=== PATIENT | male | born 1990 | race Caucasian/White ===

== ENCOUNTER 2025-06-07 12:59 | Emergency (ER) | payer OTHER, SELFPAY ==
[2025-06-07 13:01] VITALS: BP 131/90; PULSE 85; RESP 16; TEMP 37.1; O2SAT 100; BMI 29.8
--- NOTE | 2025-06-07 13:45 | EKG12_ITS ---
Test Reason : CP Blood Pressure : */* mmHG Vent. Rate : 82 BPM Atrial Rate : 82 BPM P-R Int : 126 ms QRS Dur : 92 ms QT Int : 374 ms P-R-T Axes : 24 3 26 degrees QTcB Int : 436 ms Normal sinus rhythm Normal ECG Confirmed by BERTO AUGUSTIN, WENDY ([id number]), visual effects editor LARRY ROTH ([id number]) on 06/11/2025 9:02:03 AM Referred By: JENN/SERGEY Confirmed By: WENDY THOMSON MD
--- NOTE | 2025-06-07 13:45 | CT_ITS ---
PROCEDURE: CTA HEAD AND NECK W/ CONTRAST 06/07/2025 REASON FOR EXAM: HEADACHE, LEFT ARM PARAESTHESIAS Chest pain. TECHNIQUE: Procedure Code: CTCTA.HDNCK Modality: CT Procedure: CTA HEAD AND NECK W/ CONTRAST Multiplanar Sagittal and Coronal images were obtained. 3D post processing was performed CONTRAST: Isovue 370 VOLUME: 100 mL One or more dose reduction techniques were used (e.g., Automated exposure control, adjustment of the mA and/or kV according to patient size, use of iterative reconstruction technique). RADIATION DOSE SUMMARY: CTDlvol: 28.6 mGy DLP: 1600.71 mGycm COMPARISON: None FINDINGS: Aortic Arch: Minimal atherosclerotic plaque formation of the aortic arch. Brachiocephalic and Subclavians: Unremarkable RIGHT Carotid: Right CCA: Unremarkable. Right ICA: Minimal calcific plaque Right ECA: Unremarkable. LEFT Carotid: Left CCA: Unremarkable. Left ICA: Unremarkable. Left ECA: Unremarkable. Vertebrals: Codominant. Arise from the subclavians. Both vertebrals form the basilar. RIGHT Vertebral: Unremarkable. LEFT Vertebral: Unremarkable. Anatomy: [place] anatomy is normal. Aneurysm or avm: No intracranial aneurysms or large vascular malformations are identified. Anterior cerebral arteries: Unremarkable: Middle cerebral arteries: Unremarkable. Basilar artery: Unremarkable. Posterior cerebral arteries: Unremarkable. Other major branches of the posterior circulation: Unremarkable. Major venous structures: Unremarkable. Other findings: Neck: Lungs: Bones: CT/CTA Head AND Neck W/ Contrast IMPRESSION: Minimal calcific plaque at the origin of the right internal carotid artery. Reading Location: [id number]
--- NOTE | 2025-06-07 13:47 | EX.ED.DYSGE1 ---
HPI History of Present Illness Chief Complaint: Chest Pain Detail of Chief Complaint: Chest pain and left arm paresthesias Informant: patient Narrative Narrative: Patient presents with multiple vague complaints progressively worse over the last 2 to 3 weeks. Patient states that he has had symptoms like this throughout the years but have never lasted this long. He describes a burning discomfort in his left shoulder that at times radiates down to his left hand and at times into his jaw. He describes headache by the end of the day and lightheadedness and feels off balance. Describes diffuse fatigue. He states that he feels shaky on the inside at times. At times he said difficulty swallowing. Gives history of diverticulitis and history of GERD and had recent upper and lower scopes that were unremarkable otherwise. Patient states he has had headaches his whole life. He feels like he has history of anxiety but currently not being treated. He does have history of hypertension and high cholesterol. No cardiac history and he does not know his father's history. Denies recent travel or surgery. [facility] Medical History (Updated 06/07/25 @ 14:[address] Leah Partida, DO) Chest pain Home Medications ?Medication ?Instructions ?Recorded ?Last Taken ?Type lorazepam 1 mg tablet (Ativan) 1 mg PO TID PRN anxiety #10 tabs 06/07/25 Unknown Rx Allergy/AdvReac Type Severity Reaction Status Date / Time No Known Allergies Allergy Verified 06/07/25 13:02 Social History (Updated 06/07/25 @ 13:15 by Nancy Cornelius) household members: spouse housing: house Smoking Status: Never smoker ROS ROS ED ROS Narrative Feeling shaky Review of Systems ROS Unobtainable: other Constitutional Constitutional ED: Reports lethargy; Denies chills, fever(s), sweats or weight loss Eyes Eyes: Denies blurry vision, change in vision or diplopia ENT ENT ED: Denies rhinorrhea or sore throat Cardiovascular Cardiovascular: Reports chest pain; Denies orthopnea or racing heartbeat Respiratory/Chest Respiratory/Chest: Denies cough, dyspnea, dyspnea on exertion, orthopnea or sputum Gastrointestinal Gastrointestinal: Reports other Details: Trouble swallowing ; Denies abdominal pain, diarrhea, nausea or vomiting Genitourinary Genitourinary ED: Denies dysuria, hematuria or urinary frequency Musculoskeletal Musculoskeletal: Denies arthralgias, back pain, myalgias or neck pain Integumentary Denies abscess, Abrasions or rash Neurologic Neurologic: Reports headache(s), paresthesias and other Details: Feeling off balance ; Denies weakness Psychiatric Psychiatric: Denies anxiety, depression or suicidal thoughts Endocrine Endocrinology: Denies polydipsia, polyphagia or polyuria Hematologic/Lymphatic Hematologic/Lymphatic: Denies easy bleeding, easy bruising or lymphadenopathy Allergic/Immunologic Allergic/Immunologic ED: Denies mouth swelling, tongue swelling or urticaria EXAM Physical Exam Const Vital Signs: 06/07/25 13:01 06/07/25 13:51 06/07/25 14:01 Temperature 98.7 F Temperature Source Oral Pulse Rate 85 86 Respiratory Rate 16 Blood Pressure 131/90 H 153/97 H Blood Pressure Mean 103 115 Pulse Ox 100 100 100 Oxygen Delivery Method Room Air Room Air Positive well nourished and well developed General Appearance ED: well developed and NAD HEENT Reports TM's clear and moist mucous membranes normocephalic and atraumatic; Negative for trauma or tenderness Tympanic Membrane ED: Yes TM's clear Eyes PERRL and EOMs intact bilaterally General Eye ED: Negative for pale conjunctiva or scleral icterus Neck no lymphadenopathy, supple and no JVD General: Negative for tenderness Chest Wall inspection of chest normal and palpation of chest normal Chest: Negative for tenderness Resp normal respiratory effort and clear to auscultation bilaterally Effort and Inspection: Negative for respiratory distress or pain with movement Auscultation: Negative for rhonchi, wheezes or diminished lung sounds Cardio regular rate, regular rhythm, S1 normal heart sound, S2 normal heart sound and no murmurs Peripheral Pulses: pulses 2+ throughout GI normal to inspection, nondistended, normoactive bowel sounds, soft to palpation, non-tender, non-distended and no masses Back/Spine no CVA tenderness and no thoracic nor lumbar tenderness Extremity normal to inspection General Extremety ED: Negative for edema General Extremity: Negative for edema Neuro oriented x3, CN's II-XII intact bilaterally, no sensory deficits noted and gait normal Sensorium / Orientation: awake, alert, oriented to person, oriented to place and oriented to time Motor Exam: strength 5/5 throughout and strength abnormal Psych mental status grossly normal Skin no rashes or lesions noted and no wounds MDM MDM MDM Narrative Medical decision making narrative: Patient presents to the ER with multiple complaints. Symptoms have been ongoing for years but worse over the last 2 to 3 weeks for another consistent. Clinically he looks well but does have history of hypertension and high cholesterol. He has history of frequent headaches. Low suspicion for cardiac etiology. EKG obtained on arrival showed a sinus rhythm with rate of 82 bpm with no acute ST segment changes. CBC with differential shows a white count of 16.1 with hemoglobin 16 and platelet count of 350. Chemistry is unremarkable. Troponin normal at 7. I did obtain a CT scan of the brain without contrast as well as CTA of head and neck to rule out intracranial process such as brain tumor or aneurysm and these tests were unremarkable. This point discussed results with patient. Etiology of his elevated WBC count unclear. He has not had any significant infectious signs or symptoms. Suspect possibility of anxiety as etiology of his symptomatology. He is willing to try some as needed Ativan and then follow-up with his primary care physician. Lab Data Attestation: I reviewed the patient's lab results. Labs: Laboratory Results - last 24 hr 06/07/25 13:12 WBC 16.1 H RBC 5.12 Hgb 16.0 Hct 45.9 MCV 89.6 MCH 31.3 MCHC 34.9 RDW Std Deviation 43.0 RDW Coeff of Ciro 13.1 Plt Count 350 MPV 9.9 Immature Gran % (Auto) 0.300 Neut % (Auto) 78.1 H Lymph % (Auto) 16.0 L Bartholomew % (Auto) 5.0 Eos % (Auto) 0.2 Baso % (Auto) 0.4 Absolute Neuts (auto) 12.5 H Absolute Lymphs (auto) 2.56 Nucleated RBC % 0 Sodium 139 Potassium 4.2 Chloride 102 Carbon Dioxide 22.5 Anion Gap 14 BUN 14 Creatinine 0.79 Estim Creat Clear Calc 144.61 Est GFR (MDRD) Non-Af 118 BUN/Creatinine Ratio 17.8 Glucose 89 Calcium 10.0 Troponin T High Sens 7 Radiography Diagnostic Testing: Clinical Impression(s) from Imaging Studies Head/Neck CTA 06/07/25 13:45 IMPRESSION: Minimal calcific plaque at the origin of the right internal carotid artery. [id number] 06/07/25 13:50 IMPRESSION: No acute intracranial abnormality. Reading Location: [facility] Chest X-Ray 06/07/25 14:00 IMPRESSION: No Acute Findings. Reading [id number] chest x-ray obtained interpreted by myself as no evidence of infiltrate or pneumothorax or acute disease process. Radiology in agreement. EKG Initial EKG: Attestation: I personally reviewed and interpreted this EKG as follows: Comments: Sinus rhythm with rate of 82 bpm with no acute ST segment changes Discharge Plan Triage Chief Complaint: Chest Pain ED Provider: Leah Partida Dx/Rx/DC Orders Clinical Impression: Chest pain, Anxiety, Headache Instructions: ED Anxiety Reaction, ED Chest Pain, Uncertain Cause, ED Headache, Tension Prescriptions: New lorazepam [Ativan] 1 mg tablet 1 mg PO TID PRN (Reason: anxiety) Qty: 10 0RF Primary Care Provider: Rosario Roberts Referrals: Rosario Roberts MD [Primary Care Provider] - 3-5 Days Print Language: Greek Disposition Disposition: Home, Self Care
--- NOTE | 2025-06-07 13:50 | CT_ITS ---
PROCEDURE: BRAIN/HEAD WITHOUT CONTRAST 06/07/2025 REASON FOR EXAM: HEADACHE TECHNIQUE: Procedure Code: CTBR Modality: CT Procedure: BRAIN/HEAD WITHOUT CONTRAST Coronal and Sagittal reconstruction series were provided. One or more dose reduction techniques were used (e.g., Automated exposure control, adjustment of the mA and/or kV according to patient size, use of iterative reconstruction technique. RADIATION DOSE SUMMARY: CTDlvol: 88 mGy DLP: 1600 mGycm COMPARISON: None FINDINGS: Brain: There is no evidence of hemorrhage, acute ischemia or mass. No extra- axial fluid collection, midline shift or mass effect. CSF Spaces: Normal Sinuses/Mastoids: Clear. Bones: No fracture Small benign calcifications are shown in the scalp posteriorly. CT/Brain/Head without Contrast IMPRESSION: No acute intracranial abnormality. Reading Location: [id number]
[2025-06-07 13:51] VITALS: O2SAT 100
[2025-06-07 13:57] LABS: Hematocrit 45.9 % (40-54); Hemoglobin 16.0 g/dL (13.0-16.5); Immature Granulocytes Count 0.050 X10^3/uL (0.0-0.0); Mean Corp Hgb Conc 34.9 g/dL (32-36); Mean Corpuscular Volume 89.6 fL (80-94); Mean Platelet Vol. 9.9 fl (6.2-12.0); NRBC Flagged by Analyzer 0 % (0-5); Platelet Count 350 K/mm3 (150-450); RBC Distribution Width CV 13.1 % (11.6-14.6); RBC Distribution Width SD 43.0 fl (35.1-43.9); Red Blood Count 5.12 M/mm3 (4.6-6.2); White Blood Count 16.1 K/mm3 (4.4-11.0)
--- NOTE | 2025-06-07 14:00 | RAD_ITS ---
PROCEDURE: CHEST 1 VIEW (PORTABLE) 06/07/2025 REASON FOR EXAM: CHEST PAIN TECHNIQUE: Frontal view of the chest. COMPARISON: None FINDINGS: Hardware: EKG electrodes are seen. Heart: Cardiac and mediastinal contours are stable. Lungs: The lungs are clear. Bones: The bones are unremarkable. Other: RAD/Chest 1 View (Portable) IMPRESSION: No Acute Findings. Reading Location: [id number]
[2025-06-07 14:01] VITALS: BP 153/97; PULSE 86; O2SAT 100
[2025-06-07] MEDS: 0.9% Normal Saline (1000mL) 1,000 ML 150 ML IV (14:11)
[2025-06-07 14:29] LABS: Anion Gap 14 (5-15); BUN 14 mg/dL (4-19); BUN/Creat Ratio 17.8 RATIO (10-20); Calcium,Total 10.0 mg/dL (7.6-11.0); Carbon Dioxide 22.5 mmol/L (21.0-32.0); Chloride 102 mmol/L (98-108); Estimated Creatinine Clearance 144.61 ml/min (50-250); Glucose 89 mg/dL (70-99); Potassium 4.2 mmol/L (3.3-5.1); Troponin T High Sensitivity 7 ng/L (<=22)
[2025-06-07 15:03] VITALS: BP 150/75; PULSE 86; RESP 16; TEMP 36.7; O2SAT 100
== END 2025-06-07 15:04 | disposition home or self-care (01) ==
PROVIDERS: Emergency Provider Emergency Medicine; PCP General Practice; Visit Provider Emergency Medicine
DX: R07.9 Chest pain, unspecified (principal); E78.00 Pure hypercholesterolemia, unspecified; I10 Essential (primary) hypertension; F41.9 Anxiety disorder, unspecified; R51.9 Headache, unspecified
CPT/HCPCS: 70450; 70496; 70498; 71045; 80048; 84484; 85025; 93005; 96360; 99283; Q9967; A4216

== ENCOUNTER 2025-08-12 13:41 | Emergency (ER) | payer OTHER, SELFPAY ==
[2025-08-12] VITALS (8 sets, daily range): BP systolic 114–152; BP diastolic 63–75; PULSE 67–105; RESP 14–24; TEMP 36.8–37.3; O2SAT 97–100; BMI 29.0
--- NOTE | 2025-08-12 14:37 | ED.RN ---
pt has multiple complaints.
--- OUTSIDE RECORDS SUMMARY | 2025-08-12 15:10 | XMS RPT_ITS | CCD ---
Author Organization [facility] Care Team Providers Care Ortho Assistant Name Role Phone NALLAPANENI, NELIDA K Unavailable Unavailabl e GREGORY QUINONES Unavailable Unavailab le GEETHA, NELIDA K Unavailable Unavailabl e Armando, Rebeca Unavailable Unavailable Wil, Fernando Unavailable Unavailable Leandra Moyeraled Unavailable Unavailable Armando, Rebeca Unavailable Unavailable Armando, Rebeca Unavailable Unavailable Wil, Fernando Unavailable Unavailable Dilma Galaviz Unavailable Unavailable Ray, Mat Unavailable Unavailable Armando, Rebeca Unavailable Unavailable Unavailable Albina Roberts Primary Care Provider Albina Roberts Primary Care Provider Albina Roberts MD Primary Care Provider [phone] Albina Roberts MD Primary Care Provider [phone] Albina Roberts MD Primary Care Provider Albina Roberts MD Unavailable Indira Valles Referring Unavailable ARMANDO, REBECA Primary Care Unavailable Indira Valles Referring Unavailable ARMANDO, REBECA Primary Care Unavailable PROVIDER, UNKNOWN Referring Unavailable ARMANDO, ALBINA ACKERMAN Primary Care Unavailable PROVIDER, UNKNOWN Referring Unavailable ARMANDO, ALBINA ACKERMAN Primary Care Unavailable PROVIDER, UNKNOWN Referring Unavailable ARMANDO, REBECA Primary Care Unavailable ARMANDO, REBECA Primary Care Unavailable INDIRA VALLES Referring Unavailable ARMANDO, REBECA Primary Care Unavailable TAYLOR PIERSON Attending Unavailable ARMANDO, REBECA Primary Care Unavailable INDIRA VALLES Referring Unavailable INDIRA VALLES Referring Unavailable ARMANDO, ALBINA ACKERMAN Primary Care Unavailable JULESNUNUMEKA WALLER Attending Unavailable INDIRA VALLES Attending Unavailable ARMANDO, ALBINA ACKERMAN Primary Care Unavailable ARMANDO, ALBINA ACKERMAN Primary Care Unavailable INDIRA VALLES Referring Unavailable Dr. Leah Partida DO Emergency Provider Dr. Albina Roberts MD Primary Care Provider Leah Partida Attending Unavailable Armando, Albina Ackerman Primary Care Unavailable Albina Roberts MD Primary Care Provider ALBINA ROBERTS Attending Unavailable ARMANDO, ALBINA ACKERMAN Primary Care Unavailable DILMA GALAVIZ Referring Unavailable ARMANDO, ALBINA ACKERMAN Primary Care Unavailable DILMA GALAVIZ Attending Unavailable ARMANDO, ALBINA ACKERMAN Primary Care Unavailable DILMA GALAVIZ Referring Unavailable ARMANDO, ALBINA ACKERMAN Primary Care Unavailable Allergies Allergy Classification Reported Allergen(s) Allergy Type Date of Onset Reaction(s) Facility (15 sources) Iodine; Translations: [IODINE] Drug Allergy 11-02-2024 Other: See Comments [facility] Medications Current Medications Medication Drug Class(es) Dates Sig (Normalized) Sig (Original) ciprofloxacin 500 mg oral tablet (6 sources) Quinolone Antimicrobial Start: 11-04-2024 End: 11-14-2024 take 1 tablet by mouth twice daily ciprofloxacin HCl (CIPRO) 500 mg tablet Take 1 tablet by mouth two times a day for 10 days. Finish entire course. 20 tablet 11/04/2024 11/14/2024 Active Start: 06-22-2024 End: 06-27-2025 take 1 tablet by mouth twice daily ciprofloxacin HCl (CIPRO) 500 mg tablet Take 1 tablet by mouth two times a day for 10 days. Finish entire course. 20 tablet 06/22/2024 07/02/2024 Active dicyclomine hydrochloride 20 mg oral tablet (1 source) Anticholinergic Start: 11-01-2023 End: 12-01-2023 take 1 tablet by mouth every six hours as needed dicyclomine (BENTYL) 20 mg tablet Take 1 tablet by mouth every 6 hours as needed (for constipation / urgency). 90 tablet 0 11/01/2023 12/01/2023 Active Comment on above: Take 1 tablet by enedina th every 6 hours as needed (for constipation / urgency). enteric contrast (will be provided with radiology test) (17 sources) Start: 11-02-2024 enteric contrast (will be provided with radiology test) For CT ABD/PEL W IVCON Routine order Administer, As Directed One Time Only, via Oral, Rectal, both Oral and Rectal, Enteric Tube, Stoma or Indwelling Catheter, Enteric Contrast as designated per enteric contrast guidelines 1 Each 11/02/2024 Active Start: 06-20-[address] (will be provided with radiology test) For CT ABD/PEL W IVCON Routine order Administer, As Directed One Time Only, via Oral, Rectal, both Oral and Rectal, Enteric Tube, Stoma or Indwelling Catheter, Enteric Contrast as designated per enteric contrast guidelines 1 Each 06/20/2024 Active Start: 02-02-2022 End: 02-03-2022 enteric contrast (will be pr ovided with radiology test) For CT ABD/PEL W IVCON Routine order Administer, As Directed One Time Only, via Oral, Rectal, both Oral and Rectal, Enteric Tube, Stoma or Indwelling Catheter, Enteric Contrast as designated per enteric contrast guidelines 1 Each 0 02/02/2022 02/03/2022 Active Comment on above: For CT ABD/PEL W IVC ON Routine order Administer, As Directed One Time Only, via Oral, Rectal, both Oral and Rectal, Enteric Tube, Stoma or Indwelling Catheter, Enteric Contrast as designated per enteric contrast guidelines ezetimibe 10 mg oral tablet (5 sources) Dietary Cholesterol Absorption Inhibitor Start: 5 End: 6 take 1 tablet by mouth once daily ezetimibe (Zetia) 10 mg tablet Indications: Mixed hyperlipidemia Take 1 tablet (10 mg) by mouth once daily. 30 tablet 11 08/01/2025 08/01/2026 Active famotidine 40 mg oral tablet (8 sources) Histamine-2 Receptor Antagonist Start: 4 End: 5 take 1 tablet by mouth once daily as needed famotidine (PEPCID) 40 mg tablet Take 1 tablet by mouth once daily as needed (for breakthrough acid reflux). 30 tablet 2 08/21/2024 11/19/2024 Active Start: 12-13-2023 End: 12-20-2023 take 1 tablet by mouth twice daily famotidine (PEPCID) 40 mg tablet Take 1 tablet by mouth two times a day for 7 days. 14 tablet 0 12/13/2023 12/20/2023 Active Comment on above: Take 1 tablet by enedina th two times a day for 7 days. iv contrast (will be provided with radiology test) (17 sources) Start: 11-02-2024 iv contrast (will be provided with radiology test) CT ABD/PEL -Inject, intravenously, once for 1 dose.No IV access, insert saline lock prior to the beginning of sedation, infusion, injection of imaging exam. Discontinue saline lock post exam. If Pt. has a central line or IVAD, may access for administration according to line specific nursing protocol. Once exam is complete flush line and de-access according to line specific nursing protocol in the CT contrast administration guidelines link. 1 Each 11/02/2024 Active Start: 06-20-2024 iv contrast (w ill be provided with radiology test) CT ABD/PEL -Inject, intravenously, once for 1 dose.No IV access, insert saline lock prior to the beginning of sedation, infusion, injection of imaging exam. Discontinue saline lock post exam. If Pt. has a central line or IVAD, may access for administration according to line specific nursing protocol. Once exam is complete flush line and de-access according to line specific nursing protocol in the CT contrast administration guidelines link. 1 Each 06/20/2024 Active Start: 02-02-2022 End: 02-03-2022 iv contrast (will be provide d with radiology test) CT ABD/PEL -Inject, intravenously, once for 1 dose.No IV access, insert saline lock prior to the beginning of sedation, infusion, injection of imaging exam. Discontinue saline lock post exam. If Pt. has a central line or IVAD, may access for administration according to line specific nursing protocol. Once exam is complete flush line and de-access according to line specific nursing protocol in the CT contrast administration guidelines link. 1 Each 0 02/02/2022 02/03/2022 Active Comment on above: CT ABD/PEL -Inject, intravenously, once for 1 dose.No IV access, insert saline lock prior to the beginning of sedation, infusion, injection of imaging exam. Discontinue saline lock post exam. If Pt. has a central line or IVAD, may access for administration according to line specific nursing protocol. Once exam is complete flush line and de-access according to line specific nursing protocol in the CT contrast administration guidelines link. lisinopril 30 mg oral tablet (20 sources) Angiotensin Converting Enzyme Inhibitor Start: 5 End: 6 take 1 tablet by mouth once daily lisinopril 30 mg tablet Indications: Chest discomfort Take 1 tablet (30 mg) by mouth once daily. 90 tablet 3 06/27/2025 06/27/2026 Active Start: 04-15-2024 End: 06-27-2025 take 1 tablet by mouth once daily lisinopril 20 mg tablet Indications: Chest discomfort Take 1 tablet (20 mg) by mouth once daily. 90 tablet 3 06/26/2024 06/27/2025 Discontinued (Reorder) Start: 03-07-2019 take 1 tablet by enedina th once daily Lisinopril 20 MG Oral Tablet Take 1 tablet daily Quantity: 90 Refills: 3 Ordered: 23-Apr-2023 Dilma Galaviz DO Start : 07-Mar-2019 Active Start: 04-01-2018 lisinopril (ZE STRIL, PRINIVIL) 10 mg tablet Take by mouth. 04/01/2018 Active Comment on above: Take by mouth. LORazepam 1 mg oral tablet (1 source) Benzodiazepine Start: 06-07-20 take 1 tablet by mouth three times daily as needed for anxiety Lorazepam (Ativan) 1 mg tablet Active 1 mg PO THREE TIMES A DAY as needed for anxiety June 07, 2025 12:00am 24 hr metoprolol succinate 25 mg extended release oral tablet (20 sources) beta-Adrenergic Edmar Start: 04-15-20 24 End: 06-26-20 25 take 1 tablet by mouth once daily metoprolol succinate XL (Toprol-XL) 25 mg 24 hr tablet Indications: Heart palpitations Take 1 tablet (25 mg) by mouth once daily. 90 tablet 3 06/26/2024 Active Start: 09-02-2018 take 1 tablet by enedina th once daily Metoprolol Succinate ER 25 MG Oral Tablet Extended Release 24 Hour Take 1 tablet daily Quantity: 90 Refills: 3 Ordered: 23-Apr-2023 Dilma Galaviz DO Start : 02-Sep-2018 Active Start: 09-02-2018 take 1 tablet by enedina th once daily Metoprolol Succinate ER 100 MG Oral Tablet Extended Release 24 Hour TAKE 1 TABLET DAILY. Quantity: 90 Refills: 0 Albina Roberts MD Start : 02-Sep-2018 Active metoprolol tartr ate, short acting, (LOPRESSOR) 100 mg tablet Take 50 mg by mouth once daily. Active take 1 tablet by enedina th once daily metoprolol tartrate, short acting, (LOPRESSOR) 100 mg tablet Take 100 mg by mouth once daily. 0 Active Comment on above: Take 100 mg by mouth once daily. Take 50 mg by mouth once daily. metroNIDAZOLE 500 mg oral tablet (6 sources) Nitroimidazole Antimicrobial Start: 11-04-19 End: 11-14-19 take 1 tablet by mouth three times daily metroNIDAZOLE (FLAGYL) 500 mg tablet Take 1 tablet by mouth three times a day for 10 days. Finish entire course. 30 tablet 11/04/2024 11/14/2024 Active Start: 06-22-2024 End: 06-27-2025 take 1 tablet by mouth three times daily metroNIDAZOLE (FLAGYL) 500 mg tablet Take 1 tablet by mouth three times a day for 10 days. Finish entire course. 30 tablet 06/22/2024 07/02/2024 Active nortriptyline 10 mg oral capsule (20 sources) Tricyclic Antidepressant Start: 08-21-2024 End: 11-19-2024 take 1 capsule by mouth once daily at bedtime nortriptyline (PAMELOR) 10 mg capsule Take 1 capsule by mouth daily at bedtime. 30 capsule 2 08/21/2024 Active Start: 06-14-2024 End: 06-14-2025 nortriptyline (Pamelor) 25 m g capsule Take 1 capsule (25 mg) by mouth. 06/14/2024 Active Start: 01-27-2024 End: 06-14-2024 take 1 capsule by mouth once daily at bedtime nortriptyline (PAMELOR) 50 mg capsule Indications: Irritable bowel syndrome with diarrhea Take 1 capsule by mouth daily at bedtime. 90 capsule 3 01/27/2024 06/14/2024 Discontinued Start: 11-18-2023 End: 01-17-2024 take 1 capsule by mouth once daily at bedtime nortriptyline (PAMELOR) 50 mg capsule Indications: Irritable bowel syndrome with diarrhea Take 1 capsule by mouth daily at bedtime. 60 capsule 0 11/18/2023 01/17/2024 Active Start: 10-07-2023 End: 11-02-2023 take 1 capsule by mouth once daily at bedtime nortriptyline (PAMELOR) 75 mg capsule Indications: Irritable bowel syndrome with diarrhea Take 1 capsule by mouth daily at bedtime. 30 capsule 0 10/07/2023 11/02/2023 Discontinued Start: 04-08-2022 Nortriptyline HCl - 75 MG Oral Capsule 1 at bedtime Quantity: 0 Refills: 0 Ordered: 15-Apr-2022 DO Start : 08-Apr-2022 Active Start: 10-30-2021 End: 07-09-2023 take 1 capsule by mouth once daily at bedtime nortriptyline (PAMELOR) 75 mg capsule Indications: Irritable bowel syndrome with diarrhea Take 1 capsule by mouth daily at bedtime. 90 capsule 1 03/09/2023 07/09/2023 Discontinued Comment on above: Take 1 capsule by mo [facility] daily at bedtime. pantoprazole 40 mg delayed release oral tablet (20 sources) Proton Pump Inhibitor Start: 12-11-19 End: 10-19-19 take 1 tablet by mouth once daily before breakfast pantoprazole DR (PROTONIX) 40 mg tablet Indications: Gastroesophageal reflux disease without esophagitis Take 1 tablet by mouth once daily. Take 30-60 minutes before breakfast on an empty stomach. 90 tablet 3 10/19/2024 10/19/2025 Active Comment on above: TAKE 1 TABLET BY ENEDINA EVERY DAY 30 TO 60 MINUTES BEFORE BREAKFAST ON AN EMPTY STOMACH Take 1 tablet by enedina once daily. Take 30-60 minutes before breakfast on an empty stomach. predniSONE 50 mg oral tablet (12 sources) Start: 11-28-19 predniSONE (DELTASONE) 50 mg Take 1 tablet 13 hours prior, 1 tablet 7 hours prior, and 1 tablet 1 hour prior to test. Take 50 mg Benadryl (OTC) 30 min prior to test. 3 tablet 11/28/2024 Active Start: 11-02-2024 predniSONE (DE LTASONE) 50 mg Take 1 tablet 13 hours prior, 1 tablet 7 hours prior, and 1 tablet 1 hour prior to test. Take 50 mg Benadryl (OTC) 30 min prior to test. 3 tablet 11/02/2024 Active rosuvastatin calcium 40 mg oral tablet (5 sources) HMG-CoA Reductase Inhibitor Start: 07-30-2025 End: 07-30-2026 take 1 tablet by mouth once daily rosuvastatin (Crestor) 40 mg tablet Indications: Mixed hyperlipidemia Take 1 tablet (40 mg) by mouth once daily. 30 tablet 11 07/30/2025 07/30/2026 Active Completed/Discontinued Medications Medication Drug Class(es) Dates Sig (Normalized) Sig (Original) lidocaine 0.05 mg/mg medicated patch (5 sources) Antiarrhythmic, Amide Local Anesthetic Start: 11-12-2022 Lidocaine 5 % External Patch APPLY 1 PATCH TO THE AFFECTED AREA AND LEAVE IN PLACE FOR 12 HOURS, THEN REMOVE AND LEAVE OFF FOR 12 HOURS. Quantity: 1 Refills: 0 Ordered: 12-Nov-2022 Albina Roberts MD Start : 12-Nov-2022 Active magnesium citrate 58.2 mg/ml oral solution (2 sources) Start: 11-30-2024 End: 11-30-2024 take 296 mL by mouth once magnesium citrate solution Indications: bowel evacuation Take 296 mL by mouth one time only for 1 dose. 296 mL 11/30/2024 11/30/2024 Start: 06-14-2024 End: 06-14-2024 take 296 mL by mouth once magnesium citrate solution Indications: bowel evacuation Take 296 mL by mouth one time only for 1 dose. 296 mL 06/14/2024 06/14/2024 Active psyllium 3400 mg powder for oral suspension (5 sources) Start: 02-09-2022 End: 11-01-2023 Psyllium powd Take 6 teaspoonsful by mouth once daily. 0 02/09/2022 11/01/2023 Discontinued (Other) Start: 12-02-2020 psyllium (META MUCIL) 3.4 gram packet Indications: constipation Take 3 Packets by mouth once daily. 0 12/02/2020 Active Comment on above: Take 3 Packets by mo uth once daily. Take 6 teaspoonsful by mouth once daily. Tc-99m tetrofosmin (Myoview) injection 23.9 millicurie (1 source) Start: End: 5 23.9 millicurie, intravenous, Once in imaging, Starting on Wed08/10/25 at 1307, For 1 dose, Administer 45 to 90 minutes prior to imaging unless otherwise indicated. Tc-99m tetrofosmin (Myoview) injection 8.1 millicurie (1 source) Start: 5 End: 5 8.1 millicurie, intravenous, Once in imaging, Starting on Wed08/10/25 at 1305, For 1 dose, Administer 45 to 90 minutes prior to imaging unless otherwise indicated. topiramate 50 mg oral tablet (5 sources) Start: 9 take 1 tablet by mouth at bedtime Topiramate 50 MG Oral Tablet take 1 tablet by mouth at bedtime Quantity: 30 Refills: 0 Fernando De La Torre MD Start : 02-Feb-2019 Active Start: 02-02-2019 take 0.5 tablet by m outh at bedtime, then take 1 tablet by mouth at bedtime Topiramate 25 MG Oral Tablet TAKE 1/2 TABLET BY MOUTH AT BEDTIME FOR 7 DAYS THEN TAKE 1 TABLET BY MOUTH AT BEDTIME THERAFTER Quantity: 30 Refills: 0 Fernando De La Torre MD Start : 02-Feb-2019 Active valACYclovir 1000 mg oral tablet (4 sources) Herpesvirus Nucleoside Analog DNA Polymerase Inhibitor, Herpes Simplex Virus Nucleoside Analog DNA Polymerase Inhibitor, Herpes Zoster Virus Nucleoside Analog DNA Polymerase Inhibitor Start: 11-12-2022 take 1 tablet by mouth three times daily valACYclovir HCl - 1 GM Oral Tablet TAKE 1 TABLET 3 TIMES DAILY. Quantity: 21 Refills: 0 Ordered: 12-Nov-2022 Albina Roberts MD Start : 12-Nov-2022 Active Problems Active Problems Problem Classification Problem Date Documented Da te Episodic/Chronic Abdominal pain (15 sources) Left lower quadrant pain; Translations: [Left lower quadrant pain] Onset: 4 Episodic Anxiety disorders (20 sources) Anxiety; Translations: [Anxiety state, unspecified] Onset: 6 04-03-2024 Chronic Disorders of lipid metabolism (11 sources) Hyperlipidemia; Translations: [Other and unspecified hyperlipidemia] Onset: 4 06-06-2024 Chronic Disorders usually diagnosed in infancy, childhood, or adolescence (9 sources) Attention deficit hyperactivity disorder, predominantly inattentive type; Translations: [Other specified behavioral and emotional disorders with onset usually occurring in childhood and adolescence] Onset: 6 04-03-2024 Chronic Diverticulosis and diverticulitis (4 sources) Diverticulitis; Translations: [Diverticulitis of intestine, part unspecified, without perforation or abscess without bleeding] Onset: 5 06-22-2024 Chronic Esophageal disorders (20 sources) Gastroesophageal reflux disease; Translations: [Esophageal reflux] Onset: 6 10-21-2020 Chronic Essential hypertension (20 sources) Hypertensive disorder; Translations: [Unspecified essential hypertension] Onset: 6 06-26-2024 Chronic Mood disorders (9 sources) Moderate major depression, single episode; Translations: [Major depressive disorder, single episode, moderate] Onset: 7 04-03-2024 Chronic Nausea and vomiting (5 sources) Nausea; Translations: [Nausea] Onset: 5 11-03-2024 Episodic Nonspecific chest pain (20 sources) Chest discomfort; Translations: [Other chest pain] Onset: 4 06-26-2024 Episodic Other circulatory disease (20 sources) H/O: hypertension; Translations: [Personal history of other diseases of circulatory system] Episodic Other gastrointestinal disorders (20 sources) Irritable bowel syndrome with diarrhea; Translations: [Irritable bowel syndrome with diarrhea] Onset: 1 10-21-2020 Chronic Other gastrointestinal disorders (2 sources) Abdominal bloating; Translations: [Abdominal distension (gaseous)] 11-01-2023 Episodic Other nutritional; endocrine; and metabolic disorders (5 sources) Overweight; Translations: [Over weight] Chronic Other nutritional; endocrine; and metabolic disorders (19 sources) Overweight; Translations: [Overweight] Episodic Other screening for suspected conditions (not mental disorders or infectious disease) (19 sources) Patient encounter status; Translations: [Screening for lipoid disorders] Episodic Other upper respiratory infections (20 sources) Acute upper respiratory infection; Translations: [Acute upper respiratory infections of unspecified site] Episodic Residual codes; unclassified (20 sources) Obstructive sleep apnea syndrome; Translations: [Obstructive sleep apnea (adult)(pediatric)] Onset: 4 04-03-2024 Chronic Spondylosis; intervertebral disc disorders; other back problems (20 sources) Prolapsed cervical intervertebral disc; Translations: [Cervical radiculopathy] Onset: 4 04-03-2024 Chronic Substance-related disorders (9 sources) Tobacco dependence syndrome; Translations: [Nicotine dependence, unspecified, uncomplicated] Onset: 6 04-03-2024 Chronic Unclassified (2 sources) Unknown / UNK(Unknown) Onset: 7 Unclassified (2 sources) Sick Visit; Translations: [Sick Visit] Onset: 5 Past or Other Problems Problem Classification Problem Date Documented Da te Episodic/Chronic Cardiac dysrhythmias (20 sources) Palpitations; Translations: [Palpitations] Onset: 04-03-2024 06-26-2024 Episodic Headache; including migraine (20 sources) Daily headache; Translations: [Headache] Onset: 04-03-2024 04-03-2024 Episodic Nutritional deficiencies (9 sources) Cobalamin deficiency; Translations: [Deficiency of other specified B group vitamins] Onset: 03-03-2016 04-03-2024 Episodic Other connective tissue disease (20 sources) Other symptoms and signs involving the nervous system; Translations: [Disease suspected] Onset: 04-03-2024 04-03-2024 Episodic Other connective tissue disease (8 sources) Suspected respiratory disease; Translations: [Other symptoms and signs involving the nervous system] Onset: 04-03-2024 04-03-2024 Episodic Other disorders of stomach and duodenum (20 sources) Nonulcer dyspepsia; Translations: [Functional dyspepsia] Onset: 12-02-2020 12-02-2020 Episodic Other lower respiratory disease (20 sources) Nodule of lung; Translations: [Solitary pulmonary nodule] Onset: 04-03-2024 04-03-2024 Episodic Other nervous system disorders (20 sources) Finding of meninges; Translations: [Disorders of meninges, not elsewhere classified] Onset: 04-03-2024 04-03-2024 Episodic Other non-traumatic joint disorders (20 sources) Shoulder pain; Translations: [Pain in joint, shoulder region] Onset: 04-03-2024 04-03-2024 Episodic Other nutritional; endocrine; and metabolic disorders (20 sources) Obesity; Translations: [Obesity, unspecified] Onset: 04-03-2024 Resolved: 06-12-2025 04-03-2024 Chronic Other upper respiratory disease (20 sources) Nasal congestion; Translations: [Other disease of nasal cavity and sinuses] Onset: 04-03-2024 04-03-2024 Episodic Spondylosis; intervertebral disc disorders; other back problems (20 sources) Neck pain; Translations: [Cervicalgia] Onset: 04-03-2024 04-03-2024 Episodic Unclassified (1 source) EYE PROBLEMS Onset: 07-29-2017 Unclassified (5 sources) Finding of meninges; Translations: [Epidural mass] Unclassified (5 sources) Patient encounter status; Translations: [Screening cholesterol level] Unclassified (9 sources) Onset: 06-26-2024 Resolved: 07-24-2025 06-26-2024 Viral infection (14 sources) Herpes zoster; Translations: [Herpes zoster without mention of complication] Onset: 04-03-2024 04-03-2024 Episodic NEGATED: Highlighted row has not occurred!Residual codes; unclassified (20 sources) Disease Episodic Results Test Name Value Interpretation Reference Range Facility CARDIOLOGY INTERPRETATION OF NUCLEAR STRESSon 08-10-2025 CARDIOLOGY INTERPRETATION OF NUCLEAR STRESS [facility], [address] [place] [address] and Nuclear Treadmill Stress Test Patient Name: ALEKSANDRA MIRANDA Ordering Provider: [id number] DILMA GALAVIZ Study Date: 08/10/2025 Reading Physician: [id number] Roger Hill DO MRN/PID: [id number] Supervising Physician: [id number] Leach Fellow: Date of /Age: 12 1990 Fellow: years Gender: M Nurse: Socorro Naranjo RN PRN Admit Date: 08/10/2025 Bogger Operator: Admission Status: Outpatient Trimmer Buffing Wheel: ZOHRA Height: 177.80 cm Technologist: ALIN WORLEY Weight: 92.99 kg Additional Staff: Porsche Torre RN BSA: 2.11 m2 BMI: 29.41 kg/m2 [place] [facility] [place] Type: CARDIOLOGY INTERPRETATION OF NUCLEAR STRESS Diagnosis/ICD: Other chest pain-R07.89 Indication: CHEST PAIN, INCREASED CALCIUM SCORE CPT Code: Stress Test Interpretation-[id number]; Stress Test Supervision-[id number] Falls Risk: Low: Patient has a low risk for sustaining a fall; enviromental safety interventions in place. Study Details: Correct procedure and correct patient verified verbally. Patient History: Chest pain, coronary artery disease, hypertension and dyslipidemia. 34 y/o male presents to be evaluated for increased chest pain w previous history of elevated calcium score, hypertension and hyperlipidememia. Allergies: None. Smoker: Former. Medications: The patient's prescribed medication is zetia, lisinopril, toprol, pamelor, protonix, crestor. The patient did not take medications as prescribed. Patient Performance: The patient exercised to stage V on a Giuseppe protocol for 13 minutes and 31 seconds, achieving 16.20 METS. Patient received a total of 8.1/23.9 mCi of Myoview at 9:31:04 AM. The peak heart rate achieved was 193 bpm, which was 105 % of the age predicted target heart rate of 183 bpm. The resting blood pressure was 122/78 mmHg with a heart rate of 74 bpm. The standing blood pressure was 118/80 mmHg with a heart rate of 83 bpm. The patient's functional capacity was above average. The patient developed shortness of breath, fatigue and leg fatigue during the stress exam. The symptoms resolved with rest. The blood pressure response was hypertensive. The test was terminated due to: fatigue and dyspnea. Patient has met the discharge criteria and is discharged to home. Baseline ECG: Resting ECG showed normal sinus rhythm with rv conduction delay. Stress ECG: Stress ECG showed sinus tachycardia, with pvc's. No ST changes. Stress Stage Data: +---+------+-------+----- -----+ HR Sys BP Garcia BP Comments +---+------+-------+----- -----+ 74 122 78 +---+------+-------+----- -----+ 83 118 80 +---+------+-------+----- -----+ NO BASELINE SYMPTOMS +---+------+-------+----- -----+ 105 148 82 [place] cor[place]ank +---+------+-------+----- -----+ 129 168 84 left calf tightness +---+------+-------+----- -----+ 157 196 88 slight sob, calf tightness resolved +---+------+-------+----- -----+ 169 sob, fatigue, leg fatigue +---+------+-------+----- -----+ Recovery ECG: Recovery ECG showed normal sinus rhythm, with no abnormal findings. The heart rate recovery was normal. + +---+------+ -------+ + HR Sys BP Garcia BP Comments + +---+------+ -------+ + Recovery I 181 214 88 sob, tingling in gini feet + +---+------+ -------+ + Recovery II 146 146 80 slight sob, denies tingling in feet + +---+------+ -------+ + Recovery III 125 142 80 denies sx + +---+------+ -------+ + Recovery IV 123 142 78 denies sx + +---+------+ -------+ + Recovery V 116 132 78 denies sx + +---+------+ -------+ + Recovery 103 denies sx + +---+------+ -------+ + Recovery VII 78 post nuclear camera images final HR + +---+------+ -------+ + Summary: 1. Good exercise tolerance. 2. Adequate level of stress achieved. 3. No clinical or electrocardiographic evidence for ischemia at a maximal workload. 4. Nuclear image results are reported separately. [id number] Roger Hill DO Electronically signed on 08/11/2025 at 2:26:07 PM Final Summary: 1. Good exercise tolerance. 2. Adequate level of stress achieved. 3. No clinical or electrocardiographic evidence for ischemia at a maximal w (more content not included)... [facility] NM Heart Perfusion W stress and W radionuclide Diallo 08-10-2025 1. Negative for stress-induced ischemia or prior infarction. 2. The left ventricle is normal in size. 3. Normal LV wall motion with an LV EF estimated at greater than 65%. MACRO: None Signed by: Roger Hill 08/10/2025 3:47 PM Dictation workstation: [id number] [facility] Interpreted By: Roger Hill, STUDY: NUCLEAR STRESS TEST; 08/10/2025 1:07 pm INDICATION: Signs/Symptoms:chest pain, elevated ct ca score. ,R07.89 Other chest pain COMPARISON: None. ACCESSION NUMBER(S): [id number] ORDERING CLINICIAN: DILMA GALAVIZ TECHNIQUE: DIVISION OF NUCLEAR MEDICINE STRESS MYOCARDIAL PERFUSION SCAN, ONE DAY PROTOCOL The patient received an intravenous dose of 8.1 MILLICURIE of Tc-99m (Myoview) and resting emission tomographic (SPECT) images of the myocardium were acquired. The patient then exercised via treadmill stress to 104 % of MPHR and achieved 16 METS. At peak stress 23.9 MILLICURIE of Tc-99m (Myoview) were administered and stress phase SPECT images of the myocardium were then acquired. These included ECG-gated images to assess and quantify ventricular function. FINDINGS: Quality of the Study: Good Techincal Limitations/Significant Artifacts: No diaphragmatic attenuation, Breast Attenuation, Bowel/scatter artifact, Motion artifact, Technical issues, Apical thinning Cardiac Imaging: Images show no definite fixed or reversible perfusion defects throughout the visualized cardiac jean baptiste. Left ventricular size (EDV): Normal (normal less than 120 mL) Gated images: Normal wall motion and thickening. Left ventricular ejection fraction estimated at 66% (Normal 45% or greater) [facility] Roger Hill, DO - 08/10/2025 Interpreted By: Roger Hill, STUDY: NUCLEAR STRESS TEST; 08/10/2025 1:07 pm INDICATION: Signs/Symptoms:chest pain, elevated ct ca score. ,R07.89 Other chest pain COMPARISON: None. ACCESSION NUMBER(S): [id number] ORDERING CLINICIAN: DILMA GALAVIZ TECHNIQUE: DIVISION OF NUCLEAR MEDICINE STRESS MYOCARDIAL PERFUSION SCAN, ONE DAY PROTOCOL The patient received an intravenous dose of 8.1 MILLICURIE of Tc-99m (Myoview) and resting emission tomographic (SPECT) images of the myocardium were acquired. The patient then exercised via treadmill stress to 104 % of MPHR and achieved 16 METS. At peak stress 23.9 MILLICURIE of Tc-99m (Myoview) were administered and stress phase SPECT images of the myocardium were then acquired. These included ECG-gated images to assess and quantify ventricular function. FINDINGS: Quality of the Study: Good Techincal Limitations/Significant Artifacts: No diaphragmatic attenuation, Breast Attenuation, Bowel/scatter artifact, Motion artifact, Technical issues, Apical thinning Cardiac Imaging: Images show no definite fixed or reversible perfusion defects throughout the visualized cardiac jean baptiste. Left ventricular size (EDV): Normal (normal less than 120 mL) Gated images: Normal wall motion and thickening. Left ventricular ejection fraction estimated at 66% (Normal 45% or greater) IMPRESSION: 1. Negative for stress-induced ischemia or prior infarction. 2. The left ventricle is normal in size. 3. Normal LV wall motion with an LV EF estimated at greater than 65%. MACRO: None Signed by: Roger Hill 08/10/2025 3:47 PM Dictation workstation: [id number] [facility] Work Phone: Radiology Study observation (narrative) [facility] Work Phone: NM Heart Perfusion W stress and W radionuclide IVOrdered By: Roger Hill on 08-10-2025 [facility] Work Phone: NUCLEAR STRESS TESTon 2024 NUCLEAR STRESS TEST Interpreted By: Roger Hill, STUDY: NUCLEAR STRESS TEST; 08/10/2025 1:07 pm INDICATION: Signs/Symptoms:chest pain, elevated ct ca score. ,R07.89 Other chest pain COMPARISON: None. ACCESSION NUMBER(S): [id number] ORDERING CLINICIAN: DILMA GALAVIZ TECHNIQUE: DIVISION OF NUCLEAR MEDICINE STRESS MYOCARDIAL PERFUSION SCAN, ONE DAY PROTOCOL The patient received an intravenous dose of 8.1 MILLICURIE of Tc-99m (Myoview) and resting emission tomographic (SPECT) images of the myocardium were acquired. The patient then exercised via treadmill stress to 104 % of MPHR and achieved 16 METS. At peak stress 23.9 MILLICURIE of Tc-99m (Myoview) were administered and stress phase SPECT images of the myocardium were then acquired. These included ECG-gated images to assess and quantify ventricular function. FINDINGS: Quality of the Study: Good Techincal Limitations/Significant Artifacts: No diaphragmatic attenuation, Breast Attenuation, Bowel/scatter artifact, Motion artifact, Technical issues, Apical thinning Cardiac Imaging: Images show no definite fixed or reversible perfusion defects throughout the visualized cardiac jean baptiste. Left ventricular size (EDV): Normal (normal less than 120 mL) Gated images: Normal wall motion and thickening. Left ventricular ejection fraction estimated at 66% (Normal 45% or greater) IMPRESSION: 1. Negative for stress-induced ischemia or prior infarction. 2. The left ventricle is normal in size. 3. Normal LV wall motion with an LV EF estimated at greater than 65%. MACRO: None Signed by: Roger Hill 08/10/2025 3:47 PM Dictation workstation: [id number] [facility] APOLIPOPROTEIN Bon Apolipoprotein B [Mass/Vol] 127 mg/dL High <90 [facility] Comment on above: Result Comment: Reference Range: <90 Risk Category: Optimal <90 Moderate 90-129 High > or = 130 A desirable treatment target may be <80 mg/dL or lower depending on the risk category of the patient including patients on lipid lowering therapies, patients with ASCVD, diabetes with >1 risk factors, Stage 3 or greater CKD with albuminuria, or heterozygous familial hypercholesterolemia. ApoB relative risk category cut points are based AACE/OLIVER and ACC/AHA recommendations. (Maura SM, et al. 2019.doi:10.1016/j.jacc.2018.11.002; Isabel Y, et al. 2020. doi:10.8615/RL-0986-2323). Performed By: #### 3 4604, 5224 #### [facility]/[address] [employer] [place] Java Software: Errol Cuevas M.D.,PhD #### 7600, 36858 #### [facility] [place] [address] Java Software: Lion Brar MD COMPREHENSIVE METABOLIC PANE L W/ANION GAPon 07-29-2025 Albumin [Mass/Vol] 4.6 g/dL Normal 3.6-5.1 [facility] Comment on above: Performed By: #### 3 4874, 5224 #### [facility]/[address] [employer] [place] [employer] Software: Errol Cuevas M.D.,PhD #### 7600, 45670 #### [facility] [address] Java Software: Lion Brar MD ALP [Catalytic activity/Vol] 50 U/L Normal 36-130 [facility] Comment on above: Performed By: #### 3 4604, 5224 #### [facility]/[address] [place] Java Software: Errol Cuevas M.D.,PhD #### 7600, 34973 #### [facility] [address] [place] [address] Java Software: Lion Brar MD ALT [Catalytic activity/Vol] 26 U/L Normal 9-46 [facility] Comment on above: Performed By: #### 3 4604, 5224 #### [facility]/[place] [id number] [facility] [employer] [place] Java Software: Errol Cuevas M.D.,PhD #### 7600, 30242 #### [facility] of [address], [address] [place] [address] Java Software: Lion Brar MD AST [Catalytic activity/Vol] 18 U/L Normal 10-40 [facility] Comment on above: Performed By: #### 3 4604, 5224 #### [facility]/[address] [employer] [place] [employer] Software: Errol Cuevas M.D.,PhD #### 7600, 86373 #### [facility] of [address], [address] [place], [place] [id number] Java Software: Lion Brar MD Bilirubin [Mass/Vol] 0.5 mg/dL Normal 0.2-1.2 [facility] Comment on above: Performed By: #### 3 4604, 5224 #### [facility]/[address] [employer] [place] Java Software: Errol Cuevas M.D.,PhD #### 7600, 29110 #### [facility] of [address], [address] [place], [place] [address] Java Software: Lion Brar MD Calcium [Mass/Vol] 10.0 mg/dL Normal 8.6-10.3 [facility] Comment on above: Performed By: #### 3 4604, 5224 #### [facility]/[place] [address] [facility] [address] [place] Java Software: Errol Cuevas M.D.,PhD #### 7600, 15949 #### [facility] of [place] [address] [place] , [address] [place], [place] [id number] Java Software: Lion Brar MD Chloride [Moles/Vol] 103 mmol/L Normal 98-110 [facility] Comment on above: Performed By: #### 3 4604, 5224 #### [facility]/[place] [address] [facility] [employer] [place] Java Software: Errol Cuevas M.D.,PhD #### 7600, 81071 #### [facility] of [address], [address] [place] [address] Java Software: Lion Brar MD CO2 [Moles/Vol] 28 mmol/L Normal 20-32 [facility] Comment on above: Performed By: #### 3 4604, 5224 #### [facility]/[address] [employer] [place] Java Software: Errol Cuevas M.D.,PhD #### 7600, 94178 #### [facility] of [address], [address] [place] [address] Java Software: Lion Brar MD Creatinine [Mass/Vol] 0.74 mg/dL Normal 0.60-1.[address] [facility] [address] [facility] Comment on above: Performed By: #### 3 4604, 5224 #### [facility]/[place] [address] [facility] [address] [place] Java Software: Errol Cuevas M.D.,PhD #### 7600, 14665 #### [facility] of [address], [address] [place], [place] [id number] Java Software: Lion Brar MD ELECTROLYTE BALANCE 8 mmol/L (calc) Normal 7-17 [facility] Comment on above: Performed By: #### 3 4604, 5224 #### [facility]/[place] [address] [facility] [address] [employer] [place] Java Software: Errol Cuevas M.D.,PhD #### 7600, 37575 #### [facility] [place] [id number] Java Software: Lion Brar MD GFR/1.73 sq M.predicted among non-blacks MDRD (S/P/Bld) [Vol rate/Area] 120 mL/min/{1.73_m2} Normal > OR = 60 [facility] Comment on above: Performed By: #### 3 4604, 5224 #### [facility]/[place] [address] [facility] [address] [place] Java Software: Errol Cuevas M.D.,PhD #### 7600, 90757 #### [facility] [place] [id number] Java Software: Lion Brar MD Glucose [Mass/Vol] 100 mg/dL High 65-99 [facility] Comment on above: Result Comment: Fasting reference interval For someone without known diabetes, a glucose value between 100 and 125 mg/dL is consistent with prediabetes and should be confirmed with a follow-up test. Performed By: #### 3 4604, 5224 #### [facility]/[address] [employer] [place] Java Software: Errol Cuevas M.D.,PhD #### 7600, 07769 #### [facility] [place] [id number] Java Software: Lion Brar MD Potassium [Moles/Vol] 4.7 mmol/L Normal 3.5-5.[address] [facility] [address] [facility] Comment on above: Performed By: #### 3 4604, 5224 #### [facility]/[place] [id number] [facility] [address] [place] Java Software: Errol Cuevas M.D.,PhD #### 7600, 93866 #### [facility] [place] [address] [place] , [address] [place] [address] Java Software: Lion Brar MD Protein [Mass/Vol] 6.9 g/dL Normal 6.1-8.1 [facility] Comment on above: Performed By: #### 3 4604, 5224 #### [facility]/[place] [address] [facility] [address] [place] Java Software: Errol Cuevas M.D.,PhD #### 7600, 76926 #### [facility] of [place] [address], [address] [place], [place] [phone] Java Software: Lion Brar MD Sodium [Moles/Vol] 139 mmol/L Normal 135-146 [facility] Comment on above: Performed By: #### 3 4604, 5224 #### [facility]/[place] [address] [facility] [address] [place] Java Software: Errol Cuevas M.D.,PhD #### 7600, 76431 #### [facility] of [address], [address] [place], [place] [id number] Java Software: Lion Brar MD Urea nitrogen [Mass/Vol] 18 mg/dL Normal 7-25 [facility] Comment on above: Performed By: #### 3 4604, 5224 #### [facility]/[place] [address] [facility] [address] [place] Java Software: Errol Cuevas M.D.,PhD #### 7600, 13468 #### [facility] of [address], [address] [place], [place] [phone] Java Software: Lion Brar MD LIPID PANEL, [facility] 07-05 Cholesterol [Mass/Vol] 253 mg/dL High <200 [facility] Comment on above: Order Comment: FASTI NG:YES FASTING: YES Performed By: #### 3 4604, 5224 #### [facility]/[place] [id number] [facility] [address] [place] Java Software: Errol Cuevas M.D.,PhD #### 7600, 78190 #### [facility] [address], [address] [place], [place] [phone] Java Software: Lion Brar MD Cholesterol in HDL [Mass/Vol] 58 mg/dL Normal > OR = 40 [facility] Comment on above: Order Comment: FASTI NG:YES FASTING: YES Performed By: #### 3 4604, 5224 #### [facility]/[address] [employer] [place] Java Software: Errol Cuevas M.D.,PhD #### 7600, 09511 #### [facility] [address], [address] [place] [address] Java Software: Lion Brar MD Cholesterol in LDL [Mass/Vol] 178 mg/dL High [facility] Comment on above: Order Comment: FASTI NG:YES FASTING: YES Result Comment: Refe rence range: <100 Desirable range <100 mg/dL for primary prevention; <70 mg/dL for patients with CHD or diabetic patients with > or = 2 CHD risk factors. LDL-C is now calculated using the Kofi-Abigail calculation, which is a validated novel method providing better accuracy than the Friedewald equation in the estimation of LDL-C. Kofi KRUEGER et al. NICHELLE. 2013;310(19): 3266-7563 (http://education.IOCOM.Car Advisory Network/faq/MKM100) Performed By: #### 3 4604, 5224 #### [facility]/[place] [id number] [facility] [address] [place] Java Software: Errol Cuevas M.D.,PhD #### 7600, 60316 #### [facility] [place] [id number] Java Software: Lion Brar MD Cholesterol.total/Chol esterol in HDL [Mass ratio] 4.4 {ratio} Normal <5.0 [facility] Comment on above: Order Comment: FASTI NG:YES FASTING: YES Performed By: #### 3 4604, 5224 #### [facility]/[place] [address] [facility] [employer] [place] Java Software: Errol Cuevas M.D.,PhD #### 7600, 78590 #### [facility] [address], [address] [place] [address] Java Software: Lion Brar MD NON HDL CHOLESTEROL 195 mg/dL (calc) High <130 [facility] Comment on above: Order Comment: FASTI NG:YES FASTING: YES Result Comment: For patients with diabetes plus 1 major ASCVD risk factor, treating to a non-HDL-C goal of <100 mg/dL (LDL-C of <70 mg/dL) is considered a therapeutic option. Performed By: #### 3 4604, 5224 #### [facility]/[address] [employer] [place] Java Software: Errol Cuevas M.D.,PhD #### 7600, 27151 #### [facility] [address], [address] [place] [address] Java Software: Lion Brar MD Triglyceride [Mass/Vol] 72 mg/dL Normal <150 [facility] Comment on above: Order Comment: FASTI NG:YES FASTING: YES Performed By: #### 3 4604, 5224 #### [facility]/[place] [address] [facility] [employer] [place] Java Software: Errol Cuevas M.D.,PhD #### 7600, 34119 #### [facility] [place] [address] Java Software: Lion Brar MD LIPOPROTEIN (a)on 07-29-2025 Lipoprotein a [Mass/Vol] mg/dL Normal <75 [facility] Comment on above: Result Comment: Risk Category Optimal < 75 nmol/L Moderate 75 - 125 nmol/L High > 125 nmol/L Cardiovascular event risk category cut points (optimal, moderate, high) are based on [employer] 2017;69:692-711. Performed By: #### 3 8724, 5224 #### [facility] [address] [facility] [address] [place], [place] Java Software: Errol Cuevas M.D.,PhD #### 7600, 89357 #### [facility] [address] [place] [address], [address] [place] [address] Java Software: Lion Brar MD CT CARDIAC SCORING WO IV CON TRASTon 07-25-2025 CT CARDIAC SCORING WO IV CONTRAST Interpreted By: Jonny Marquez, STUDY: CT CARDIAC SCORING WO IV CONTRAST; 07/25/2025 3:59 pm INDICATION: Signs/Symptoms:hyperlipid emia. COMPARISON: None. ACCESSION NUMBER(S): [id number] ORDERING CLINICIAN: DILMA GALAVIZ TECHNIQUE: Using prospective ECG gating, CT scan of the coronary arteries was performed without intravenous contrast. Coronary calcium scoring was performed according to the method of Agatston. FINDINGS: The score and distribution of calcium in the coronary arteries is as follows: LM 0, LAD 75.8, LCx 9.82, RCA 82.24, Total 187.86 The visualized ascending thoracic aorta measures 3.9 cm in diameter. The heart is normal in size. No pericardial effusion is present. No gross evidence of mediastinal or hilar lymphadenopathy or masses is identified. The visualized segments of the lungs are normally expanded. The main pulmonary artery, right and left pulmonary artery are normal in size. The visualized subdiaphragmatic structures appear intact. IMPRESSION: 1. Coronary artery calcium score of 187.86*. *Coronary Artery Agatston score Score risk Very low 1-99 Mildly increased 100-299 Moderately increased >300 Moderate to severely increased >800 Chinmay et al. JCCT 2016 (http://dx.doi.org/10.101 6/j.jcct.2016.11.003) ROBLES 10-Year CHD Risk with Coronary Artery Calcification can be calcuate using link below https://www.robles-nhlbi.or g/MESACHDRisk/MesaRiskSco re/RiskScore.aspx Lewis JACC 2014 (http://dx.doi.org/10.101 6/j.j acc.2014.08.035) Signed by: Jonny Marquez 07/29/2025 11:03 AM Dictation workstation: [id number] [facility] 12 Lead EKGon 06-07-2025 12 Lead EKG [facility] Cardiovascular Services [address] [place] [address] 12 Lead EKG 06/07/25 1315 MR#: [id number] Acct: [id number] Name: ALEKSANDRA MIRANDA Rep #: [id number] : 1990 34 From: Chidi Araujo MD Attending Dr: Status: DEP ER Ordering Dr: Leah Partida DO Date: 06/07/25 Location: ED Sex: M C Admitted: Test Reason : CP Blood Pressure : */* mmHG Vent. Rate : 82 BPM Atrial Rate : 82 BPM P-R Int : 126 ms QRS Dur : 92 ms QT Int : 374 ms P-R-T Axes : 24 3 26 degrees QTcB Int : 436 ms Normal sinus rhythm Normal ECG Confirmed by BERTO AUGUSTIN, WENDY ([id number]), editorial clerk LARRY ROTH ([id number]) on 06/11/2025 9:02:03 AM Referred By: RONAL Confirmed By: WENDY ARAUJO MD 06/11/25 0902 Date Chidi Araujo MD CC: Dr. Albina Roberts MD; Dr. Leah Partida DO Signed Normal [facility] Absolute lymphocyte countOrd ered By: Leah Partida on 06-07-2025 Lymphocytes Auto (Unsp spec) [#/Vol] 2.56 10*3/uL 0.83-4.51 [facility] Absolute neutrophil countOrd ered By: Leah Partida on 06-07-2025 Neutrophils (Bld) [#/Vol] 12.5 10*3/uL High 2.0-7.7 [facility] Anion gap in Serum or Plasma Ordered By: Remus Helga on 06-07-2025 Anion gap [Moles/Vol] 14 mmol/L 5- [facility] Automated lymphocyte count a s percentage of total leukocytesOrdered By: Remus Helga on 06-07-2025 Lymphocytes/100 WBC Auto (Unsp spec) 16.0 % Low - [facility] BUN/creatinine ratioOrdered By: Remus Ungjody on 06-07-2025 Urea nitrogen/Creatinine [Mass ratio] 17.8 mg/mg - [facility] Basic Metabolic Profile (BMP )on 06-07-2025 BUN/CRE 17.8 RATIO Normal - [facility] Comment on above: Performed By: #### L 500.2500, L501.4021, L100.0100 #### [facility] [address] [place], [address] Calcium [Mass/Vol] 10.0 mg/dL Normal 7.6-11.0 [facility] Comment on above: Performed By: #### L 500.2500, L501.4021, L100.0100 #### [facility] [address] [place], [address] Chloride [Moles/Vol] 102 mmol/L Normal 98-108 [facility] Comment on above: Performed By: #### L 500.2500, L501.4021, L100.0100 #### [facility] [address] [place], [address] CO2 [Moles/Vol] 22.5 mmol/L Normal 21.0-32.0 [facility] Comment on above: Performed By: #### L 500.2500, L501.4021, L100.0100 #### [facility] [address] [place], [address] Creatinine [Mass/Vol] 0.79 mg/dL Normal 0.70-1.20 [facility] Comment on above: Performed By: #### L 500.2500, L501.4021, L100.0100 #### [facility] [address] [place], [address] ECRCL 144.61 ml/min Normal 50-250 [facility] Comment on above: Performed By: #### L 500.2500, L501.4021, L100.0100 #### [facility] [address] [place], [address] GAP 14 Normal 5-15 [facility] Comment on above: Performed By: #### L 500.2500, L501.4021, L100.0100 #### [facility] [address] [place], [address] GFR/1.73 sq M.predicted among non-blacks MDRD (S/P/Bld) [Vol rate/Area] 118 mL/min/{1.73_m2} Normal >60 [facility] Comment on above: Result Comment: mL/m in/1.73m2 CKD-EPI Creatinine Equation (2020) Performed By: #### L 500.2500, L501.4021, L100.0100 #### [facility] [address] [place], [address] Glucose [Mass/Vol] 89 mg/dL Normal 70-99 [facility] Comment on above: Performed By: #### L 500.2500, L501.4021, L100.0100 #### [facility] [address] [place], [address] Potassium [Moles/Vol] 4.2 mmol/L Normal 3.3-5.1 [facility] Comment on above: Performed By: #### L 500.2500, L501.4021, L100.0100 #### [facility] [address] [place], [address] Sodium [Moles/Vol] 139 mmol/L Normal 133-145 [facility] Comment on above: Performed By: #### L 500.2500, L501.4021, L100.0100 #### [facility] [address] [place], [address] Urea nitrogen [Mass/Vol] 14 mg/dL Normal 4-19 [facility] Comment on above: Performed By: #### L 500.2500, L501.4021, L100.0100 #### [facility] [address] [place], [address] Basophil percentageOrdered B y: Leah Partida on 06-07-2025 Basophils/100 WBC (Bld) 0.4 % 0-1 [facility] Brain/Head without Contrasto n 06-07-2025 Brain/Head without Contrast [facility] Imaging Services [address] [place] [address] Brain/Head without Contrast MR#: [id number] Acct: [id number] Name: ALEKSANDRA MIRANDA Rep #: [id number] : 1990 M 34 From: Dylan Watts MD PCP: Status: PRE ER Study: Brain/Head without Contrast Date of Exam: 01/26 Exam# [id number] Ordering Dr: Leah Partida DO PROCEDURE: BRAIN/HEAD WITHOUT CONTRAST 06/07/2025 REASON FOR EXAM: HEADACHE TECHNIQUE: Procedure Code: CTBR Modality: CT Procedure: BRAIN/HEAD WITHOUT CONTRAST Coronal and Sagittal reconstruction series were provided. One or more dose reduction techniques were used (e.g., Automated exposure control, adjustment of the mA and/or kV according to patient size, use of iterative reconstruction technique. RADIATION DOSE SUMMARY: CTDlvol: 88 mGy DLP: 1600 mGycm COMPARISON: None FINDINGS: Brain: There is no evidence of hemorrhage, acute ischemia or mass. No extra-axial fluid collection, midline shift or mass effect. CSF Spaces: Normal Sinuses/Mastoids: Clear. Bones: No fracture Small benign calcifications are shown in the scalp posteriorly. CT/Brain/Head without Contrast IMPRESSION: No acute intracranial abnormality. Reading Location: [facility] CC: Dr. Leah Partida, Distribution Lineman: Signed Normal [facility] CBC W/Diff, Automatedon 09-0 -2024 Absolute Lymph 2.56 X10 3/uL Normal 0.83-4.51 [facility] Comment on above: Performed By: #### L 500.2500, L501.4021, L100.0100 #### [facility] [address] [place], [address] Absolute Neut 12.5 X10 3/uL High 2.0-7.7 [facility] Comment on above: Performed By: #### L 500.2500, L501.4021, L100.0100 #### [facility] [address] [place], [address] Basophils/100 WBC (Bld) 0.4 % Normal 0-1 [facility] Comment on above: Performed By: #### L 500.2500, L501.4021, L100.0100 #### [facility] [address] [place], [address] Eosinophils/100 WBC (Bld) 0.2 % Normal 0-5 [facility] Comment on above: Performed By: #### L 500.2500, L501.4021, L100.0100 #### [facility] [address] [place], [address] Erythrocyte distribution width (RBC) [Ratio] 13.1 % Normal 11.6-14.6 [facility] Comment on above: Performed By: #### L 500.2500, L501.4021, L100.0100 #### [facility] [address] [place], [address] Hematocrit (Bld) [Volume fraction] 45.9 % Normal 40-54 [facility] Comment on above: Performed By: #### L 500.2500, L501.4021, L100.0100 #### [facility] [address] [place], [address] Hemoglobin (Bld) [Mass/Vol] 16.0 g/dL Normal 13.0-16.5 [facility] Comment on above: Performed By: #### L 500.2500, L501.4021, L100.0100 #### [facility] [address] [place], [address] IG% 0.300 Normal 0.0-0.9 [facility] Comment on above: Result Comment: IG% - Immature Granulocytes (promyelocytes, myelocytes and metamyelocytes) > 1% indicates that a LEFT SHIFT is Present. Performed By: #### L 500.2500, L501.4021, L100.0100 #### [facility] [address] [place], [address] Lymphocytes/100 WBC (Bld) 16.0 % Low 19-41 [facility] Comment on above: Performed By: #### L 500.2500, L501.4021, L100.0100 #### [facility] [address] [place], [address] MCH (RBC) [Entitic mass] 31.3 pg Normal 27.0-32.0 [facility] Comment on above: Performed By: #### L 500.2500, L501.4021, L100.0100 #### [facility] [address] [place], [address] MCHC (RBC) [Mass/Vol] 34.9 g/dL Normal 32-36 [facility] Comment on above: Performed By: #### L 500.2500, L501.4021, L100.0100 #### [facility] [address] [place], [address] MCV (RBC) [Entitic vol] 89.6 fL Normal 80-94 [facility] Comment on above: Performed By: #### L 500.2500, L501.4021, L100.0100 #### [facility] [address] [place], [address] Monocytes/100 WBC (Bld) 5.0 % Normal 0-10 [facility] Comment on above: Performed By: #### L 500.2500, L501.4021, L100.0100 #### [facility] [address] [place], [address] Neutrophils/100 WBC (Bld) 78.1 % High 47-70 [facility] Comment on above: Performed By: #### L 500.2500, L501.4021, L100.0100 #### [facility] [address] [place], [address] Nucleated RBC (Bld) [#/Vol] 0 10*3/uL Normal 0-5 [facility] Comment on above: Performed By: #### L 500.2500, L501.4021, L100.0100 #### [facility] [address] [place], [address] Platelet mean volume (Bld) [Entitic vol] 9.9 fL Normal 6.2-12.0 [facility] Comment on above: Performed By: #### L 500.2500, L501.4021, L100.0100 #### [facility] [address] [place], [address] Platelets (Bld) [#/Vol] 350 10*3/uL Normal 150-450 [facility] Comment on above: Performed By: #### L 500.2500, L501.4021, L100.0100 #### [facility] [address] [place], [address] RBC (Bld) [#/Vol] 5.12 10*6/uL Normal 4.6-6.2 [facility] Comment on above: Performed By: #### L 500.2500, L501.4021, L100.0100 #### [facility] [address] [place], [address] RDW SD 43.0 fl Normal 35.1-43.9 [facility] Comment on above: Performed By: #### L 500.2500, L501.4021, L100.0100 #### [facility] [address] [place], [address] WBC (Bld) [#/Vol] 16.1 10*3/uL High 4.4-11.0 [facility] Comment on above: Performed By: #### L 500.2500, L501.4021, L100.0100 #### [facility] [address] [place], [address] CTA Head AND Neck W/ Contras ton 06-07-2025 CTA Head AND Neck W/ Contrast [facility] Imaging Services [address] [place] [address] CTA Head AND Neck W/ Contrast MR#: [id number] Acct: [id number] Name: ALEKSANDRA MIRANDA Rep #: [id number] : 1990 M 34 From: Pro torres MD PCP: Dr. Albina Roberts MD Status: [facility] ER Study: CTA Head AND Neck W/ Contrast Date of Exam: Exam# [id number] Ordering Dr: Leah Partida DO PROCEDURE: CTA HEAD AND NECK W/ CONTRAST 06/07/2025 REASON FOR EXAM: HEADACHE, LEFT ARM PARAESTHESIAS Chest pain. TECHNIQUE: Procedure Code: CTCTA.HDNCK Modality: CT Procedure: CTA HEAD AND NECK W/ CONTRAST Multiplanar Sagittal and Coronal images were obtained. 3D post processing was performed CONTRAST: Isovue 370 VOLUME: 100 mL One or more dose reduction techniques were used (e.g., Automated exposure control, adjustment of the mA and/or kV according to patient size, use of iterative reconstruction technique). RADIATION DOSE SUMMARY: CTDlvol: 28.6 mGy DLP: 1600.71 mGycm COMPARISON: None FINDINGS: Aortic Arch: Minimal atherosclerotic plaque formation of the aortic arch. Brachiocephalic and Subclavians: Unremarkable RIGHT Carotid: Right CCA: Unremarkable. Right ICA: Minimal calcific plaque Right ECA: Unremarkable. LEFT Carotid: Left CCA: Unremarkable. Left ICA: Unremarkable. Left ECA: Unremarkable. Vertebrals: Codominant. Arise from the subclavians. Both vertebrals form the basilar. RIGHT Vertebral: Unremarkable. LEFT Vertebral: Unremarkable. Anatomy: [place] anatomy is normal. Aneurysm or avm: No intracranial aneurysms or large vascular malformations are identified. Anterior cerebral arteries: Unremarkable: Middle cerebral arteries: Unremarkable. Basilar artery: Unremarkable. Posterior cerebral arteries: Unremarkable. Other major branches of the posterior circulation: Unremarkable. Major venous structures: Unremarkable. Other findings: Neck: Lungs: Bones: CT/CTA Head AND Neck W/ Contrast IMPRESSION: Minimal calcific plaque at the origin of the right internal carotid artery. Reading [id number] CC: Dr. Albina Roberts MD; Dr. Leah Partida DO Distribution Lineman: Signed Normal [facility] Carbon dioxide, total [Moles /volume] in Central venous bloodOrdered By: Leah Partida on 06-07-2025 CO2 [Moles/Vol] 22.5 mmol/L 21.0-32.0 [facility] Chest 1 View (Portable)on Chest 1 View (Portable) [facility] Imaging Services [address] [place] [address] Chest 1 View (Portable) MR#: [id number] Acct: [id number] Name: ALEKSANDRA MIRANDA Rep #: [id number] : 1990 M 34 From: Pro torres MD PCP: Status: PRE ER Study: Chest 1 View (Portable) Date of Exam: 06/07/25 Exam# [id number] Ordering Dr: Leah Partida DO PROCEDURE: CHEST 1 VIEW (PORTABLE) 06/07/2025 REASON FOR EXAM: CHEST PAIN TECHNIQUE: Frontal view of the chest. COMPARISON: None FINDINGS: Hardware: EKG electrodes are seen. Heart: Cardiac and mediastinal contours are stable. Lungs: The lungs are clear. Bones: The bones are unremarkable. Other: RAD/Chest 1 View (Portable) IMPRESSION: No Acute Findings. Reading [id number] CC: Dr. Leah Partida DO Distribution Lineman: Signed Normal [facility] Chloride assayOrdered By: Cordelia Partida on 06-07-2025 Chloride [Moles/Vol] 102 mmol/L 98-108 [facility] Emergency Department Summary on 06-07-2025 Emergency Department Summary [facility] Medical Records Department [address] [place] [address] Emergency Department Summary 06/07/25 MR#: [id number] Acct: [id number] Name: ALEKSANDRA MIRANDA Rep #: [id number] : 1990 34 From: Leah Partida DO PCP: Dr. Albina Roberts MD Status:DEP ER Location: ED HPI History of Present Illness Chief Complaint: Chest Pain Detail of Chief Complaint: Chest pain and left arm paresthesias Informant: patient Narrative Narrative: Patient presents with multiple vague complaints progressively worse over the last 2 to 3 weeks. Patient states that he has had symptoms like this throughout the years but have never lasted this long. He describes a burning discomfort in his left shoulder that at times radiates down to his left hand and at times into his jaw. He describes headache by the end of the day and lightheadedness and feels off balance. Describes diffuse fatigue. He states that he feels shaky on the inside at times. At times he said difficulty swallowing. Gives history of diverticulitis and history of GERD and had recent upper and lower scopes that were unremarkable otherwise. Patient states he has had headaches his whole life. He feels like he has history of anxiety but currently not being treated. He does have history of hypertension and high cholesterol. No cardiac history and he does not know his father's history. Denies recent travel or surgery. [facility] Medical History (Updated 06/07/25 @ 14:[address] Leah Partida DO) Chest pain Home Medications ???Medication ???Instructions ???Recorded ???Last Taken ???Type lorazepam 1 mg tablet (Ativan) 1 mg PO TID PRN anxiety #10 tabs 0 06/07/25 Unknown Rx Allergy/AdvReac Type Severity Reaction Status Date / Time No Known Allergies Allergy Verified 06/07/25 13:02 Social History (Updated 06/07/25 @ 13:15 by Nancy Cornelius) household members: spouse housing: house Smoking Status: Never smoker ROS ROS ED ROS Narrative Feeling shaky Review of Systems ROS Unobtainable: other Constitutional Constitutional ED: Reports lethargy; Denies chills, fever(s), sweats or weight loss Eyes Eyes: Denies blurry vision, change in vision or diplopia ENT ENT ED: Denies rhinorrhea or sore throat Cardiovascular Cardiovascular: Reports chest pain; Denies orthopnea or racing heartbeat Respiratory/Chest Respiratory/Chest: Denies cough, dyspnea, dyspnea on exertion, orthopnea or sputum Gastrointestinal Gastrointestinal: Reports other Details: Trouble swallowing ; Denies abdominal pain, diarrhea, nausea or vomiting Genitourinary Genitourinary ED: Denies dysuria, hematuria or urinary frequency Musculoskeletal Musculoskeletal: Denies arthralgias, back pain, myalgias or neck pain Integumentary Denies abscess, Abrasions or rash Neurologic Neurologic: Reports headache(s), paresthesias and other Details: Feeling off balance ; Denies weakness Psychiatric Psychiatric: Denies anxiety, depression or suicidal thoughts Endocrine Endocrinology: Denies polydipsia, polyphagia or polyuria Hematologic/Lymphatic Hematologic/Lymphatic: Denies easy bleeding, easy bruising or lymphadenopathy Allergic/Immunologic Allergic/Immunologic ED: Denies mouth swelling, tongue swelling or urticaria EXAM Physical Exam Const Vital Signs: 06/07/25 13:01 06/07/25 13:51 06/07/25 14:01 Temperature 98.7 F Temperature Source Oral Pulse Rate 85 86 Respiratory Rate 16 Blood Pressure 131/90 H 153/97 H Blood Pressure Mean 103 115 Pulse Ox 100 100 100 Oxygen Delivery Method Room Air Room Air Positive well nourished and well developed General Appearance ED: well developed and NAD HEENT Reports TM's clear and moist mucous membranes normocephalic and atraumatic; Negative for trauma or tenderness Tympanic Membrane ED: Yes TM's clear Eyes PERRL and EOMs intact bilaterally General Eye ED: Negative for pale conjunctiva or scleral icterus Neck no lymphadenopathy, supple and no JVD General: Negative for tenderness Chest Wall inspection of chest normal and palpation of chest normal Chest: Negative for tenderness Resp normal respiratory effort and clear to auscultation bilaterally Effort and Inspection: Negative for respiratory distress or pain with movement Auscultation: Negative for rhonchi, wheezes or diminished lung sounds Cardio regular rate, regular rhythm, S1 normal heart sound, S2 normal heart sound and no murmurs Peripheral Pulses: pulses 2+ throughout GI normal to inspection, nondistended, normoactive bowel sounds, soft to palpation, non-tender, non- distended and no masses Back/Spine no CVA tenderness and no thoracic nor lumbar tenderness Extremity normal to inspection General Extremety ED: Negative for edema General Extremity: Negative for edema Neuro ivana (more content not included)... Normal [facility] Eosinophil percentageOrdered By: Leah Partida on 06-07-2025 Eosinophils/100 WBC (Bld) 0.2 % 0-5 [facility] Erythrocyte distribution wid th ratioOrdered By: Leah Partida on 06-07-2025 Erythrocyte distribution width (RBC) [Ratio] 13.1 % 11.6-14.6 [facility] Erythrocyte distribution wid th standard deviationOrdered By: Leah Partida on 06-07-2025 Erythrocyte distribution width (RBC) [Ratio] 43.0 fl 35.1-43.9 [facility] Glomerular filtration rate ( GFR) estimation/1.73 sq m using serum, plasma, or whole bOrdered By: Leah Partida on 06-07-2025 GFR/1.73 sq M.predicted among non-blacks MDRD (S/P/Bld) [Vol rate/Area] 118 mL/min/{1.73_m2} >60 [facility] Comment on above: mL/min/1.73m2 CKD-EP I Creatinine Equation (2020) Hematocrit Auto (Bld) [Volum e fraction]Ordered By: Leah Partida on 06-07-2025 Hematocrit (Bld) [Volume fraction] 45.9 % 40-54 [facility] Hemoglobin measurementOrdere d By: Leah Partida on 06-07-2025 Hemoglobin (Bld) [Mass/Vol] 16.0 g/dL 13.0-16.5 [facility] Immature granulocytes/100 WB C Auto (Bld)Ordered By: Leah Partida on 06-07-2025 Immature granulocytes/100 WBC (Bld) 0.300 % 0.0-0.9 [facility] Comment on above: IG% - Immature Granu locytes (promyelocytes, myelocytes and metamyelocytes) > 1% indicates that a LEFT SHIFT is Present. L501.4021on 06-07-2025 Trop T High Sen 7 ng/L Normal <=22 [facility] Comment on above: Performed By: #### L 500.2500, L501.4021, L100.0100 #### [facility] [address] [place], [address] MCV (mean corpuscular volume ) determinationOrdered By: Leah Partida on 06-07-2025 MCV (RBC) [Entitic vol] 89.6 fL 80-94 [facility] Mean corpuscular hemoglobin (MCH) determinationOrdered By: Leah Partida on 06-07-2025 MCH (RBC) [Entitic mass] 31.3 pg 27.0-32.0 [facility] Mean corpuscular hemoglobin concentration (MCHC) determinationOrdered By: Leah Partida on 06-07-2025 MCHC (RBC) [Mass/Vol] 34.9 g/dL 32-36 [facility] Mean platelet volume determi nationOrdered By: Leah Partida on 06-07-2025 Platelet mean volume (Bld) [Entitic vol] 9.9 fL 6.2-12.0 [facility] Monocyte percentageOrdered B y: Leah Partida on 06-07-2025 Monocytes/100 WBC (Bld) 5.0 % 0-10 [facility] Neutrophil percentageOrdered By: Leah Partida on 06-07-2025 Neutrophils/100 WBC (Bld) 78.1 % High 47-70 [facility] Nucleated red blood cell per centageOrdered By: Leah Partida on 06-07-2025 Nucleated RBC/100 WBC (Bld) [Ratio] 0 % 0-5 [facility] Platelet countOrdered By: Cordelia Partida on 06-07-2025 Platelets (Bld) [#/Vol] 350 10*3/uL 150-450 [facility] Potassium measurement (mass/ volume)Ordered By: Leah Partida on 06-07-2025 Potassium (Unsp spec) [Mass/Vol] 4.2 mmol/L 3.3-5.1 [facility] RBC Auto (Bld) [#/Vol]Ordere d By: Leah Partida on 06-07-2025 RBC (Bld) [#/Vol] 5.12 10*6/uL 4.6-6.2 [facility] Serum creatinine measurement (mass/volume)Ordered By: Leah Partida on 06-07-2025 Creatinine [Mass/Vol] 0.79 mg/dL 0.70-1.20 [facility] Serum glucose measurement (m ass/volume)Ordered By: Leah Partida on 06-07-2025 Glucose [Mass/Vol] 89 mg/dL 70-99 [facility] Serum or plasma calcium rebecca urement (mass/volume)Ordered By: Leah Partida on 06-07-2025 Calcium [Mass/Vol] 10.0 mg/dL 7.6-11.0 [facility] Serum or plasma urea nitroge n measurement (mass/volume)Ordered By: Leah Partida on 06-07-2025 Urea nitrogen [Mass/Vol] 14 mg/dL 4-19 [facility] Sodium levelOrdered By: Kathi Partida on 06-07-2025 Sodium [Moles/Vol] 139 mmol/L 133-145 [facility] Troponin T HS 2 HRon 025 Trop T High Sen Normal <=22 [facility] Comment on above: Result Comment: Canc elled via OM: Order cancelled - Patient discharged Performed By: #### L 499.0042 #### [facility] [address] [place], [address] Troponin T HS 4 HRon 025 Trop T High Sen Normal <=22 [facility] Comment on above: Result Comment: Canc elled via OM: Order cancelled - Patient discharged Performed By: #### L 499.0043 #### [facility] [address] [place], [address] Troponin T.cardiac [Mass/vol ume] in Serum or Plasma by High sensitivity methodOrdered By: Remus Helga on 06-07-2025 Troponin T.cardiac High sensitivity method [Mass/Vol] 7 ng/L <22 [facility] White blood cell (WBC) count Ordered By: Remus Ungur on 06-07-2025 WBC (Bld) [#/Vol] 16.1 10*3/uL High 4.4-11.0 [facility] ANES POSTPROC EVALon 025 ANES POSTPROC EVAL HNO ID: [id number] Author: MEKA OROSCO APRN.CRNA Service: Anesthesiology Author Type: Nurse Doctor Of Podiatry Type: Anesthesia Postprocedure Evaluation Filed: 12/08/2024 09:47 Note Text: POST ANESTHESIA EVALUATION NOTE : 1990 Procedure Summary Date: 12/08/24 Room / Location: Ambulatory Surgery Anesthesia Start: 858 Anesthesia Stop: 933 Procedures: COLONOSCOPY DIAGNOSTIC EGD DIAGNOSTIC Diagnosis: Diverticulitis Nausea Left upper quadrant pain (Abdominal pain) (Abdominal pain) Scheduled Providers: Indira aVlles MD; Hannah Barahona RN; Meka Orosco APRN.APPLICATIONS ENGINEER; Dayana De La Cruz Tech Responsible Provider: Meka Orosco APRN.CRNA Anesthesia Type: MAC ASA Status: 2 Anesthesia Type: MAC Last Vitals Vitals Value Taken Time BP 104/71 12/08/24 0945 Temp 12/08/24 0947 Pulse 78 12/08/24 0946 Resp 21 12/08/24 0946 SpO2 99 % 12/08/24 0946 Vitals shown include unfiled device data. Post Anesthesia Patient Status Patient Evaluation: bedside. Anticipated Disposition: phase 2 then home. Neurological Status: aware and responsive. Pulmonary Status: breathing comfortably on room air Airway Control: returned to baseline unsupported. Cardiovascular Status: stable. Pain Management: clinically adequate Postoperative Hydration: acceptable. Intraoperative Events: no significant anesthesia events Post Operative Nausea/Vomiting Status: no significant post operative nausea or vomiting Recommendation: continue current plan of care. Anesthesia Observations No Documentation SIGNATURE: Meka Orosco APRN.CRNA PATIENT NAME: Aleksandra Miranda DATE: December 08, 2024 TIME: 9:47 AM CSN: [id number] Normal [facility] ANES PRE-OPon 12-08-2024 ANES PRE-OP HNO ID: [id number] Author: MEKA OROSCO APRN.CRNA Service: Anesthesiology Author Type: Nurse Doctor Of Podiatry Type: Anesthesia Preprocedure Evaluation Filed: 12/08/2024 08:59 Note Text: ANESTHESIOLOGY DAY OF SURGERY NOTE : 1990 Procedure Information Date/Time: 12/08/24 0845 Scheduled providers: Indira Valles MD; Hannah Barahona RN; Meka Orosco APRN.CRNA; Dayana De La Cruz Tech Procedures: COLONOSCOPY DIAGNOSTIC EGD DIAGNOSTIC Location: Ambulatory Surgery Estimated body mass index is 30.45 kg/m? as calculated from the following: Height as of 08/21/24: 175 cm (5' 8.9"). Weight as of 08/21/24: 93.2 kg (205 lb 9.3 oz). Most recent hematocrit and potassium results: Hematocrit 45.5 06/16/2024 Potassium 4.5 06/16/2024 Relevant Problems GI (+) Gastroesophageal reflux disease without esophagitis Gastrointestinal (+) Irritable bowel syndrome with diarrhea HTN Smoker +Marijuana I - PHYSICAL EVALUATION AIRWAY Patient intubated: No. Tracheostomy tube not present Mallampati: II. TM distance: >3 FB. Neck ROM: full ROM without neurological symptoms. Mouth opening: adequate. DENTAL Dental findings: teeth intact. Additional exam findings: no II - ANESTHESIA PLAN ASA Score: 2 Anesthetic Plan: MAC The patient is not a current smoker. NPO Status: adequate Beta Edmar Monitoring Plan Monitoring plan: standard ASA. Post Procedure Analgesic Plan Postoperative analgesic plan: per surgical service. Informed Consent Anesthetic risks, benefits, alternatives, personnel and consent discussed: yes. Patient / Responsible Democrat agrees to proceed: yes Patient / Surrogate agrees to blood products: blood products not planned DNR status not reviewed with patient and/or family prior to surgery. Significant changes in the patient condition since the History and Physical, not otherwise documented in primary service progress note: no. Potential Anesthesia issues that may suggest increased risk of complications or contraindication to planned procedure: none. No vitals data found for the desired time range. Outpatient Medications as of 12/08/2024 Medication Sig predniSONE (DELTASONE) 50 mg Take 1 tablet 13 hours prior, 1 tablet 7 hours prior, and 1 tablet 1 hour prior to test. Take 50 mg Benadryl (OTC) 30 min prior to test. iv contrast (will be provided with radiology test) CT ABD/PEL -Inject, intravenously, once for 1 dose.No IV access, insert saline lock prior to the beginning of sedation, infusion, injection of imaging exam. Discontinue saline lock post exam. If Pt. has a central line or IVAD, may access for administration according to line specific nursing protocol. Once exam is complete flush line and de-access according to line specific nursing protocol in the CT contrast administration guidelines link. enteric contrast (will be provided with radiology test) For CT ABD/PEL W IVCON Routine order Administer, As Directed One Time Only, via Oral, Rectal, both Oral and Rectal, Enteric Tube, Stoma or Indwelling Catheter, Enteric Contrast as designated per enteric contrast guidelines pantoprazole DR (PROTONIX) 40 mg tablet Take 1 tablet by mouth once daily. Take 30-60 minutes before breakfast on an empty stomach. nortriptyline (PAMELOR) 10 mg capsule Take 1 capsule by mouth daily at bedtime. lisinopril (ZESTRIL, PRINIVIL) 10 mg tablet Take by mouth. metoprolol tartrate, short acting, (LOPRESSOR) 100 mg tablet Take 50 mg by mouth once daily. No current facility-administered medications on file as of 12/08/2024. I have interviewed and examined the patient. I have reviewed the medical record and/or the pre-anesthesia evaluation, pertinent labs, and test results. This contains updated information obtained within 48 hours of Surgery/Procedure. SIGNATURE: Meka Orosco APRN.APPLICATIONS ENGINEER PATIENT NAME: Aleksandra Miranda DATE: December 08, 2024 TIME: 7:33 AM CSN: [id number] Normal [facility] Colonoscopyon 12-08-[address] [facility] Gastroenterology Gastrointestinal Endoscopy Patient Name: Aleksandra Miranda Procedure Date: 12/08/2024 9:14 AM Date of : 1990 Admit Type: Outpatient Age: 34 Room: [facility] Gender: Male Note Status: Buttonholer Override Attending MD: Indira Valles MD, [id number] Procedure: Colonoscopy Indications: Abdominal pain, Follow-up of diverticulitis Providers: Indira Valles MD Patient Profile: This is a 34 year old male. Refer to note in patient chart for documentation of history and physical. Last Colonoscopy: none. The patient's first colonoscopy is today. Referring Physician: Indira Valles MD (Referring MD), Albina Roberts MD (Referring MD) Medicines: Monitored Anesthesia Care Complications: No immediate complications. Requesting Provider: Procedure: Pre-Anesthesia Assessment: - Prior to the procedure, a History and Physical was performed, and patient medications and allergies were reviewed. The patient's tolerance of previous anesthesia was also reviewed. The risks and benefits of the procedure and the sedation options and risks were discussed with the patient. All questions were answered, and informed consent was obtained. Prior Anticoagulants: The patient has taken no anticoagulant or antiplatelet agents. ASA Grade Assessment: II - A patient with mild systemic disease. After reviewing the risks and benefits, the patient was deemed in satisfactory condition to undergo the procedure. After I obtained informed consent, the scope was passed under direct vision. Throughout the procedure, the patient's blood pressure, pulse, and oxygen saturations were monitored continuously. The Colonoscope was introduced through the anus and advanced to the terminal ileum. I was present and participated during the entire procedure, including non-harper portions, and during the administration and monitoring of Moderate Sedation. The colonoscopy was performed without difficulty. The patient tolerated the procedure well. The quality of the bowel preparation was evaluated using the BBPS ([place] Bowel Preparation Scale) with scores of: Right Colon = 3 (entire mucosa seen well with no residual staining, small fragments of stool or opaque liquid), Transverse Colon = 2 (minor amount of residual staining, small fragments of stool and/or opaque liquid, but mucosa seen well) and Left Colon = 2 (minor amount of residual staining, small fragments of stool and/or opaque liquid, but mucosa seen well). The total BBPS score equals 7. The quality of the bowel preparation was good. The terminal ileum, ileocecal valve, appendiceal orifice, and rectum were photographed. Scope Withdrawal Time: 0 hours 13 minutes 10 seconds Moderate Sedation: MAC anesthesia was administered by the anesthesia team. Findings: A skin tag was found on perianal exam. The digital rectal exam was normal. The terminal ileum appeared normal. An 8 mm polyp was found in the transverse colon. The polyp was sessile. The polyp was removed with a cold snare. Resection and retrieval were complete. Verification of patient identification for the specimen was done by the physician and nurse. The pathology specimen was placed into Bottle C. A few small-mouthed diverticula were found in the sigmoid colon. Leonila-diverticular erythema was seen. The exam was otherwise without abnormality on direct and retroflexion views. Impression: - Perianal skin tags found on perianal exam. - The examined portion of the ileum was normal. - One 8 mm polyp in the transverse colon, removed with a cold snare. Appearance is consistent with a sessile serrated polyp. Resected and retrieved. - Mild diverticulosis in the sigmoid colon. Leonila-diverticular erythema was seen. - The examination was otherwise normal on direct and retroflexion views. Recommendation: - Patient has a contact number available for emergencies. The signs and symptoms of potential delayed complications were discussed with the patient. Return to normal activities tomorrow. Written discharge instructions were provided to the patient. - High fiber diet. - Continue present medications. - Await pathology results. - Repeat colonoscopy in 5 years for surveillance based on pathology results. - The findings and recommendations were discussed with the patient. Scope In: 9:15:58 AM Scope Out: 9:30:57 AM MD Indira Hernandez MD 12/08/2024 9:36:29 AM This report has been signed electronically by Indira Valles MD Number of Addenda: 0 Note Initiated On: 12/08/2024 9:14 AM Estimated Blood Loss: Estimated blood loss was minimal. Normal [facility] EGD Study observation Narrat sallie 12-08-2024 [facility] Gastroenterology Gastrointestinal Endoscopy Patient Name: Aleksandra Miranda Procedure Date: 12/08/2024 8:49 AM Date of : 1990 Admit Type: Outpatient Age: 34 Room: [place] [address] Gender: Male Note Status: Finalized Attending MD: Indira Valles MD, [id number] Procedure: Upper GI endoscopy Indications: Abdominal pain, Follow-up of gastro-esophageal reflux disease Providers: Indira Valles MD Patient Profile: This is a 34 year old male. Refer to note in patient chart for documentation of history and physical. Referring Physician: Indira Valles MD (Referring MD) Medicines: Monitored Anesthesia Care Complications: No immediate complications. Requesting Provider: Procedure: Pre-Anesthesia Assessment: - Prior to the procedure, a History and Physical was performed, and patient medications and allergies were reviewed. The patient's tolerance of previous anesthesia was also reviewed. The risks and benefits of the procedure and the sedation options and risks were discussed with the patient. All questions were answered, and informed consent was obtained. Prior Anticoagulants: The patient has taken no anticoagulant or antiplatelet agents. ASA Grade Assessment: II - A patient with mild systemic disease. After reviewing the risks and benefits, the patient was deemed in satisfactory condition to undergo the procedure. After obtaining informed consent, the endoscope was passed under direct vision. Throughout the procedure, the patient's blood pressure, pulse, and oxygen saturations were monitored continuously. The Endoscope was introduced through the mouth, and advanced to the second part of duodenum. I was present and participated during the entire procedure, including non-harper portions, and during the administration and monitoring of Moderate Sedation. The upper GI endoscopy was accomplished without difficulty. The patient tolerated the procedure well. Moderate Sedation: MAC anesthesia was administered by the anesthesia team. Findings: The Z-line was regular and was found 38 cm from the incisors. The examined esophagus was normal. The entire examined stomach was normal. Biopsies were taken with a cold forceps in the gastric body, at the incisura and in the gastric antrum for histology. Verification of patient identification for the specimen was done by the physician and nurse. The pathology specimen was placed into Bottle B. The examined duodenum was normal. Biopsies for histology were taken with a cold forceps for evaluation of celiac disease. Verification of patient identification for the specimen was done by the physician and nurse. The pathology specimen was placed into Bottle A. Impression: - Z-line regular, 38 cm from the incisors. - Normal esophagus. - Normal stomach. Biopsied. - Normal examined duodenum. Biopsied. Recommendation: - Follow an antireflux regimen. - Await pathology results. - Proceed with colonoscopy. See full list of post-procedure recommendations in the colonoscopy report. Scope In: 9:03:01 AM Scope Out: 9:09:45 AM MD Indira Hernandez MD 12/08/2024 9:14:27 AM This report has been signed electronically by Indira Valles MD Number of Addenda: 0 Note Initiated On: 12/08/2024 8:49 AM Estimated Blood Loss: Estimated blood loss was minimal. PROVATION [facility] Radiology Study observation (narrative) [facility] Flexible sigmoidoscopy study on 12-08-2024 [facility] Gastroenterology Gastrointestinal Endoscopy Patient Name: Aleksandra Miranda Procedure Date: 12/08/2024 9:14 AM Date of : 1990 Admit Type: Outpatient Age: 34 Room: [place] [address] Gender: Male Note Status: Finalized Attending MD: Indira Valles MD, [id number] Procedure: Colonoscopy Indications: Abdominal pain, Follow-up of diverticulitis Providers: Indira Valles MD Patient Profile: This is a 34 year old male. Refer to note in patient chart for documentation of history and physical. Last Colonoscopy: none. The patient's first colonoscopy is today. Referring Physician: Indira Valles MD (Referring MD) Medicines: Monitored Anesthesia Care Complications: No immediate complications. Requesting Provider: Procedure: Pre-Anesthesia Assessment: - Prior to the procedure, a History and Physical was performed, and patient medications and allergies were reviewed. The patient's tolerance of previous anesthesia was also reviewed. The risks and benefits of the procedure and the sedation options and risks were discussed with the patient. All questions were answered, and informed consent was obtained. Prior Anticoagulants: The patient has taken no anticoagulant or antiplatelet agents. ASA Grade Assessment: II - A patient with mild systemic disease. After reviewing the risks and benefits, the patient was deemed in satisfactory condition to undergo the procedure. After I obtained informed consent, the scope was passed under direct vision. Throughout the procedure, the patient's blood pressure, pulse, and oxygen saturations were monitored continuously. The Colonoscope was introduced through the anus and advanced to the terminal ileum. I was present and participated during the entire procedure, including non-harper portions, and during the administration and monitoring of Moderate Sedation. The colonoscopy was performed without difficulty. The patient tolerated the procedure well. The quality of the bowel preparation was evaluated using the BBPS ([place] Bowel Preparation Scale) with scores of: Right Colon = 3 (entire mucosa seen well with no residual staining, small fragments of stool or opaque liquid), Transverse Colon = 2 (minor amount of residual staining, small fragments of stool and/or opaque liquid, but mucosa seen well) and Left Colon = 2 (minor amount of residual staining, small fragments of stool and/or opaque liquid, but mucosa seen well). The total BBPS score equals 7. The quality of the bowel preparation was good. The terminal ileum, ileocecal valve, appendiceal orifice, and rectum were photographed. Scope Withdrawal Time: 0 hours 13 minutes 10 seconds Moderate Sedation: MAC anesthesia was administered by the anesthesia team. Findings: A skin tag was found on perianal exam. The digital rectal exam was normal. The terminal ileum appeared normal. An 8 mm polyp was found in the transverse colon. The polyp was sessile. The polyp was removed with a cold snare. Resection and retrieval were complete. Verification of patient identification for the specimen was done by the physician and nurse. The pathology specimen was placed into Bottle C. A few small-mouthed diverticula were found in the sigmoid colon. Leonila-diverticular erythema was seen. The exam was otherwise without abnormality on direct and retroflexion views. Impression: - Perianal skin tags found on perianal exam. - The examined portion of the ileum was normal. - One 8 mm polyp in the transverse colon, removed with a cold snare. Appearance is consistent with a sessile serrated polyp. Resected and retrieved. - Mild diverticulosis in the sigmoid colon. Leonila-diverticular erythema was seen. (more content not included)... PROVATION [facility] Radiology Study observation (narrative) [facility] HISTORY PHYSICALon HISTORY PHYSICAL HNO ID: [id number] Author: INDIRA VALLES MD Service: Gastroenterology Author Type: Physician Type: H&P Filed: 12/08/2024 08:16 Note Text: HISTORY AND PHYSICAL Aleksandra Miranda, 34 year old male who presents for EGD + Colonoscopy to evaluate abdominal pain. Of note, he was recently diagnosed with acute uncomplicated sigmoid diverticulitis. No history of colonoscopy. Last EGD in 2019 was unremarkable. Gastric biopsies showed minimal gastritis (HP negative) and duodenal biopsies were normal. No known FHx of GI tract malignancy Indication for procedure: Abdominal pain History of diverticulitis PROCEDURE(S) SCHEDULED FOR: Colonoscopy with or without biopsies and with or without removal of polyps or lesions, dilation (any means), treatment of bleeding (any means), based on clinical findings. and EGD (Esophagogastroduodenosco py) with or without biopsies, removal of polyps or lesions, dilation ( any means), treatment of bleeding ( any means), Barrx treatment of Tristen's Esophagus, image tube placement or cryo therapy treatment based on clinical findings. BASELINE BEHAVIOR: Calm BASELINE ORIENTATION: A AND O x3 All medications and allergies reviewed: Yes Skin Assessment: Warm, dry, mucus membranes pink Airway/Respiratory Assessment: Airway: visualization of the uvula - Yes Mouth: opening greater than 2 fingerbreadths - Yes Neck: full range of motion - Yes Breath sounds clear/equal - Yes Cardiac Assessment: RRR Abdominal Assessment: Abdomen soft, non-tender, non-distended, no organomegaly or palpable masses Sedation Plan: NELL Valles MD Staff, Department of Gastroenterology and Hepatology Digestive Disease and Surgery [place] [facility] NURSING PROGon 12-08-2024 NURSING PROG HNO ID: [id number] Author: ADORE FLOREZ RN Service: Nursing Author Type: Registered Nurse Type: Nursing Progress Note Filed: 12/08/2024 09:34 Note Text: POST OP LEARNING RESPONSE INSTRUCTION PROVIDED TO: Patient and family member METHOD OF INSTRUCTION: Individual instruction Written instruction/Handouts Verbal instruction PATIENT / FAMILY RESPONSE: Verbalizes understanding of: POST-PROCEDURE INSTRUCTIONS-Correct actions to take to reduce post procedure complications FOLLOW-UP PLAN: Patient instructed to call with any further issues SUPPLEMENTAL MATERIAL: Post sedation instructions given Procedure discharge instructions REFERRAL (RECOMMENDATION): None Electronically Signed By: Adore Florez RN In Department: AMBULATORY SURGERY [facility] NURSING PROG HNO ID: [id number] Author: SOCORRO ORDOÑEZ RN Service: Nursing Author Type: Registered Nurse Type: Nursing Progress Note Filed: 12/08/2024 08:45 Note Text: PRE OP LEARNING ASSESSMENT PROCEDURE/SURGERY: GI PROCEDURES: Colonoscopy and EGD READINESS TO LEARN COGNITIVE ABILITY: Alert and oriented MOTIVATION TO LEARN: Eager Interested FAMILY SUPPORT: Unable to assess - Family not present PATIENT LEARNS BEST BY: Individual Instruction Written Instruction - Hand-outs Verbal Instruction FACTORS AFFECTING LEARNING: None PHYSICAL LIMITATIONS AFFECTING LEARNING: None Electronically Signed By: Socorro Ordoñez RN In Department: AMBULATORY SURGERY [facility] Pathology biopsy report Charan (Tiss)on 12-08-2024 AP DISCLAIMER Normal [facility] Comment on above: Order Comment: Speci men Type: TISSUE SPECIMENOrdering Facility: [facility] Address: [address] [place] [address] Result Comment: Deena berger Developed Test (LDT) Disclaimer: Performance characteristics of immunohistochemical, immunofluorescent, and chromogenic in-situ hybridization tests have been determined by the performing laboratory within [facility]'s [facility] Pathology and Laboratory Medicine Department ([facility], [facility], [facility], [facility], [facility], [facility], or [facility]) in a manner consistent with CLIA requirements. One or more of these tests may not have been cleared or approved by the FDA. [facility] is regulated under CLIA as qualified to perform high-complexity testing. These tests are used for clinical purposes. These should not be regarded as investigational or for research. Positive and negative controls stain appropriately. Performed By: #### 6 6121-5 ####[facility] LABIA [id number] [place] [address] [place] CASE REPORT Normal [facility] Comment on above: Order Comment: Speci men Type: TISSUE SPECIMENOrdering Facility: [facility] Address: [address] [place] [address] Result Comment: Surg [facility] Pathology Report Case: [id number] Authorizing Provider: Indira Valles MD Collected: 12/08/2024 09:04 AM Ordering Location: Ambulatory Surgery Received: 12/08/2024 10:44 PM Pathologist: Jade Elaine MD, PhD Specimens: A) - Small Bowel, Duodenum, Biopsy, r/o celiac B) - Stomach, Biopsy, r/o h pylori C) - Colon, Transverse, Polyp, x1 Performed By: #### 6 6121-5 ####[facility]IA [id number] [place] [address] [place] FINAL DIAGNOSIS Normal [facility] Comment on above: Order Comment: Speci men Type: TISSUE SPECIMENOrdering Facility: [facility] Address: [address] [place] [address] Result Comment: A. D uodenum, biopsy: - Duodenal mucosa with no diagnostic abnormality. B. Stomach, biopsy: - Gastric antral and oxyntic mucosa with no diagnostic abnormality. C. Colon, transverse, polyp, biopsy: - Sessile serrated polyp. at 1242 EDT Performed By: #### 6 6121-5 ####[facility] LABCLIA [id number] [address] [place] FINAL PERFORMING LAB Normal [facility] Comment on above: Order Comment: Speci men Type: TISSUE SPECIMENOrdering Facility: [facility] Address: [address] [place] [address] Result Comment: Diag nostic interpretation performed at: [facility], [address] [place] [address] CLIA# [id number] Photographic Process Screen Maker: Chester Suarez MD Performed By: #### 6 6121-5 ####[facility] LABCLIA [id number] [address] OF [facility] GROSS DESCRIPTION Normal [facility] Comment on above: Order Comment: Speci men Type: TISSUE SPECIMENOrdering Facility: [facility] Address: [address] [place] [address] Result Comment: A. S mall Bowel, Duodenum, Biopsy Received in formalin are multiple pieces of campo, soft tissue aggregating to 2.0 x 0.2 x 0.1 cm. Totally submitted in one cassette. B. Stomach, Biopsy Received in formalin are multiple pieces of campo, soft tissue aggregating to 1.8 x 0.3 x 0.1 cm. Totally submitted in one cassette. C. Colon, Transverse, Polyp Received in formalin are multiple pieces of campo, soft tissue aggregating to 2.0 x 0.2 x 0.1 cm. Totally submitted in one cassette. Gross examination performed at [facility], [address] [place] [address] FFS 12/09/2024 1:09 AM Performed By: #### 6 6121-5 ####[facility] LABGLENDY [id number] [place] [address] [place] Upper GI endoscopyon 12-08-[address] [facility] Gastroenterology Gastrointestinal Endoscopy Patient Name: Aleksandra Miranda Procedure Date: 12/08/2024 8:49 AM Date of : 1990 Admit Type: Outpatient Age: 34 Room: [facility] Gender: Male Note Status: Buttonholer Override Attending MD: Indira Valles MD, [id number] Procedure: Upper GI endoscopy Indications: Abdominal pain, Follow-up of gastro-esophageal reflux disease Providers: Indira Valles MD Patient Profile: This is a 34 year old male. Refer to note in patient chart for documentation of history and physical. Referring Physician: Indira Valles MD (Referring MD), Albina Roberts MD (Referring MD) Medicines: Monitored Anesthesia Care Complications: No immediate complications. Requesting Provider: Procedure: Pre-Anesthesia Assessment: - Prior to the procedure, a History and Physical was performed, and patient medications and allergies were reviewed. The patient's tolerance of previous anesthesia was also reviewed. The risks and benefits of the procedure and the sedation options and risks were discussed with the patient. All questions were answered, and informed consent was obtained. Prior Anticoagulants: The patient has taken no anticoagulant or antiplatelet agents. ASA Grade Assessment: II - A patient with mild systemic disease. After reviewing the risks and benefits, the patient was deemed in satisfactory condition to undergo the procedure. After obtaining informed consent, the endoscope was passed under direct vision. Throughout the procedure, the patient's blood pressure, pulse, and oxygen saturations were monitored continuously. The Endoscope was introduced through the mouth, and advanced to the second part of duodenum. I was present and participated during the entire procedure, including non-harper portions, and during the administration and monitoring of Moderate Sedation. The upper GI endoscopy was accomplished without difficulty. The patient tolerated the procedure well. Moderate Sedation: MAC anesthesia was administered by the anesthesia team. Findings: The Z-line was regular and was found 38 cm from the incisors. The examined esophagus was normal. The entire examined stomach was normal. Biopsies were taken with a cold forceps in the gastric body, at the incisura and in the gastric antrum for histology. Verification of patient identification for the specimen was done by the physician and nurse. The pathology specimen was placed into Bottle B. The examined duodenum was normal. Biopsies for histology were taken with a cold forceps for evaluation of celiac disease. Verification of patient identification for the specimen was done by the physician and nurse. The pathology specimen was placed into Bottle A. Impression: - Z-line regular, 38 cm from the incisors. - Normal esophagus. - Normal stomach. Biopsied. - Normal examined duodenum. Biopsied. Recommendation: - Follow an antireflux regimen. - Await pathology results. - Proceed with colonoscopy. See full list of post-procedure recommendations in the colonoscopy report. Scope In: 9:03:01 AM Scope Out: 9:09:45 AM MD Indira Hernandez MD 12/08/2024 9:14:27 AM This report has been signed electronically by Indira Valles MD Number of Addenda: 0 Note Initiated On: 12/08/2024 8:49 AM Estimated Blood Loss: Estimated blood loss was minimal. [facility] ----- ALEKSANDRA MIRANDA ([id number]) 1990 M Date Time Provider Department 12/07/24 INDIRA VALLES [facility] During your visit today, we recorded the following information about you: [place] Cheryl 12/07/2024 8:40 AM Signed Name of Caller: Hannah Miranda Relationship to patient: patient's spouse Last visit in this department: 08/21/2024 Reason for Call: Other : Patients called regarding the CT scan done last week. They got a letter from their insurance saying it was not approved saying it was not medically necessary. Patients said it was scheduled when it was due to patients medical issues. They sent form to Dr. Sadik to fill out. Can this be done ISI Patient sent to Dr. Valles in My Chart. Needs to say it was medically necessary. Please call Hannah (). They are very nervous. Cannot afford to pay this. Patient is having EGD and Colonoscopy on Wednesday. 12/08/24 She wants to make sure doctor can talk to her after procedure or will patient need living will for her to get information afterwards. She is asking for a call. Thanks. Callback number: [phone] Cheryl Teodoro Mackey, OLAF 12/07/2024 8:49 AM Signed MC message sent to patient Teodoro Machado RN 12/07/2024 9:38 AM Signed S/W patients spouse provided number to billing department to discuss in depth the approval for the CT scan from the . Allergies As of Date: 12/07/2024 Noted Allergy Reaction CONTRAST DYE (IODINE) 11/02/2024 14 - Other: See Comments Comments: Nausea and sneezing. Only happened once. Most recent test did not have reaction. Date Reviewed: 11/03/2024 Reviewed by: Aleksandra Olivarez, RT(R) - Fully Assessed Prescriptions as of 12/07/2024 - predniSONE (DELTASONE) 50 mg Take 1 tablet 13 hours prior, 1 tablet 7 hours prior, and 1 tablet 1 hour prior to test. Take 50 mg Benadryl (OTC) 30 min prior to test. - iv contrast (will be provided with radiology test) CT ABD/PEL -Inject, intravenously, once for 1 dose.No IV access, insert saline lock prior to the beginning of sedation, infusion, injection of imaging exam. Discontinue saline lock post exam. If Pt. has a central line or IVAD, may access for administration according to line specific nursing protocol. Once exam is complete flush line and de-access according to line specific nursing protocol in the CT contrast administration guidelines link. - enteric contrast (will be provided with radiology test) For CT ABD/PEL W IVCON Routine order Administer, As Directed One Time Only, via Oral, Rectal, both Oral and Rectal, Enteric Tube, Stoma or Indwelling Catheter, Enteric Contrast as designated per enteric contrast guidelines - pantoprazole DR (PROTONIX) 40 mg tablet Take 1 tablet by mouth once daily. Take 30-60 minutes before breakfast on an empty stomach. - nortriptyline (PAMELOR) 10 mg capsule Take 1 capsule by mouth daily at bedtime. - lisinopril (ZESTRIL, PRINIVIL) 10 mg tablet Take by mouth. - metoprolol tartrate, short acting, (LOPRESSOR) 100 mg tablet Take 50 mg by mouth once daily. Problem List As Of Date 12/07/2024 Noted Resolved Gastroesophageal reflux disease without esophag*10/21/2020 Irritable bowel syndrome with diarrhea [K58.0] 10/21/2020 Functional dyspepsia [K30] 12/02/2020 Encounter Status:Closed by TEODORO MACHADO on 12/07/24 Normal [facility] CT ABD/PEL W IVCONon 025 CT ABD/PEL W IVCON * * *Final Report* * * DATE OF EXAM: Nov 30 2024 9:09AM [place] 0530 - CT ABD/PEL W IVCON / PROCEDURE REASON: R10.32-Left lower quadrant abdominal pain * * * * Physician Interpretation * * * * EXAMINATION: CT ABDOMEN AND PELVIS WITH IV CONTRAST CLINICAL HISTORY: Left lower quadrant abdominal pain TECHNIQUE: CT of the abdomen and pelvis was performed using standard technique, scanning from just above the dome of the diaphragm to the symphysis pubis. MQ: CTAP_3 Contrast: IV: 100 ml of Omnipaque 350 : ml of CT Radiation dose: Integrated Dose-length product (DLP) for this visit = 265 mGy*cm. CT Dose Reduction Employed: Automated exposure control(AEC) and iterative recon COMPARISON: 11/03/2024 RESULT: Liver: No mass. Biliary: No bile duct dilation. Gallbladder is absent. Spleen: No mass. No splenomegaly. Pancreas: No mass or duct dilation. Adrenals: No mass. Kidneys: No mass, calculus or hydronephrosis. GI tract: No dilation or wall thickening. Normal appendix. Mild sigmoid diverticulosis with mild wall thickening, similar to the previous study and perhaps due to muscular hypertrophy. No findings to suggest diverticulitis. Lymph nodes: No abdominal or pelvic lymphadenopathy. Mesentery/Peritoneum: No ascites or mass. Retroperitoneum: No mass. Vasculature: - Abdominal aorta and iliac arteries: No aneurysm. - Celiac and SMA: Patent without stenosis. - Portal venous system (SMV, splenic vein, portal vein and branches): Patent. - Hepatic veins: Patent. Pelvis: No mass, ascites or fluid collection. Bones/Soft Tissues: No significant finding. Lower thorax: Unremarkable. Localizer images: No additional findings. IMPRESSION: No acute abnormality Distribution Lineman: ELIANE Transcribe Date/Time: Nov 30 2024 9:36A Dictated by : DILMA DEL RIO MD This examination was interpreted and the report reviewed and electronically signed by: DILMA DEL RIO MD on Nov 30 2024 9:42AM EST [id number] [facility] CT Abdomen and Pelvis W cont rast [place] 11-30-2024 IMPRESSION: No acute abnormality Distribution Lineman: [facility] Transcribe Date/Time: Nov 30 2024 9:36A Dictated by : DILMA DEL RIO MD This examination was interpreted and the report reviewed and electronically signed by: DILMA DEL RIO MD on Nov 30 2024 9:42AM EST [facility] * * *Final Report* * * DATE OF EXAM: Nov 30 2024 9:09AM [place] 0530 - CT ABD/PEL W IVCON / PROCEDURE REASON: R10.32-Left lower quadrant abdominal pain * * * * Physician Interpretation * * * * EXAMINATION: CT ABDOMEN AND PELVIS WITH IV CONTRAST CLINICAL HISTORY: Left lower quadrant abdominal pain TECHNIQUE: CT of the abdomen and pelvis was performed using standard technique, scanning from just above the dome of the diaphragm to the symphysis pubis. MQ: CTAP_3 Contrast: IV: 100 ml of Omnipaque 350 : ml of CT Radiation dose: Integrated Dose-length product (DLP) for this visit = 265 mGy*cm. CT Dose Reduction Employed: Automated exposure control(AEC) and iterative recon COMPARISON: 11/03/2024 RESULT: Liver: No mass. Biliary: No bile duct dilation. Gallbladder is absent. Spleen: No mass. No splenomegaly. Pancreas: No mass or duct dilation. Adrenals: No mass. Kidneys: No mass, calculus or hydronephrosis. GI tract: No dilation or wall thickening. Normal appendix. Mild sigmoid diverticulosis with mild wall thickening, similar to the previous study and perhaps due to muscular hypertrophy. No findings to suggest diverticulitis. Lymph nodes: No abdominal or pelvic lymphadenopathy. Mesentery/Peritoneum: No ascites or mass. Retroperitoneum: No mass. Vasculature: - Abdominal aorta and iliac arteries: No aneurysm. - Celiac and SMA: Patent without stenosis. - Portal venous system (SMV, splenic vein, portal vein and branches): Patent. - Hepatic veins: Patent. Pelvis: No mass, ascites or fluid collection. Bones/Soft Tissues: No significant finding. Lower thorax: Unremarkable. Localizer images: No additional findings. [facility] * * *Final Report* * * DATE OF EXAM: Nov 30 2024 9:09AM [place] 0530 - CT ABD/PEL W IVCON / PROCEDURE REASON: R10.32-Left lower quadrant abdominal pain * * * * Physician Interpretation * * * * EXAMINATION: CT ABDOMEN AND PELVIS WITH IV CONTRAST CLINICAL HISTORY: Left lower quadrant abdominal pain TECHNIQUE: CT of the abdomen and pelvis was performed using standard technique, scanning from just above the dome of the diaphragm to the symphysis pubis. MQ: CTAP_3 Contrast: IV: 100 ml of Omnipaque 350 : ml of CT Radiation dose: Integrated Dose-length product (DLP) for this visit = 265 mGy*cm. CT Dose Reduction Employed: Automated exposure control(AEC) and iterative recon COMPARISON: 11/03/2024 RESULT: Liver: No mass. Biliary: No bile duct dilation. Gallbladder is absent. Spleen: No mass. No splenomegaly. Pancreas: No mass or duct dilation. Adrenals: No mass. Kidneys: No mass, calculus or hydronephrosis. GI tract: No dilation or wall thickening. Normal appendix. Mild sigmoid diverticulosis with mild wall thickening, similar to the previous study and perhaps due to muscular hypertrophy. No findings to suggest diverticulitis. Lymph nodes: No abdominal or pelvic lymphadenopathy. Mesentery/Peritoneum: No ascites or mass. Retroperitoneum: No mass. Vasculature: - Abdominal aorta and iliac arteries: No aneurysm. - Celiac and SMA: Patent without stenosis. - Portal venous system (SMV, splenic vein, portal vein and branches): Patent. - Hepatic veins: Patent. Pelvis: No mass, ascites or fluid collection. Bones/Soft Tissues: No significant finding. Lower thorax: Unremarkable. Localizer images: No additional findings. IMPRESSION IMPRESSION: No acute abnormality Distribution Lineman: ELIANE Transcribe Date/Time: Nov 30 2024 9:36A Dictated by : DILMA DEL RIO MD This examination was interpreted and the report reviewed and electronically signed by: DILMA DEL RIO MD on Nov 30 2024 9:42AM EST [facility] Radiology Study observation (narrative) [facility] CT Abdomen and Pelvis W cont rast IVOrdered By: Ccf Provider on 11-30-2024 [facility] NURSING PROGon 11-30-2024 NURSING PROG HNO ID: [id number] Author: SHALINI QUIJANO, RN Service: PICC Team Author Type: Registered Nurse Type: Nursing Progress Note Filed: 11/30/2024 08:56 Note Text: Radiology Service Progress Note DATE OF SERVICE: November 30, 2024 TIME: 8:54 AM PATIENT WEIGHT: 205LBS PATIENT IDENTITY VERIFICATION COMPLETED USING TWO (2) STANDARD IDENTIFIERS: Name and Date of confirmed by patient verbally and Name and Date of confirmed by identification band. FALL SCREENING: Has the patient had 2 falls in the last year or 1 fall with injury or currently using an Ambulatory Assistive Device (Walker, Cane, Wheelchair, Crutches, etc.)? No PATIENT GENDER DATA: Assigned male at ALLERGIES: Reviewed and unchanged CONTRAST ALLERGY: Yes STANDARD PREMEDICATION: Prednisone 50mg Dose 1 taken at 1930 11/29, Dose 2 [place] [address]1311/30, and Dose 3 at 0711/30 Benadryl 50mg 11/30 EXAM: CT -CONTRAST INDUCED NEPHROPATHY RISK FACTORS: Not applicable CREATININE: Creatinine Date Value Ref Range Status 06/16/2024 0.84 0.73 - 1.22 mg/dL Final 10/11/2020 0.80 0.73 - 1.22 mg/dL Final 09/20/2020 0.78 0.73 - 1.22 mg/dL Final Estimated Glomerular Filtration Rate Date Value Ref Range Status 06/16/2024 117 >=60 mL/min/1.73m? Final Comment: Estimated Glomerular Filtration Rate (eGFR) is calculated using the 2020 CKD-EPI creatinine equation. This equation utilizes serum creatinine, sex, and age as parameters. The creatinine assay has traceable calibration to isotope dilution-mass spectrometry. Refer to KDIGO guidelines for clinical interpretation. In patients with unstable renal function, e.g. those with acute kidney injury, the eGFR may not accurately reflect actual GFR. eGFR- Date Value Ref Range Status 10/11/2020 >60 Final P.O.C.T. RESULTS: N/A November 30, 2024 TREATMENT: N/A IV SITE: Ambulatory: A peripheral IV was started in the Right antecubital site with a Angio cath: 22 gauge. IV SITE APPEARANCE: Clean,Dry and Intact SIGNATURE: Shalini Quijano RN PATIENT NAME: Aleksandra Miranda DATE: November 30, 2024 TIME: 8:54 AM [facility] CT ABD/PEL W IVCONon 025 CT ABD/PEL W IVCON * * *Final Report* * * DATE OF EXAM: Nov 03 2024 12:58PM [facility] 0530 - CT ABD/PEL W IVCON / PROCEDURE REASON: multiple diagnoses * * * * Physician Interpretation * * * * EXAMINATION: CT ABDOMEN AND PELVIS WITH IV CONTRAST CLINICAL HISTORY: Left lower quadrant pain TECHNIQUE: CT of the abdomen and pelvis was performed using standard technique, scanning from just above the dome of the diaphragm to the symphysis pubis. MQ: CTAP_3 Contrast: IV: 100 ml of Omnipaque 350 Oral: 450 ml of Omni 240 10-25ml diluted with water CT Radiation dose: Integrated Dose-length product (DLP) for this visit = 410 mGy*cm. CT Dose Reduction Employed: Automated exposure control(AEC) and iterative recon COMPARISON: 06/22/2024 RESULT: Liver: No mass. Biliary: No bile duct dilation. Gallbladder is absent. Spleen: No mass. No splenomegaly. Pancreas: No mass or duct dilation. Adrenals: No mass. Kidneys: No mass, calculus or hydronephrosis. GI tract: No bowel obstruction. There is wall thickening of the sigmoid colon. No significant adjacent inflammatory stranding. Normal appendix. Diverticulosis. Lymph nodes: No abdominal or pelvic lymphadenopathy. Mesentery/Peritoneum: No ascites or mass. Retroperitoneum: No mass. Vasculature: - Abdominal aorta and iliac arteries: Atherosclerotic calcifications without aneurysm. - Celiac and SMA: Patent without stenosis. - Portal venous system (SMV, splenic vein, portal vein and branches): Patent. - Hepatic veins: Patent. Pelvis: No mass, ascites or fluid collection. Bones/Soft Tissues: No significant finding. Lower thorax: Unremarkable. Localizer images: No additional findings. IMPRESSION: There is wall thickening of the sigmoid colon without adjacent inflammatory stranding. This is a nonspecific finding given lack of inflammatory stranding. While findings may represent mild or developing colitis or diverticulitis, a follow-up colonoscopy is recommended to further evaluate this area. Distribution Lineman: ELIANE Transcribe Date/Time: Nov 03 2024 2:35P Dictated by : MUSA ACEVEDO MD This examination was interpreted and the report reviewed and electronically signed by: MUSA ACEVEDO MD on Nov 03 2024 2:51PM EST [id number] Normal [facility] CT Abdomen and Pelvis W cont rast [place] 11-03-2024 IMPRESSION: There is wall thickening of the sigmoid colon without adjacent inflammatory stranding. This is a nonspecific finding given lack of inflammatory stranding. While findings may represent mild or developing colitis or diverticulitis, a follow-up colonoscopy is recommended to further evaluate this area. Distribution Lineman: [facility] Transcribe Date/Time: Nov 03 2024 2:35P Dictated by : MUSA ACEVEDO MD This examination was interpreted and the report reviewed and electronically signed by: MUSA ACEVEDO MD on Nov 03 2024 2:51PM EST [facility] * * *Final Report* * * DATE OF EXAM: Nov 03 2024 12:58PM [facility] 0530 - CT ABD/PEL W IVCON / PROCEDURE REASON: multiple diagnoses * * * * Physician Interpretation * * * * EXAMINATION: CT ABDOMEN AND PELVIS WITH IV CONTRAST CLINICAL HISTORY: Left lower quadrant pain TECHNIQUE: CT of the abdomen and pelvis was performed using standard technique, scanning from just above the dome of the diaphragm to the symphysis pubis. MQ: CTAP_3 Contrast: IV: 100 ml of Omnipaque 350 Oral: 450 ml of Omni 240 10-25ml diluted with water CT Radiation dose: Integrated Dose-length product (DLP) for this visit = 410 mGy*cm. CT Dose Reduction Employed: Automated exposure control(AEC) and iterative recon COMPARISON: 06/22/2024 RESULT: Liver: No mass. Biliary: No bile duct dilation. Gallbladder is absent. Spleen: No mass. No splenomegaly. Pancreas: No mass or duct dilation. Adrenals: No mass. Kidneys: No mass, calculus or hydronephrosis. GI tract: No bowel obstruction. There is wall thickening of the sigmoid colon. No significant adjacent inflammatory stranding. Normal appendix. Diverticulosis. Lymph nodes: No abdominal or pelvic lymphadenopathy. Mesentery/Peritoneum: No ascites or mass. Retroperitoneum: No mass. Vasculature: - Abdominal aorta and iliac arteries: Atherosclerotic calcifications without aneurysm. - Celiac and SMA: Patent without stenosis. - Portal venous system (SMV, splenic vein, portal vein and branches): Patent. - Hepatic veins: Patent. Pelvis: No mass, ascites or fluid collection. Bones/Soft Tissues: No significant finding. Lower thorax: Unremarkable. Localizer images: No additional findings. [facility] Provider, [facility] - 11/03/2024 * * *Final Report* * * DATE OF EXAM: Nov 03 2024 12:58PM [facility] 0530 - CT ABD/PEL W IVCON / PROCEDURE REASON: multiple diagnoses * * * * Physician Interpretation * * * * EXAMINATION: CT ABDOMEN AND PELVIS WITH IV CONTRAST CLINICAL HISTORY: Left lower quadrant pain TECHNIQUE: CT of the abdomen and pelvis was performed using standard technique, scanning from just above the dome of the diaphragm to the symphysis pubis. MQ: CTAP_3 Contrast: IV: 100 ml of Omnipaque 350 Oral: 450 ml of Omni 240 10-25ml diluted with water CT Radiation dose: Integrated Dose-length product (DLP) for this visit = 410 mGy*cm. CT Dose Reduction Employed: Automated exposure control(AEC) and iterative recon COMPARISON: 06/22/2024 RESULT: Liver: No mass. Biliary: No bile duct dilation. Gallbladder is absent. Spleen: No mass. No splenomegaly. Pancreas: No mass or duct dilation. Adrenals: No mass. Kidneys: No mass, calculus or hydronephrosis. GI tract: No bowel obstruction. There is wall thickening of the sigmoid colon. No significant adjacent inflammatory stranding. Normal appendix. Diverticulosis. Lymph nodes: No abdominal or pelvic lymphadenopathy. Mesentery/Peritoneum: No ascites or mass. Retroperitoneum: No mass. Vasculature: - Abdominal aorta and iliac arteries: Atherosclerotic calcifications without aneurysm. - Celiac and SMA: Patent without stenosis. - Portal venous system (SMV, splenic vein, portal vein and branches): Patent. - Hepatic veins: Patent. Pelvis: No mass, ascites or fluid collection. Bones/Soft Tissues: No significant finding. Lower thorax: Unremarkable. Localizer images: No additional findings. IMPRESSION IMPRESSION: There is wall thickening of the sigmoid colon without adjacent inflammatory stranding. This is a nonspecific finding given lack of inflammatory stranding. While findings may represent mild or developing colitis or diverticulitis, a follow-up colonoscopy is recommended to further evaluate this area. Distribution Lineman: ELIANE Transcribe Date/Time: Nov 03 2024 2:35P Dictated by : MUSA ACEVEDO MD This examination was interpreted and the report reviewed and electronically signed by: MUSA ACEVEDO MD on Nov 03 2024 2:51PM EST [facility] Radiology Study observation (narrative) [facility] CT Abdomen and Pelvis W cont rast IVOrdered By: Ccf Provider on 11-03-2024 [facility] NURSING PROGon 11-03-2024 NURSING PROG HNO ID: [id number] Author: HANK HICKS RN Service: Radiology Author Type: Registered Nurse Type: Nursing Progress Note Filed: 11/03/2024 12:09 Note Text: Radiology Service Progress Note DATE OF SERVICE: November 03, 2024 TIME: 12:02 PM PATIENT WEIGHT: 200 LBS PATIENT IDENTITY VERIFICATION COMPLETED USING TWO (2) STANDARD IDENTIFIERS: Name and Date of confirmed by patient verbally and Name and Date of confirmed by identification band. FALL SCREENING: Has the patient had 2 falls in the last year or 1 fall with injury or currently using an Ambulatory Assistive Device (Walker, Cane, Wheelchair, Crutches, etc.)? No PATIENT GENDER DATA: Assigned male at ALLERGIES: Reviewed and unchanged CONTRAST ALLERGY: Yes STANDARD PREMEDICATION: Prednisone 50mg Dose 1 given at 2300 10/23/2024, Dose 2 at 0500 today, and Dose 3 at 1100 today Benadryl 50mg 1130 ALTERNATIVE PREMEDICATION: N/A EXAM: CT -CONTRAST INDUCED NEPHROPATHY RISK FACTORS: Not applicable CREATININE: Creatinine Date Value Ref Range Status 06/16/2024 0.84 0.73 - 1.22 mg/dL Final 10/11/2020 0.80 0.73 - 1.22 mg/dL Final 09/20/2020 0.78 0.73 - 1.22 mg/dL Final Estimated Glomerular Filtration Rate Date Value Ref Range Status 06/16/2024 117 >=60 mL/min/1.73m? Final Comment: Estimated Glomerular Filtration Rate (eGFR) is calculated using the 2020 CKD-EPI creatinine equation. This equation utilizes serum creatinine, sex, and age as parameters. The creatinine assay has traceable calibration to isotope dilution-mass spectrometry. Refer to KDIGO guidelines for clinical interpretation. In patients with unstable renal function, e.g. those with acute kidney injury, the eGFR may not accurately reflect actual GFR. eGFR- Date Value Ref Range Status 10/11/2020 >60 Final P.O.C.T. RESULTS: N/A November 03, 2024 TREATMENT: N/A IV SITE: Ambulatory: A peripheral IV was started in the Right antecubital site with a Angio cath: 20 gauge. IV SITE APPEARANCE: Clean,Dry and Intact SIGNATURE: Hank Hicks RN PATIENT NAME: Aleksandra Miranda DATE: November 03, 2024 TIME: 12:02 PM [facility] 08-21-2024 [facility] Office Visit (GSMBHT ) ----- ALEKSANDRA MIRANDA ([id number]) 1990 M Date Time Provider Department 08/21/24 3:00 PM INDIRA VALLES [facility] During your visit today, we recorded the following information about you: Temperature Pulse Blood pressure Weight 98.6 degrees 89/minute 148/94 93.2 kg Height 1.75 m Indira Valles MD 09/17/2024 1:58 PM Signed GI FOLLOW UP OFFICE VISIT REASONS FOR VISIT: Acute diverticulitis PATIENT SUMMARY: Aleksandra Miranda is a 33 year old male with a history of HTN, ADD, OCD, gallbladder dyskinesia (s/p cholecystectomy), IBS-D and functional dyspepsia who presents to the GI clinic for follow up after a recent episode of acute diverticulitis. Functional dyspepsia and IBS-D are characterized by chronic epigastric pain/fullness, belching, nausea and loose stools associated with abdominal cramping. These are chronic symptoms that wax and wane in severity. Last GI VV was in 10/2023. At this time, he had made some healthy lifestyle changes and lost 40 lbs. He was averaging 1-2 stools/day with rare episodes of constipation and diarrhea. Taking Pamelor 75 mg/day and a daily probiotic to manage IBS and functional dyspepsia. Low-FODMAP diet was recommended to reduce residual symptoms. H+ breath test in 12/2023 was negative.He expressed interest in weaning Pamelor, so this dose was reduced to 50 mg qhs. In 06/2024, he messaged the office with concerns about constipation, bloating and LLQ pain. Pamelor was reduced furhter to 25 mg qhs. When his pain persisted, a CT scan revealed uncomplicated acute sigmoid diverticulitis vs epiploic appendigitis. He adhered to a clear liquid diet and completed a 10-day course of cipro / flagyl with subsequent improvement. Colonoscopy was ordered for scheduling 6-8 weeks after his antibiotics. INTERVAL HISTORY: He has fully recovered from diverticulitis. He is averaging 2 formed stools/day (Braxton 3-4) with Metamucil 1 tbsp/day. Evacuations feel complete. He denies LLQ pain, fevers, GI bleeding or severe abdominal cramping. He is drinking plenty of water but cannot give up coffee. Drinking two to three 12-16 oz cups per day. He is avoiding soda and other sources of caffeine. Still taking Pamelor 25 mg qhs. Acid reflux is largely controlled on Protonix 40 mg/day. He reports occasional breakthrough reflux. Wondering what he can take if this happens. He denies dysphagia, nausea or vomiting. Past Clinical Work-up: CTAP w/ IVC: 06/22/24: Findings are suggestive of acute sigmoid diverticulitis. Epiploic appendagitis is also among the differential consideration. No drainable abscess formation or perforation. Latest Ref Rng 10/11/2020 06/16/2024 Lipase 16 - 61 U/L 22 32 Latest Ref Rng 09/20/2020 10/11/2020 06/16/2024 Protein, Total 6.3 - 8.0 g/dL 7.5 7.9 7.7 Albumin 3.9 - 4.9 g/dL 4.8 4.9 4.7 Calcium 8.5 - 10.2 mg/dL 10.0 10.3 (H) 9.8 Bilirubin, Total 0.2 - 1.3 mg/dL 0.5 0.7 0.2 Bilirubin, Total 0.5 Alkaline Phosphatase 38 - 113 U/L 56 64 85 AST 14 - 40 U/L 27 19 Glucose 74 - 99 mg/dL 87 81 95 BUN 9 - 24 mg/dL 16 19 17 Creatinine 0.73 - 1.22 mg/dL 0.78 0.80 0.84 Sodium 136 - 144 mmol/L 138 138 137 Potassium 3.7 - 5.1 mmol/L 4.5 4.5 Chloride 98 - 107 mmol/L 100 101 101 CO2 22 - 30 mmol/L 27 25 27 Anion Gap 8 - 15 mmol/L 11 12 9 ALT 10 - 54 U/L 34 29 eGFR >=60 mL/min/1.73m? 117 Latest Ref Rn 09/20/2020 10/11/2020 06/16/2024 WBC 3.70 - 11.00 k/uL 12.28 (H) 11.49 (H) 11.58 (H) RBC 4.20 - 6.00 m/uL 5.14 5.24 5.04 Hemoglobin 13.0 - 17.0 g/dL 15.9 16.2 15.2 Hematocrit 39.0 - 51.0 % 46.8 47.9 45.5 MCV 80.0 - 100.0 fL 91.1 91.4 90.3 MCH 26.0 - 34.0 pg 30.9 30.9 30.2 MCHC 30.5 - 36.0 g/dL 34.0 33.8 33.4 RDW-CV 11.5 - 15.0 % 12.3 12.8 12.6 Platelet Count 150 - 400 k/uL 339 349 423 (H) MPV 9.0 - 12.7 fL 10.5 10.5 9.3 Absolute nRBC <0.01 k/uL <0.01 <0.01 <0.01 CTAP w/IV cont: 01/08/21: . No acute pathology is identified Latest Ref Rng 09/20/2020 IgA 70 - 400 mg/dL 112 Transglutaminase Ab, IgA <20 Units 2 Transglutaminase Ab, IgG <20 Units Test Not Indicated Gliadin Deamidated IgA Ab <20 Units Test Not Indicated Gliadin Deamidated IgG Ab <20 Units Test Not Indicated Endomysial Ab, IgA <1:10 Test Not Indicated ! Interpretation (Celiac Screen) No serologic evidence of celiac disease. No serologic evidence of celiac disease. Latest Ref Rng 11/04/2019 09/20/2020 WSR 0 - 15 mm/hr 2 5 EGD: 11/17/19: Dr. Alea Platt: - Esophagus: Normal mucosa with a relatively straight Z-line at 40 cm and no evidence of a hiatal hernia. Cold biopsies taken. - Stomach: Normal mucosa with no retained food or bile and a normal contractility pattern. Biopsies to rule out H. Pylori. - Duodenum: Normal first and second portions with biopsies to rule out Giardia and celiac sprue. Pathology: Random duodenal biopsies: - Histologically unremarkable duodenal muc (more content not included)... Normal [facility] CNCOon 06-26-2024 CNCO Letter Text Normal [facility] ECG 12-LEADon 06-26-2024 ECG 12-LEAD Ventricular Rate 85 Atrial Rate 85 P-R Interval 120 QRS Duration 94 Q-T Interval 366 QTC Calculation(Bazett) 435 P Worcester 23 R [place] 11 T [place] 23 QRS Count 14 Q Onset 215 P Onset 155 P Offset 203 T Offset 398 QTC Fredericia 411 Diagnosis Normal sinus rhythm Normal ECG When compared with ECG of 16-NOV-2022 15:20, No significant change was found Confirmed by Dilma Galaviz ([id number]) on 06/28/2024 5:22:38 PM Normal [facility] CT ABD/PEL W IVCONon 024 CT ABD/PEL W IVCON * * *Final Report* * * DATE OF EXAM: Jun 22 2024 2:54PM [facility] 0530 - CT ABD/PEL W IVCON / PROCEDURE REASON: Left lower quadrant abdominal pain * * * * Physician Interpretation * * * * EXAMINATION: CT ABDOMEN AND PELVIS WITH IV CONTRAST CLINICAL HISTORY: Left lower quadrant abdominal pain. TECHNIQUE: CT of the abdomen and pelvis was performed using standard technique, scanning from just above the dome of the diaphragm to the symphysis pubis. MQ: CTAP_3 Contrast: IV: 100 ml of Omnipaque 350 Oral: 450 ml of Omni 240 10-25ml diluted with water CT Radiation dose: Integrated Dose-length product (DLP) for this visit = 727 mGy*cm. CT Dose Reduction Employed: Automated exposure control (AEC) COMPARISON: None. RESULT: Liver: No mass. Biliary: No bile duct dilation. The gallbladder is surgically absent. Spleen: No mass. No splenomegaly. Pancreas: No mass or duct dilation. Adrenals: No mass. Kidneys: No kidney mass or hydroureteronephrosis. GI tract: Segmental bowel wall thickening seen in the sigmoid colon, with soft tissue stranding/edema along the proximal sigmoid colon. There are multiple colonic diverticula along the sigmoid colon and descending colon. No abscess formation. The appendix is identified and normal in appearance. Lymph nodes: A few borderline enlarged lymph nodes seen in the ascending mesocolon. Mesentery/Peritoneum: No ascites or mass or free abdominal air. Retroperitoneum: No mass. Vasculature: The celiac artery, SMA, WILLIAM, portal veins and hepatic veins are patent. Pelvis: No mass, ascites or fluid collection. Bones/Soft Tissues: Stable abdominal soft tissue. The visualized bones are intact. Lower thorax: No pleural effusions. Dependent atelectasis seen in the bilateral lower lobes. Localizer images: No additional findings. IMPRESSION: Findings are suggestive of acute sigmoid diverticulitis. Epiploic appendagitis is also among the differential consideration. No drainable abscess formation or perforation. URGENT RESULTS Acuity: Urgent Communication: Communicated with Dr. Indira Valles on 06/22/2024 at 3:10 PM PM via verbal communication. --END OF FINDING-- Distribution Lineman: ELIANE Transcribe Date/Time: Jun 22 2024 3:05P Dictated by : ANIBAL OROSCO MD This examination was interpreted and the report reviewed and electronically signed by: ANIBAL OROSCO MD on Jun 22 2024 3:16PM EST [id number] Normal [facility] CT Abdomen and Pelvis W cont rast Diallo 06-22-2024 IMPRESSION: Findings are suggestive of acute sigmoid diverticulitis. Epiploic appendagitis is also among the differential consideration. No drainable abscess formation or perforation. URGENT RESULTS Acuity: Urgent Communication: Communicated with Dr. Indira Valles on 06/22/2024 at 3:10 PM PM via verbal communication. --END OF FINDING-- Distribution Lineman: ELIANE Transcribe Date/Time: Jun 22 2024 3:05P Dictated by : ANIBAL OROSCO MD This examination was interpreted and the report reviewed and electronically signed by: ANIBAL OROSCO MD on Jun 22 2024 3:16PM [facility] DIVISION OF RADIOLOGY * * *Final Report* * * DATE OF EXAM: Jun 22 2024 2:54PM [facility] 0530 - CT ABD/PEL W IVCON / PROCEDURE REASON: Left lower quadrant abdominal pain * * * * Physician Interpretation * * * * EXAMINATION: CT ABDOMEN AND PELVIS WITH IV CONTRAST CLINICAL HISTORY: Left lower quadrant abdominal pain. TECHNIQUE: CT of the abdomen and pelvis was performed using standard technique, scanning from just above the dome of the diaphragm to the symphysis pubis. MQ: CTAP_3 Contrast: IV: 100 ml of Omnipaque 350 Oral: 450 ml of Omni 240 10-25ml diluted with water CT Radiation dose: Integrated Dose-length product (DLP) for this visit = 727 mGy*cm. CT Dose Reduction Employed: Automated exposure control (AEC) COMPARISON: None. RESULT: Liver: No mass. Biliary: No bile duct dilation. The gallbladder is surgically absent. Spleen: No mass. No splenomegaly. Pancreas: No mass or duct dilation. Adrenals: No mass. Kidneys: No kidney mass or hydroureteronephrosis. GI tract: Segmental bowel wall thickening seen in the sigmoid colon, with soft tissue stranding/edema along the proximal sigmoid colon. There are multiple colonic diverticula along the sigmoid colon and descending colon. No abscess formation. The appendix is identified and normal in appearance. Lymph nodes: A few borderline enlarged lymph nodes seen in the ascending mesocolon. Mesentery/Peritoneum: No ascites or mass or free abdominal air. Retroperitoneum: No mass. Vasculature: The celiac artery, SMA, WILLIAM, portal veins and hepatic veins are patent. Pelvis: No mass, ascites or fluid collection. Bones/Soft Tissues: Stable abdominal soft tissue. The visualized bones are intact. Lower thorax: No pleural effusions. Dependent atelectasis seen in the bilateral lower lobes. Localizer images: No additional findings. DIVISION OF RADIOLOGY Provider, [facility] - 06/22/2024 * * *Final Report* * * DATE OF EXAM: Jun 22 2024 2:54PM [facility] 0530 - CT ABD/PEL W IVCON / PROCEDURE REASON: Left lower quadrant abdominal pain * * * * Physician Interpretation * * * * EXAMINATION: CT ABDOMEN AND PELVIS WITH IV CONTRAST CLINICAL HISTORY: Left lower quadrant abdominal pain. TECHNIQUE: CT of the abdomen and pelvis was performed using standard technique, scanning from just above the dome of the diaphragm to the symphysis pubis. MQ: CTAP_3 Contrast: IV: 100 ml of Omnipaque 350 Oral: 450 ml of Omni 240 10-25ml diluted with water CT Radiation dose: Integrated Dose-length product (DLP) for this visit = 727 mGy*cm. CT Dose Reduction Employed: Automated exposure control (AEC) COMPARISON: None. RESULT: Liver: No mass. Biliary: No bile duct dilation. The gallbladder is surgically absent. Spleen: No mass. No splenomegaly. Pancreas: No mass or duct dilation. Adrenals: No mass. Kidneys: No kidney mass or hydroureteronephrosis. GI tract: Segmental bowel wall thickening seen in the sigmoid colon, with soft tissue stranding/edema along the proximal sigmoid colon. There are multiple colonic diverticula along the sigmoid colon and descending colon. No abscess formation. The appendix is identified and normal in appearance. Lymph nodes: A few borderline enlarged lymph nodes seen in the ascending mesocolon. Mesentery/Peritoneum: No ascites or mass or free abdominal air. Retroperitoneum: No mass. Vasculature: The celiac artery, SMA, WILLIAM, portal veins and hepatic veins are patent. Pelvis: No mass, ascites or fluid collection. Bones/Soft Tissues: Stable abdominal soft tissue. The visualized bones are intact. Lower thorax: No pleural effusions. Dependent atelectasis seen in the bilateral lower lobes. Localizer images: No additional findings. IMPRESSION IMPRESSION: Findings are suggestive of acute sigmoid diverticulitis. Epiploic appendagitis is also among the differential consideration. No drainable abscess formation or perforation. URGENT RESULTS Acuity: Urgent Communication: Communicated with Dr. Indira Valles on 06/22/2024 at 3:10 PM PM via verbal communication. --END OF FINDING-- Distribution Lineman: ELIANE Transcribe Date/Time: Jun 22 2024 3:05P Dictated by : ANIBAL OROSCO MD This examination was interpreted and the report reviewed and electronically signed by: ANIBAL OROSCO MD on Jun 22 2024 3:16PM EST [facility] Radiology Study observation (narrative) [facility] CT Abdomen and Pelvis W cont rast IVOrdered By: [facility]cf Provider on 06-22-2024 [facility] CNPNon 06-21-2024 CNPN Telephone ([facility]) ----- ALEKSANDRA MIRANDA ([id number]) 1990 M Date Time Provider Department 06/21/24 INDIRA VALLES [facility] During your visit today, we recorded the following information about you: Lianne Patient Schedule Maker Hank Boyd 06/21/2024 12:53 PM Signed Name of Caller: Aleksandra miranda Relationship to patient: patient Last visit in this department: Visit date not found Reason for Call: Other : Patients calling to have call her back ISI to discuss health questions. Callback number: [phone] Fax Number (if necessary): N/A Additional info if needed (Prior Auth #, Claim #, etc?): N/A Hank Abdalla Patient Schedule Maker Teodoro Pinto, OLAF 06/21/2024 2:07 PM Addendum See 06/16/2024 encounter for update Viridiana Gonzalez 06/23/2024 11:59 AM Signed Patients spouse came back and rescheduled to 09/19 and will wait to talk to dr valles as well as he is not sure he wants to proceed with procedure Allergies As of Date: 06/21/2024 (No Known Allergies) Date Reviewed: 06/21/2024 Reviewed by: Lynda Weaver, CT - Fully Assessed Prescriptions as of 06/23/2024 - ciprofloxacin HCl (CIPRO) 500 mg tablet Take 1 tablet by mouth two times a day for 10 days. Finish entire course. - metroNIDAZOLE (FLAGYL) 500 mg tablet Take 1 tablet by mouth three times a day for 10 days. Finish entire course. - iv contrast (will be provided with radiology test) CT ABD/PEL -Inject, intravenously, once for 1 dose.No IV access, insert saline lock prior to the beginning of sedation, infusion, injection of imaging exam. Discontinue saline lock post exam. If Pt. has a central line or IVAD, may access for administration according to line specific nursing protocol. Once exam is complete flush line and de-access according to line specific nursing protocol in the CT contrast administration guidelines link. - enteric contrast (will be provided with radiology test) For CT ABD/PEL W IVCON Routine order Administer, As Directed One Time Only, via Oral, Rectal, both Oral and Rectal, Enteric Tube, Stoma or Indwelling Catheter, Enteric Contrast as designated per enteric contrast guidelines - nortriptyline (PAMELOR) 25 mg capsule Take 1 capsule by mouth daily at bedtime. - pantoprazole DR (PROTONIX) 40 mg tablet Take 1 tablet by mouth once daily. Take 30-60 minutes before breakfast on an empty stomach. - lisinopril (ZESTRIL, PRINIVIL) 10 mg tablet Take by mouth. - metoprolol tartrate, short acting, (LOPRESSOR) 100 mg tablet Take 50 mg by mouth once daily. Problem List As Of Date 06/21/2024 Noted Resolved Gastroesophageal reflux disease without esophag*10/21/2020 Irritable bowel syndrome with diarrhea [K58.0] 10/21/2020 Functional dyspepsia [K30] 12/02/2020 Encounter Status:Closed by TEODORO MACHADO on 06/21/24 Normal [facility] CBC panel Auto (Bld)on 06-16 Erythrocyte distribution width (RBC) [Ratio] 12.6 % Normal 11.5-15.0 [facility] Comment on above: Order Comment: Speci men Type: BLOOD SPECIMEN Ordering Facility: [facility] Address: [address] [place] [address] Performed By: #### 5 8410-2 #### [facility] CLIA [id number] [address] Hematocrit (Bld) [Volume fraction] 45.5 % Normal 39.0-51.0 [facility] Comment on above: Order Comment: Speci men Type: BLOOD SPECIMEN Ordering Facility: [facility] Address: [address] [place] [address] Performed By: #### 5 8410-2 #### [facility] CLIA [id number] [address] [place] Hemoglobin (Bld) [Mass/Vol] 15.2 g/dL Normal 13.0-17.0 [facility] Comment on above: Order Comment: Speci men Type: BLOOD SPECIMEN Ordering Facility: [facility] Address: [address] [place] [address] Performed By: #### 5 8410-2 #### [facility] CLIA [id number] [address] MCH (RBC) [Entitic mass] 30.2 pg Normal 26.0-34.0 [facility] Comment on above: Order Comment: Speci men Type: BLOOD SPECIMEN Ordering Facility: [facility] Address: [address] [place] [address] Performed By: #### 5 8410-2 #### [facility] CLIA [id number] [address] [place] MCHC (RBC) [Mass/Vol] 33.4 g/dL Normal 30.5-36.0 [facility] Comment on above: Order Comment: Speci men Type: BLOOD SPECIMEN Ordering Facility: [facility] Address: [address] [place] [address] Performed By: #### 5 8410-2 #### [facility] CLIA [id number] [address] MCV (RBC) [Entitic vol] 90.3 fL Normal 80.0-100.0 [facility] Comment on above: Order Comment: Speci men Type: BLOOD SPECIMEN Ordering Facility: [facility] Address: [address] [place] [address] Performed By: #### 5 8410-2 #### [facility] CLIA [id number] [address] [place] Nucleated RBC (Bld) [#/Vol] 10*3/uL Normal <0.01 [facility] Comment on above: Order Comment: Speci men Type: BLOOD SPECIMEN Ordering Facility: [facility] Address: [address] [place] [address] Performed By: #### 5 8410-2 #### [facility] CLIA [id number] [address] [place] Platelet mean volume (Bld) [Entitic vol] 9.3 fL Normal 9.0-12.7 [facility] Comment on above: Order Comment: Speci men Type: BLOOD SPECIMEN Ordering Facility: [facility] Address: [address] [place] [address] Performed By: #### 5 8410-2 #### [facility] CLIA [id number] [address] [place] Platelets (Bld) [#/Vol] 423 10*3/uL High 150-400 [facility] Comment on above: Order Comment: Speci men Type: BLOOD SPECIMEN Ordering Facility: [facility] Address: [address] [place] [address] Performed By: #### 5 8410-2 #### [facility] CLIA [id number] [address] [place] RBC (Bld) [#/Vol] 5.04 10*6/uL Normal 4.20-6.00 [facility] Comment on above: Order Comment: Speci men Type: BLOOD SPECIMEN Ordering Facility: [facility] Address: [address] [place] [address] Performed By: #### 5 8410-2 #### [facility] CLIA [id number] [address] [place] WBC (Bld) [#/Vol] 11.58 10*3/uL High 3.70-11.00 [facility] Comment on above: Order Comment: Speci men Type: BLOOD SPECIMEN Ordering Facility: [facility] Address: [address] [place], [place] [id number] Performed By: #### 5 8410-2 #### [facility] CLIA [id number] [address] [place] [address] [facility] [place] Comprehensive metabolic 2000 panelon 06-16-2024 Albumin [Mass/Vol] 4.7 g/dL Normal 3.9-4.9 [facility] Comment on above: Order Comment: Speci men Type: BLOOD SPECIMEN Ordering Facility: [facility] Address: [address] [place] [address] Performed By: #### 2 4323-8, 3040-3 #### [facility] CLIA [id number] [address] [place] [address] [place] ALP [Catalytic activity/Vol] 85 U/L Normal 38-113 [facility] Comment on above: Order Comment: Speci men Type: BLOOD SPECIMEN Ordering Facility: [facility] Address: [address] [place] [address] Performed By: #### 2 4323-8, 3040-3 #### [facility] CLIA [id number] [address] [place] [address] [place] ALT [Catalytic activity/Vol] 29 U/L Normal 10-54 [facility] Comment on above: Order Comment: Speci men Type: BLOOD SPECIMEN Ordering Facility: [facility] Address: [address] [place] [address] Performed By: #### 2 4323-8, 3040-3 #### [facility] CLIA [id number] [address] [place] [address] [place] Anion gap [Moles/Vol] 9 mmol/L Normal 8-15 [facility] Comment on above: Order Comment: Speci men Type: BLOOD SPECIMEN Ordering Facility: [facility] Address: [address] [place] [address] Performed By: #### 2 4323-8, 3040-3 #### [facility] CLIA [id number] [address] [place] [address] [place] AST [Catalytic activity/Vol] 19 U/L Normal 14-40 [facility] Comment on above: Order Comment: Speci men Type: BLOOD SPECIMEN Ordering Facility: [facility] Address: [address] [place] [address] Performed By: #### 2 4323-8, 3040-3 #### [facility] CLIA [id number] [address] [place] [address] [place] Bilirubin [Mass/Vol] 0.2 mg/dL Normal 0.2-1.3 [facility] Comment on above: Order Comment: Speci men Type: BLOOD SPECIMEN Ordering Facility: [facility] Address: [address] [place] [address] Performed By: #### 2 4323-8, 0-3 #### [facility] CLIA [id number] [address] [place] [address] [place] Calcium [Mass/Vol] 9.8 mg/dL Normal 8.5-10.2 [facility] Comment on above: Order Comment: Speci men Type: BLOOD SPECIMEN Ordering Facility: [facility] Address: [address] [place] [address] Performed By: #### 2 4323-8, 0-3 #### [facility] CLIA [id number] [address] [place] [address] [place] Chloride [Moles/Vol] 101 mmol/L Normal 98-107 [facility] Comment on above: Order Comment: Speci men Type: BLOOD SPECIMEN Ordering Facility: [facility] Address: [address] [place] [address] Performed By: #### 2 4323-8, 0-3 #### [facility] CLIA [id number] [address] [place] [address] [place] CO2 [Moles/Vol] 27 mmol/L Normal 22-30 [facility] Comment on above: Order Comment: Speci men Type: BLOOD SPECIMEN Ordering Facility: [facility] Address: [facility] [place] [address] Performed By: #### 2 4323-8, 3040-3 #### [facility] CLIA [id number] [address] [place] [address] [place] Creatinine [Mass/Vol] 0.84 mg/dL Normal 0.73-1.22 [facility] Comment on above: Order Comment: Speci men Type: BLOOD SPECIMEN Ordering Facility: [facility] Address: [address] [place] [address] Performed By: #### 2 4323-8, 0-3 #### [facility] CLIA [id number] [address] [place] [address] [place] Creatinine and Glomerular filtration rate.predicted panel (S/P/Bld) 117 mL/min/1.73m??? Normal >=60 [facility] Comment on above: Order Comment: Shun murcia Type: BLOOD SPECIMEN Ordering Facility: [facility] Address: [address] [place] [address] Result Comment: Caleb mated Glomerular Filtration Rate (eGFR) is calculated using the 2020 CKD-EPI creatinine equation. This equation utilizes serum creatinine, sex, and age as parameters. The creatinine assay has traceable calibration to isotope dilution-mass spectrometry. Refer to KDIGO guidelines for clinical interpretation. In patients with unstable renal function, e.g. those with acute kidney injury, the eGFR may not accurately reflect actual GFR. Performed By: #### 2 4323-8, 3039-3 #### [facility] CLIA [id number] [address] [place] [address] [place] Glucose [Mass/Vol] 95 mg/dL Normal 74-99 [facility] Comment on above: Order Comment: Shun murcia Type: BLOOD SPECIMEN Ordering Facility: [facility] Address: [address] [place] [address] Result Comment: The [place] [employer] (ADA) provides guidance for cutoff values for fasting glucose and random glucose. The ADA defines fasting as no caloric intake for at least 8 hours. Fasting plasma glucose results between 100 to 125 mg/dL indicate increased risk for diabetes (prediabetes). Fasting plasma glucose results greater than or equal to 126 mg/dL meet the criteria for diagnosis of diabetes. In the absence of unequivocal hyperglycemia, results should be confirmed by repeat testing. In a patient with classic symptoms of hyperglycemia or hyperglycemic crisis, random plasma glucose results greater than or equal to 200 mg/dL meet the criteria for diagnosis of diabetes. Reference: Standards of Medical Care in Diabetes 2016, [place] [employer]. Diabetes Care. 2016.39(Suppl 1). Performed By: #### 2 4323-8, 3040-3 #### [facility] CLIA [id number] [address] [place] [address] [place] Potassium [Moles/Vol] 4.5 mmol/L Normal 3.7-5.1 [facility] Comment on above: Order Comment: Speci men Type: BLOOD SPECIMEN Ordering Facility: [facility] Address: [address] [place] [address] Performed By: #### 2 4323-8, 3040-3 #### [facility] CLIA [id number] [address] [place] [address] [place] Protein [Mass/Vol] 7.7 g/dL Normal 6.3-8.0 [facility] Comment on above: Order Comment: Speci men Type: BLOOD SPECIMEN Ordering Facility: [facility] Address: [address] [place] [address] Performed By: #### 2 4323-8, 3040-3 #### [facility] CLIA [id number] [address] [place] [address] [place] Sodium [Moles/Vol] 137 mmol/L Normal 136-144 [facility] Comment on above: Order Comment: Speci men Type: BLOOD SPECIMEN Ordering Facility: [facility] Address: [address] [place] [address] Performed By: #### 2 4323-8, 3040-3 #### [facility] CLIA [id number] [address] [place] [address] [place] Urea nitrogen [Mass/Vol] 17 mg/dL Normal 9-24 [facility] Comment on above: Order Comment: Speci men Type: BLOOD SPECIMEN Ordering Facility: [facility] Address: [address] [place] [address] Performed By: #### 2 4323-8, 3040-3 #### [facility] CLIA [id number] [address] [place] [address] [place] Lipase SerPl-cCncon 06-16-20 24 Lipase [Catalytic activity/Vol] 32 U/L Normal 16-61 [facility] Comment on above: Order Comment: Speci men Type: BLOOD SPECIMEN Ordering Facility: [facility] Address: [address] [place] [address] Performed By: #### 2 4323-8, 3040-3 #### [facility] [facility] [id number] [address] [place] [id number] [facility] Jamie 06-12-2024 [facility] ([facility]) ----- ALEKSANDRA MIRANDA ([id number]) 1990 M Date Time Provider Department 06/12/24 INDIRA VALLES [facility] During your visit today, we recorded the following information about you: Aditya Hayes 06/12/2024 9:50 AM Signed Name of Caller: Hannah Relationship to patient: patient's spouse Last visit in this department: Visit date not found Reason for Call: Other : Patient experiencing constipation (which he usually never has) also has stomach pains and stomach feels hard it's hard for him to eat makes him feel bloated then he gets extremely tired afterward. 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 Callback number: [phone] Fax Number (if necessary): N/A Additional info if needed (Prior Auth #, Claim #, etc?): N/A Lin Key RN 06/12/2024 11:09 AM Signed Last Visit: VV 11/01/2023 No f/u scheduled Per spouseHannah: Occurring Past 2-3wks. Abd hurts, uncomfortable. Before was IBS-D. Now "semi constipated", stomach hard. Eats and has immediate fatigue, can't stay awake. Nausea. Very bloated. Stool- ranges, some days soft, hard, diarrhea, the few days w/o a full bm (would have small bm or just gas inbetween). Extremely uncomfortable." Only change before this started per spouse: Had a couple beers (doesn't normally drink). Hasn't been taking the metamucil, stopped a few months ago? ( unsure when stopped, states 8 months ago but was supposed to start 8 months ago per last visit, admits to " brain"). Water intake good at least 64oz. Has not tried anything med calle. States he's tried things like miralax in the past but cause stomach pain and gas. Pt unavailable, at work. Spouse also advised it is his busy season at work. Advised with constipation, any laxative will cause pain/gas with movement of the stool. Advised that a physical appt may be required with the total change in sx even though it's busy season at work. Advised if things are ordered like imaging or stools, that he HAS to actually get them done for proper care. Verbalizes understanding. Please Advise. Thanks Indira Valles MD 06/14/2024 3:52 PM Signed Attempted to reach patient by phone, but call went to . Left message. Will try back. Indira Valles MD 06/14/2024 5:24 PM Signed I spoke with over the phone this afternoon. Constipation started 3-4 weeks ago. Averaging 1 BM (Braxton 1) stool per day. Intermittent normal stools. LLQ pain never resolves and worsens with Valsalva. No changes in medication or diet. Mag citrate cleanout prescribed. Pamelor dose was reduced from 50 to 25 mg at bedtime. Labs ordered. If labs are unremarkable and the above changes do not help with symptom relief, CT will be advised. Allergies As of Date: 06/12/2024 (No Known Allergies) Date Reviewed: 02/09/2022 Reviewed by: Karen Lora MA - Fully Assessed Reason for Visit: Patient Update [1234] Primary Visit Diagnosis:Abdominal pain, unspecified abdominal location [R10.9] Other Visit Diagnosis:Irritable bowel syndrome with diarrhea [K58.0] Order(s):nortriptyline (PAMELOR) 25 mg capsuleTake 1 capsule by mouth daily at bedtime.Disp: 90 capsuleRfl: 3 COMPLETE BLOOD COUNT [SQCBC] Order #: [id number] FUTURE COMPREHENSIVE METABOLIC PANEL [SQCMP] Order #: [id number] FUTURE LIPASE [SQLIPA] Order #: [id number] FUTURE magnesium citrate solutionTake 296 mL by mouth one time only for 1 dose.Disp: 296 mLRfl: 0 Prescriptions as of 06/14/2024 - nortriptyline (PAMELOR) 25 mg capsule Take 1 capsule by mouth daily at bedtime. - magnesium citrate solution Take 296 mL by mouth one time only for 1 dose. - pantoprazole DR (PROTONIX) 40 mg tablet Take 1 tablet by mouth once daily. Take 30-60 minutes before breakfast on an empty stomach. - lisinopril (ZESTRIL, PRINIVIL) 10 mg tablet Take by mouth. - metoprolol tartrate, short acting, (LOPRESSOR) 100 mg tablet Take 50 mg by mouth once daily. Problem List As Of Date 06/12/2024 Noted Resolved Gastroesophageal reflux disease without esophag*10/21/2020 Irritable bowel syndrome with diarrhea [K58.0] 10/21/2020 Functional dyspepsia [K30] 12/02/2020 Prescriptions ordered this encounter Disp Refills Start End NORTRIPTYLINE 25 MG CAPSULE 90 c* 3 06/14/2024 06/14/2025 Route: ORAL Sig: Take 1 capsule by mouth daily at bedtime. MAGNESIUM CITRATE ORAL SOLUTION 296 * 0 06/14/2024 06/14/2024 Route: ORAL Sig: Take 296 mL by mouth one time only for 1 dose. Medications Discontinued During This Encounter Prescriptions - nortriptyline (PAMELOR) 50 mg capsule (Discontinued) Take 1 capsule by mouth daily at bedtime. Encounter Status:Closed by INDIRA VALLES on 06/14/24 [facility] 12-27-2023 [facility] Nurse Visit ([facility]) ----- ALEKSANDRA MIRANDA ([id number]) 1990 M Date Time Provider Department 12/27/23 8:30 AM NURSE LILIANA CARTER During your visit today, we recorded the following information about you: Shree Marmolejo, MARI 12/28/2023 8:50 AM Signed LACTULOSE HYDROGEN BREATH TEST FOR SMALL BOWEL BACTERIAL OVERGROWTH Date: December 28, 2023 Referring Physician: Indira Valles MD Chief Complaint Abdominal Pain Bloating Acid Reflux/Heartburn Symptoms prior to start of study: None [] 4 week restrictions [] 72 hour restrictions [] 12 hour fasting [] Followed the special diet Baseline Hydrogen PPM: 8 Methane PPM: 2 MARI Pennington Lactulose 15mL given at: 840am Start Time:845am 20 minutes Hydrogen PPM: 9 Methane PPM: 3 Shree Marmolejo, CT 40 minutes Hydrogen PPM: 7 Methane PPM: 2 Shree Marmolejo, CT 1 hour Hydrogen PPM: 5 Methane PPM: 3 Shree Marmolejo, CT 1 hour 20 minutes Hydrogen PPM: 6 Methane PPM: 3 Shree Marmolejo, CT 1 hour, 40 minutes Hydrogen PPM: 6 Methane PPM: 2 Shree Marmolejo, CT 2 hours Hydrogen PPM: 5 Methane PPM: 2 Shree Marmolejo, CT 2 hours, 20 minutes Hydrogen PPM: 7 Methane PPM: 5 Shree Marmolejo, CT 2 hours, 40 minutes Hydrogen PPM: 7 Methane PPM: 2 Shree Marmolejo, CT 3 hours Hydrogen PPM: 5 Methane PPM: [address] Symptoms developed during the study period: None Patient Results Preliminary Test Results (not given to patient): pending MARI Pennington Referring Provider: INDIRA VALLES [[id number]] Allergies As of Date: 12/27/2023 (No Known Allergies) Date Reviewed: 02/09/2022 Reviewed by: Karen Lora MA - Fully Assessed Reason for Visit: Breath Hydrogen Test [473] Primary Visit Diagnosis:Abdominal bloating [R14.0] Prescriptions as of 12/28/2023 - nortriptyline (PAMELOR) 50 mg capsule Take 1 capsule by mouth daily at bedtime. - pantoprazole DR (PROTONIX) 40 mg tablet Take 1 tablet by mouth once daily. Take 30-60 minutes before breakfast on an empty stomach. - lisinopril (ZESTRIL, PRINIVIL) 10 mg tablet Take by mouth. - metoprolol tartrate, short acting, (LOPRESSOR) 100 mg tablet Take 50 mg by mouth once daily. Problem List As Of Date 12/27/2023 Noted Resolved Gastroesophageal reflux disease without esophag*10/21/2020 Irritable bowel syndrome with diarrhea [K58.0] 10/21/2020 Functional dyspepsia [K30] 12/02/2020 Encounter Status:Closed by SHREE MARMOLEJO on 12/28/23 Normal [facility] Office Visit (Cardiology)on 04-23-2023 Follow-up visit Diagnoses/Problems Assessed Hyperlipemia (272.4) (E78.5) Orders HTN (hypertension) Renew: Lisinopril 20 MG Oral Tablet; Take 1 tablet daily Renew: Metoprolol Succinate ER 25 MG Oral Tablet Extended Release 24 Hour; Take 1 tablet daily Patient Instructions Follow up with Dr Galaviz in 1 year. Chief Complaint Aleksandra is here for a yearly follow up History of Present IllnessThimadeline is a 32-year-old male with a history of hypertension. He presents for a follow-up evaluation. No complaints of chest pain or shortness of breath. Since his last office visit he has lost 15 pounds and is following a strict diet to lower his cholesterol. Active Problems Problems Acute URI (465.9) (J06.9) Anxiety (300.00) (F41.9) Cervical disc herniation (722.0) (M50.20) Cervical radiculopathy at C5 (723.4) (M54.12) Cervicalgia (723.1) (M54.2) Chest discomfort (786.59) (R07.89) Chronic daily headache (784.0) (R51.9) Chronic daily headache (784.0) (R51.9) 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) GERD (gastroesophageal reflux disease) (530.81) (K21.9) Headache (784.0) (R51.9) Heart palpitations (785.1) (R00.2) HTN (hypertension) (401.9) (I10) Nasal congestion (478.19) (R09.81) Obesity (278.00) (E66.9) NICHOL (obstructive sleep apnea) (327.23) (G47.33) Over weight (278.02) (E66.3) Pulmonary nodule (793.11) (R91.1) Screening cholesterol level (V77.91) (Z13.220) Shingles (053.9) (B02.9) Shoulder pain (719.41) (M25.519) Suspected sleep apnea (781.99) (R29.818) Uncontrolled hypertension (401.9) (I10) Surgical History Problems History of Cholecystectomy Past Medical History Problems History of hypertension (V12.59) (Z86.79) Current Meds Medication NameInstruction Lidocaine 5 % External PatchAPPLY 1 PATCH TO THE AFFECTED AREA AND LEAVE IN PLACE FOR 12 HOURS, THEN REMOVE AND LEAVE OFF FOR 12 HOURS. Lisinopril 20 MG Oral TabletTake 1 tablet daily Metoprolol Succinate ER 25 MG Oral Tablet Extended Release 24 HourTake 1 tablet daily Nortriptyline HCl - 75 MG Oral Capsule1 at bedtime Pantoprazole Sodium 40 MG Oral Tablet Delayed ReleaseTAKE 1 TABLET DAILY. Allergies NoKnown No Known Allergies Recorded By: Judy Harper; 05/02/2018 4:16:27 PM Family History Mother Family history of hypertension (V17.49) (Z82.49) Grandparent Family history of Alzheimer's disease (V17.2) (Z82.0) Social History Problems No alcohol use Tobacco use (305.1) (Z72.0) Review of Systems The review of systems is negative other than as described in the HPI. Vitals Vital Signs Recorded: [id number] 09:17AMRecorded: 37Fsc3853 09:01AM [id number], LUE, Sitting [id number], LUE, Sitting Heart Drqv495 Height5 ft 9 in Physical Exam Constitutional: alert/oriented/no distress. Eyes: normal appearing sclera. ENT: no thyromegaly, no elevation of the jugular venous pressure, no carotid bruits. Pulmonary: no increased work of breathing or signs of respiratory distress and lungs clear to auscultation. Cardiovascular: rhythm is regular, S1 and S2 are normal, no murmur S3 or S4 Extremities: no edema. Musculoskeletal: no joint swelling, normal gait Skin: no rashes Neurologic: non-focal neurologic examination. Psychiatric normal mood and affect . Procedure Echocardiogram March 2019: Ejection fraction 55-60%. EKG April 15, 2022: Sinus rhythm, no ischemic changes Impressions 1. Hypertension: Continue lisinopril and metoprolol at the same dosage for now. 2. Hyperlipidemia: The patient has lost 15 pounds in the LDL cholesterol decreased from 212 mg/dL to 149 mg/dL. He is going to begin exercising more and continue with his dietary adjustments. We will hold off on statin therapy at this time. Follow-up in 1 year. Signatures Electronically signed by : Dilma Galaviz DO; Apr 23 2023 9:22AM EST (Author) Normal [facility] Lipid Panelon 04-20-2023 Cholesterol [Mass/Vol] 217 mg/dL above hig h threshold 0 - 199 [facility] Work Phone: Comment on above: . AGE DESIRABLE BORD DARYL HIGH HIGH 0-19 Y 0 - 169 170 - 199 >/= 200 20-24 Y 0 - 189 190 - 224 >/= 225 >24 Y 0 - 199 200 - 239 >/= 240 All ranges are based on fasting samples. Specific therapeutic targets will vary based on patient-specific cardiac risk.. Pediatric guidelines reference:Pediatrics 2011, 128(S5). Adult guidelines reference: NCEP ATPIII Guidelines, NICHELLE 2001, 258:2486-97. Venipuncture immediately after or during the administration of Metamizole may lead to falsely low results. Testing should be performed immediately prior to Metamizole dosing. Cholesterol in HDL [Mass/Vol] 49.2 mg/dL [facility] Work Phone: Comment on above: . AGE VERY LOW LOW N ORMAL HIGH 0-19 Y < 35 < 40 40-45 ---- 20-24 Y ---- < 40 >45 ---- >24 Y ---- < 40 40-60 >60. Cholesterol in LDL [Mass/Vol] 149 mg/dL above high threshold 0 - 99 [facility] Work Phone: Comment on above: . NEAR BORD AGE TONY RABLE OPTIMAL HIGH HIGH VERY HIGH 0-19 Y 0 - 109 --- 110-129 >/= 130 ---- 20-24 Y 0 - 119 --- 120-159 >/= 160 ---- >24 Y 0 - 99 100-129 130-159 160-189 >/=190. Cholesterol.total/Chol esterol in HDL [Mass ratio] 4.4 {ratio} [facility] Work Phone: Comment on above: REF VALUESDESIRABLE < 3.4HIGH RISK > 5.0 Triglyceride [Mass/Vol] 92 mg/dL 0 - 149 [facility] Work Phone: Comment on above: . AGE DESIRABLE BORD DARYL HIGH HIGH VERY HIGH 0 D-90 D 19 - 174 ---- ---- ----91 D- 9 Y 0 - 74 75 - 99 >/= 100 ---- 10-19 Y 0 - 89 90 - 129 >/= 130 ---- 20-24 Y 0 - 114 115 - 149 >/= 150 ---- >24 Y 0 - 149 150 - 199 200- 499 >/= 500. Venipuncture immediately after or during the administration of Metamizole may lead to falsely low results. Testing should be performed immediately prior to Metamizole dosing. Lipid Panel 18 mg/dL 0 - 40 [facility] Work Phone: Office Visit ([facility])on 11-12-2022 Follow-up visit Diagnoses/Problems Shingles (053.9) (B02.9) Orders Shingles Start: Lidocaine 5 % External Patch; APPLY 1 PATCH TO THE AFFECTED AREA AND LEAVE IN PLACE FOR 12 HOURS, THEN REMOVE AND LEAVE OFF FOR 12 HOURS Start: valACYclovir HCl - 1 GM Oral Tablet; TAKE 1 TABLET 3 TIMES DAILY Patient Discussion/Summary By signing my name below, I, Trevor Garcia, attest that this documentation has been prepared under the direction and in the presence of Dr. Albina Roberts MD. All medical record entries made by the Trevor were at my direction and personally dictated by me. I have reviewed the chart and agree that the record accurately reflects my personal performance of the history, physical exam, discussion and plan. History of Present Illness EP. Here for painful rash around waist line and back. Aleksandra is a 32 year old male presenting today for a sick visit for a rash along his waist line and back. -Thinks he may have shingles- points to it along his waistline and on his back as well. -At first he treated it like a fungal rash with Tinactin- that burned -Only thing that soothes the rash is coconut oil. -Under a lot of stress lately. -Seen [employer] at Dr. Hernandez office recently, scheduled for a stress test and ECHO then follows up in April. 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) GERD (gastroesophageal reflux disease) (530.81) (K21.9) Headache (784.0) (R51.9) Heart palpitations (785.1) (R00.2) HTN (hypertension) (401.9) (I10) Nasal congestion (478.19) (R09.81) Obesity (278.00) (E66.9) NICHOL (obstructive sleep apnea) (327.23) (G47.33) Over weight (278.02) (E66.3) Pulmonary nodule (793.11) (R91.1) Screening cholesterol level (V77.91) (Z13.220) Shoulder pain (719.41) (M25.519) Suspected sleep apnea (781.99) (R29.818) Uncontrolled hypertension (401.9) (I10) Chest discomfort (786.59) (R07.89) Past Medical History History of hypertension (V12.59) (Z86.79) Surgical History History of Cholecystectomy Family History Family history of hypertension (V17.49) (Z82.49) Family history of Alzheimer's disease (V17.2) (Z82.0) Social History No alcohol use Tobacco use (305.1) (Z72.0) Allergies No Known Allergies Recorded By: Judy Harper; 05/02/2018 4:16:27 PM Current Meds Medication NameInstructionReason Pantoprazole Sodium 40 MG Oral Tablet Delayed ReleaseTAKE 1 TABLET DAILY.GERD (gastroesophageal reflux disease) Lisinopril 20 MG Oral TabletTake 1 tablet dailyHTN (hypertension) Metoprolol Succinate ER 25 MG Oral Tablet Extended Release 24 HourTake 1 tablet dailyHTN (hypertension) Nortriptyline HCl - 75 MG Oral Capsule1 at bedtime Vitals Vital Signs Recorded: 12Nov2022 09:15AM Vvtaxojferw45.2 F Heart Wrib802 Wsvaclwi807 Yjqidhwvj92 Lsmrjw440 lb BMI Zvuwlbxldl37.98 kg/m2 BSA Calculated2.08 Tobacco Useb) No PHQ-2 #1. Over the last 2 weeks have you felt down, depressed or hopeless? (If yes, answer PHQ-9 below)No PHQ-2 #2. Over the last 2 weeks have you felt little interest or pleasure in doing things? (If yes, answer PHQ-9 below)No Falls Screening (Age 18+)a) No falls within the last year Physical Exam Alert, well-appearing CVS RRR, no murmurs Resp clear Abd soft, NT Skin dermatomal, grouped, and confluent vesicles lower right back and around flank to lower abdomen 1 1 Amended By: Albina Roberts; Nov 17 2022 5:45 PM EST'Scores and Scales' Signatures Electronically signed by : Albina Roberts MD; Nov 17 2022 5:46PM EST (Author) Normal [facility] Tobacco Screening.on 023 Adult depression screening assessment No [facility] Work Phone: Fall risk assessment a) No falls within the last year [facility] Work Phone: Tobacco use status [facility] b) No [facility] Work Phone: Office Visit (Cardiology)on 10-21-2022 Follow-up visit Diagnoses/Problems Assessed Chest discomfort (786.59) (R07.89) Shoulder pain (719.41) (M25.519) Uncontrolled hypertension (401.9) (I10) Pulmonary nodule (793.11) (R91.1) Orders Chest discomfort Cardiac Stress Test; Status:Hold For - Scheduling; Requested for:21Oct2022; Chest discomfort, Shoulder pain Lipid Panel; Status:Active; Requested for:[id number]; Chief Complaint Patient is here today for a follow up on labs History of Present Illness Patient reports discomfort in his left shoulder which seems to radiate down his left arm to his finger tips. Symptoms are not associated with physical exertion. No associated diaphoresis, N/V, lightheadedness, dizziness, syncope. SBP has been elevated recently despite medical therapy via lisinopril and metoprolol. Patient is tachycardic on exam today as displayed on EKG, however he does admit to situational anxiety. Fasting lipids recently repeat again displaying marked LDL-C elevation at 229 mg/dL - patient admits to serious aversion to statins and alternative lipid reduction therapies. He states he will continue to increase his aerobic activity and make strict dietary modifications in an attempt to lower LDL-C. Active Problems Problems Acute URI (465.9) (J06.9) Anxiety (300.00) (F41.9) Cervical disc herniation (722.0) (M50.20) Cervical radiculopathy at C5 (723.4) (M54.12) Cervicalgia (723.1) (M54.2) Chronic daily headache (784.0) (R51.9) Chronic daily headache (784.0) (R51.9) 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) GERD (gastroesophageal reflux disease) (530.81) (K21.9) Headache (784.0) (R51.9) Heart palpitations (785.1) (R00.2) HTN (hypertension) (401.9) (I10) Nasal congestion (478.19) (R09.81) Obesity (278.00) (E66.9) NICHOL (obstructive sleep apnea) (327.23) (G47.33) Over weight (278.02) (E66.3) Pulmonary nodule (793.11) (R91.1) Screening cholesterol level (V77.91) (Z13.220) Shoulder pain (719.41) (M25.519) Suspected sleep apnea (781.99) (R29.818) Uncontrolled hypertension (401.9) (I10) Surgical History Problems History of Cholecystectomy Past Medical History Problems History of hypertension (V12.59) (Z86.79) Current Meds Medication NameInstruction Lisinopril 20 MG Oral TabletTake 1 tablet daily Metoprolol Succinate ER 25 MG Oral Tablet Extended Release 24 HourTake 1 tablet daily Nortriptyline HCl - 75 MG Oral Capsule1 at bedtime Pantoprazole Sodium 40 MG Oral Tablet Delayed ReleaseTAKE 1 TABLET DAILY. Allergies NoKnown No Known Allergies Recorded By: Judy Harper; 05/02/2018 4:16:27 PM Family History Mother Family history of hypertension (V17.49) (Z82.49) Grandparent Family history of Alzheimer's disease (V17.2) (Z82.0) Social History Problems No alcohol use Tobacco use (305.1) (Z72.0) Review of Systems 12 point review of systems performed and essentially negative except for what is mentioned in history of present illness Vitals Vital Signs Recorded: 79Fso4649 02:36PM Heart Rxng782 Httmvugj288, LUE, Sitting Ifsytinvj30, LUE, Sitting Mhrtmv220 lb 6 oz BMI Dgqimxacch17.36 kg/m2 BSA Calculated2.12 Physical Exam Constitutional: awake and alert, oriented 3, no apparent distress Skin: warm, dry, good turgor no obvious lesions Eyes: pupils equal, round, reactive to light, conjunctiva pink and noninjected, no discharge HENT: normocephalic and atraumatic, mucous membranes moist, trachea midline with no masses/goiter Cardiovascular: S1/S2 regular and tachycardic, no murmur no rubs/gallops, no carotid bruits, no JVD Pulmonary: symmetrical chest expansion, lungs are clear to auscultation bilaterally, no wheezes/rales/rhonchi, normal effort Abdomen: nontender, nondistended, active bowel sounds, no ascites Extremities: no cyanosis, clubbing, no LE edema no lesions; palpable pedal pulses Neurologic: cranial nerves II - XII grossly intact, stable gait, no tremor Impressions Atypical chest pain -As discussed in HPI -We will arrange for a regular exercise stress test to assess for underlying reversible ischemia HLD -Patient plans to increase aerobic activity and make dietary modifications in an attempt to improve numbers -Repeat fasting lipids in 6 months -We did discuss the likelihood of initiating lipid reduction therapy in the future F/U in 3 months Time Prep time on date of the patient encounter: 10 minutes. Time spent directly with patient/family/caregiver: 30 minutes. Documentation time: 10 minutes. Signatures Electronically signed by : Glen Ho PA-C; Oct 26 2022 11:09AM EST (Author) [facility] - Chemistry and C hemistry - challengeon 10-10-2022 Albumin BCP dye [Mass/Vol] 4.8 g/dL 3.4 - 5.0 [facility] Work Phone: ALP [Catalytic activity/Vol] 73 U/L 33 - 120 [facility] Work Phone: ALT With P-5'-P [Catalytic activity/Vol] 43 U/L 10 - 52 [facility] Work Phone: Comment on above: Patients treated wit h Sulfasalazine may generate falsely decreased results for ALT. Anion gap [Moles/Vol] 10 mmol/L 10 - 20 [facility] Work Phone: AST With P-5'-P [Catalytic activity/Vol] 18 U/L 9 - 39 [facility] Work Phone: Bilirubin [Mass/Vol] 0.8 mg/dL 0.0 - 1.2 [facility] Work Phone: Calcium [Mass/Vol] 10.3 mg/dL 8.6 - 10.6 [facility] Work Phone: Chloride [Moles/Vol] 101 mmol/L 98 - 107 [facility] Work Phone: CO2 [Moles/Vol] 31 mmol/L 21 - 32 [facility] Work Phone: Creatinine [Mass/Vol] 0.86 mg/dL See Below [facility] Work Phone: Comment on above: Reference Range: 0.5 0 - 1.30 Glucose [Mass/Vol] 90 mg/dL 74 - 99 [facility] Work Phone: Potassium [Moles/Vol] 4.4 mmol/L 3.5 - 5.3 [facility] Work Phone: Protein [Mass/Vol] 7.4 g/dL 6.4 - 8.2 [facility] Work Phone: Sodium [Moles/Vol] 138 mmol/L 136 - 145 [facility] Work Phone: Urea nitrogen [Mass/Vol] 21 mg/dL 6 - 23 [facility] Work Phone: Lipid Panelon 10-10-2022 Cholesterol [Mass/Vol] 294 mg/dL above hig h threshold 0 - 199 [facility] Work Phone: Comment on above: . AGE DESIRABLE BORD DARYL HIGH HIGH 0-19 Y 0 - 169 170 - 199 >/= 200 20-24 Y 0 - 189 190 - 224 >/= 225 >24 Y 0 - 199 200 - 239 >/= 240 All ranges are based on fasting samples. Specific therapeutic targets will vary based on patient-specific cardiac risk.. Pediatric guidelines reference:Pediatrics 2011, 128(S5). Adult guidelines reference: NCEP ATPIII Guidelines, NICHELLE 2001, 258:2486-97. Venipuncture immediately after or during the administration of Metamizole may lead to falsely low results. Testing should be performed immediately prior to Metamizole dosing. Cholesterol in HDL [Mass/Vol] 50.4 mg/dL [facility] Work Phone: Comment on above: . AGE VERY LOW LOW N ORMAL HIGH 0-19 Y < 35 < 40 40-45 ---- 20-24 Y ---- < 40 >45 ---- >24 Y ---- < 40 40-60 >60. Cholesterol in LDL [Mass/Vol] 229 mg/dL above high threshold 0 - 99 [facility] Work Phone: Comment on above: . NEAR BORD AGE TONY RABLE OPTIMAL HIGH HIGH VERY HIGH 0-19 Y 0 - 109 --- 110-129 >/= 130 ---- 20-24 Y 0 - 119 --- 120-159 >/= 160 ---- >24 Y 0 - 99 100-129 130-159 160-189 >/=190. Cholesterol.total/Chol esterol in HDL [Mass ratio] 5.8 {ratio} Abnormal [facility] Work Phone: Comment on above: REF VALUESDESIRABLE < 3.4HIGH RISK > 5.0 Triglyceride [Mass/Vol] 73 mg/dL 0 - 149 [facility] Work Phone: Comment on above: . AGE DESIRABLE BORD DARYL HIGH HIGH VERY HIGH 0 D-90 D 19 - 174 ---- ---- ----91 D- 9 Y 0 - 74 75 - 99 >/= 100 ---- 10-19 Y 0 - 89 90 - 129 >/= 130 ---- 20-24 Y 0 - 114 115 - 149 >/= 150 ---- >24 Y 0 - 149 150 - 199 200- 499 >/= 500. Venipuncture immediately after or during the administration of Metamizole may lead to falsely low results. Testing should be performed immediately prior to Metamizole dosing. Lipid Panel 15 mg/dL 0 - 40 [facility] Work Phone: No Panel Informationon 10-10 >90 >90 [facility] Work Phone: Comment on above: CALCULATIONS OF CALEB MATED GFR ARE PERFORMED USING THE 2020 CKD-EPI STUDY REFIT EQUATION WITHOUT THE RACE VARIABLE FOR THE IDMS-TRACEABLE CREATININE METHODS.https://jasn.asnjournals.org/content/early//A SN.3695586249 Complete Blood Count + Diffe rentialon 10-01-2022 Basophils/100 WBC (Bld) 0.5 % 0.0 - 2.0 [facility] Work Phone: Erythrocyte distribution width (RBC) [Ratio] 12.8 % See Below [facility] Work Phone: Comment on above: Reference Range: 11. 5 - 14.5 Hematocrit (Bld) [Volume fraction] 45.3 % See Below [facility] Work Phone: Comment on above: Reference Range: 41. 0 - 52.0 Hemoglobin (Bld) [Mass/Vol] 14.8 g/dL See Below [facility] Work Phone: Comment on above: Reference Range: 13. 5 - 17.5 Lymphocytes/100 WBC (Bld) 32.3 % See Below [facility] Work Phone: Comment on above: Reference Range: 13. 0 - 44.0 MCHC (RBC) [Mass/Vol] 32.7 g/dL See Below [facility] Work Phone: Comment on above: Reference Range: 32. 0 - 36.0 MCV (RBC) [Entitic vol] 91 fL 80 - 100 [facility] Work Phone: Monocytes/100 WBC (Bld) 6.7 % 2.0 - 10.0 [facility] Work Phone: Neutrophils/100 WBC (Bld) 57.5 % See Below [facility] Work Phone: Comment on above: Reference Range: 40. 0 - 80.0 Platelets (Bld) [#/Vol] 358 10*3/uL 150 - 450 [facility] Work Phone: RBC (Bld) [#/Vol] 5.00 {x10E12/L} See Below [facility] Work Phone: Comment on above: Reference Range: 4.5 0 - 5.90 WBC (Bld) [#/Vol] 11.1 10*3/uL 4.4 - 11.3 [facility] Work Phone: Complete Blood Count + Differential 0.06 {x10E9/L} See Below [facility] Work Phone: Comment on above: Reference Range: 0.0 0 - 0.10 Complete Blood Count + Differential 0.28 {x10E9/L} See Below [facility] Work Phone: Comment on above: Reference Range: 0.0 0 - 0.70 Complete Blood Count + Differential 0.74 {x10E9/L} See Below [facility] Work Phone: Comment on above: Reference Range: 0.1 0 - 1.00 Complete Blood Count + Differential 3.59 {x10E9/L} See Below [facility] Work Phone: Comment on above: Reference Range: 1.2 0 - 4.80 Complete Blood Count + Differential 6.37 {x10E9/L} See Below [facility] Work Phone: Comment on above: Reference Range: 1.2 0 - 7.70 Complete Blood Count + Differential 2.5 % 0.0 - 6.0 [facility] Work Phone: Complete Blood Count + Differential 0.5 % 0.0 - 0.9 [facility] Work Phone: Comment on above: Immature Granulocyte Count (IG) includes promyelocytes, myelocytes and metamyelocytes but does not include bands. Percent differential counts (%) should be interpreted in the context of the absolute cell counts (cells/L). Complete Blood Count + Differential 0.0 {/100_WBC} 0.0-0.0 [facility] Work Phone: Laboratory - Chemistry and C hemistry - challengeon 10-01-2022 Albumin BCP dye [Mass/Vol] 4.5 g/dL 3.4 - 5.0 [facility] Work Phone: ALP [Catalytic activity/Vol] 56 U/L 33 - 120 [facility] Work Phone: ALT With P-5'-P [Catalytic activity/Vol] 104 U/L above high threshold 10 - 52 [facility] Work Phone: Comment on above: Patients treated wit h Sulfasalazine may generate falsely decreased results for ALT. Anion gap [Moles/Vol] 12 mmol/L 10 - 20 [facility] Work Phone: AST With P-5'-P [Catalytic activity/Vol] 44 U/L above high threshold 9 - 39 [facility] Work Phone: [phone] Bilirubin [Mass/Vol] 0.3 mg/dL 0.0 - 1.2 [facility] Work Phone: [phone] Calcium [Mass/Vol] 9.7 mg/dL 8.6 - 10.6 [facility] Work Phone: [phone] Chloride [Moles/Vol] 103 mmol/L 98 - 107 [facility] Work Phone: [phone] CO2 [Moles/Vol] 28 mmol/L 21 - 32 [facility] Work Phone: [phone] Creatinine [Mass/Vol] 0.83 mg/dL See Below [facility] Work Phone: Comment on above: Reference Range: 0.5 0 - 1.30 Glucose [Mass/Vol] 94 mg/dL 74 - 99 [facility] Work Phone: [phone] Potassium [Moles/Vol] 4.5 mmol/L 3.5 - 5.3 [facility] Work Phone: [phone] Protein [Mass/Vol] 6.7 g/dL 6.4 - 8.2 [facility] Work Phone: [phone] Sodium [Moles/Vol] 138 mmol/L 136 - 145 [facility] Work Phone: [phone] TSH Qn 1.75 m[IU]/L See Below [facility] Work Phone: [phone] Comment on above: Reference Range: 0.4 4 - 3.98 TSH testing is performed using different testing methodology at [facility] than [facility]. Direct result comparisons should only be made within the same method. Urea nitrogen [Mass/Vol] 15 mg/dL 6 - 23 [facility] Work Phone: Lipid Panelon 10-01-2022 Cholesterol [Mass/Vol] 294 mg/dL above hig h threshold 0 - 199 [facility] Work Phone: Comment on above: . AGE DESIRABLE BORD DARYL HIGH HIGH 0-19 Y 0 - 169 170 - 199 >/= 200 20-24 Y 0 - 189 190 - 224 >/= 225 >24 Y 0 - 199 200 - 239 >/= 240 All ranges are based on fasting samples. Specific therapeutic targets will vary based on patient-specific cardiac risk.. Pediatric guidelines reference:Pediatrics 2011, 128(S5). Adult guidelines reference: NCEP ATPIII Guidelines, NICHELLE 2001, 258:2486-97. Venipuncture immediately after or during the administration of Metamizole may lead to falsely low results. Testing should be performed immediately prior to Metamizole dosing. Cholesterol in HDL [Mass/Vol] 58.2 mg/dL [facility] Work Phone: Comment on above: . AGE VERY LOW LOW N ORMAL HIGH 0-19 Y < 35 < 40 40-45 ---- 20-24 Y ---- < 40 >45 ---- >24 Y ---- < 40 40-60 >60. Cholesterol in LDL [Mass/Vol] 212 mg/dL above high threshold 0 - 99 [facility] Work Phone: Comment on above: . NEAR BORD AGE TONY RABLE OPTIMAL HIGH HIGH VERY HIGH 0-19 Y 0 - 109 --- 110-129 >/= 130 ---- 20-24 Y 0 - 119 --- 120-159 >/= 160 ---- >24 Y 0 - 99 100-129 130-159 160-189 >/=190. Cholesterol.total/Chol esterol in HDL [Mass ratio] 5.1 {ratio} Abnormal [facility] Work Phone: Comment on above: REF VALUESDESIRABLE < 3.4HIGH RISK > 5.0 Triglyceride [Mass/Vol] 119 mg/dL 0 - 149 [facility] Work Phone: Comment on above: . AGE DESIRABLE BORD DARYL HIGH HIGH VERY HIGH 0 D-90 D 19 - 174 ---- ---- ----91 D- 9 Y 0 - 74 75 - 99 >/= 100 ---- 10-19 Y 0 - 89 90 - 129 >/= 130 ---- 20-24 Y 0 - 114 115 - 149 >/= 150 ---- >24 Y 0 - 149 150 - 199 200- 499 >/= 500. Venipuncture immediately after or during the administration of Metamizole may lead to falsely low results. Testing should be performed immediately prior to Metamizole dosing. Lipid Panel 24 mg/dL 0 - 40 [facility] Work Phone: No Panel Informationon 10-01 >90 >90 [facility] Work Phone: Comment on above: CALCULATIONS OF CALEB MATED GFR ARE PERFORMED USING THE 2020 CKD-EPI STUDY REFIT EQUATION WITHOUT THE RACE VARIABLE FOR THE IDMS-TRACEABLE CREATININE METHODS.https://jasn.asnjournals.org/content/early//A SN.8687104115 [facility] Follow-up visit Diagnoses/Problems Shoulder pain (719.41) (M25.519) Orders Health Maintenance Complete Blood Count + Differential; Status:Resulted - Requires Verification; Done: [id number] 11:38AM Comprehensive Metabolic Panel; Status:Resulted - Requires Verification; Done: [id number] 11:38AM Lipid Panel; Status:Resulted - Requires Verification; Done: [id number] 11:38AM TSH WITH REFLEX TO FREE T4 IF ABNORMAL; Status:Resulted - Requires Verification; Done: [id number] 11:38AM Patient Discussion/Summary Rec trial of NSAID like Aleve- if persistent shoulder pain then f/u with orthopedic doctor By signing my name below, I, Trevor Garcia, attest that this documentation has been prepared under the direction and in the presence of Dr. Albina Roberts MD. All medical record entries made by the Trevor were at my direction and personally dictated by me. I have reviewed the chart and agree that the record accurately reflects my personal performance of the history, physical exam, discussion and plan. History of Present Illness EP. Here for MRI/Blood work orders. States nodule in upper back may have grown and is having pain in his lymph nodes under arm pit. Aleksandra is 32 year old male presenting today to request lab and radiology orders. -he is concerned about some left upper back pain/shoulder pain he is having and wonders about possible swollen lymph nodes in armpits, did a Google search and concerned -States 2 years ago nodules were found on an MRI.- he is a bit confuses as I review past medical records and find that in 04/2019 he had MRI cervical spine and was found to have a disc protrusion C5-6 and mild degenerative changes of cervical spine, had repeat MRI cervical spine which showed similar but improvement; also had CT abd/pwlvis 09/2020 due to chest and abdominal pain and incidental finding of 2 mm lingular pulmonary nodule seen but o/w normal -Saw civil engineering draftsperson who was not concerned with the findings -Occasionally he has pain in his leg and arms too. -Not exercising lately. -Denies any serious injuries in the past just mild sprains as a child. Review of Systems General: no fever or night sweats, no change in weight Eyes: no vision disturbance ENT: no mouth lesions, no sore throat, and no dysphagia CV: no chest pain, no palpitations Resp: no shortness of breath, no cough GI: no abdominal pain, no change in bowel habits : no urinary problems Skin; no rashes or new/changed skin lesions Neuro: no headache, no difficulty walking Active Problems Acute URI (465.9) (J06.9) Anxiety (300.00) (F41.9) Cervical disc herniation (722.0) (M50.20) Cervical radiculopathy at C5 (723.4) (M54.12) Cervicalgia (723.1) (M54.2) Chronic daily headache (784.0) (R51.9) Chronic daily headache (784.0) (R51.9) 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) GERD (gastroesophageal reflux disease) (530.81) (K21.9) Headache (784.0) (R51.9) Heart palpitations (785.1) (R00.2) HTN (hypertension) (401.9) (I10) Nasal congestion (478.19) (R09.81) Obesity (278.00) (E66.9) NICHOL (obstructive sleep apnea) (327.23) (G47.33) Over weight (278.02) (E66.3) Pulmonary nodule (793.11) (R91.1) Screening cholesterol level (V77.91) (Z13.220) Suspected sleep apnea (781.99) (R29.818) Uncontrolled hypertension (401.9) (I10) Past Medical History History of hypertension (V12.59) (Z86.79) Surgical History History of Cholecystectomy Family History Family history of hypertension (V17.49) (Z82.49) Family history of Alzheimer's disease (V17.2) (Z82.0) Social History No alcohol use Tobacco use (305.1) (Z72.0) Allergies No Known Allergies Recorded By: Judy Harper; 05/02/2018 4:16:27 PM Current Meds Medication NameInstructionReason Pantoprazole Sodium 40 MG Oral Tablet Delayed ReleaseTAKE 1 TABLET DAILY.GERD (gastroesophageal reflux disease) Lisinopril 20 MG Oral TabletTake 1 tablet dailyHTN (hypertension) Metoprolol Succinate ER 25 MG Oral Tablet Extended Release 24 HourTake 1 tablet dailyHTN (hypertension) Nortriptyline HCl - 75 MG Oral Capsule1 at bedtime Vitals Vital Signs Recorded: [id number] 11:20AM Bxtsxxrluda66.3 F Heart Pqpz195 Ooffadco640 Dzvtmnzqr31 Lfttsk378 lb BMI Pofrlapjij61.49 kg/m2 BSA Calculated2.15 Tobacco Useb) No Falls Screening (Age 18+)a) No falls within the last year Physical Exam Alert, well-appearing. HEENT: OP clear. Sclera white. Pupils equal and round. Neck: Supple. No palpable masses. Thyroid was not enlarged. Lymph: no cervical or axillary lymphadenopathy CVS: RRR, no murmurs. Respiratory: Normal inspirations and expirations. Clear and equal breath sounds. GI: Soft, nontender MSK: Normal ROM shoulder. Normal ROM back, non-tender. Results/Data Complete Blood Count + [id number] 11:38AMStuaAlbina jacobo Test NameResultFlagReference White Blood Cell Count11.1 x10E9/L4.4 - 11.3 Red Blood Cell Count5.00 x10E12/LSee Below Reference Range: 4.50 - 5.90 Nucleate (more content not included)... Normal [employer] Tobacco Screening.on 022 Fall risk assessment a) No falls within the last year [facility] Work Phone: Tobacco use status CPHS b) No [facility] Work Phone: Blood Pressure Cuff Sizeon 0 04-15-2022 Blood Pressure Cuff Size Adult [facility] [place] Work Phone: C difficile PCRon 11-14-2019 C difficile PCR NCDT Normal [facility] Comment on above: Performed By: #### C DPCR #### [facility] [address] [place] [address] Enteric Bact Pnl PCRon 11-14 Campy jejun/coli DNA NDET Normal [facility] Comment on above: Performed By: #### C DPCR #### [facility] [address] [place] [address] Salmonella spp. DNA NDET Normal [facility] Comment on above: Performed By: #### C DPCR #### [facility] [address] [place] [address] Shiga toxin gene(s) NDET Normal [facility] Comment on above: Performed By: #### C DPCR #### [facility] [address] [place] [address] Shigella/EIEC DNA NDET Normal [facility] Comment on above: Performed By: #### C DPCR #### [facility] [address] [place] [address] Fecal Lactoferrinon 11-14-19 20 Fecal Lactoferrin Specimen Desc: STOOL Sp. Request/Comment: SPSTER Test Result [facility] Report Status [id number] FINAL Normal [facility] Ova and Parasite Scron 11-14 Ova and Parasite Scr Specimen Desc: STOOL Sp. Request/Comment: OPKIT Culture Result [facility] Report Status [id number] FINAL Normal [facility] Celiac Comp Panelon 11-06-19 20 Gliad Deamidated IgA NOTI Normal <20 [facility] Comment on above: Performed By: #### C BCDIF, AMYL, CMP, TSH, WSR #### [facility]ine [facility] [address] [address] #### CELCMP #### See report for performing lab information. Gliad Deamidated IgG NOTI Normal <20 [facility] Comment on above: Performed By: #### C BCDIF, AMYL, CMP, TSH, WSR #### [facility] [address] [place] [address] #### CELCMP #### See report for performing lab information. Endomysial IgA Abs NOTI Abnormal <1:10 [facility] Comment on above: Performed By: #### C BCDIF, AMYL, CMP, TSH, WSR #### [facility] [address] [place] [address] #### CELCMP #### See report for performing lab information. Transglutaminase IgA 2 Units Normal <20 [facility] Comment on above: Performed By: #### C BCDIF, AMYL, CMP, TSH, WSR #### [facility] [address] [place] [address] #### CELCMP #### See report for performing lab information. Transglutaminase IgG NOTI Normal <20 [facility] Comment on above: Performed By: #### C BCDIF, AMYL, CMP, TSH, WSR #### [facility] [address] [address] #### CELCMP #### See report for performing lab information. IgA [Mass/Vol] 118 mg/dL Normal 78-391 [facility] Comment on above: Performed By: #### C BCDIF, AMYL, CMP, TSH, WSR #### [facility] [address] [address] #### CELCMP #### See report for performing lab information. Amylaseon 11-04-2019 Amylase [Catalytic activity/Vol] 68 U/L Normal 30-104 [facility] Comment on above: Performed By: #### C BCDIF, AMYL, CMP, TSH, WSR #### [facility] [address] [place] [address] #### CELCMP #### See report for performing lab information. CBC and Differentialon 11-04 Abs Baso 0.05 k/uL Normal <0.11 [facility] Comment on above: Performed By: #### C BCDIF, AMYL, CMP, TSH, WSR #### [facility] [address] [place] [address] #### CELCMP #### See report for performing lab information. Abs [place] 0.53 k/uL Normal <0.87 [facility] Comment on above: Performed By: #### C BCDIF, AMYL, CMP, TSH, WSR #### [facility] [address] [place] [address] #### CELCMP #### See report for performing lab information. Abs Neut 5.57 k/uL Normal 1.45-7.50 [facility] Comment on above: Performed By: #### C BCDIF, AMYL, CMP, TSH, WSR #### [facility] [address] [place] [address] #### CELCMP #### See report for performing lab information. Absolute nRBC <0.01 Normal <0.01 [facility] Comment on above: Performed By: #### C BCDIF, AMYL, CMP, TSH, WSR #### [facility] [address] [address] #### CELCMP #### See report for performing lab information. Basophils/100 WBC (Bld) 0.5 % Normal [facility] Comment on above: Performed By: #### C BCDIF, AMYL, CMP, TSH, WSR #### [facility] [address] [place] [address] #### CELCMP #### See report for performing lab information. DTYPE ADIFF Normal [facility] Comment on above: Performed By: #### C BCDIF, AMYL, CMP, TSH, WSR #### [facility] [address] [place] [address] #### CELCMP #### See report for performing lab information. Eosinophils (Bld) [#/Vol] 0.19 10*3/uL Normal <0.46 [facility] Comment on above: Performed By: #### C BCDIF, AMYL, CMP, TSH, WSR #### [facility] [address] [place] [address] #### CELCMP #### See report for performing lab information. Eosinophils/100 WBC (Bld) 1.9 % Normal [facility] Comment on above: Performed By: #### C BCDIF, AMYL, CMP, TSH, WSR #### [facility] [address] [place] [address] #### CELCMP #### See report for performing lab information. Erythrocyte distribution width (RBC) [Ratio] 12.8 % Normal 11.5-15.0 [facility] Comment on above: Performed By: #### C BCDIF, AMYL, CMP, TSH, WSR #### [facility] [address] [place] [address] #### CELCMP #### See report for performing lab information. Hematocrit (Bld) [Volume fraction] 45.6 % Normal 39.0-51.0 [facility] Comment on above: Performed By: #### C BCDIF, AMYL, CMP, TSH, WSR #### [facility] [address] [place] [address] #### CELCMP #### See report for performing lab information. Hemoglobin (Bld) [Mass/Vol] 15.1 g/dL Normal 13.0-17.0 [facility] Comment on above: Performed By: #### C BCDIF, AMYL, CMP, TSH, WSR #### [facility] [address] [place] [address] #### CELCMP #### See report for performing lab information. Lymphocytes (Bld) [#/Vol] 3.46 10*3/uL Normal 1.00-4.00 [facility] Comment on above: Performed By: #### C BCDIF, AMYL, CMP, TSH, WSR #### [facility] [address] [place] [address] #### CELCMP #### See report for performing lab information. Lymphocytes/100 WBC (Bld) 35.3 % Normal [facility] Comment on above: Performed By: #### C BCDIF, AMYL, CMP, TSH, WSR #### [facility] [address] [place] [address] #### CELCMP #### See report for performing lab information. MCH (RBC) [Entitic mass] 29.7 pG Normal 26.0-34.0 [facility] Comment on above: Performed By: #### C BCDIF, AMYL, CMP, TSH, WSR #### [facility] [address] [place] [address] #### CELCMP #### See report for performing lab information. MCHC (RBC) [Mass/Vol] 33.1 g/dL Normal 30.5-36.0 [facility] Comment on above: Performed By: #### C BCDIF, AMYL, CMP, TSH, WSR #### [facility] [address] [address] #### CELCMP #### See report for performing lab information. MCV (RBC) [Entitic vol] 89.8 fL Normal 80.0-100.0 [facility] Comment on above: Performed By: #### C BCDIF, AMYL, CMP, TSH, WSR #### [facility] [address] [place] [address] #### CELCMP #### See report for performing lab information. Monocytes/100 WBC (Bld) 5.4 % Normal [facility] Comment on above: Performed By: #### C BCDIF, AMYL, CMP, TSH, WSR #### [facility] [address] [place] [address] #### CELCMP #### See report for performing lab information. Neutrophils/100 WBC (Bld) 56.9 % Normal [facility] Comment on above: Performed By: #### C BCDIF, AMYL, CMP, TSH, WSR #### [facility] [address] [place] [address] #### CELCMP #### See report for performing lab information. NRBCs 0.0 /100 WBC Normal 0 [facility] Comment on above: Performed By: #### C BCDIF, AMYL, CMP, TSH, WSR #### [facility] [address] [place] [address] #### CELCMP #### See report for performing lab information. Platelet mean volume (Bld) [Entitic vol] 10.4 fL Normal 9.0-12.7 [facility] Comment on above: Performed By: #### C BCDIF, AMYL, CMP, TSH, WSR #### [facility] [address] [phone] #### CELCMP #### See report for performing lab information. Platelets (Bld) [#/Vol] 364 10*3/uL Normal 150-400 [facility] Comment on above: Performed By: #### C BCDIF, AMYL, CMP, TSH, WSR #### [facility] [address] #### CELCMP #### See report for performing lab information. RBC (Bld) [#/Vol] 5.08 10*6/uL Normal 4.20-6.[address] [facility] Reference Lab Comment on above: Performed By: #### C BCDIF, AMYL, CMP, TSH, WSR #### [facility] Routine Lab [phone] #### CELCMP #### See report for performing lab information. WBC (Bld) [#/Vol] 9.80 10*3/uL Normal 3.70-11.[address] [facility] Comment on above: Performed By: #### C BCDIF, AMYL, CMP, TSH, WSR #### [facility]ine [facility] [phone] #### CELCMP #### See report for performing lab information. Celiac Comp Panelon 11-04-19 Celiac Category PENDING Normal [facility] Reference Lab Comment on above: Performed By: #### C BCDIF, AMYL, CMP, TSH, WSR #### [facility]ine [facility] [address] [place] [phone] #### CELCMP #### See report for performing lab information. CELIAC PANEL COMMENT PENDING Normal [facility] Reference Lab Comment on above: Performed By: #### C BCDIF, AMYL, CMP, TSH, WSR #### [facility]ine [facility] [address] [place] [address] #### CELCMP #### See report for performing lab information. CELIAC PANEL INTRP PENDING Normal [facility] Reference Lab Comment on above: Performed By: #### C BCDIF, AMYL, CMP, TSH, WSR #### [facility] [address] [place] [address] #### CELCMP #### See report for performing lab information. Celiac RiskHaplotype PENDING Normal Negative [facility] Reference Lab Comment on above: Performed By: #### C BCDIF, AMYL, CMP, TSH, WSR #### [facility] [address] [place] [address] #### CELCMP #### See report for performing lab information. HLA-DQA1 Genotype PENDING Normal [facility] Reference Lab Comment on above: Performed By: #### C BCDIF, AMYL, CMP, TSH, WSR #### [facility] [address] [place] [address] #### CELCMP #### See report for performing lab information. HLA-DQB1 Genotype PENDING Normal [facility] Reference Lab Comment on above: Performed By: #### C BCDIF, AMYL, CMP, TSH, WSR #### [facility] [address] [place] [address] #### CELCMP #### See report for performing lab information. Comp Metabolic Panelon 11-04 Albumin [Mass/Vol] 4.6 g/dL Normal 3.9-4.9 [facility] Reference Lab Comment on above: Performed By: #### C BCDIF, AMYL, CMP, TSH, WSR #### [facility] [address] [place] [phone] #### CELCMP #### See report for performing lab information. ALP [Catalytic activity/Vol] 58 U/L Normal 38-113 [facility] Reference Lab Comment on above: Performed By: #### C BCDIF, AMYL, CMP, TSH, WSR #### [facility] [phone] #### CELCMP #### See report for performing lab information. ALT [Catalytic activity/Vol] 25 U/L Normal 10-54 [facility] Reference Lab Comment on above: Performed By: #### C BCDIF, AMYL, CMP, TSH, WSR #### [facility] [address] [place], [place] [address] #### CELCMP #### See report for performing lab information. Anion gap [Moles/Vol] 12 mmol/L Normal 9-18 [facility] Reference Lab Comment on above: Performed By: #### C BCDIF, AMYL, CMP, TSH, WSR #### [facility] [address] [place], [place] [address] #### CELCMP #### See report for performing lab information. AST [Catalytic activity/Vol] 24 U/L Normal 14-40 [facility] Reference Lab Comment on above: Performed By: #### C BCDIF, AMYL, CMP, TSH, WSR #### [facility]ine [facility] [address] [place], [place] [address] #### CELCMP #### See report for performing lab information. Bilirubin Ql (U) 0.4 mg/dL Normal 0.2-1.3 [facility] Reference Lab Comment on above: Performed By: #### C BCDIF, AMYL, CMP, TSH, WSR #### [facility] [address] [place], [place] [address] #### CELCMP #### See report for performing lab information. Calcium [Mass/Vol] 10.2 mg/dL Normal 8.5-10.2 [facility] Reference Lab Comment on above: Performed By: #### C BCDIF, AMYL, CMP, TSH, WSR #### [facility] [address] [place] [phone] #### CELCMP #### See report for performing lab information. Chloride [Moles/Vol] 104 mmol/L Normal 97-105 [facility] Reference Lab Comment on above: Performed By: #### C BCDIF, AMYL, CMP, TSH, WSR #### [facility] [address] [place], [place] [address] #### CELCMP #### See report for performing lab information. CO2 [Moles/Vol] 24 mmol/L Normal 22-30 [facility] Lab Comment on above: Performed By: #### C BCDIF, AMYL, CMP, TSH, WSR #### [facility] [address] [place] [address] #### CELCMP #### See report for performing lab information. Creatinine [Mass/Vol] 0.91 mg/dL Normal 0.73-1.22 [facility] Lab Comment on above: Performed By: #### C BCDIF, AMYL, CMP, TSH, WSR #### [facility] [address] [place] [address] #### CELCMP #### See report for performing lab information. eGFR- Amer. >60 Normal [facility] Lab Comment on above: Performed By: #### C BCDIF, AMYL, CMP, TSH, WSR #### [facility] [address] [place] [address] #### CELCMP #### See report for performing lab information. GFR/1.73 sq M predicted among non-blacks MDRD (S/P/Bld) [Vol rate/Area] mL/min/{1.73_m2} Normal [facility] Comment on above: Performed By: #### C BCDIF, AMYL, CMP, TSH, WSR #### [facility] [address] [place] [address] #### CELCMP #### See report for performing lab information. Glucose [Mass/Vol] 89 mg/dL Normal 74-99 [facility] Comment on above: Performed By: #### C BCDIF, AMYL, CMP, TSH, WSR #### [facility] [address] [place] [address] #### CELCMP #### See report for performing lab information. Potassium [Moles/Vol] 4.5 mmol/L Normal 3.7-5.1 [facility] Lab Comment on above: Performed By: #### C BCDIF, AMYL, CMP, TSH, WSR #### [facility] [address] [place] [address] #### CELCMP #### See report for performing lab information. Protein [Mass/Vol] 7.1 g/dL Normal 6.3-8.0 [facility] Comment on above: Performed By: #### C BCDIF, AMYL, CMP, TSH, WSR #### [facility] [address] [place] [address] #### CELCMP #### See report for performing lab information. Sodium [Moles/Vol] 140 mmol/L Normal 136-144 [facility] Comment on above: Performed By: #### C BCDIF, AMYL, CMP, TSH, WSR #### [facility] Routine [facility] [place] [address] #### CELCMP #### See report for performing lab information. Urea nitrogen [Mass/Vol] 18 mg/dL Normal 9-24 [facility] Lab Comment on above: Performed By: #### C BCDIF, AMYL, CMP, TSH, WSR #### [facility] Routine Lab [address] [place] [phone] #### CELCMP #### See report for performing lab information. Sed Rate Westergrenon 2019 Sed Rate Westergren 2 mm/hr Normal 0-[address] [facility] Reference Lab Comment on above: Performed By: #### C BCDIF, AMYL, CMP, TSH, WSR #### [facility] [address] [place] [phone] #### CELCMP #### See report for performing lab information. TSHon 11-04-2019 TSH Qn 1.150 uU/mL Normal 0.270-4.20 0 [facility] Lab Comment on above: Performed By: #### C BCDIF, AMYL, CMP, TSH, WSR #### [facility] [address] [place] [phone] #### CELCMP #### See report for performing lab information. Otheron 10-25-2019 Interpreted by: JACKELYN KELLY AEKNNK70/23/20 08:44MRN: [id number] Name: ALEKSANDRA MIRANDA STUDY:MR CERVICAL WO/W CONTRAST; 10/25/2019 5:28 pm INDICATION:follow up for cervical epidural mass 10/23/2019(1430): Per HR(neuro),CERVICAL WO/W CONTRAST per recomm on prior report dated 04/2019.. COMPARISON:April 19, 2019 ORDERING CLINICIAN:MAT RAMIREZ TECHNIQUE:Sagittal T1, T2, STIR, axial T1 and axial T2 weighted images wereacquired through the cervical spine. Axial and sagittal post-contrastT1 weighted images were also obtained following administration of 20mL of MultiHance. FINDINGS:Alignment: The vertebral alignment is within normal limits. Vertebrae/Intervertebral Discs: The vertebral bodies demonstrateexpected height. The marrow signal is within normal limits. Theintervertebral discs demonstrate expected signal and morphology. Cord: There is no intrinsic signal abnormality or abnormalenhancement of the cervical cord. C1-C2: The cervicomedullary junction appears unremarkable. There isno central canal stenosis. C2-C3: There is no posterior disc contour abnormality. There is nosignificant central canal or neural foraminal stenosis. C3-C4: There is no posterior disc contour abnormality. There is mildneural foraminal narrowing secondary to uncovertebral joint and facethypertrophy on the right, similar from the previous exam. C4-C5: There is no posterior disc contour abnormality. There is mildleft-sided neural foraminal narrowing due to uncovertebral joint andfacet hypertrophy. There is no central canal stenosis. C5-C6: There is no posterior disc contour abnormality. The potentialabnormality demonstrated previously in the left neural foramen isless conspicuous on the current examination. There is at most mildleft-sided neural foraminal narrowing due to subtle uncovertebraljoint and facet hypertrophy. There is no central canal or right-sidedneural foraminal narrowing. C6-C7: There is no posterior disc contour abnormality. There is nosignificant central canal or neural foraminal stenosis. C7-T1: There is no posterior disc contour abnormality. There is nosignificant central canal or neural foraminal stenosis. The sagittal images suggest a tiny disc protrusion at T4-5. The prevertebral and posterior paraspinous soft tissues are withinnormal limits. IMPRESSION:Minimal degenerative changes of the cervical spine. Theabnormality/potential disc herniation seen previously in the leftC5-6 neural foramen is not identified with certainty on the currentexamination. There is very mild left-sided neural foraminal narrowingdue to uncovertebral joint and facet hypertrophy, less pronouncedthan seen previously.Electronically signed by: BERNA LOPEZ 10/26/19 08:44 Normal [facility] Work Phone: Comment on above: ORDER REVISED TO A N R MR CERVICAL WO/W CONTRAST BY RADIOLOGIST ED Noteon 07-29-2017 HIM IP Note OR Sisal Operator Normal [facility] ED Provider Noteon 7 HIM IP Note OR Sisal Operator Normal [facility] Vital Signs Date Time Vital Sign Value Performing Clinician Facility 07-24-2025 11:47-0400 Body height 177.8 cm Albina Roberts MD Work Phone: [facility] 07-24-2025 11:47-0400 Body mass index (BMI) [Ratio] 29.53 kg/m2 Albina Roberts MD Work Phone: [facility] 07-24-2025 11:47-0400 Body temperature 98.4 [degF] Albina Roberts MD Work Phone: [facility] 07-24-2025 11:47-0400 Body weight 93.35 kg Albina Roberts MD Work Phone: [facility] 07-24-2025 11:47-0400 Diastolic blood pressure 82 mm[Hg] Albina Roberts MD Work Phone: [facility] 07-24-2025 11:47-0400 Heart rate 85 /min Albina Roberts MD Work Phone: [facility] 07-24-2025 11:47-0400 Respiratory rate 18 /min Albina Roberts MD Work Phone: [facility] 07-24-2025 11:47-0400 SaO2% (BldA) [Mass fraction] 98 % Albina Roberts MD Work Phone: [facility] 07-24-2025 11:47-0400 Systolic blood pressure 144 mm[Hg] Albina Roberts MD Work Phone: [facility] 06-27-2025 15:21-0400 Body height 177.8 cm Dilma Galaviz DO Work Phone: [facility] 06-27-2025 15:21-0400 Body mass index (BMI) [Ratio] 28.7 kg/m2 Dilma Galaviz DO Work Phone: [facility] 06-27-2025 15:21-0400 Body weight 90.72 kg Dilma Galaviz DO Work Phone: [facility] 06-27-2025 15:21-0400 Diastolic blood pressure 88 mm[Hg] Dilma Galaviz DO Work Phone: [facility] 06-27-2025 15:21-0400 Heart rate 82 /min Dilma Galaviz DO Work Phone: [facility] 06-27-2025 15:21-0400 SaO2% (BldA) [Mass fraction] 98 % Dilma Galaviz DO Work Phone: [facility] 06-27-2025 15:21-0400 Systolic blood pressure 142 mm[Hg] Dilma Galaviz DO Work Phone: [facility] 06-07-2025 15:03-0400 Body temperature 98.1 [degF] Dr. Leah Partida DO Work Phone: [facility] 06-07-2025 15:03-0400 Diastolic blood pressure 75 mm[Hg] Dr. Leah Partida DO Work Phone: [facility] 06-07-2025 15:03-0400 Heart rate 86 /min Dr. Leah Partida DO Work Phone: [facility] 06-07-2025 15:03-0400 Respiratory rate 16 /min Dr. Leah Partida DO Work Phone: [facility] 06-07-2025 15:03-0400 SaO2% (BldA) [Mass fraction] 100 % Dr. Leah Partida DO Work Phone: [facility] 06-07-2025 15:03-0400 Systolic blood pressure 150 mm[Hg] Dr. Leah Partida DO Work Phone: [facility] 06-07-2025 13:01-0400 Body height 175.[address] Leah Partida DO Work Phone: [facility] 06-07-2025 13:01-0400 Body mass index (BMI) [Ratio] 29.8 kg/m2 Dr. Leah Partida DO Work Phone: [facility] 06-07-2025 13:01-0400 Body weight 91.[address] Leah Partida DO Work Phone: [facility] 12-08-2024 09:55-0500 Diastolic blood pressure 66 mm[Hg] Indira Valles MD Work Phone: [facility] 12-08-2024 09:55-0500 Heart rate 72 /min Indira Valles MD Work Phone: [facility] 12-08-2024 09:55-0500 Respiratory rate 30 /min Indira Valles MD Work Phone: [facility] 12-08-2024 09:55-0500 SaO2% (BldA) [Mass fraction] 99 % Indira Valles MD Work Phone: [facility] 12-08-2024 09:55-0500 Systolic blood pressure 104 mm[Hg] Indira Valles MD Work Phone: [facility] 12-08-2024 08:34-0500 Body height 172.7 cm Indira Valles MD Work Phone: [facility] 12-08-2024 08:34-0500 Body mass index (BMI) [Ratio] 28.89 kg/m2 Indira Valles MD Work Phone: [facility] 12-08-2024 08:34-0500 Body weight 86.18 kg Indira Valles MD Work Phone: [facility] 06-26-2024 15:03-0400 Body height 177.8 cm Dilma Galaviz DO Work Phone: [facility] 06-26-2024 15:03-0400 Body mass index (BMI) [Ratio] 28.9 kg/m2 Dilma Galaviz DO Work Phone: [facility] 06-26-2024 15:03-0400 Body weight 91.35 kg Dilma Galaviz DO Work Phone: [facility] 06-26-2024 15:03-0400 Diastolic blood pressure 87 mm[Hg] Dilma Galaviz DO Work Phone: [facility] 06-26-2024 15:03-0400 Heart rate 103 /min Dilma Galaviz DO Work Phone: [facility] 06-26-2024 15:03-0400 SaO2% (BldA) [Mass fraction] 97 % Dilma Galaviz DO Work Phone: [facility] 06-26-2024 15:03-0400 Systolic blood pressure 137 mm[Hg] Dilma Galaviz DO Work Phone: [facility] 04-23-2023 09:17-0400 Diastolic blood pressure 80 mm[Hg] Albina Hernandezrt Work Phone: VD-Rfnncayjqk-Oura a Work Phone: 04-23-2023 09:17-0400 Systolic blood pressure 132 mm[Hg] Albina Hernandezrt Work Phone: OD-Pzkgwpkeps-Yllf a Work Phone: 04-23-2023 09:01-0400 Body height 175.26 cm Albina Hernandezrt Work Phone: BN-Vupjyliymu-Vgpu a Work Phone: 04-23-2023 09:01-0400 Diastolic blood pressure 90 mm[Hg] Albina Hernandezrt Work Phone: BZ-Yjqavrtmwl-Odei a Work Phone: 04-23-2023 09:01-0400 Heart rate 112 /min Albina Fontaineuart Work Phone: ZF-Ypyquucawv-Hoqu a Work Phone: 04-23-2023 09:01-0400 Systolic blood pressure 144 mm[Hg] Albina Hernandezrt Work Phone: IU-Jnehcbzaha-Pctu a Work Phone: 11-12-2022 09:15-0500 Body mass index (BMI) [Ratio] 29.98 kg/m2 Albina Hernandezrt Work Phone: [facility] Work Phone: 11-12-2022 09:15-0500 Body surface area Derived from formula 2.08 m2 Albina Roberts Work Phone: [facility] Work Phone: 11-12-2022 09:15-0500 Body temperature 98.2 [degF] Albina Roberts Work Phone: [facility] Work Phone: 11-12-2022 09:15-0500 Body weight 92.08 kg Albina Roberts Work Phone: [facility] Work Phone: 11-12-2022 09:15-0500 Diastolic blood pressure 88 mm[Hg] Albina Roberts Work Phone: [facility] Work Phone: 11-12-2022 09:15-0500 Heart rate 126 /min Albina Roberts Work Phone: [facility] Work Phone: 11-12-2022 09:15-0500 Systolic blood pressure 140 mm[Hg] Albina Roberts Work Phone: [facility] Work Phone: 10-21-2022 14:36-0500 Body mass index (BMI) [Ratio] 31.36 kg/m2 Albina Roberts Work Phone: QF-Jowinntprt-Vsog [employer] [facility] Work Phone: 10-21-2022 14:36-0500 Body surface area Derived from formula 2.12 m2 Albina Roberts Work Phone: BD-Uwbkgvzkru-Mvfj [employer] [facility] Work Phone: 10-21-2022 14:36-0500 Body weight 96.34 kg Albina Roberts Work Phone: LB-Ogsouaxlcx-Oumo [employer] [facility] Work Phone: 10-21-2022 14:36-0500 Diastolic blood pressure 90 mm[Hg] Albina Roberts Work Phone: PB-Rmvjdgpvvv-Xvzr [employer] [facility] Work Phone: 10-21-2022 14:36-0500 Heart rate 107 /min Albina Roberts Work Phone: GA-Cvusyvjoeq-Rpwq [employer] [facility] Work Phone: 10-21-2022 14:36-0500 Systolic blood pressure 164 mm[Hg] Albina Roberts Work Phone: UE-Wtqcqxhgpl-Lqth [employer] [facility] Work Phone: 10-01-2022 11:20-0500 Body mass index (BMI) [Ratio] 32.49 kg/m2 Albina oRberts Work Phone: [facility] Work Phone: 10-01-2022 11:20-0500 Body surface area Derived from formula 2.15 m2 Albina Roberts Work Phone: [facility] Work Phone: 10-01-2022 11:20-0500 Body temperature 98.3 [degF] Albina Roberts Work Phone: [facility] Work Phone: 10-01-2022 11:20-0500 Body weight 99.79 kg Albina Roberts Work Phone: [facility] Work Phone: 10-01-2022 11:20-0500 Diastolic blood pressure 92 mm[Hg] Albina Roberts [facility] Work Phone: 10-01-2022 11:20-0500 Heart rate 101 /min Albina Roberts Work Phone: [facility] Work Phone: 10-01-2022 11:20-0500 Systolic blood pressure 144 mm[Hg] Albina Roberts Work Phone: [facility] Work Phone: 04-15-2022 14:04-0400 Body height 175.26 cm Albina Roberts Work Phone: JU-Djzlkqvrtz-Jzjq na [address] [place] Work Phone: 04-15-2022 14:04-0400 Body mass index (BMI) [Ratio] 29.39 kg/m2 Albina Roberts Work Phone: DU-Nijrhktdlh-Tqpm na [address] [place] Work Phone: 04-15-2022 14:04-0400 Body surface area Derived from formula 2.06 m2 Albina Roberts Work Phone: SB-Ilkmqoipck-Mnhv na [address] [place] Work Phone: 04-15-2022 14:04-0400 Body weight 90.27 kg Albina Roberts Work Phone: CT-Zdudonlxql-Meer na [address] [place] Work Phone: 04-15-2022 14:04-0400 Diastolic blood pressure 95 mm[Hg] Albina Roberts Work Phone: LC-Qmlirpkdol-Sstk na [address] [place] Work Phone: 04-15-2022 14:04-0400 Heart rate 97 /min Albina Roberts Work Phone: UE-Llxxhctomj-Sxza na [address] [place] Work Phone: 04-15-2022 14:04-0400 SaO2% (BldA) [Mass fraction] 99 % Albina Roberts Work Phone: KB-Ymdozurhpf-Qsyp na [address] [place] Work Phone: 04-15-2022 14:04-0400 Systolic blood pressure 148 mm[Hg] Rebeca Armando Work Phone: CZ-Hpgvjwnmrb-Nmfn na [address] [place] Work Phone: 09-23-2020 14:16-0500 BMI (Body Mass Index) 29.46 kg/m2 Albina Hernandezrt [facility] Work Phone: 09-23-2020 14:16-0500 Body Temperature 98.5 [degF] Albina Hernandezrt [facility] Work Phone: 09-23-2020 14:16-0500 Body weight 90.49 kg Albina Hernandezrt [facility] Work Phone: 09-23-2020 14:16-0500 BP Diastolic 82 mm[Hg] Albina Hernandezrt [facility] Work Phone: 09-23-2020 14:16-0500 BP Systolic 130 mm[Hg] Albina Hernandezrt [facility] Work Phone: 09-23-2020 14:16-0500 BSA (Body Surface Area) 2.06 m2 Rebeca Armando [facility] Work Phone: 12-22-2019 17:00-0400 BMI (Body Mass Index) 30.48 kg/m2 Rebeca Armando [facility] Work Phone: 12-22-2019 17:00-0400 Body Temperature 98.2 [degF] Rebeca Armando [facility] Work Phone: 12-22-2019 17:00-0400 Body weight 93.62 kg Albina Ackerman Armando [facility] Work Phone: 12-22-2019 17:00-0400 BP Diastolic 82 mm[Hg] Albina Ackerman Armando [facility] Work Phone: 12-22-2019 17:00-0400 BP Systolic 142 mm[Hg] Rebeca Armando [facility] Work Phone: 12-22-2019 17:00-0400 BSA (Body Surface Area) 2.09 m2 Rebeca Armando [facility] Work Phone: 12-01-2019 10:56-0500 BMI (Body Mass Index) 31.16 kg/m2 Rebeca Ramando [facility] Work Phone: 12-01-2019 10:56-0500 Body weight 95.71 kg Rebeca Armando [facility] Work Phone: 12-01-2019 10:56-0500 BP Diastolic 76 mm[Hg] Rebeca Armando [facility] Work Phone: Comment on above: Location: RUE; Position: Sitting 12-01-2019 10:56-0500 BP Systolic 123 mm[Hg] Rebeca Armando [facility] Work Phone: Comment on above: Location: [facility]UE; Position: Sitting 12-01-2019 10:56-0500 BSA (Body Surface Area) 2.11 m2 Rebeca Armando [facility] Work Phone: 12-01-2019 10:56-0500 Height 175.26 cm Rebeca Armando [facility] Work Phone: 12-01-2019 10:56-0500 Pulse (Heart Rate) 85 /min Rebeca Armando [facility] Work Phone: 12-01-2019 10:56-0500 Pulse Oximetry 99 % Rebeca Armando [facility] Work Phone: Comment on above: Source: 12-01-2019 10:56-0500 0 1 Albina Roberts [facility] Work Phone: Comment on above: Pain Scale 10-19-2019 18:57-0500 BMI (Body Mass Index) 31.75 kg/m2 Albina Roberts MJ-Pqcrdgarqmnq-Pn uja Work Phone: 10-19-2019 18:57-0500 Body Temperature 98.6 [degF] Albina CHAVES-Neurosurger y-Ah uja Work Phone: 10-19-2019 18:57-0500 Body weight 97.52 kg Albina Roberts [facility] Work Phone: 10-19-2019 18:57-0500 BP Diastolic 80 mm[Hg] Albina Roberts [facility] -Ah [facility]ja Work Phone: 10-19-2019 18:57-0500 BP Systolic 100 mm[Hg] Albina Roberts [facility] -Ah uja Work Phone: 10-19-2019 18:57-0500 BSA (Body Surface Area) 2.13 m2 Albina Roberts MZ-Rdozifgsfngv-Az uja Work Phone: Encounters Encounter Date Encounter Type Care Provider Facility Start: 08-10-2025 End: 08-10-2025 Subsequent hospital visit by physician Tomi Greenwood Admin Room [facility] 3 Comment on above: Arrived Chest discomfort Start: 08-10-2025 End: 08-10-2025 ambulatory [facility] Start: 07-25-2025 End: 07-25-2025 Subsequent hospital visit by physician Abril [address] [facility] Comment on above: Essential hypertensi on Start: 07-25-2025 End: 07-25-2025 ambulatory [facility] [place] Start: 07-24-2025 End: 07-24-2025 Office outpatient visit 15 minutes Albina Roberts MD Work Phone: [facility] Internal Medicine/Peds Comment on above: Anxiety (Primary Dx) ; Chest discomfort Start: 07-24-2025 End: 07-24-2025 ambulatory [facility] Ambulatory Start: 06-27-2025 End: 06-27-2025 Office outpatient visit 40 minutes Dilma Galaviz DO Work Phone: [facility] Comment on above: Essential hypertensi on (Primary Dx); Chest discomfort; Mixed hyperlipidemia Start: 06-27-2025 End: 06-27-[address] [facility] Start: 06-07-2025 End: 06-07-2025 Emergency department patient visit Dr. Leah Partida DO Work Phone: -Emergency Department Work Phone: Start: 03-13-2025 End: 03-14-2025 ambulatory Ind[facility] Valles MD [facility] Start: 03-13-2025 End: 03-14-2025 Follow-up encounter Indira Valles MD Work Phone: [facility] Comment on above: Follow up question Start: 12-11-2024 End: 02-10-2025 Follow-up encounter Indira Valles MD Work Phone: [facility] Start: 12-08-2024 End: 12-08-2024 ambulatory INDIRA VALLES Facility:[facility] Start: 12-08-2024 End: 12-08-2024 Subsequent hospital visit by physician Indira Valles MD Work Phone: Ambulatory Surgery Comment on above: Diverticulitis [K57. 92] Start: 12-07-2024 End: 12-07-2024 Admission to same day surgery center Indira Valles MD Work Phone: Ambulatory Surgery Start: 12-07-2024 End: 12-07-2024 ambulatory Indira Valles MD Work Phone: Ambulatory Surgery Start: 12-07-2024 End: 12-07-2024 Telephone encounter Indira Valles MD Work Phone: [facility] Start: 11-30-2024 End: 01-30-2025 Follow-up encounter Indira Valles MD Work Phone: [facility] Provider Adult Start: 11-30-2024 ambulatory UNKNOWN PROVIDER Facili ty:[facility] Start: 11-30-2024 End: 11-30-2024 Subsequent hospital visit by physician [facility] Comment on above: Left lower quadrant abdominal pain [R10.32] Start: 11-06-2024 End: 11-06-2024 Admission to same day surgery center Indira Valles MD Work Phone: Ambulatory Surgery Comment on above: MUST READ, BOWEL PRE P INSTRUCTIONS Start: 11-06-2024 End: 11-06-2024 E-mail encounter from caregiver Indira Valles MD Work Phone: Ambulatory Surgery Start: 11-04-2024 End: 11-04-2024 Orders Only Indira Valles MD Work Phone: [facility] Start: 11-03-2024 ambulatory Indira Valles Facility:[facility] Start: 11-03-2024 End: 11-03-2024 Subsequent hospital visit by physician [facility] ([facility]) Work Phone: [facility] Radiology CT Scan Comment on above: Left lower quadrant abdominal pain [R10.32] Start: 10-26-2024 End: 10-30-2024 ambulatory Indira Valles MD Work Phone: [facility] Comment on above: Stomach pain. Start: 10-19-2024 End: 10-19-2024 Refill Indira Valles MD Work Phone: [facility] Comment on above: Refill Request Start: 09-20-2024 End: 09-20-2024 ambulatory Indira Valles MD Work Phone: [facility] Comment on above: Bowel Prep Start: 09-20-2024 End: 09-20-2024 E-mail encounter from caregiver Indira Valles MD [facility] Start: 08-21-2024 End: 08-21-2024 ambulatory INDIRA VALLES Facility:[facility] Start: 06-26-2024 End: 06-26-2024 Office outpatient visit 15 minutes Dilma Kellydelilah Work Phone: [facility] Comment on above: Heart palpitations ( Primary Dx); Chest discomfort; Essential hypertension Start: 06-22-2024 End: 06-22-2024 ambulatory [facility] Facility:[facility] Start: 06-22-2024 End: 06-22-2024 Subsequent hospital visit by physician [facility] F[facility] ([facility]) Work Phone: CT Scan Comment on above: Left lower quadrant abdominal pain [R10.32] Left lower quadrant pain [R10.32] Start: 06-21-2024 End: 06-21-2024 Telephone encounter Indira Valles MD Work Phone: [facility] Start: 06-16-2024 End: 06-26-2024 ambulatory Indira Valles MD Work Phone: [facility] Comment on above: Stomach Problems Start: 06-12-2024 End: 06-14-2024 Telephone encounter Indira Valles MD Work Phone: [facility] Comment on above: Patient Update Start: 12-28-2023 End: 12-28-2023 ambulatory [facility] Facility:[facility] Start: 12-27-2023 End: 12-27-2023 ambulatory [facility] Facility:[facility] Start: 12-27-2023 End: 12-27-2023 Nursing evaluation of patient and report Nurse Liliana Her Work Phone: [facility] Pedro Luis Her Comment on above: Abdominal bloating ( Primary Dx) Start: 12-10-2023 ambulatory Indira Valles MD Work Phone: [facility] Comment on above: Breath test on December 26 Start: 11-01-2023 End: 11-01-2023 ambulatory Indira Valles MD Work Phone: Gastroenterology [facility] Comment on above: Abdominal bloating ( Primary Dx); Functional dyspepsia; Irritable bowel syndrome with diarrhea; Gastroesophageal reflux disease without esophagitis Start: 11-01-2023 End: 11-01-2023 Telemedicine consultation with patient Indira Valles MD Work Phone: [facility] Start: 07-08-2023 Telephone encounter Indira jack MD Work Phone: [facility] Comment on above: Refill Request Start: 04-30-2023 Chart Update Albina Hernandez rt Work Phone: QP-Oslcqdpabc-Trdbw Work Phone: Start: 04-13-2023 AUDIT Albina Hernandez rt Work Phone: [facility] [address] Work Phone: Start: 01-04-2023 Refill Indira Valles MD Work Phone: Gastroenterology Comment on above: Refill Request Start: 11-16-2022 STRESS JOSE, Provider : MG HARMAN CARD, Status: Pen, Time: 3:00 PM Albina Roberts [facility] Work Phone: Start: 11-12-2022 Office outpatient vi sit 15 minutes Albina Roberts Work [facility] Work Phone: Start: 11-12-2022 Patient encounter procedure Albina Roberts Work Phone[facility] Work [facility]: Start: 10-21-2022 Office outpatient vi sit 25 minutes Albina Roberts Work Phone: BZ-Qmrbmtjznz-Mprnt Work Phone: Start: 10-21-2022 Patient encounter procedure Albina Roberts Work Phone: [facility] [address] Work Phone: Start: 10-11-2022 Chart Update Albina Hernandez rt Work Phone: -[facility] Work Phone: Start: 10-07-2022 AUDIT RebecaMeka Hernandez rt Work Phone: [facility] Work Phone: Start: 10-05-2022 Chart Update Albina Hernandez rt Work Phone: [facility] Work Phone: Start: 10-01-2022 Office outpatient vi sit 15 minutes Albina Roberts Work Phone: [facility] Work Phone: Start: 10-01-2022 Patient encounter procedure Rebeca Stuart Work Phone: [facility] Work Phone: Start: 04-15-2022 Office outpatient vi sit 15 minutes Albina Roberts Work Phone: KT-Moczadvzug-Ossq[address] [place] Work Phone: Start: 01-29-2022 Telephone encounter Indira jack MD Work Phone: [facility] Comment on above: Appointment Start: 01-12-2022 Refill Indira Valles MD Work Phone: Gastroenterology Comment on above: Refill Request (nort riptyline) Start: 03-05-2021 AUDIT Albina Hernandez rt Work Phone: [facility] Work Phone: Start: 01-29-2021 Office outpatient vi sit 25 minutes Albina Roberts Work Phone: AB-Xuwhcajvbb-Reuec Work Phone: Start: 09-23-2020 Patient encounter procedure Albina Roberts [facility] Work Phone: Start: 09-04-2020 Patient encounter procedure Albina Roberts [facility] Work Phone: Start: 06-05-2020 Patient encounter procedure Albina Roberts MPYP-Qmmusglhj-Xckeqff 102 Work Phone: Start: 01-16-2020 Patient encounter procedure Albina Roberts XC-Lhwsfjwlo-Vzgkjlj [address] Work Phone: Start: 12-22-2019 Patient encounter procedure Albina Roberts [facility] Work Phone: Start: 12-01-2019 Patient encounter procedure Albina Roberts [facility] Work Phone: Start: 10-19-2019 Patient encounter procedure Albina Hernandezrt NH-Fbdcmwbqcpjt-Nllgr Work Phone: Start: 08-29-2019 Patient encounter procedure Albina Hernandezrt QR-Hzycjujxdvzy-Udznx Work Phone: Start: 08-21-2019 Patient encounter procedure Albina Hernandezrt SR-Ravtrtdfevhl-Khovg Work Phone: Start: 06-26-2019 Patient encounter procedure Albina Hernandezrt HM-Qnyugrkwreii-Bzwqa Work Phone: Start: 05-23-2019 Patient encounter procedure Albina Hernandezrt KN-Nagpmjgmgxge-Doyto Work Phone: Start: 05-18-2019 Patient encounter procedure Albina Hernandezrt EA-Bzmwgqxdvvyq-Dthxf Work Phone: Start: 05-02-2019 Patient encounter procedure RebecaMeka Hernandezrt UK-Ugxekuzyxkpn-Cyrxd Work Phone: Start: 04-24-2019 Patient encounter procedure Albina Hernandezrt RT-Ogbclxvortpr-Ziabi Work Phone: Start: 04-18-2019 Patient encounter procedure RebecaMeka Hernandezrt ZU-Nvcdzukzfqcg-Dbyqt Work Phone: Start: 03-07-2019 Patient encounter procedure Albina Roberts GF-Cdiaouqmyjhv-Alcgy Work Phone: Start: 03-06-2019 Patient encounter procedure Albina Roberts GZ-Yylvhagmvqzx-Lvkzm Work Phone: Start: 02-02-2019 Patient encounter procedure Albina Roberts WN-Lemvmwwsmmah-Axgyn Work Phone: Start: 12-02-2018 Patient encounter procedure Albina Roberts IU-Kdsibnhawlhb-Gwoie Work Phone: Start: 11-16-2018 Patient encounter procedure Albina Roberts VY-Cdxvpliqhuuj-Raupy Work Phone: Start: 09-20-2018 Patient encounter procedure Albina Roberts KH-Usazhdfbvpmq-Pauaw Work Phone: Start: 09-01-2018 Patient encounter procedure Albina Roberts UY-Cbqmbqqeijip-Udgsl Work Phone: Start: 08-01-2018 Patient encounter procedure Albina CHAVESDX-Ahjmnqhxcsef-Nvhnn Work Phone: Start: 05-02-2018 Patient encounter procedure Albina CHAVESZZ-Baqxsxhahupg-Mznrt Work Phone: Start: 07-29-2017 End: 07-29-2017 Emergency department patient visit NELIDA INIGUEZ Facility:[facility] Procedures Date Procedure Procedure Detail Performing Clinician Start: 08-10-2025 Myocardial spect multiple studies Dilma Galaviz DO Work Phone: Start: 07-25-2025 Lipid 1996 panel - Serum or Plasma Ahu 1 Start: 06-07-2025 Plain chest X-ray Dr. Leah Partida DO Work Phone: Start: 06-07-2025 CT of head without contrast Dr. Leah omalley DO Work Phone: Start: 06-07-2025 CT angiography of head and neck Dr. Kathi Partida DO Work Phone: Start: 06-07-[address] Leah Partida DO Work Phone: Start: 12-08-2024 Colonoscopy flx dx w/collj spec when pfrmd Indira Valles MD Work Phone: Start: 12-08-2024 Esophagogastroduodenoscopy transoral diagnostic Indira Valles MD Work Phone: Start: 11-30-2024 Ct abdomen & pelvis w/contrast material Indira Valles MD Work Phone: Start: 11-03-2024 Ct abdomen & pelvis w/contrast material Indira Valles MD Work Phone: Start: 06-22-2024 Ct abdomen & pelvis w/contrast material Indira Valles MD Work Phone: Start: 12-28-2023 Breath hydrogen/methane test Indira Valles MD Work Phone: Start: 04-20-2023 Lipid 1996 panel - Serum or Plasma Indira Valles MD Work Phone: Cholecystectomy Albina Ackerman [facility] Plan of Treatment Date Care Activity Detail Author Start: 2038 Zoster Vaccines (1 o f 2) Zoster Vaccines (1 of 2) [facility] Start: 07-25-2030 Lipid panel Lipid Panel [facility] Start: 04-20-2028 Lipid panel [facility] Start: 07-30-2027 DTaP/Tdap/Td Vaccine s (2 - Td or Tdap) DTaP/Tdap/Td Vaccines (2 - Td or Tdap) [facility] Start: 07-30-2027 Urine microalbumin profile DTaP,Tdap,Td Vaccine (2 - Td or Tdap) [facility] Start: 06-19-2026 End: 06-19-2026 Patient encounter procedure 06/19/2026 9:00 AM EDT Office Visit [facility] [address] [place] [address] Dilma Galaviz, [address] [place] [address] [facility] Start: 10-10-2025 Diabetes mellitus screening Diabetes Screening [facility] Start: 08-15-2025 End: 08-15-2025 Patient encounter procedure 08/15/2025 10:00 AM EST Office Visit [facility] [address] [place] [address] Juan Pat MD [address] [facility] [address] [place] [address] [facility] Start: 06-27-2025 End: 06-27-2025 Patient encounter procedure 06/27/2025 3:15 PM EDT Office Visit [facility] [address] [facility] [address] [place] [address] Dilma Galaviz, [address] [facility] [address] [place], [place] [id number] [facility] Start: 06-27-2025 End: 06-27-2026 Apolipoprotein B [Mass/volume] in Serum or Plasma Apolipoprotein B Lab Routine Essential hypertension Expected: 06/27/2025 (Approximate), Expires: 06/27/2026 [facility] Work Phone: Comment on above: Expected: 06/27/2025 (Approximate), Expires: 06/27/2026 Start: 06-27-2025 End: 06-27-2026 Comprehensive metabolic 2000 panel - Serum or Plasma Comprehensive metabolic panel Lab Routine Essential hypertension Expected: 06/27/2025 (Approximate), Expires: 06/27/2026 [facility] Service Area Work Phone: Comment on above: Expected: 06/27/2025 (Approximate), Expires: 06/27/2026 Start: 06-27-2025 End: 06-27-2026 CT for calcium scoring WO contrast and CTA W contrast IV Heart and coronary arteries CT cardiac scoring wo IV contrast Imaging Routine Essential hypertension Expected: 06/27/2025, Expires: 06/27/2026 [facility] Work Phone: Comment on above: Expected: 06/27/2025 , Expires: 06/27/2026 Start: 06-27-2025 End: 06-27-2026 Lipid 1996 panel - Serum or Plasma Lipid panel Lab Routine Essential hypertension Expected: 06/27/2025 (Approximate), Expires: 06/27/2026 [facility] Work Phone: Comment on above: Expected: 06/27/2025 (Approximate), Expires: 06/27/2026 Start: 06-27-2025 End: 06-27-2026 Lipoprotein a [Mass/volume] in Serum or Plasma Lipoprotein a Lab Routine Essential hypertension Expected: 06/27/2025 (Approximate), Expires: 06/27/2026 [facility] Work Phone: Comment on above: Expected: 06/27/2025 (Approximate), Expires: 06/27/2026 Start: 06-07-2025 End: 06-07-2025 [facility] Start: 06-07-2025 [facility] Start: 06-04-2025 COVID-19 Vaccine ( season) COVID-19 Vaccine ( season) [facility] Start: 06-04-2025 COVID-19 Vaccine ( season) COVID-19 Vaccine ( season) [facility] Start: 06-04-2025 [facility] Start: 05-04-2025 Influenza vaccination Influenza Vacc ine (#1) [facility] Start: 02-19-2025 End: 02-19-2025 Patient encounter procedure 02/19/2025 8:30 AM EDT Office Visit Gastroenterology [facility] [address] [place] [address] [place] [address] [place] [address] Return in about 6 months (around 02/18/2025) Gastro[facility]ology [facility] Comment on above: Return in about 6 mo nt (around 02/18/2025) Start: 12-19-2024 End: 12-19-2024 Patient encounter procedure 12/19/2024 2:00 PM EDT Appointment Ambulatory Surgery [address] [place] [address] [place] [address] [place] [address] [facility] Amb[facility] Comment on above: COLON Start: 12-08-2024 End: 12-08-2024 Patient encounter procedure 12/08/2024 8:45 AM EST Appointment Ambulatory Surgery [address] [place] [address] [place]ira Valles [place] [id number] [place] [id number] colon/egd with Dr Valles Ambulatory Surgery Comment on above: colon/egd with Dr Sa salvador Start: 12-01-2024 End: 12-01-2024 Anesthesia consultation 12/01/2024 11:59 PM EST Anesthesia Event Ambulatory Surgery [address] [place] [address] Bertha Bullock APRN.APPLICATIONS ENGINEER [address] [place] [address] Ambulatory Surgery Start: 11-21-2024 End: 11-21-2024 Patient encounter procedure 11/21/2024 1:30 PM EST Appointment Ambulatory Surgery [address] [place] [address] [place] [address] [place] [address] [facility] Ambulatory Surgery Comment on above: COLON Start: 09-19-2024 End: 09-19-2024 Patient encounter procedure 09/19/2024 9:15 AM EST Appointment Ambulatory Surgery [address] [place] [address] [place] [address] [place] [address] [facility] Ambulatory Surgery Comment on above: COLON Start: 08-22-2024 End: 06-22-2025 Flexible sigmoidoscopy study COLONOSCOPY DIAGNOSTIC Endoscopy Routine Diverticulitis Expected: 08/22/2024, Expires: 06/22/2025 [facility] Work Phone: Comment on above: Expected: 08/22/2024 , Expires: 06/22/2025 Start: 06-22-2024 End: 06-22-[address] Scan Comment on above: Left lower quadrant abdominal pain [R10.32] Start: 06-14-2024 End: 09-13-2024 CBC panel - Blood by Automated count COMPLETE BLOOD COUNT Lab Routine Abdominal pain, unspecified abdominal location Expected: 06/14/2024, Expires: 09/13/2024 [facility] Work Phone: Comment on above: Expected: 06/14/2024 , Expires: 09/13/2024 Start: 06-14-2024 End: 09-13-2024 Comprehensive metabolic 2000 panel - Serum or Plasma COMPREHENSIVE METABOLIC PANEL Lab Routine Abdominal pain, unspecified abdominal location Expected: 06/14/2024, Expires: 09/13/2024 [facility] Comment on above: Expected: 06/14/2024 , Expires: 09/13/2024 Start: 06-14-2024 End: 09-13-2024 Lipase [Enzymatic activity/volume] in Serum or Plasma LIPASE Lab Routine Abdominal pain, unspecified abdominal location Expected: 06/14/2024, Expires: 09/13/2024 [facility] Comment on above: Expected: 06/14/2024 , Expires: 09/13/2024 Start: 06-04-2024 Covid-19 Vaccine ( season) Covid-19 Vaccine () [facility] Start: 06-04-2024 Covid-19 Vaccine () Covid-19 Vaccine () [facility] Start: 06-04-2024 Influenza vaccination Influenza Vacc ine (#1) [facility] Start: 04-21-2024 FUV, Provider: Dilma Galaviz, Status: Pen, Time: 9:00 AM FUV, Provider: Dilma Galaviz, Status: Pen, Time: 9:00 AM MX-Otedlmrjur-Xfjlm Work Phone: Start: 10-04-2023 Depression Assessment Depression Ass [facility] Start: 06-04-2023 Covid-19 Vaccine ( season) Covid-19 Vaccine ( season) [facility] Start: 06-04-2023 Influenza vaccination C [facility] Start: 04-23-2023 FUV, Provider: Dilma Galaviz, Status: Pen, Time: 9:00 AM FUV, Provider: Dilma Galaviz, Status: Pen, Time: 9:00 AM QN-Ghelbkdhto-I[address] [place] Work Phone: Start: 01-18-2023 EPV, Provider: Glen Ho, Status: Pen, Time: 9:00 AM EPV, Provider: Glen Ho, Status: Pen, Time: 9:00 AM KZ-Cjslfkpfzn-[place] [address] Work Phone: Start: 11-16-2022 STRESS ECH, Provider : [facility], Status: Pen, Time: 3:00 PM STRESS ECH, Provider: [facility], Status: Pen, Time: 3:00 PM XM-Ezgrftxdki-Tghilsiwd [place] [address] Work Phone: Start: 11-16-2022 STRESS JOSE, Provider : [facility] C[facility], Status: Pen, Time: 3:00 PM STRESS JOSE, Provider: [facility], Status: Pen, Time: 3:00 PM [facility] Work Phone: Start: 10-04-2022 DEPRESSION ASSESSMENT DEPRESSION ASS [facility] Start: 06-04-2022 Influenza vaccination INFLUENZ A (Season Ended) [facility] Start: 02-27-2022 FUV, Provider: Dilma Galaviz, Status: Pen, Time: 9:00 AM FUV, Provider: Dilma Galaviz, Status: Pen, Time: 9:00 AM DE-Gtgzosrmeh-Hjtps Work Phone: Start: 02-02-2022 End: 04-04-2022 CBC panel - Blood by Automated count CBC Lab Routine Left lower quadrant abdominal pain Expected: 02/02/2022, Expires: 04/04/2022 [facility] Work Phone: Comment on above: Expected: 02/02/2022 , Expires: 04/04/2022 Start: 02-02-2022 End: 04-04-2022 Comprehensive metabolic 2000 panel - Serum or Plasma COMP METABOLIC PANEL Lab Routine Left lower quadrant abdominal pain Expected: 02/02/2022, Expires: 04/04/2022 [facility] Work Phone: Comment on above: Expected: 02/02/2022 , Expires: 04/04/2022 Start: 05-09-2021 FUV, Provider: Albina Roberts, Status: Pen, Time: 4:30 PM FUV, Provider: Albina Roberts, Status: Pen, Time: 4:30 PM [facility] Work Phone: Start: 2015 HPV Vaccines (1 - 3-dose standard series) HPV Vaccines (1 - 3-dose standard series) [facility] Start: 2007 Hepatitis A Vaccines (1 of 2 - Risk 2-dose series) Hepatitis A Vaccines (1 of 2 - Risk 2-dose series) [facility] Start: 2007 Hepatitis B Vaccine (1 of 3 - 19+ 3-dose series) Hepatitis B Vaccine (1 of 3 - 19+ 3-dose series) [facility] Start: 2007 Hepatitis B Vaccines (1 of 3 - 19+ 3-dose series) Hepatitis B Vaccines (1 of 3 - 19+ 3-dose series) [facility] Start: 2007 Pneumococcal vaccination Pneumococcal Vaccine (1 of 2 - PCV) [facility] Start: 2007 Pneumococcal Vaccine : Pediatrics and At-Risk Adult Patients (1 of 2 - PCV) Pneumococcal Vaccine: Pediatrics and At-Risk Adult Patients (1 of 2 - PCV) [facility] Start: 2007 Urine microalbumin profile [facility] Start: 2006 Anxiety Screening Anxiety Screening [facility] Start: 2006 Depression Screening Depression Scre ening [facility] Start: 2006 Diabetes mellitus screening Diabetes Screening [facility] Start: 2006 HEPATITIS C SCREENING HEPATITIS C [facility] Start: 2006 Hepatitis C screening Hepatitis C [facility] Start: 2006 HIV SCREENING HIV SCREENING [facility] Start: 2006 HIV screening HIV Screening [facility] Start: 2001 Varicella vaccination Varicell a Vaccines (1 of 2 - 13+ 2-dose series) [facility] Start: 2000 Adult depression screening assessment DEPRESSION SCREENING [facility] Start: 1994 PNEUMOCOCCAL (1 - PCV) PNEUMOCOCCAL (1 - PCV) [facility] Start: 1994 Pneumococcal vaccination [facility] Start: 1994 Pneumococcal Vaccine : Pediatrics (0 to 5 Years) and At-Risk Patients (6 to 64 Years) (1 of 2 - PCV) Pneumococcal Vaccine: Pediatrics (0 to 5 Years) and At-Risk Patients (6 to 64 Years) (1 of 2 - PCV) [facility] Start: 1993 COVID-19 VACCINE (1) COVID-19 VACCIN E (1) [facility] Start: 1989 MMR Vaccines (1 of 1 - Standard series) MMR Vaccines (1 of 1 - Standard series) [facility] Start: 03-26-1989 COVID-19 VACCINE (#1) COVID-19 VACCI NE (#1) [facility] Start: 1988 HEPATITIS B (1 of 3 - 3-dose series) HEPATITIS B (1 of 3 - 3-dose series) [facility] Start: 1988 Hepatitis B Vaccine (1 of 3 - 3-dose series) Hepatitis B Vaccine (1 of 3 - 3-dose series) [facility] Start: 1988 HIV screening HIV Screening [facility] Start: 1988 Yearly Adult Physical Yearly Adult P hysical [facility] Breath hydrogen/methane test [facility] Work Phone: Comment on above: Ordered: 11/01/2023 End: 08-10-2025 Cardiology Interpretation Of Nuclear Stress - See Other Report For Nuclear Portion [facility] Service Area Work Phone: Comment on above: Once for 1 Occurrenc es starting 08/10/2025 until 08/10/2025 End: 03-04-2023 Ct abdomen & pelvis w/contrast material CT ABD/PEL W IVCON Radiology Routine Left lower quadrant abdominal pain 1 Occurrences starting 02/02/2022 until 03/04/2023 [facility] Work Phone: Comment on above: 1 Occurrences starti ng 02/02/2022 until 03/04/2023 End: 07-25-2025 CT for calcium scoring WO contrast and CTA W contrast IV Heart and coronary arteries [facility] Work Phone: Comment on above: Once for 1 Occurrenc es starting 07/25/2025 until 07/25/2025 ECG 12 lead (Clinic Performed) ECG 12 lead (Clinic Performed) ECG Routine Heart palpitations 06/26/2024 3:00 PM EDT [facility] Work Phone: Patient Education ED Anxiety [place] ction ED Chest Pain, Uncertain Cause ED Headache, Tension [facility] Work Phone: Tissue Pathology biopsy report [facility] Work Phone: Comment on above: Release Upon Orderin g for 1 Occurrences starting 12/08/2024, 1 completed [facility] Work Phone: [facility] NEGATED: Highlighted row has been ruled out! Planned Goals not documented [facility]Qjcuvjzakrbk-Fxpmj Work Phone: Immunizations Immunization Date Immunization Notes Care Provider Renee dang 08-01-2018 influenza, injectabl e, quadrivalent, preservative free; Translations: [Fluzone Quadrivalent 0.5 ML Intramuscular Suspension] Albina Roberts SH-Owakgtwbblwz-Kck ara Work Phone: Comment on above: Series: 08-01-2018 influenza virus vacc ine, unspecified formulation Indira Valles MD Work Phone: [facility] 07-30-2017 tetanus toxoid, redu colt diphtheria toxoid, and acellular pertussis vaccine, adsorbed Albina Roberts Work Phone: [facility]Vxbylmbhhq[facility]Kmjqa Work Phone: Payers Date Payer Category Payer Private Health Insurance [id number] 2025 Self-pay 2024 Managed Care (Private) [facility] PLAN CLIENT SPECIFIC [id number] 2024 Private Health Insurance [id number] 2024 Private Health Insurance [id number] 2019 Private Health Insurance [facility] CHOICE PLUS [id number] 2019-Present [phone] [address] [place] [address] O [id number] 2019 Private Health Insurance [id number] 2019 Unknown [id number] 2018 Government (not [facility] care or Medicaid) [facility] GENERIC [id number] 1988 Unknown [id number] [id number] 1988 Unknown [id number] [id number] 1988 Unknown [id number] 2.1245 1988 Unknown [id number] [id number] 2.1247 1988 Unknown [id number]. 2.1247 1988 Unknown [id number] 2.1247 1988 Unknown [id number] 2.7 1988 Unknown [id number] [id number] Private Health Insurance [id number] Unknown [facility] Unknown [id number] [id number] Social History Date Type Detail Facility Assertion Unknown if ever smoked [facility] Work Phone: Start: 12-25-2018 End: 07-24-2025 No alcohol use No alcohol use [facility] Start: 12-25-2018 End: 07-24-2025 Tobacco smoking status CTIS Smokes tobacco daily [facility] Start: 06-24-2025 History of tobacco use Cigarette Smoker [facility] Start: 12-25-2018 End: 07-24-2025 Tobacco use and exposure Smokeless tobacco non-user [facility] Start: 02-02-2021 End: 07-24-2025 Alcohol intake Lifetime non-drinker (finding) [facility] Start: 12-25-2018 History SDOH Alcohol Frequency 1 [facility] Start: 1990 Sex Assigned At Not on file [facility] Start: 01-19-2022 End: 06-26-2024 Exposure to SARS-CoV-2 (event) Not sure [facility] Start: 1990 Sex Assigned At Male [facility] Start: 12-25-2018 End: 07-24-2025 Alcohol Use Disorder Identification Test - Consumption [AUDIT-C] [facility] How often to you hav e a drink containing alcohol? Never [facility] Start: 08-28-2022 Average Number of Drinks Not on file [facility] Start: 02-08-2022 Gender identity Identifies as male gender (finding) [facility] Start: 06-07-2025 Tobacco smoking status NHIS Never smoked tobacco (finding) [facility] History of tobacco use Passive smoker [facility] Work Phone: Start: 08-28-2022 Sex Male (finding) [facility] Functional Status Date Assessment Result Facility 08-10-2025 Functional status [facility] 08-10-2025 [facility] Work Phone: 07-24-2025 Patient Health Questionnaire 2 item (PHQ-2) [Reported] [facility] Work Phone: 07-24-2025 Functional status 144/82 [facility] Work Phone: 07-24-2025 Vital signs 85 07/24/2025 11 :47 AM EDT Corey Lopez LPN [facility] Work Phone: 07-24-2025 [facility] Work Phone: 06-27-2025 Functional status 142/88 [facility] Work Phone: 06-27-2025 Vital signs 82 06/27/2025 3: 21 PM EDT Ursula Kapadia MA [facility] Work Phone: 06-27-2025 [facility] Work Phone: NEGATED: Highlighted row Functional performance Functional status health issues are not documented Disease ZA-Ihcxiiylsqrb-Qtjv a Work Phone: Mental Status Date Assessment Result Facility 06-07-2025 Cognitive function Awake;Alert;A ppropria te;Follows Commands [facility] Work Phone: NEGATED: Highlighted row Cognitive function [Interpretation] Cognitive status health issues are not documented Disease [facility]Qjdzqgovpbuv-Toft a Work Phone: Clinical Notes 10-01-2020 to 07-24-2025 Albina Roberts MD - 07/24/2025 11:45 AM EDTAssessment & Plan Note - Dilma Galaviz, DO - 06/27/2025 5:11 PM EDTAssessment & Plan Note - Dilma Galaviz, DO - 06/27/2025 5:11 PM EDT Note Date & Type Note Facility 07-24-2025 History of Presen t illness Narrative Subjective Patient ID: Aleksandra Miranda is a 34 y.o. male who presents for Sick Visit (EPV, C/O Swollen lymph node Left side x 2 weeks /Blood work scheduled for / CT cardiac scoring scan scheduled tomorrow). History of Present Illness Aleksandra Miranda is a 34 year old male who presents with concerns about chest pain and lymphadenopathy. He experienced severe chest pain about a month ago, prompting a visit to the ER. Since then, he has been anxious about his heart health, especially after a conversation with his halal butcher regarding significant atherosclerosis based on past cholesterol levels. He has a history of elevated LDL cholesterol, which was 229 mg/dL a couple of years ago, and has managed to reduce it to 149 mg/dL through lifestyle changes without statins. He is concerned about potential further issues with his cholesterol levels and is awaiting new test results. He has experienced diverticulitis twice, once in September of the previous year and again in November of this year, describing the episodes as very painful and treated with antibiotics. He noticed a swollen lymph node (neck) present for about two weeks, which he associates with recent periodontal surgery. He has a history of periodontal disease and recently underwent surgery for this condition. He has a history of shingles. He reports significant stress and anxiety, which he believes may be contributing to his physical symptoms. He recently quit smoking and has been tobacco-free for three weeks, attributing his previous smoking habit as a major factor in his health issues. He has started exercising over the last two weeks to help manage stress and improve sleep, which he reports as being poor. He describes his appetite as poor, stating 'I eat to live' and does not enjoy food due to his stomach issues. He mentions a family history of heart disease on his father's side, although he lacks detailed information due to his father's absence during his upbringing. Objective BP 144/82 (BP Location: Right arm, Patient Position: Sitting) Pulse 85 Temp 36.9 C (98.4 F) (Oral) Resp 18 Ht 1.778 m (5' 10") Wt 93.4 kg (205 lb 12.8 oz) SpO2 98% BMI 29.53 kg/m Physical Exam Alert, well-appearing. HEENT: OP clear. Sclera white. Pupils equal and round. EACs and TMs clear. Neck: Supple. No palpable masses or LAD. CVS: RRR, no murmurs. Respiratory: Clear and equal breath sounds. GI: Soft, nontender. Assessment/Plan Diagnoses and all orders for this visit: Anxiety Chest discomfort Assessment & Plan Atherosclerosis and hyperlipidemia Significant atherosclerosis with elevated LDL cholesterol reduced from 229 to 149 without statins. Has much anxiety about this. - Has scheduled CT cardiac score for plaque and calcium assessment. - Conduct blood work including lipid panel and complete blood cell count. Anxiety related to health concerns Significant anxiety related to heart health and atherosclerosis, potentially exacerbating physical symptoms. - Encouraged continued stress management techniques and lifestyle modifications. Nicotine dependence, in remission Encouraged continued cessation. Albina Roberts MD This medical note was created with the assistance of artificial intelligence (AI) for documentation purposes. The content has been reviewed and confirmed by the healthcare provider for accuracy and completeness. Patient consented to the use of audio recording and use of AI during their visit. documented in this encounter [facility] Work Phone: 06-27-2025 Evaluation + Plan note Associated Problem(s): Hyperlipidemia The patient has a history of hyperlipidemia and has had LDL readings as high as 229 mg/dL. When I saw him last year in the office, he had lowered his LDL down to 149 mg/dL with a diet and exercise regimen. However, the cholesterol has not been checked in over a year. I suspect that the patient has significant atherosclerosis and we discussed more aggressive lipid management. A coronary artery calcium score will be obtained. A fasting lipid panel along with LPA and ApoB levels. Smoking cessation was discussed. If the coronary artery calcium score is significantly elevated, we will plan for a myocardial perfusion stress test. The chest pain episodes were atypical but we will consider an ischemic evaluation if he has a high coronary artery calcium score. I also discussed the need for a statin which will be determined after review of the calcium score and lipid testing. Further follow-up will be arranged after completion of the planned testing. [facility] Work Phone: 06-27-2025 Miscellaneous Notes Associated Problem(s): Hyperlipidemia The patient has a history of hyperlipidemia and has had LDL readings as high as 229 mg/dL. When I saw him last year in the office, he had lowered his LDL down to 149 mg/dL with a diet and exercise regimen. However, the cholesterol has not been checked in over a year. I suspect that the patient has significant atherosclerosis and we discussed more aggressive lipid management. A coronary artery calcium score will be obtained. A fasting lipid panel along with LPA and ApoB levels. Smoking cessation was discussed. If the coronary artery calcium score is significantly elevated, we will plan for a myocardial perfusion stress test. The chest pain episodes were atypical but we will consider an ischemic evaluation if he has a high coronary artery calcium score. I also discussed the need for a statin which will be determined after review of the calcium score and lipid testing. Further follow-up will be arranged after completion of the planned testing. Associated Problem(s): Essential hypertension Blood pressure is suboptimally controlled at this time. He reports that his blood pressure readings have been consistently in the range of 140/90. Lisinopril will be increased to 30 mg daily. documented in this encounter [facility] Work Phone: 06-27-2025 Evaluation + Plan note Associated Problem(s): Essential hypertension Blood pressure is suboptimally controlled at this time. He reports that his blood pressure readings have been consistently in the range of 140/90. Lisinopril will be increased to 30 mg daily. [facility] Work Phone: 06-27-2025 History of Presen t illness Narrative Images from the original note were not included. History Of Present Illness: This is a 34-year-old male with a history of hypertension. He presents for a follow-up evaluation. The patient presents for a hospital follow-up evaluation after an emergency department visit. He went to the emergency department because of left-sided chest pain. The pain was near the left shoulder and was not associated with exertion. The ECG at that time showed no evidence of myocardial infarction and the he was ultimately discharged. He denies any exertional chest pain at this time. Emergency department records reviewed today. Review of Systems Other review of systems negative Last Recorded Vitals: 04/15/2022 2:04 PM 10/01/2022 11:20 AM 10/21/2022 2:36 PM 11/12/2022 9:15 AM 04/23/2023 9:01 AM 04/23/2023 9:17 AM 06/26/2024 3:03 PM Vitals Systolic 148 144 164 140 144 132 137 Diastolic 95 92 90 88 90 80 87 BP Location Left arm Heart Rate 97 101 107 126 112 103 Temp 36.8 C (98.3 F) 36.8 C (98.2 F) Height 1.753 m (5' 9") 1.753 m (5' 9") 1.778 m (5' 10") Weight (lb) 199 220 212.38 203 201.4 BMI 29.39 kg/m2 32.49 kg/m2 31.36 kg/m2 29.98 kg/m2 29.98 kg/m2 28.9 kg/m2 BSA (m2) 2.1 m2 2.2 m2 2.17 m2 2.12 m2 2.12 m2 2.12 m2 Visit Report Report Allergies: Patient has no known allergies. Outpatient Medications: Current Outpatient Medications Medication Instructions ciprofloxacin (CIPRO) 500 mg, oral, 1 tablet 2 times a day lisinopril 20 mg, oral, Daily metoprolol succinate XL (TOPROL-XL) 25 mg, oral, Daily metroNIDAZOLE (FLAGYL) 500 mg, oral, 3 times daily nortriptyline (PAMELOR) 25 mg, oral pantoprazole (PROTONIX) 40 mg, oral, Daily before breakfast, Do not crush, chew, or split. Physical Exam: General Appearance: Alert, oriented, no distress Skin: Warm and dry Head and Neck: No elevation of JVP, no carotid bruits Cardiac Exam: Rhythm is regular, S1 and S2 are normal, no murmur S3 or S4 Lungs: Clear to auscultation Extremities: no edema Neurologic: No focal deficits Psychiatric: Appropriate mood and behavior Lab Results: CMP: Recent Labs 10/10/22 0855 10/01/22 1138 NA 138 138 K 4.4 4.5 CL 101 103 CO2 31 28 ANIONGAP 10 12 BUN 21 15 CREATININE 0.86 0.83 Recent Labs 10/10/22 0855 10/01/22 1138 ALBUMIN 4.8 4.5 ALKPHOS 73 56 ALT 43 104* AST 18 44* BILITOT 0.8 0.3 CBC: Recent Labs 10/01/22 1138 WBC 11.1 HGB 14.8 HCT 45.3 PLT 358 MCV 91 COAG: No results for input(s): "PTT", "INR", "HAUF", "DDIMERVTE", "HAPTOGLOBIN", "FIBRINOGEN" in the last 32628 hours. Cardiology Tests (personally reviewed): I have personally review the diagnostic cardiac testing and my interpretation is as follows: Echocardiogram March 2019: Ejection fraction 55 to 60% Assessment/Plan Problem List Items Addressed This Visit ICD-10-CM Chest discomfort R07.89 Relevant Medications lisinopril 30 mg tablet Essential hypertension - Primary (Chronic) I10 Blood pressure is suboptimally controlled at this time. He reports that his blood pressure readings have been consistently in the range of 140/90. Lisinopril will be increased to 30 mg daily. Relevant Medications lisinopril 30 mg tablet Other Relevant Orders Comprehensive metabolic panel Lipid panel Lipoprotein a Apolipoprotein B CT cardiac scoring wo IV contrast Hyperlipidemia E78.5 The patient has a history of hyperlipidemia and has had LDL readings as high as 229 mg/dL. When I saw him last year in the office, he had lowered his LDL down to 149 mg/dL with a diet and exercise regimen. However, the cholesterol has not been checked in over a year. I suspect that the patient has significant atherosclerosis and we discussed more aggressive lipid management. A coronary artery calcium score will be obtained. A fasting lipid panel along with LPA and ApoB levels. Smoking cessation was discussed. If the coronary artery calcium score is significantly elevated, we will plan for a myocardial perfusion stress test. The chest pain episodes were atypical but we will consider an ischemic evaluation if he has a high coronary artery calcium score. I also discussed the need for a statin which will be determined after review of the calcium score and lipid testing. Further follow-up will be arranged after completion of the planned testing. Dilma Galaviz DO documented in this encounter [facility] Work Phone: 06-27-2025 Instructions Dilma Galaviz DO - 06/27/2025 3:15 PM EDT Follow up with Dr. Galaviz in 1 year Increase Lisinopril to 30 mg daily. documented in this encounter [facility] Work Phone: 06-07-2025 Discharge summary [facility] 06-07-2025 Radiology Diagnostic study note [facility] Imaging Services [address] [place], [place] [address] CTA Head AND Neck W/ Contrast MR#: [id number] Acct: [id number] Name: ALEKSANDRA MIRANDA Rep #: [id number] : 1990 M 34 From: Henrique Parker MD PCP: Dr. Albina Roberts MD Status: R EG ER Study:CTA Head AND Neck W/ Contrast Date of E xam: 06/07/25 Exam# [id number] Ordering Dr: Cordelia Partida DO PROCEDURE: CTA HEAD AND NECK W/ CONTRAST 06/07/2025 REASON FOR EXAM: HEADACHE, LEFT ARM PARAESTHESIAS Chest pain. TECHNIQUE: Procedure Code: CTCTA.HDNCK Modality: CT Procedure: CTA HEAD AND NECK W/ CONTRAST Multiplanar Sagittal and Coronal images were obtained. 3D post processing was performed CONTRAST: Isovue 370 VOLUME: 100 mL One or more dose reduction techniques were used (e.g., Automated exposure control, adjustment of the mA and/or kV according to patient size, use of iterative reconstruction technique). RADIATION DOSE SUMMARY: CTDlvol: 28.6 mGy DLP: 1600.71 mGycm COMPARISON: None FINDINGS: Aortic Arch: Minimal atherosclerotic plaque formation of the aortic arch. Brachiocephalic and Subclavians: Unremarkable RIGHT Carotid: Right CCA: Unremarkable. Right ICA: Minimal calcific plaque Right ECA: Unremarkable. LEFT Carotid: Left CCA: Unremarkable. Left ICA: Unremarkable. Left ECA: Unremarkable. Vertebrals: Codominant. Arise from the subclavians. Both vertebrals form the basilar. RIGHT Vertebral: Unremarkable. LEFT Vertebral: Unremarkable. Anatomy: [place] anatomy is normal. Aneurysm or avm: No intracranial aneurysms or large vascular malformations are identified. Anterior cerebral arteries: Unremarkable: Middle cerebral arteries: Unremarkable. Basilar artery: Unremarkable. Posterior cerebral arteries: Unremarkable. Other major branches of the posterior circulation: Unremarkable. Major venous structures: Unremarkable. Other findings: Neck: Lungs: Bones: CT/CTA Head AND Neck W/ Contrast IMPRESSION: Minimal calcific plaque at the origin of the right internal carotid artery. Reading Location: [id number] CC: Dr. Albina Roberts MD; Dr. Leah Partida DO ~ Distribution Lineman: Signed [facility] 06-07-2025 Radiology Diagnostic study note [facility] Imaging Services [address] [place], [place] [id number] Brain/Head without Contrast MR#: [id number] Acct: [id number] Name: ALEKSANDRA MIRANDA Rep #: [id number] : 1990 M 34 From: Zaid Watts MD PCP: Status: PRE ER Study:Brain/Head without Contrast Date of Exa m: 06/07/25 Exam# [id number] Ordering Dr: Cordelia Partida DO PROCEDURE: BRAIN/HEAD WITHOUT CONTRAST 06/07/2025 REASON FOR EXAM: HEADACHE TECHNIQUE: Procedure Code: CTBR Modality: CT Procedure: BRAIN/HEAD WITHOUT CONTRAST Coronal and Sagittal reconstruction series were provided. One or more dose reduction techniques were used (e.g., Automated exposure control, adjustment of the mA and/or kV according to patient size, use of iterative reconstruction technique. RADIATION DOSE SUMMARY: CTDlvol: 88 mGy DLP: 1600 mGycm COMPARISON: None FINDINGS: Brain: There is no evidence of hemorrhage, acute ischemia or mass. No extra-axial fluid collection, midline shift or mass effect. CSF Spaces: Normal Sinuses/Mastoids: Clear. Bones: No fracture Small benign calcifications are shown in the scalp posteriorly. CT/Brain/Head without Contrast IMPRESSION: No acute intracranial abnormality. Reading Location: [id number] CC: Dr. Leah Partida DO ~ Distribution Lineman: Signed [facility] 06-07-2025 Radiology Diagnostic study note [facility] Imaging Services [address] [place], [place] [address] Chest 1 View (Portable) MR#: [id number] Acct: [id number] Name: ALEKSANDRA MIRANDA Rep #: [id number] : 1990 M 34 From: Henrique Parker MD PCP: Status: PRE ER Study:Chest 1 View (Portable) Date of Exam: 06/07/25 Exam# [id number] Ordering Dr: Cordelia Partida DO PROCEDURE: CHEST 1 VIEW (PORTABLE) 06/07/2025 REASON FOR EXAM: CHEST PAIN TECHNIQUE: Frontal view of the chest. COMPARISON: None FINDINGS: Hardware: EKG electrodes are seen. Heart: Cardiac and mediastinal contours are stable. Lungs: The lungs are clear. Bones: The bones are unremarkable. Other: RAD/Chest 1 View (Portable) IMPRESSION: No Acute Findings. Reading Location[id number] CC: Dr. Leah Partida DO ~ Distribution Lineman: Signed [facility] 06-07-2025 Discharge summary Note Date/Time June 07, 2025 3:04pm [facility] Medical Records Department [address] [place] [address] Emergency Department Summary 06/07/25 MR#: [id number] Acct: [id number] Name: ALEKSANDRA MIRNADA Rep #:[id number] : 1990 34 From: Leah Partida DO PCP: Dr. Albina Roberts MD Status:D EP ER Location: ED HPI History of Present Illness Chief Complaint: Chest Pain Detail of Chief Complaint: Chest pain and left arm paresthesias Informant: patient Narrative Narrative: Patient presents with multiple vague complaints progressively worse over the last 2 to 3 weeks. Patient states that he has had symptoms like this throughout the years but have never lasted this long. He describes a burning discomfort inhis left shoulder that at times radiates down to his left hand and at times intohis jaw. He describes headache by the end of the day and lightheadedness and feels off balance. Describes diffuse fatigue. He states that he feels shaky onthe inside at times. At times he said difficulty swallowing. Gives history of diverticulitis and history of GERD and had recent upper and lower scopes that were unremarkable otherwise. Patient states he has had headaches his whole life. He feels like he has history of anxiety but currently not being treated. He does have history of hypertension and high cholesterol. No cardiac history and he does not know his father's history. Denies recent travel or surgery. [facility] Medical History (Updated 06/07/25 @ 14:[address] Leah Partida DO) Chest pain Home Medications ?Medication ?Instructions ?Recorded ?Last Taken ?Type lorazepam 1 mg tablet (Ativan) 1 mg PO TID PRN anxiety #10 tabs 06/07/25 Unknown Rx Allergy/AdvReac Type Severity Reaction Status Date / Time No Known Allergies Allergy Verified 06/07/25 13:02 Social History (Updated 06/07/25 @ 13:15 by Nancy Cornelius) household members: spouse housing: house Smoking Status: Never smoker ROS ROS ED ROS Narrative Feeling shaky Review of Systems ROS Unobtainable: other Constitutional Constitutional ED: Reports lethargy; Denies chills, fever(s), sweats or weight loss Eyes Eyes: Denies blurry vision, change in vision or diplopia ENT ENT ED: Denies rhinorrhea or sore throat Cardiovascular Cardiovascular: Reports chest pain; Denies orthopnea or racing heartbeat Respiratory/Chest Respiratory/Chest: Denies cough, dyspnea, dyspnea on exertion, orthopnea or sputum Gastrointestinal Gastrointestinal: Reports other Details: Trouble swallowing ; Denies abdominal pain, diarrhea, nausea or vomiting Genitourinary Genitourinary ED: Denies dysuria, hematuria or urinary frequency Musculoskeletal Musculoskeletal: Denies arthralgias, back pain, myalgias or neck pain Integumentary Denies abscess, Abrasions or rash Neurologic Neurologic: Reports headache(s), paresthesias and other Details: Feeling off balance ; Denies weakness Psychiatric Psychiatric: Denies anxiety, depression or suicidal thoughts Endocrine Endocrinology: Denies polydipsia, polyphagia or polyuria Hematologic/Lymphatic Hematologic/Lymphatic: Denies easy bleeding, easy bruising or lymphadenopathy Allergic/Immunologic Allergic/Immunologic ED: Denies mouth swelling, tongue swelling or urticaria EXAM Physical Exam Const Vital Signs: 06/07/25 13:01 06/07/25 13:51 06/07/25 14:01 Temperature 98.7 F Temperature Source Oral Pulse Rate 85 86 Respiratory Rate 16 Blood Pressure 131/90 H 153/97 H Blood Pressure Mean 103 115 Pulse Ox 100 100 100 Oxygen Delivery Method Room Air Room Air Positive well nourished and well developed General Appearance ED: well developed and NAD HEENT Reports TM's clear and moist mucous membranes normocephalic and atraumatic; Negative for trauma or tenderness Tympanic Membrane ED: Yes TM's clear Eyes PERRL and EOMs intact bilaterally General Eye ED: Negative for pale conjunctiva or scleral icterus Neck no lymphadenopathy, supple and no JVD General: Negative for tenderness Chest Wall inspection of chest normal and palpation of chest normal Chest: Negative for tenderness Resp normal respiratory effort and clear to auscultation bilaterally Effort and Inspection: Negative for respiratory distress or pain with movement Auscultation: Negative for rhonchi, wheezes or diminished lung sounds Cardio regular rate, regular rhythm, S1 normal heart sound, S2 normal heart sound and no murmurs Peripheral Pulses: pulses 2+ throughout GI normal to inspection, nondistended, normoactive bowel sounds, soft to palpation,non-tender, non-distended and no masses Back/Spine no CVA tenderness and no thoracic nor lumbar tenderness Extremity normal to inspection General Extremety ED: Negative for edema General Extremity: Negative for edema Neuro oriented x3, CN's II-XII intact bilaterally, no sensory deficits noted and gait normal Sensorium / Orientation: awake, alert, oriented to person, oriented to place andoriented to time Motor Exam: strength 5/5 throughout and strength abnormal Psych mental status grossly normal Skin no rashes or lesions noted and no wounds MDM MDM MDM Narrative Medical decision making narrative: Patient presents to the ER with multiple complaints. Symptoms have been ongoingfor years but worse over the last 2 to 3 weeks for another consistent. Clinically he looks well but does have history of hypertension and high cholesterol. He has history of frequent headaches. Low suspicion for cardiac etiology. EKG obtained on arrival showed a sinus rhythm with rate of 82 bpm with no acute ST segment changes. CBC with differential shows a white count of 16.1 with hemoglobin 16 and platelet count of 350. Chemistry is unremarkable. Troponin normal at 7. I did obtain a CT scan of the brain without contrast as well as CTA of head and neck to rule out intracranial process such as brain tumor or aneurysm and these tests were unremarkable. This point discussed results with patient. Etiology of his elevated WBC count unclear. He has not had any significant infectious signs or symptoms. Suspect possibility of anxiety as etiology of his symptomatology. He is willing to try some as needed Ativan and then follow-up with his primary care physician. Lab Data Attestation: I reviewed the patient's lab results. Labs: Laboratory Results - last 24 hr 06/07/25 13:12 WBC 16.1 H RBC 5.12 Hgb 16.0 Hct 45.9 MCV 89.6 MCH 31.3 MCHC 34.9 RDW Std Deviation 43.0 RDW Coeff of Ciro 13.1 Plt Count 350 MPV 9.9 Immature Gran % (Auto) 0.300 Neut % (Auto) 78.1 H Lymph % (Auto) 16.0 L [place] % (Auto) 5.0 Eos % (Auto) 0.2 Baso % (Auto) 0.4 Absolute Neuts (auto) 12.5 H Absolute Lymphs (auto) 2.56 Nucleated RBC % 0 Sodium 139 Potassium 4.2 Chloride 102 Carbon Dioxide 22.5 Anion Gap 14 BUN 14 Creatinine 0.79 Estim Creat Clear Calc 144.61 Est GFR (MDRD) Non-Af 118 BUN/Creatinine Ratio 17.8 Glucose 89 Calcium 10.0 Troponin T High Sens 7 Radiography Diagnostic Testing: Clinical Impression(s) from Imaging Studies Head/Neck CTA 06/07/25 13:45 IMPRESSION: Minimal calcific plaque at the origin of the right internal carotid artery. [id number] 06/07/25 13:50 IMPRESSION: No acute intracranial abnormality. Reading Location: [facility] Chest X-Ray 06/07/25 14:00 IMPRESSION: No Acute Findings. [id number] chest x-ray obtained interpreted by myself as no evidence of infiltrate or pneumothorax or acute disease process. Radiology in agreement. EKG Initial EKG: Attestation: I personally reviewed and interpreted this EKG as follows: Comments: Sinus rhythm with rate of 82 bpm with no acute ST segment changes Discharge Plan Triage Chief Complaint: Chest Pain ED Provider: Leah Partida Dx/Rx/DC Orders Clinical Impression: Chest pain, Anxiety, Headache Instructions: ED Anxiety Reaction, ED Chest Pain, Uncertain Cause, ED Headache,Tension Prescriptions: New lorazepam [Ativan] 1 mg tablet 1 mg PO TID PRN (Reason: anxiety) Qty: 10 0RF Primary Care Provider: Albina Roberts Referrals: Albina Roberts MD [Primary Care Provider] - 3-5 Days Print Language: Sinhala Disposition Disposition: Home, Self Care What to do if you have Problems For any increased pain, shortness of breath, bleeding, nausea or vomiting, chestpain, or any unexpected problems, contact your Primary Care Provider. Call [facility] ([phone]) or report to the closest Emergency Room. Call 911 if necessary. 06/07/25 1504 <Electronically signed by Leah Partida DO> Cosigner Signature (if applicable): CC: Dr. Albina Roberts MD ~ Signed [facility] Work Phone: [phone] Nurse Note* Adore Florez RN - 12/08/2024 9:34 AM EST POST OP LEARNING RESPONSE INSTRUCTION PROVIDED TO: Patient and family member METHOD OF INSTRUCTION: Individual instruction Written instruction/Handouts Verbal instruction PATIENT / FAMILY RESPONSE: Verbalizes understanding of: POST-PROCEDURE INSTRUCTIONS-Correct actionsto take to reduce post procedure complications FOLLOW-UP PLAN: Patient instructed to call with any further issues SUPPLEMENTAL MATERIAL: Post sedation instructions given Procedure discharge instructions REFERRAL (RECOMMENDATION): None Electronically Signed By: Adore Florez RN In Department: AMBULATORY SURGERY [facility]03-07-2025 Nurse Note* Adore Florez RN - 12/08/2024 9:34 AM EST POST OP LEARNING RESPONSE INSTRUCTION PROVIDED TO: Patient and family member METHOD OF INSTRUCTION: Individual instruction Written instruction/Handouts Verbal instruction PATIENT / FAMILY RESPONSE: Verbalizes understanding of: POST-PROCEDURE INSTRUCTIONS-Correct actionsto take to reduce post procedure complications FOLLOW-UP PLAN: Patient instructed to call with any further issues SUPPLEMENTAL MATERIAL: Post sedation instructions given Procedure discharge instructions REFERRAL (RECOMMENDATION): None Electronically Signed By: Adore Florez RN In Department: AMBULATORY SURGERY * Socorro Ordoñez RN - 12/08/2024 8:44 AM EST PRE OP LEARNING ASSESSMENT PROCEDURE/SURGERY: GI PROCEDURES: Colonoscopy and EGD READINESS TO LEARN COGNITIVE ABILITY: Alert and oriented MOTIVATION TO LEARN: Eager Interested FAMILY SUPPORT: Unable to assess - Family not present PATIENT LEARNS BEST BY: Individual Instruction Written Instruction - Hand-outs Verbal Instruction FACTORS AFFECTING LEARNING: None PHYSICAL LIMITATIONS AFFECTING LEARNING: None Electronically Signed By: Socorro Ordoñez RN In Department: AMBULATORY SURGERY documented [facility] History and physical note * Indira Valles MD - 12/08/2024 8:45 AM EST HISTORY AND PHYSICAL Aleksandra Miranda, 34 year old male who presents for EGD + Colonoscopy to evaluate abdominal pain. Of note, he was recently diagnosed with acute uncomplicated sigmoid diverticulitis. No history of colonoscopy. Last EGD in 2019 was unremarkable. Gastric biopsies showed minimal gastritis (HP negative) and duodenal biopsies were normal. No known FHx of GI tract malignancy Indication for procedure: Abdominal pain History of diverticulitis PROCEDURE(S) SCHEDULED FOR: Colonoscopy with or without biopsies and with or without removal of polyps or lesions, dilation (any means), treatment of bleeding (any means), based on clinical findings. and EGD (Esophagogastroduodenoscopy) with or without biopsies, removal of polyps or lesions, dilation ( any means), treatment of bleeding ( any means), Barrx treatment of Tristen's Esophagus, image tube placement or cryo therapytreatment based on clinical findings. BASELINE BEHAVIOR: Calm BASELINE ORIENTATION: A & O x3 All medications and allergies reviewed: Yes Skin Assessment: Warm, dry, mucus membranes pink Airway/Respiratory Assessment: Airway: visualization of the uvula - Yes Mouth: opening greater than 2 fingerbreadths - Yes Neck: full range of motion - Yes Breath sounds clear/equal - Yes Cardiac Assessment: RRR Abdominal Assessment: Abdomen soft, non-tender, non-distended, no organomegaly or palpable masses Sedation Plan: NELL Valles MD Staff, Department of Gastroenterology and Hepatology [facility] [place] [facility]03-07-2025 History and physical note* Indira Valles MD - 12/08/2024 8:45 AM EST HISTORY AND PHYSICAL Aleksandra Miranda, 34 year old male who presents for EGD + Colonoscopy to evaluate abdominal pain. Of note, he was recently diagnosed with acute uncomplicated sigmoid diverticulitis. No history of colonoscopy. Last EGD in 2019 was unremarkable. Gastric biopsies showed minimal gastritis (HP negative) and duodenal biopsies were normal. No known FHx of GI tract malignancy Indication for procedure: Abdominal pain History of diverticulitis PROCEDURE(S) SCHEDULED FOR: Colonoscopy with or without biopsies and with or without removal of polyps or lesions, dilation (any means), treatment of bleeding (any means), based on clinical findings. and EGD (Esophagogastroduodenoscopy) with or without biopsies, removal of polyps or lesions, dilation ( any means), treatment of bleeding ( any means), Barrx treatment of Tristen's Esophagus, image tube placement or cryo therapytreatment based on clinical findings. BASELINE BEHAVIOR: Calm BASELINE ORIENTATION: A & O x3 All medications and allergies reviewed: Yes Skin Assessment: Warm, dry, mucus membranes pink Airway/Respiratory Assessment: Airway: visualization of the uvula - Yes Mouth: opening greater than 2 fingerbreadths - Yes Neck: full range of motion - Yes Breath sounds clear/equal - Yes Cardiac Assessment: RRR Abdominal Assessment: Abdomen soft, non-tender, non-distended, no organomegaly or palpable masses Sedation Plan: NELL Valles MD Staff, Department of Gastroenterology and Hepatology [facility] [place] documented in this encounterMer[facility] Nurse Note* Socorro Ordoñez RN - 12/08/2024 8:44 AM EST PRE OP LEARNING ASSESSMENT PROCEDURE/SURGERY: GI PROCEDURES: Colonoscopy and EGD READINESS TO LEARN COGNITIVE ABILITY: Alert and oriented MOTIVATION TO LEARN: Eager Interested FAMILY SUPPORT: Unable to assess - Family not present PATIENT LEARNS BEST BY: Individual Instruction Written Instruction - Hand-outs Verbal Instruction FACTORS AFFECTING LEARNING: None PHYSICAL LIMITATIONS AFFECTING LEARNING: None Electronically Signed By: Socorro Ordoñez RN In Department: AMBULATORY SURGERY [facility]03-06-2025 Telephone encounter Note* Telephone Encounter - Teodoro Machado RN - 12/07/2024 9:33 AM EST S/W patients spouse provided number to billing department to discuss in depth the approval for the CT scan from the . [facility]03-06-2025 Miscellaneous Notes* Telephone Encounter - Teodoro Machado RN - 12/07/2024 9:33 AM EST S/W patients spouse provided number to billing department to discuss in depth the approval for the CT scan from the . * Telephone Encounter - Teodoro Machado RN - 12/07/2024 8:48 AM EST MC message sent to patient * Telephone Encounter - Cheryl Lopez - 12/07/2024 8:34 AM EST Name of Caller: Hannah Miranda Relationship to patient: patient's spouse Last visit in this department: 08/21/2024 Reason for Call: Other : Patients called regarding the CT scan done last week. They got a letter from their insurance saying it was not approved saying it was not medically necessary. Patients said it was scheduled when it was due to patients medical issues. They sent form to Dr. Tejinder stephens out. Can this be done ISI Patient sent to Dr. Valles in My Chart. Needs to say it was medically necessary. Please call Hannah (). They are very nervous. Cannot afford to pay this. Patient ishaving EGD and Colonoscopy on Wednesday. 12/08/24 She wants to make sure doctor can talk to her after procedure or will patient need living will for her to get information afterwards. She is asking for a call. Thanks. Callback number: [phone] Cheryl Lopez documented in this encounterMer[facility]03-[facility] Telephone encounter Note * Telephone Encounter - Teodoro Machado RN - 12/07/2024 8:48 AM EST message sent to patient [facility]03-06-2025 Telephone encounter Note* Telephone Encounter - Cheryl Lopez - 12/07/2024 8:34 AM EST Name of Caller: Hannah Miranda Relationship to patient: patient's spouse Last visit in this department: 08/21/2024 Reason for Call: Other : Patients called regarding the CT scan done last week. They got a letter from their insurance saying it was not approved saying it was not medically necessary. Patients said it was scheduled when it was due to patients medical issues. They sent form to Dr. Tejinder stephens out. Can this be done ISI Patient sent to Dr. Valles in My Chart. Needs to say it was medically necessary. Please call Hannah (). They are very nervous. Cannot afford to pay this. Patient ishaving EGD and Colonoscopy on Wednesday. 12/08/24 She wants to make sure doctor can talk to her after procedure or will patient need living will for her to get information afterwards. She is asking for a call. Thanks. Callback number: [phone] Cheryl Lopez [facility]02-27-2025 History of Present illness Narrative* Bonita Bai, RT(R) - 11/30/2024 9:30 AM EST Radiology Service Progress Note PATIENT NAME: Aleksandra Miranda DATE OF SERVICE: November 30, 2024 TIME: 9:04 AM PATIENT IDENTITY VERIFICATION COMPLETED USING TWO (2) IDENTIFIERS: Name and Date of confirmedby patient verbally and Name and Date of confirmed by identification band. FALL SCREENING: Has the patient had 2 falls in the last year or 1 fall with injury or currently using an Ambulatory Assistive Device (Walker, Cane, Wheelchair, Crutches, etc.)? No PATIENT GENDER DATA: Assigned male at PATIENT RELEVANT IMPLANT DATA REVIEWED: Not Applicable PATIENT PRESENTS WITH AN IMPLANTABLE OR ATTACHED DISTRICT CAPTAIN: No RADIOLOGY DEPARTMENT: CT; Exam(s) Completed: Abdomen/Pelvis PERIPHERAL IV DATA: Site assessment: Clean,Dry and Intact, Site disposition Discontinued SIGNED BY: KADEN Ray) November 30, 2024 9:04 AM documented in this encounterMercy [facility]02-[facility]-2025 NoteHNO ID: [id number] Author: BONITA BAI RT (R) Service: Radiology Author Type: Technologist Type: Progress Notes Filed: 11/30/2024 09:04 Note Text: Radiology Service Progress Note PATIENT NAME: Aleksandra Miranda DATE OF SERVICE: November 30, 2024 TIME: 9:04 AM PATIENT IDENTITY VERIFICATION COMPLETED USING TWO (2) IDENTIFIERS: Name and Date of confirmed by patient verbally and Name and Date of confirmed by identification band. FALL SCREENING: Has the patient had 2 falls in the last year or 1 fall with injury or currently using an Ambulatory Assistive Device (Walker, Cane, Wheelchair, Crutches, etc.)? No PATIENT GENDER DATA: Assigned male at PATIENT RELEVANT IMPLANT DATA REVIEWED: Not Applicable PATIENT PRESENTS WITH AN IMPLANTABLE OR ATTACHED DISTRICT CAPTAIN: No RADIOLOGY DEPARTMENT: CT; Exam(s) Completed: Abdomen/Pelvis PERIPHERAL IV DATA: Site assessment: Clean,Dry and Intact, Site disposition Discontinued SIGNED BY: KADEN Ray) November 30, 2024 9:04 AMMer[facility] [id number] Nurse Note* Shalini Quijano RN - 11/30/2024 9:30 AM EST Radiology Service Progress Note DATE OF SERVICE: November 30, 2024 TIME: 8:54 AM PATIENT WEIGHT: 205LBS PATIENT IDENTITY VERIFICATION COMPLETED USING TWO (2) STANDARD IDENTIFIERS: Name and Date of confirmed by patient verbally and Name and Date of confirmed by identification band. FALL SCREENING: Has the patient had 2 falls in the last year or 1 fall with injury or currently using an Ambulatory Assistive Device (Walker, Cane, Wheelchair, Crutches, etc.)? No PATIENT GENDER DATA: Assigned male at ALLERGIES: Reviewed and unchanged CONTRAST ALLERGY: Yes STANDARD PREMEDICATION: Prednisone 50mg Dose 1 taken at 1930 11/29, Dose 2 at [address]1311/30, and Dose 3 at 11/30 Benadryl 50mg 11/30 EXAM: CT -CONTRAST INDUCED NEPHROPATHY RISK FACTORS: Not applicable CREATININE: Creatinine Date Value Ref Range Status 06/16/2024 0.84 0.73 - 1.22 mg/dL Final 10/11/2020 0.80 0.73 - 1.22 mg/dL Final 09/20/2020 0.78 0.73 - 1.22 mg/dL Final Estimated Glomerular Filtration Rate Date Value Ref Range Status 06/16/2024 117 >=60 mL/min/1.73m Final Comment: Estimated Glomerular Filtration Rate (eGFR) is calculated using the 2020 CKD-EPI creatinine equation. This equation utilizes serum creatinine, sex, and age as parameters. The creatinine assay has traceable calibration to isotope dilution- mass spectrometry. Refer to KDIGO guidelines for clinical interpretation. In patients with unstable renal function, e.g. those with acute kidney injury, the eGFRmay not accurately reflect actual GFR. eGFR- Date Value Ref Range Status 10/11/2020 >60 Final P.O.C.T. RESULTS: N/A November 30, 2024 TREATMENT: N/A IV SITE: Ambulatory: A peripheral IV was started in the Right antecubital site with a Angio cath: 22 gauge. IV SITE APPEARANCE: Clean,Dry and Intact SIGNATURE: Shalini Quijano RN PATIENT NAME: Aleksandra Miranda DATE: November 30, 2024 TIME: 8:54 AM [facility]02-27-20[facility] Nurse Note* Shalini Quijano RN - 11/30/2024 9:30 AM EST Radiology Service Progress Note DATE OF SERVICE: November 30, 2024 TIME: 8:54 AM PATIENT WEIGHT: 205LBS PATIENT IDENTITY VERIFICATION COMPLETED USING TWO (2) STANDARD IDENTIFIERS: Name and Date of confirmed by patient verbally and Name and Date of confirmed by identification band. FALL SCREENING: Has the patient had 2 falls in the last year or 1 fall with injury or currently using an Ambulatory Assistive Device (Walker, Cane, Wheelchair, Crutches, etc.)? No PATIENT GENDER DATA: Assigned male at ALLERGIES: Reviewed and unchanged CONTRAST ALLERGY: Yes STANDARD PREMEDICATION: Prednisone 50mg Dose 1 taken at 11/29, Dose 2 at 11/30, and Dose 3 at 11/30 Benadryl 50mg 11/30 EXAM: CT -CONTRAST INDUCED NEPHROPATHY RISK FACTORS: Not applicable CREATININE: Creatinine Date Value Ref Range Status 06/16/2024 0.84 0.73 - 1.22 mg/dL Final 10/11/2020 0.80 0.73 - 1.22 mg/dL Final 09/20/2020 0.78 0.73 - 1.22 mg/dL Final Estimated Glomerular Filtration Rate Date Value Ref Range Status 06/16/2024 117 >=60 mL/min/1.73m Final Comment: Estimated Glomerular Filtration Rate (eGFR) is calculated using the 2020 CKD-EPI creatinine equation. This equation utilizes serum creatinine, sex, and age as parameters. The creatinine assay has traceable calibration to isotope dilution- mass spectrometry. Refer to KDIGO guidelines for clinical interpretation. In patients with unstable renal function, e.g. those with acute kidney injury, the eGFRmay not accurately reflect actual GFR. eGFR- Date Value Ref Range Status 10/11/2020 >60 Final P.O.C.T. RESULTS: N/A November 30, 2024 TREATMENT: N/A IV SITE: Ambulatory: A peripheral IV was started in the Right antecubital site with a Angio cath: 22 gauge. IV SITE APPEARANCE: Clean,Dry and Intact SIGNATURE: Shalini Quijano RN PATIENT NAME: Aleksandra Miranda DATE: November 30, 2024 TIME: 8:54 AM documented in this encounterMercy [facility]01-[facility]25 History of Present illness Narrative* Aleksandra Olivarez, RT(R) - 11/03/2024 1:00 PM EST Radiology Service Progress Note PATIENT NAME: Aleksandra Miranda DATE OF SERVICE: November 03, 2024 TIME: 12:47 PM PATIENT IDENTITY VERIFICATION COMPLETED USING TWO (2) IDENTIFIERS: Name and Date of confirmedby patient verbally and Name and Date of confirmed by identification band. FALL SCREENING: Has the patient had 2 falls in the last year or 1 fall with injury or currently using an Ambulatory Assistive Device (Walker, Cane, Wheelchair, Crutches, etc.)? No PATIENT GENDER DATA: Assigned male at PATIENT RELEVANT IMPLANT DATA REVIEWED: Not Applicable PATIENT PRESENTS WITH AN IMPLANTABLE OR ATTACHED DISTRICT CAPTAIN: No RADIOLOGY DEPARTMENT: CT; Exam(s) Completed: Abdomen/Pelvis PERIPHERAL IV DATA: Site assessment: Clean,Dry and Intact, Site disposition Discontinued SIGNED BY: RT Geraldo(R) November 03, 2024 12:47 PM documented in this encounterMercy [facility]01-31-2025 NoteHNO ID: [id number] Author: ALEKSANDRA OLIVAREZ RT(Frances) Service: Radiology Author Type: Technologist Type: Progress Notes Filed: 11/03/2024 12:48 Note Text: Radiology Service Progress Note PATIENT NAME: Aleksandra Miranda DATE OF SERVICE: November 03, 2024 TIME: 12:47 PM PATIENT IDENTITY VERIFICATION COMPLETED USING TWO (2) IDENTIFIERS: Name and Date of confirmed by patient verbally and Name and Date of confirmed by identification band. FALL SCREENING: Has the patient had 2 falls in the last year or 1 fall with injury or currently using an Ambulatory Assistive Device (Walker, Cane, Wheelchair, Crutches, etc.)? No PATIENT GENDER DATA: Assigned male at PATIENT RELEVANT IMPLANT DATA REVIEWED: Not Applicable PATIENT PRESENTS WITH AN IMPLANTABLE OR ATTACHED DISTRICT CAPTAIN: No RADIOLOGY DEPARTMENT: CT; Exam(s) Completed: Abdomen/Pelvis PERIPHERAL IV DATA: Site assessment: Clean,Dry and Intact, Site disposition Discontinued SIGNED BY: RT Geraldo(R) November 03, 2024 12:47 [facility] [id number] Nurse Note* Hank Hicks RN - 11/03/2024 1:00 PM EST Radiology Service Progress Note DATE OF SERVICE: November 03, 2024 TIME: 12:02 PM PATIENT WEIGHT: 200 LBS PATIENT IDENTITY VERIFICATION COMPLETED USING TWO (2) STANDARD IDENTIFIERS: Name and Date of confirmed by patient verbally and Name and Date of confirmed by identification band. FALL SCREENING: Has the patient had 2 falls in the last year or 1 fall with injury or currently using an Ambulatory Assistive Device (Walker, Cane, Wheelchair, Crutches, etc.)? No PATIENT GENDER DATA: Assigned male at ALLERGIES: Reviewed and unchanged CONTRAST ALLERGY: Yes STANDARD PREMEDICATION: Prednisone 50mg Dose 1 given at 2300 10/23/2024, Dose 2 at 0500 today, and Dose 3 at 1100 today Benadryl 50mg 1130 ALTERNATIVE PREMEDICATION: N/A EXAM: CT -CONTRAST INDUCED NEPHROPATHY RISK FACTORS: Not applicable CREATININE: Creatinine Date Value Ref Range Status 06/16/2024 0.84 0.73 - 1.22 mg/dL Final 10/11/2020 0.80 0.73 - 1.22 mg/dL Final 09/20/2020 0.78 0.73 - 1.22 mg/dL Final Estimated Glomerular Filtration Rate Date Value Ref Range Status 06/16/2024 117 >=60 mL/min/1.73m Final Comment: Estimated Glomerular Filtration Rate (eGFR) is calculated using the 2020 CKD-EPI creatinine equation. This equation utilizes serum creatinine, sex, and age as parameters. The creatinine assay has traceable calibration to isotope dilution- mass spectrometry. Refer to KDIGO guidelines for clinical interpretation. In patients with unstable renal function, e.g. those with acute kidney injury, the eGFRmay not accurately reflect actual GFR. eGFR- Date Value Ref Range Status 10/11/2020 >60 Final P.O.C.T. RESULTS: N/A November 03, 2024 TREATMENT: N/A IV SITE: Ambulatory: A peripheral IV was started in the Right antecubital site with a Angio cath: 20 gauge. IV SITE APPEARANCE: Clean,Dry and Intact SIGNATURE: Hank Hicks RN PATIENT NAME: Aleksandra Miranda DATE: November 03, 2024 TIME: 12:02 PM [facility]01-31-2025 Nurse Note* Hank Hicks RN - 11/03/2024 1:00 PM EST Radiology Service Progress Note DATE OF SERVICE: November 03, 2024 TIME: 12:02 PM PATIENT WEIGHT: 200 LBS PATIENT IDENTITY VERIFICATION COMPLETED USING TWO (2) STANDARD IDENTIFIERS: Name and Date of confirmed by patient verbally and Name and Date of confirmed by identification band. FALL SCREENING: Has the patient had 2 falls in the last year or 1 fall with injury or currently using an Ambulatory Assistive Device (Walker, Cane, Wheelchair, Crutches, etc.)? No PATIENT GENDER DATA: Assigned male at ALLERGIES: Reviewed and unchanged CONTRAST ALLERGY: Yes STANDARD PREMEDICATION: Prednisone 50mg Dose 1 given at 2300 10/23/2024, Dose 2 at 0500 today, and Dose 3 at 1100 today Benadryl 50mg 1130 ALTERNATIVE PREMEDICATION: N/A EXAM: CT -CONTRAST INDUCED NEPHROPATHY RISK FACTORS: Not applicable CREATININE: Creatinine Date Value Ref Range Status 06/16/2024 0.84 0.73 - 1.22 mg/dL Final 10/11/2020 0.80 0.73 - 1.22 mg/dL Final 09/20/2020 0.78 0.73 - 1.22 mg/dL Final Estimated Glomerular Filtration Rate Date Value Ref Range Status 06/16/2024 117 >=60 mL/min/1.73m Final Comment: Estimated Glomerular Filtration Rate (eGFR) is calculated using the 2020 CKD-EPI creatinine equation. This equation utilizes serum creatinine, sex, and age as parameters. The creatinine assay has traceable calibration to isotope dilution- mass spectrometry. Refer to KDIGO guidelines for clinical interpretation. In patients with unstable renal function, e.g. those with acute kidney injury, the eGFRmay not accurately reflect actual GFR. eGFR- Date Value Ref Range Status 10/11/2020 >60 Final P.O.C.T. RESULTS: N/A November 03, 2024 TREATMENT: N/A IV SITE: Ambulatory: A peripheral IV was started in the Right antecubital site with a Angio cath: 20 gauge. IV SITE APPEARANCE: Clean,Dry and Intact SIGNATURE: Hank Hicks RN PATIENT NAME: Aleksandra Miranda DATE: November 03, 2024 TIME: 12:02 PM [facility] Telephone encounter Note * Telephone Encounter - Teodoro Machado RN - 10/30/2024 8:01 AM EST See patient reply [facility]01-27-[facility] Miscellaneous Notes* Telephone Encounter - Teodoro Machado RN - 10/30/2024 8:01 AM EST See patient reply * Telephone Encounter - Noreen Fajardo CT - 10/26/2024 11:[address] Valles please see patients mychart message and advise. Last OV 08/21/2024 ASSESSMENT/PLAN Aleksandra Miranda is a 33 year old male with a history of HTN, ADD, OCD, gallbladder dyskinesia (s/pcholecystectomy), IBS-D and functional dyspepsia who presents to the GI clinic for follow up after recently-diagnosed acute uncomplicated sigmoid diverticulitis. 1) Acute diverticulitis This episode was preceded by 3-[address] scan (06/22/24) revealed uncomplicated acute sigmoid diverticulitis vs epiploic appendigitis. Diverticulitis is suspected based on improvement with a clear liquid diet and antibiotics. --Schedule colonoscopy --Continue Metamucil 1 tbsp every day 2) Functional dyspepsia 3) IBS-D Currently denies diarrhea or significant epigastric discomfort. Interested in weaning Pamelor further. Testing for celiac disease, structural causes of diarrhea (e.g. colon masses/polyps), microscopic colitis, thyroid dysfunction, pancreatitis and H. pylori infection have been unremarkable. --Reduce Pamelor to 10-20 mg qhs --Continue daily probiotic and Metamucil --Continue to adhere to a low FODMAP diet and avoid other dietary triggers (soda, excessive oil/butter) 4) GERD without erosive esophagitis Fairly-well controlled reflux on daily PPI. --Continue pantoprazole 40 mg/day --Add Pepcid 40 mg at 3pm every day if needed --Maintain healthy anti-reflux lifestyle habits. Reducing caffeine intake was strongly recommended,but he cannot give up coffee. Follow up in 6 months or sooner as needed for any new/worsening gastrointestinal symptoms documented [facility] Telephone encounter Note * Telephone Encounter - Noreen Fajardo CT - 10/26/2024 11:[address] Valles please see patients mychart message and advise. Last OV 08/21/2024 ASSESSMENT/PLAN Aleksandra Miranda is a 33 year old male with a history of HTN, ADD, OCD, gallbladder dyskinesia (s/pcholecystectomy), IBS-D and functional dyspepsia who presents to the GI clinic for follow up after recently-diagnosed acute uncomplicated sigmoid diverticulitis. 1) Acute diverticulitis This episode was preceded by 3-[address] scan (06/22/24) revealed uncomplicated acute sigmoid diverticulitis vs epiploic appendigitis. Diverticulitis is suspected based on improvement with a clear liquid diet and antibiotics. --Schedule colonoscopy --Continue Metamucil 1 tbsp every day 2) Functional dyspepsia 3) IBS-D Currently denies diarrhea or significant epigastric discomfort. Interested in weaning Pamelor further. Testing for celiac disease, structural causes of diarrhea (e.g. colon masses/polyps), microscopic colitis, thyroid dysfunction, pancreatitis and H. pylori infection have been unremarkable. --Reduce Pamelor to 10-20 mg qhs --Continue daily probiotic and Metamucil --Continue to adhere to a low FODMAP diet and avoid other dietary triggers (soda, excessive oil/butter) 4) GERD without erosive esophagitis Fairly-well controlled reflux on daily PPI. --Continue pantoprazole 40 mg/day --Add Pepcid 40 mg at 3pm every day if needed --Maintain healthy anti-reflux lifestyle habits. Reducing caffeine intake was strongly recommended,but he cannot give up coffee. Follow up in 6 months or sooner as needed for any new/worsening gastrointestinal symptoms [facility] Telephone encounter Note* Telephone Encounter - Teodoro Machado RN - 10/19/2024 12:[address] Valles please sign refill request if you agree Last OV 08/21/2024 Requested Prescriptions Pending Prescriptions Disp Refills pantoprazole DR (PROTONIX) 40 mg tablet 90 tablet 3 Sig: Take 1 tablet by mouth once daily. Take 30-60 minutes before breakfast on an empty stomach. [facility]01-[facility] Miscellaneous Notes* Telephone Encounter - Teodoro Machado RN - 10/19/2024 12:[address] Valles please sign refill request if you agree Last OV 08/21/2024 Requested Prescriptions Pending Prescriptions Disp Refills pantoprazole DR (PROTONIX) 40 mg tablet 90 tablet 3 Sig: Take 1 tablet by mouth once daily. Take 30-60 minutes before breakfast on an empty stomach. documented in this [facility]11-18-2024 NoteHNO ID: [id number] Author: INDIRA VALLES MD Service: ? Author Type: Physician Type: Progress Notes Filed: 09/17/2024 13:58 Note Text: GI FOLLOW UP OFFICE VISIT REASONS FOR VISIT: Acute diverticulitis PATIENT SUMMARY: Aleksandra Miranda is a 33 year old male with a history of HTN, ADD, OCD, gallbladder dyskinesia (s/p cholecystectomy), IBS-D and functional dyspepsia who presents to the GI clinic for follow up after a recent episode of acute diverticulitis. Functional dyspepsia and IBS-D are characterized by chronic epigastric pain/fullness, belching, nausea and loose stools associated with abdominal cramping. These are chronic symptoms that wax and wane in severity. Last GI VV was in 10/2023. At this time, he had made some healthy lifestyle changes and lost 40 lbs. He was averaging 1-2 stools/day with rare episodes of constipation and diarrhea. Taking Pamelor 75 mg/day and a daily probiotic to manage IBS and functional dyspepsia. Low-FODMAP diet was recommended to reduce residual symptoms. H+ breath test in 12/2023 was negative.He expressed interest in weaning Pamelor, so this dose was reduced to 50 mg qhs. In 06/2024, he messaged the office with concerns about constipation, bloating and LLQ pain. Pamelor was reduced furhter to 25 mg qhs. When his pain persisted, a CT scan revealed uncomplicated acute sigmoid diverticulitis vs epiploic appendigitis. He adhered to a clear liquid diet and completed a 10-day course of cipro / flagyl with subsequent improvement. Colonoscopy was ordered for scheduling 6-8 weeks after his antibiotics. INTERVAL HISTORY: He has fully recovered from diverticulitis. He is averaging 2 formed stools/day (Braxton 3-4) with Metamucil 1 tbsp/day. Evacuations feel complete. He denies LLQ pain, fevers, GI bleeding or severe abdominal cramping. He is drinking plenty of water but cannot give up coffee. Drinking two to three 12-16 oz cups per day. He is avoiding soda and other sources of caffeine. Still taking Pamelor 25 mg qhs. Acid reflux is largely controlled on Protonix 40 mg/day. He reports occasional breakthrough reflux. Wondering what he can take if this happens. He denies dysphagia, nausea or vomiting. Past Clinical Work-up: CTAP w/ IVC: 06/22/24: Findings are suggestive of acute sigmoid diverticulitis. Epiploic appendagitis is also among the differential consideration. No drainable abscess formation or perforation. Latest Ref Rng 10/11/2020 06/16/2024 Lipase 16 - 61 U/L 22 32 Latest Ref Rng 09/20/2020 10/11/2020 06/16/2024 Protein, Total 6.3 - 8.0 g/dL 7.5 7.9 7.7 Albumin 3.9 - 4.9 g/dL 4.8 4.9 4.7 Calcium 8.5 - 10.2 mg/dL 10.0 10.3 (H) 9.8 Bilirubin, Total 0.2 - 1.3 mg/dL 0.5 0.7 0.2 Bilirubin, Total 0.5 Alkaline Phosphatase 38 - 113 U/L 56 64 85 AST 14 - 40 U/L 27 19 Glucose 74 - 99 mg/dL 87 81 95 BUN 9 - 24 mg/dL 16 19 17 Creatinine 0.73 - 1.22 mg/dL 0.78 0.80 0.84 Sodium 136 - 144 mmol/L 138 138 137 Potassium 3.7 - 5.1 mmol/L 4.5 4.5 Chloride 98 - 107 mmol/L 100 101 101 CO2 22 - 30 mmol/L 27 25 27 Anion Gap 8 - 15 mmol/L 11 12 9 ALT 10 - 54 U/L 34 29 eGFR >=60 mL/min/1.73m? 117 Latest Ref Rng 09/20/2020 10/11/2020 06/16/2024 WBC 3.70 - 11.00 k/uL 12.28 (H) 11.49 (H) 11.58 (H) RBC 4.20 - 6.00 m/uL 5.14 5.24 5.04 Hemoglobin 13.0 - 17.0 g/dL 15.9 16.2 15.2 Hematocrit 39.0 - 51.0 % 46.8 47.9 45.5 MCV 80.0 - 100.0 fL 91.1 91.4 90.3 MCH 26.0 - 34.0 pg 30.9 30.9 30.2 MCHC 30.5 - 36.0 g/dL 34.0 33.8 33.4 RDW-CV 11.5 - 15.0 % 12.3 12.8 12.6 Platelet Count 150 - 400 k/uL 339 349 423 (H) MPV 9.0 - 12.7 fL 10.5 10.5 9.3 Absolute nRBC <0.01 k/uL <0.01 <0.01 <0.01 CTAP w/IV cont: 10/11/20: . No acute pathology is identified Latest Ref Rng 09/20/2020 IgA 70 - 400 mg/dL 112 Transglutaminase Ab, IgA <20 Units 2 Transglutaminase Ab, IgG <20 Units Test Not Indicated Gliadin Deamidated IgA Ab <20 Units Test Not Indicated Gliadin Deamidated IgG Ab <20 Units Test Not Indicated Endomysial Ab, IgA <1:10 Test Not Indicated ! Interpretation (Celiac Screen) No serologic evidence of celiac disease. No serologic evidence of celiac disease. Latest Ref Rng 11/04/2019 09/20/2020 WSR 0 - 15 mm/hr 2 5 EGD: 11/17/19: Dr. Alea Platt: - Esophagus: Normal mucosa with a relatively straight Z-line at 40 cm and no evidence of a hiatal hernia. Cold biopsies taken. - Stomach: Normal mucosa with no retained food or bile and a normal contractility pattern. Biopsies to rule out H. Pylori. - Duodenum: Normal first and second portions with biopsies to rule out Giardia and celiac sprue. Pathology: Random duodenal biopsies: - Histologically unremarkable duodenal mucosa. - No evidence of celiac sprue or parasites. 2. Gastric biopsies: - Minimal chronic gastritis, inactive. - Immunoperoxidase stain for Helicobacter pylori organisms is negative. 3. GE Junction biopsies: - Histologically unremarkable squamocolumnar mucosa. - Berg's mucosa/i (more content not included)...[facility] 06-26-2024 Evaluation + Plan note* Assessment & Plan Note - Dilma Galaviz DO - 06/26/2024 4:37 PM EDTAssociated Problem(s): Essential hypertension 1. Hypertension: Blood pressure is reasonable on the current dose of lisinopril and metoprolol. 2. Hyperlipidemia: The patient has been losing weight and his LDL cholesterol has decreased. We discussed the possibility of using a statin, but he is currently dealing with diverticulitis and he is modifying his diet so we will hold off on statin therapy. 3. Atypical chest pain: Aleksandra has had some vague atypical chest pain that is most likely musculoskeletal in origin based on his symptom description. The EKG shows normal sinus rhythm with no ischemic changes. No further cardiac testing is recommended at this time. Follow-up in 1 year. [facility] Work Phone: 1(209) 157-612009-23-2024 Miscellaneous Notes* Assessment & Plan Note - Dilma Galaviz DO - 06/26/2024 4:37 PM EDTAssociated Problem(s): Essential hypertension 1. Hypertension: Blood pressure is reasonable on the current dose of lisinopril and metoprolol. 2. Hyperlipidemia: The patient has been losing weight and his LDL cholesterol has decreased. We discussed the possibility of using a statin, but he is currently dealing with diverticulitis and he is modifying his diet so we will hold off on statin therapy. 3. Atypical chest pain: Aleksandra has had some vague atypical chest pain that is most likely musculoskeletal in origin based on his symptom description. The EKG shows normal sinus rhythm with no ischemic changes. No further cardiac testing is recommended at this time. Follow-up in 1 year. documented in this [facility] Work Phone: 1(732) 197-345209-23-2024 History of Present illness Narrative* Dilma Galaviz DO - 06/26/2024 3:00 PM EDT Images from the original note were not included. History Of Present Illness: This is a 33-year-old male with a history of hypertension. He was last seen in the office April 23, 2023. The patient was diagnosed with sigmoid diverticulitis and has been on antibiotic therapy. Froma cardiac perspective he has no palpitations or chest pain. He occasionally has had an atypical discomfort over the left chest and shoulder which resolves with massage over the area. This particular symptom occurred at rest and not exertion. Review of Systems Other review of systems negative Last Recorded Vitals: 01/29/2021 8:33 AM 04/15/2022 2:04 PM 10/01/2022 11:20 AM 10/21/2022 2:36 PM 11/12/2022 9:15 AM 04/23/2023 9:01 AM 04/23/2023 9:17 AM Vitals Systolic 142 148 144 164 140 144 132 Diastolic 97 95 92 90 88 90 80 Heart Rate 87 97 101 107 126 112 Temp 36.8 C (98.3 F) 36.8 C (98.2 F) Height (in) 1.753 m (5' 9") 1.753 m (5' 9") 1.753 m (5' 9") Weight (lb) 200 199 220 212.38 203 BMI 29.53 kg/m2 29.39 kg/m2 32.49 kg/m2 31.36 kg/m2 29.98 kg/m2 29.98 kg/m2 BSA (m2) 2.1 m2 2.1 m2 2.2 m2 2.17 m2 2.12 m2 2.12 m2 Allergies: Patient has no allergy information on record. Outpatient Medications: Current Outpatient Medications Medication Instructions lisinopril 20 mg, oral, Daily metoprolol succinate XL (TOPROL-XL) 25 mg, oral, Daily Physical Exam: General Appearance: Alert, oriented, no distress Skin: Warm and dry Head and Neck: No elevation of JVP, no carotid bruits Cardiac Exam: Rhythm is regular, S1 and S2 are normal, no murmur S3 or S4 Lungs: Clear to auscultation Extremities: no edema Neurologic: No focal deficits Psychiatric: Appropriate mood and behavior Cardiology Tests: I have personally review the diagnostic cardiac testing and my interpretation is as follows: Echocardiogram March 2019: Ejection fraction 55 to 60% Assessment/Plan Dilma Galaviz DO documented [facility] Work Phone: 1(710) 964-369909-23-2024 Instructions* Patient Instructions* Dilma Galaviz DO - 06/26/2024 3:00 PM EDT Follow up with Dr. Galaviz in 1 year documented in this [facility] Work Phone: [phone]) 626-179609-20-2024 Telephone encounter Note* Telephone Encounter - Lin Villareal RN - 06/23/2024 2:49 PM EDT S/W pt. To help clarify things before the weekend. He has been on [employer]. He seems under the impression that he may have polyps that if are there will be removed during the office visit via EMR and anything missed can be removed if he decides on the colonoscopy "based on how he feels." Advised thatpolyps, if found, are during a colonoscopy, not office visit. Office visit is to assess his overallstatus after the diverticulitis. Advised that EMR is typically for more advanced polyp issues. Advised that it is strongly recommended he gets a colonoscopy 6-8weeks after finishing the atbs to assess healing and anything else that may or may not be going on. Also says he thought his follow up was to send a mychart message about how he feels after 3 days ofthe atb. Advised that is not the case. States he's starting to feel a little better now on day 1 ofatb. Still seems undecided on colonoscopy. Does not seem to believe me still. Advised we will find him an office visit. He wants to know still if he can push the colonoscopy to October since it's already scheduled 2 weeks before on Sep.19. [facility] Work Phone: 1(486) 916-526109-20-2024 Miscellaneous Notes* Telephone Encounter - Lin Villareal RN - 06/23/2024 2:49 PM EDT S/W pt. To help clarify things before the weekend. He has been on [employer]. He seems under the impression that he may have polyps that if are there will be removed during the office visit via EMR and anything missed can be removed if he decides on the colonoscopy "based on how he feels." Advised thatpolyps, if found, are during a colonoscopy, not office visit. Office visit is to assess his overallstatus after the diverticulitis. Advised that EMR is typically for more advanced polyp issues. Advised that it is strongly recommended he gets a colonoscopy 6-8weeks after finishing the atbs to assess healing and anything else that may or may not be going on. Also says he thought his follow up was to send a [employer] message about how he feels after 3 days ofthe atb. Advised that is not the case. States he's starting to feel a little better now on day 1 ofatb. Still seems undecided on colonoscopy. Does not seem to believe me still. Advised we will find him an office visit. He wants to know still if he can push the colonoscopy to October since it's already scheduled 2 weeks before on Sep.19. * Telephone Encounter - Viridiana Gonzalez - 06/23/2024 10:26 AM EDT Left message on voicemail for patient to call and confirm 09/05 * Telephone Encounter - Indira Valles MD - 06/22/2024 5:28 PM EDT Spoke with patient this evening on the phone. All questions answered. Alessandra, can you draft a letter for his employer stating that due to severe IBS, he should be permitted 1 day every 2 months if needed for rest off work? This episode of diverticulitis was likely caused by severe constipation as a result of his IBS. Thank you. He is agreeable to a colonoscopy. EOH, can you help him schedule no earlier than Aug 17? Thank you * Telephone Encounter - Indira Valles MD - 06/22/2024 4:57 PM EDT Alessandra, can you help find a clinic appointment for in 2-6 weeks if possible? FU for diverticulitis. He will need a colonoscopy in 6-8 weeks after he completes antibiotics. Order placed. * Telephone Encounter - Teodoro Machado RN - 06/22/2024 4:[address] Valles patient sent a message regarding CT scan earlier. Results are below 06/22/2024 IMPRESSION: Findings are suggestive of acute sigmoid diverticulitis. Epiploic appendagitis is also among the differential consideration. No drainable abscess formation or perforation * Telephone Encounter - Lin Villareal RN - 06/21/2024 1:[address] Scheduled for tomorrow at 2-3pm at [place]. * Telephone Encounter - Lin Villareal RN - 06/21/2024 1:21 PM EDT S/W pt. Advised as he has a hx of diverticulosis he has to get the CT done to determine if he has diverticulitis. Advised he has to call and schedule. He asked if he can get it done at . If he desires but he may need a copy of the order. Gave number to central scheduling. Advised Dr. Valles usually determines f/u appt after he receives the results. Advised to let us know the earliest he can get schedule as that can also determine his follow up.Verbalizes understanding. States he will have his call scheduling. * Telephone Encounter - Indira Valles MD - 06/20/2024 5:22 PM EDT Alessandra and Rhina, can you help get an in-person appointment as soon as possible? Thank you * Telephone Encounter - Teodoro Machado RN - 06/20/2024 8:[address] Valles please see patients MC message * Telephone Encounter - Teodoro Machado RN - 06/19/2024 8:[address] Valles please see patients MC message * Telephone Encounter - Teodoro Machado RN - 06/16/2024 8:[address] Valles please see patients MC message documented in this [facility]Mer[facility] Telephone encounter Note * Telephone Encounter - Viridiana Gonzalez - 06/23/2024 10:26 AM EDT Left message on [employer] for patient to call and confirm 09/05 [facility] Telephone encounter Note* Telephone Encounter - Indira Valles MD - 06/22/2024 5:28 PM EDT Spoke with patient this evening on the phone. All questions answered. Alessandra, can you draft a letter for his employer stating that due to severe IBS, he should be permitted 1 day every 2 months if needed for rest off work? This episode of diverticulitis was likely caused by severe constipation as a result of his IBS. Thank you. He is agreeable to a colonoscopy. EOH, can you help him schedule no earlier than Aug 17? Thank you [facility]-19-[facility] Telephone encounter Note* Telephone Encounter - Indira Valles MD - 06/22/2024 4:57 PM EDT Alessandra, can you help find a clinic appointment for in 2-6 weeks if possible? FU for diverticulitis. He will need a colonoscopy in 6-8 weeks after he completes antibiotics. Order placed. [facility]-19-[facility] Instructions* Patient Instructions* Indira Valles MD - 06/22/2024 4:55 PM EDT COLONOSCOPY BOWEL PREPARATION INSTRUCTIONS [employer] Your doctor has scheduled you for a colonoscopy. To have a successful colonoscopy, you must have a clean colon, that is empty. A clean colon allows your doctor to see the entire colon & diagnose issues like polyps or cancer. For doctors, a clean colon is like driving on a arnoldo day; a dirty colon like driving in a storm. It is very important that you follow these instructions exactly, or your colonoscopy may not be as effective, could be canceled, and you may need to do the bowel prep and colonoscopy again. TRANSPORTATION REQUIREMENTS You are receiving IV sedation. For your safety, a responsible adult escort must accompany you to and from your procedure: Your adult escort MUST be present with you at check-in for your colonoscopy. Your adult escort MUST remain in the endoscopy area until you are discharged. Your adult escort MUST transport you home once you are discharged. You are NOT allowed to operate any form of transportation (i.e. drive a car, bicycle, etc) or leavethe [facility]oscopy Center ALONE. It is not safe to do so. If you cannot meet these requirements, your procedure will be canceled. MEDICATION REQUIREMENTS For your safety, certain medications will need to be stopped or adjusted before you can have your procedure: BLOOD THINNERS: If you take blood thinners, such as Coumadin (warfarin), Plavix (clopidogrel), Ticlid (ticlopidine hydrochloride), Agrylin (anagrelide), Xarelto (Rivaroxaban), Pradaxa (Dabigatran), Eliquis (Apixaban), or Effient (Prasugrel), contact the physician who is prescribing these medications at least 2 weeks prior to your procedure to discuss any necessary adjustments. DIABETES: If you take medications for diabetes, your dosage may need to be adjusted. If you are being treated for diabetes with insulin, diabetic pills, or other injectable medicationsdo not take your REGULAR dose after midnight on the day of your procedure. If you are taking any other types of insulin such as Lantus, Humalog, NPH (long- acting insulin), or70/30 insulin, take half your normal dose the day before your procedure. DIABETES/WEIGHT MANAGEMENT: If you take medications for weight-loss, your dosage may need to be adjusted Contact the doctor who prescribes this medication for further instructions. If you take medications for weight-loss like semaglutide (Ozempic, Wegovy, Rybelsus), dulaglutide (Trulicity), liraglutide (Victoza, Saxenda), exenatide (Byetta, Bydureon), or lixisenatide (Adylyxin), stop your medication 1 week prior to your procedure. If you take medications like canagliflozin (Invokana), dapagliflozin (Farxiga, Forxiga), empagliflozin (Jardiance), or ertugliflozin (Steglatro), stop your medication 1 day prior to your procedure. IRON: If you take iron pills, STOP them 1 week BEFORE your procedure, may resume after. OTHER MEDS: May take all other medications (including aspirin, antibiotics, water pills / diureticslike Lasix or Metolozone, blood pressure meds, etc.) at their usual scheduled time with water. DIET REQUIREMENTS The day before your colonoscopy, you may have a clear liquid diet (see below). The day of your colonoscopy, you may continue a clear liquid diet until 3 hours before your colonoscopy. Within 3 hours of your colonoscopy, take only any medications (as above) with a sip of water. Clear Liquid Diet Broth (chicken, beef or vegetable broth or bullion. Just the broth, no solids). Water Coffee or Tea (NO milk or creamer), but sugar and sugar substitutes are allowed. Clear liquids including clear, yellow, green, blue (NO red, NO orange, NO purple) Sodas / soft drinks; Gatorade or other sports drinks Fruit juice (strained; no-pulp); Stephen-Aid or flavored drinks Plain Jell-O or other gelatins Popsicles or hard candy Bowel prep can work differently from person to person. Some people's bowels move slowly and they may need different instructions. Please see your doctor in office or virtually for personalized bowel prep instructions if you have: BOWEL PREPARATION (MIRALAX/GATORADE) Split Dosing Bowel Prep: This means drinking your bowel prep in two doses. Split dosing helps cleanyour colon better and makes it less likely that your procedure will be canceled. You will need to purchase the following (no prescriptions are needed): 64 ounces Gatorade, Propel, Crystal Lite or other noncarbonated clear liquid sports drink (NOT red,orange, or purple). Diabetic patients buy sugar-free, e.g. Gatorade G2 4 Dulcolax laxative tablets containing 5mg bisacodyl each (do not buy the stool softener) 8.3 oz MiraLAX (238g) powder or generic polyethylene glycol 3350 (find in laxative aisle) The day before your colonoscopy mix 64 oz of the sports drink with 8.3 oz MiraLAX (238 g) in a pitcher. Stir or shake until MiraLAX completely dissolved. Chill if desired. On the evening before your colonoscopy: 5 PM take 4 Dulcolax laxative tablets with water by mouth. 6 PM drink the first half of the Gatorade/MiraLAX solution Drink one 8-ounce glass every 15 minutes. Six hours before your colonoscopy, drink the second half of the solution. Drink one 8-ounce glass every 15 minutes. You may continue a clear liquid diet until 3 hours before your colonoscopy. Bowel prep can work differently from person to person. Some people's bowels move slowly and they may need different instructions. Please see your doctor in office or virtually for personalized bowel prep instructions if you have: Medical condition that needs special accommodations Had a poor bowel prep results or failed bowel prep attempts in the past. Had difficulty with anesthesia during the procedure. FREQUENTLY ASKED QUESTIONS Q: What if I suffer from constipation? A: Recommend taking extra laxatives to resolve your constipation days prior to entering the bowel prep day. Q: What if have had prior poor preps results in past? A: Contact your physician as you will likely need additional bowel prep instructions. Q: What if I have motility issues like Parkinson's, MS (multiple sclerosis), wheelchair dependent, etc.? or on medications that slow colonic transit times (narcotics, gabapentin, anticholinergic medications etc.) A: Contact your physician as you will likely need extra time and additional laxatives to complete your bowel prep. Q: What if I cannot drink large volume of liquid? A: Start your prep 2-3 hours earlier to allow yourself more time to complete the entire prep. Q: What if I had bariatric surgery? Do I still have to complete the entire prep? A: Yes, gastric bypass surgery involves the stomach & small bowel. You may need to drink smaller amounts, slower (may need more time to complete your bowel prep). Gastric bypass does not alter the length of your colon so you will need to complete the entire bowel prep, it may just take longer time to complete it. Q: What if I am on dialysis? A: Please consult your gang vibrator operator prior to scheduling to get instructions pertinent to you. In general, dialysis patients take the Golytely bowel prep and have the procedure same day of their dialysis (colonoscopy in AM, dialysis in PM). Q: How do I know if something is considered as clear liquid diet? A: If you can pour it in a glass and you can see through it, it is considered clear liquid Q: Can I eat nuts, seeds, beans, popcorn, dried fruits, vegetables & fruits that have skin peel? A: No, you will need to not eat these items starting 3 days prior to procedure. Q: Can I take Uber/Lyft/taxi/bus home? A: An adult MUST be present with you at check-in for your colonoscopy and remain in the endoscopy area until you are discharged. You can take Uber home only if this adult escort is with you at check in, remain in the endoscopy area until you are discharged, and takes the Uber with you to home. Q: Can I sleep it off here and drive myself home? A: No, you must have an adult with you at time of procedure check in, remain in the endoscopy center during your procedure, and drive you home. You cannot drive a vehicle after your procedure the rest of the day. Q: What if I can't finish my bowel prep? A: If you cannot complete your entire bowel prep, there is high likelihood that your colonoscopy will need to be rescheduled due to inadequate prep quality. documented in [facility] Telephone encounter Note * Telephone Encounter - Teodoro Machado RN - 06/22/2024 4:[address] Valles patient sent a message regarding CT scan earlier. Results are below 06/22/2024 IMPRESSION: Findings are suggestive of acute sigmoid diverticulitis. Epiploic appendagitis is also among the differential consideration. No drainable abscess formation or perforation [facility]09-19-[facility] History of Present illness Narrative* Aditya Salmeron RN - 06/22/2024 3:00 PM EDT Radiology Service Progress Note DATE OF SERVICE: June 22, 2024 TIME: 2:02 PM PATIENT WEIGHT: 198LBS PATIENT IDENTITY VERIFICATION COMPLETED USING TWO (2) STANDARD IDENTIFIERS: Name and Date of confirmed by patient verbally. FALL SCREENING: Has the patient had 2 falls in the last year or 1 fall with injury or currently using an Ambulatory Assistive Device (Walker, Cane, Wheelchair, Crutches, etc.)? No PATIENT GENDER DATA: Male ALLERGIES: Reviewed and unchanged CONTRAST ALLERGY: No EXAM: CT -CONTRAST INDUCED NEPHROPATHY RISK FACTORS: Not applicable CREATININE: Creatinine Date Value Ref Range Status 06/16/2024 0.84 0.73 - 1.22 mg/dL Final 10/11/2020 0.80 0.73 - 1.22 mg/dL Final 09/20/2020 0.78 0.73 - 1.22 mg/dL Final Estimated Glomerular Filtration Rate Date Value Ref Range Status 06/16/2024 117 >=60 mL/min/1.73m Final Comment: Estimated Glomerular Filtration Rate (eGFR) is calculated using the 2020 CKD-EPI creatinine equation. This equation utilizes serum creatinine, sex, and age as parameters. The creatinine assay has traceable calibration to isotope dilution- mass spectrometry. Refer to KDIGO guidelines for clinical interpretation. In patients with unstable renal function, e.g. those with acute kidney injury, the eGFRmay not accurately reflect actual GFR. eGFR- Date Value Ref Range Status 10/11/2020 >60 Final P.O.C.T. RESULTS: N/A June 22, 2024 TREATMENT: N/A IV SITE: Ambulatory: A peripheral IV was started in the Right antecubital site with a Angio cath: 22 gauge. and A Saline lock was inserted per protocol IV SITE APPEARANCE: Clean,Dry and Intact SIGNATURE: Aditya Salmeron RN PATIENT NAME: Aleksandra Miranda DATE: June 22, 2024 TIME: 2:02 PM * Farideh Olivarez Tech - 06/22/2024 3:00 PM EDT Radiology Service Progress Note PATIENT NAME: Aleksandra Miranda DATE OF SERVICE: June 22, 2024 TIME: 2:46 PM PATIENT IDENTITY VERIFICATION COMPLETED USING TWO (2) IDENTIFIERS: Name and Date of confirmedby patient verbally. FALL SCREENING: Has the patient had 2 falls in the last year or 1 fall with injury or currently using an Ambulatory Assistive Device (Walker, Cane, Wheelchair, Crutches, etc.)? No PATIENT GENDER DATA: Male PATIENT RELEVANT IMPLANT DATA REVIEWED: Yes PATIENT PRESENTS WITH AN IMPLANTABLE OR ATTACHED DISTRICT CAPTAIN: No RADIOLOGY DEPARTMENT: CT; Exam(s) Completed: Abdomen/Pelvis PERIPHERAL IV DATA: Site assessment: Clean,Dry and Intact, Site disposition Discontinued SIGNED BY: Saúl Diaz June 22, 2024 2:46 PM documented in this encounterMer[facility]09-19-2024 NoteHNO ID: [id number] Author: ADITYA SALMERON RN Service: ? Author Type: Registered Nurse Type: Progress Notes Filed: 06/22/2024 14:07 Note Text: Radiology Service Progress Note DATE OF SERVICE: June 22, 2024 TIME: 2:02 PM PATIENT WEIGHT: 198LBS PATIENT IDENTITY VERIFICATION COMPLETED USING TWO (2) STANDARD IDENTIFIERS: Name and Date of confirmed by patient verbally. FALL SCREENING: Has the patient had 2 falls in the last year or 1 fall with injury or currently using an Ambulatory Assistive Device (Walker, Cane, Wheelchair, Crutches, etc.)? No PATIENT GENDER DATA: Male ALLERGIES: Reviewed and unchanged CONTRAST ALLERGY: No EXAM: CT -CONTRAST INDUCED NEPHROPATHY RISK FACTORS: Not applicable CREATININE: Creatinine Date Value Ref Range Status 06/16/2024 0.84 0.73 - 1.22 mg/dL Final 10/11/2020 0.80 0.73 - 1.22 mg/dL Final 09/20/2020 0.78 0.73 - 1.22 mg/dL Final Estimated Glomerular Filtration Rate Date Value Ref Range Status 06/16/2024 117 >=60 mL/min/1.73m? Final Comment: Estimated Glomerular Filtration Rate (eGFR) is calculated using the 2020 CKD-EPI creatinine equation. This equation utilizes serum creatinine, sex, and age as parameters. The creatinine assay has traceable calibration to isotope dilution-mass spectrometry. Refer to KDIGO guidelines for clinical interpretation. In patients with unstable renal function, e.g. those with acute kidney injury, the eGFR may not accurately reflect actual GFR. eGFR- Date Value Ref Range Status 10/11/2020 >60 Final P.O.C.T. RESULTS: N/A June 22, 2024 TREATMENT: N/A IV SITE: Ambulatory: A peripheral IV was started in the Right antecubital site with a Angio cath: 22 gauge. and A Saline lock was inserted per protocol IV SITE APPEARANCE: Clean,Dry and Intact SIGNATURE: Aditya Salmeron RN PATIENT NAME: Aleksandra Miranda DATE: June 22, 2024 TIME: 2:02 [facility]09-19-2024 NoteHNO ID: [id number] Author: FARIDEH OLIVAREZ Tech Service: ? Author Type: Technologist Type: Progress Notes Filed: 06/22/2024 14:46 Note Text: Radiology Service Progress Note PATIENT NAME: Aleksandra Miranda DATE OF SERVICE: June 22, 2024 TIME: 2:46 PM PATIENT IDENTITY VERIFICATION COMPLETED USING TWO (2) IDENTIFIERS: Name and Date of confirmed by patient verbally. FALL SCREENING: Has the patient had 2 falls in the last year or 1 fall with injury or currently using an Ambulatory Assistive Device (Walker, Cane, Wheelchair, Crutches, etc.)? No PATIENT GENDER DATA: Male PATIENT RELEVANT IMPLANT DATA REVIEWED: Yes PATIENT PRESENTS WITH AN IMPLANTABLE OR ATTACHED DISTRICT CAPTAIN: No RADIOLOGY DEPARTMENT: CT; Exam(s) Completed: Abdomen/Pelvis PERIPHERAL IV DATA: Site assessment: Clean,Dry and Intact, Site disposition Discontinued SIGNED BY: Saúl Diaz June 22, 2024 2:46 [facility]09-18-2024 Telephone encounter Note* Telephone Encounter - Teodoro Machado RN - 06/21/2024 2:07 PM EDT See 06/16/2024 MC encounter for update [facility] Miscellaneous Notes* Telephone Encounter - Teodoro Machado RN - 06/21/2024 2:07 PM EDT See 06/16/2024 encounter for update * Telephone Encounter - Lianne Patient Schedule Maker Hank Boyd - 06/21/2024 12:51 PM EDT Name of Caller: Aleksandra miranda Relationship to patient: patient Last visit in this department: Visit date not found Reason for Call: Other : Patients calling to have call her back ISI to discuss health questions. Callback number: [phone] Fax Number (if necessary): N/A Additional info if needed (Prior Auth #, Claim #, etc ): N/A Hank Abdalla Patient Schedule Maker Ccsr documented in this encounterMer[facility]09-18-2024 Telephone encounter Note * Telephone Encounter - Lin Villareal RN - 06/21/2024 1:[address] Scheduled for tomorrow at 2-3pm at [place]. [facility]09-18-[facility] Telephone encounter Note* Telephone Encounter - Lin Villareal RN - 06/21/2024 1:21 PM EDT S/W pt. Advised as he has a hx of diverticulosis he has to get the CT done to determine if he has diverticulitis. Advised he has to call and schedule. He asked if he can get it done at . If he desires but he may need a copy of the order. Gave number to central scheduling. Advised Dr. Valles usually determines f/u appt after he receives the results. Advised to let us know the earliest he can get schedule as that can also determine his follow up.Verbalizes understanding. States he will have his call scheduling. [facility] Telephone encounter Note* Telephone Encounter - Lianne Patient Schedule Maker Hank Boyd - 06/21/2024 12:51 PM EDT Name of Caller: Aleksandra miranda Relationship to patient: patient Last visit in this department: Visit date not found Reason for Call: Other : Patients calling to have call her back ISI to discuss health questions. Callback number: [phone] Fax Number (if necessary): N/A Additional info if needed (Prior Auth #, Claim #, etc ): N/A Hank Abdalla Patient Schedule Maker Ccsr [facility] Telephone encounter Note* Telephone Encounter - Indira Valles MD - 06/20/2024 5:22 PM EDT Anitra, can you help get an in-person appointment as soon as possible? Thank you [facility] Telephone encounter Note* Telephone Encounter - Teodoro Machado RN - 06/20/2024 8:[address] Valles please see patients MC message [facility] Telephone encounter Note* Telephone Encounter - Teodoro Machado RN - 06/19/2024 8:[address] Valles please see patients MC message [facility] Telephone encounter Note* Telephone Encounter - Teodoro Machado RN - 06/16/2024 8:[address] Valles please see patients MC message [facility]-11-[facility] Telephone encounter Note* Telephone Encounter - Indira Valles MD - 06/14/2024 5:11 PM EDT I spoke with over the phone this afternoon. Constipation started 3-4 weeks ago. Averaging 1 BM (Braxton 1) stool per day. Intermittent normal stools. LLQ pain never resolves and worsens with Valsalva. No changes in medication or diet. Mag citrate cleanout prescribed. Pamelor dose was reduced from 50 to 25 mg at bedtime. Labs ordered. If labs are unremarkable and the above changes do not help with symptom relief, CT will be advised. [facility] Miscellaneous Notes* Telephone Encounter - Indira Valles MD - 06/14/2024 5:11 PM EDT I spoke with over the phone this afternoon. Constipation started 3-4 weeks ago. Averaging 1 BM (Braxton 1) stool per day. Intermittent normal stools. LLQ pain never resolves and worsens with Valsalva. No changes in medication or diet. Mag citrate cleanout prescribed. Pamelor dose was reduced from 50 to 25 mg at bedtime. Labs ordered. If labs are unremarkable and the above changes do not help with symptom relief, CT will be advised. * Telephone Encounter - Indira Valles MD - 06/14/2024 3:51 PM EDT Attempted to reach patient by phone, but call went to . Left message. Will try back. * Telephone Encounter - Lin Villareal RN - 06/12/2024 10:45 AM EDT Last Visit: VV 11/01/2023 No f/u scheduled Per spouse, Hannah: Occurring Past 2-3wks. Abd hurts, uncomfortable. Before was IBS-D. Now "semi constipated", stomach hard. Eats and has immediate fatigue, can't stay awake. Nausea. Very bloated. Stool- ranges, some days soft, hard, diarrhea, the few days w/o a full bm (would have small bm or just gas inbetween). "Extremely uncomfortable." Only change before this started per spouse: Had a couple beers (doesn't normally drink). Hasn't been taking the metamucil, stopped a few months ago? ( unsure when stopped, states 8 months ago butwas supposed to start 8 months ago per last visit, admits to " brain"). Water intake good at least 64oz. Has not tried anything med calle. States he's tried things like miralax in the past but cause stomach pain and gas. Pt unavailable, at work. Spouse also advised it is his busy season at work. Advised with constipation, any laxative will cause pain/gas with movement of the stool. Advised that a physical appt may be required with the total change in sx even though it's busy season at work. Advised if things are ordered like imaging or stools, that he HAS to actually get them done for proper care. Verbalizes understanding. Please Advise. Thanks * Telephone Encounter - Aditya Hayes - 06/12/2024 9:44 AM EDT Name of Caller: Hannah Relationship to patient: patient's spouse Last visit in this department: Visit date not found Reason for Call: Other : Patient experiencing constipation (which he usually never has) also has stomach pains and stomach feels hard it's hard for him to eat makes him feel bloated then he gets extremely tired afterward. 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 Callback number: [phone] Fax Number (if necessary): N/A Additional info if needed (Prior Auth #, Claim #, etc ): N/A Aditya Hayes documented in this encounterMer[facility]09-[facility]-2024 Telephone encounter Note * Telephone Encounter - Indira Valles MD - 06/14/2024 3:51 PM EDT Attempted to reach patient by phone, but call went to . Left message. Will try back. [facility]09-09-[facility] Telephone encounter Note* Telephone Encounter - Lin Villareal RN - 06/12/2024 10:45 AM EDT Last Visit: VV 11/01/2023 No f/u scheduled Per spouse, Hannah: Occurring Past 2-3wks. Abd hurts, uncomfortable. Before was IBS-D. Now "semi constipated", stomach hard. Eats and has immediate fatigue, can't stay awake. Nausea. Very bloated. Stool- ranges, some days soft, hard, diarrhea, the few days w/o a full bm (would have small bm or just gas inbetween). "Extremely uncomfortable." Only change before this started per spouse: Had a couple beers (doesn't normally drink). Hasn't been taking the metamucil, stopped a few months ago? ( unsure when stopped, states 8 months ago butwas supposed to start 8 months ago per last visit, admits to " brain"). Water intake good at least 64oz. Has not tried anything med calle. States he's tried things like miralax in the past but cause stomach pain and gas. Pt unavailable, at work. Spouse also advised it is his busy season at work. Advised with constipation, any laxative will cause pain/gas with movement of the stool. Advised that a physical appt may be required with the total change in sx even though it's busy season at work. Advised if things are ordered like imaging or stools, that he HAS to actually get them done for proper care. Verbalizes understanding. Please Advise. Thanks T [facility] Work Phone: 1(339) 684-678409-09-2024 Telephone encounter Note* Telephone Encounter - Aditya Hayes - 06/12/2024 9:44 AM EDT Name of Caller: Hannah Relationship to patient: patient's spouse Last visit in this department: Visit date not found Reason for Call: Other : Patient experiencing constipation (which he usually never has) also has stomach pains and stomach feels hard it's hard for him to eat makes him feel bloated then he gets extremely tired afterward. 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 Callback number: [phone] Fax Number (if necessary): N/A Additional info if needed (Prior Auth #, Claim #, etc ): N/A Aditya Hayes T [facility]03-26-2024 NoteHNO ID: [id number] Author: SHREE MARMOLEJO CT Service: ? Author Type: Clinical Bogger Operator Type: Progress Notes Filed: 12/28/2023 08:50 Note Text: LACTULOSE HYDROGEN BREATH TEST FOR SMALL BOWEL BACTERIAL OVERGROWTH Date: December 28, 2023 Referring Physician: Indira Valles MD Chief Complaint Abdominal Pain Bloating Acid Reflux/Heartburn Symptoms prior to start of study: None [] 4 week restrictions [] 72 hour restrictions [] 12 hour fasting [] Followed the special diet Baseline Hydrogen PPM: 8 Methane PPM: 2 MARI Pennington Lactulose 15mL given at: 840am Start Time:845am 20 minutes Hydrogen PPM: 9 Methane PPM: 3 MARI Pennington 40 minutes Hydrogen PPM: 7 Methane PPM: 2 MARI Pennington 1 hour Hydrogen PPM: 5 Methane PPM: 3 MARI Pennington 1 hour 20 minutes Hydrogen PPM: 6 Methane PPM: 3 MARI Pennington 1 hour, 40 minutes Hydrogen PPM: 6 Methane PPM: [address] 2 hours Hydrogen PPM: 5 Methane PPM: [address] 2 hours, 20 minutes Hydrogen PPM: 7 Methane PPM: [address] 2 hours, 40 minutes Hydrogen PPM: 7 Methane PPM: [address] 3 hours Hydrogen PPM: 5 Methane PPM: 1 MARI Pennington Symptoms developed during the study period: None Patient Results Preliminary Test Results (not given to patient): pending [facility] of Present illness Narrative* Shree Marmolejo CT - 12/28/2023 8:41 AM EDT LACTULOSE HYDROGEN BREATH TEST FOR SMALL BOWEL BACTERIAL OVERGROWTH Date: December 28, 2023 Referring Physician: Indira Valles MD Chief Complaint Abdominal Pain Bloating Acid Reflux/Heartburn Symptoms prior to start of study: None [] 4 week restrictions [] 72 hour restrictions [] 12 hour fasting [] Followed the special diet Baseline Hydrogen PPM: 8 Methane PPM: 2 MARI Pennington Lactulose 15mL given at: 840am Start Time:845am 20 minutes Hydrogen PPM: 9 Methane PPM: [address] 40 minutes Hydrogen PPM: 7 Methane PPM: 2 MARI Pennington 1 hour Hydrogen PPM: 5 Methane PPM: 3 MARI Pennington 1 hour 20 minutes Hydrogen PPM: 6 Methane PPM: [address] 1 hour, 40 minutes Hydrogen PPM: 6 Methane PPM: 2 MARI Pennington 2 hours Hydrogen PPM: 5 Methane PPM: 2 MARI Pennington 2 hours, 20 minutes Hydrogen PPM: 7 Methane PPM: 5 MARI Pennington 2 hours, 40 minutes Hydrogen PPM: 7 Methane PPM: 2 MARI Pennington 3 hours Hydrogen PPM: 5 Methane PPM: 1 MARI Pennington Symptoms developed during the study period: None Patient Results Preliminary Test Results (not given to patient): pending MARI Pennington documented in this encounterMer[facility]03-[facility]-2024 Miscellaneous Notes* Telephone Encounter - Teodoro Machado RN - 12/13/2023 8:[address] Valles Please see patients MC message and advise documented in this encounterMercy [facility]01-29-2024 Instructions* Patient Instructions* Indira Valles MD - 11/01/2023 9:50 AM EST Thank you for seeing me in clinic today. As we discussed, my recommendations are as follows: Schedule a breath test to evaluate for small intestinal bacterial overgrowth. Breath testing [phone] Continue taking Pamelor 75 mg every evening before bed. Continue taking pantoprazole (Protonix) 40 mg/day. It works best if you take this 30-60 minutes before a meal on an empty stomach. I prescribed Bentyl (dicyclomine) 20 mg to be taken every 6 hours only as needed for abdominal cramping / pain. If this doesn't help after you've tried this for a 1-2 weeks, then you can stop it. It can infrequently cause dizziness, so please watch for this and let me know if you experience it. If your breath test is normal, I may order stool testing to evaluate for a bacterial infection in your stomach, called H. Pylori. Please make a follow up visit with me in 4 months or sooner as needed for any new/worsening GI symptoms If you have any questions about the above treatment plan, please do not hesitate to send me a Take the Interview message or call the [facility] at [phone] to route me a message. If you start feeling unwell or develop new/worsening gastrointestinal symptoms, especially if thisoccurs well before a future appointment, please call or message me directly for further instructions. documented in this encounter[facility]29-[facility] History of Present illness Narrative* Indira Valles MD - 11/01/2023 9:00 AM EST Images from the original note were not included. VIRTUAL VISIT I have communicated my name and active licensure. The patient's identity and physical location wereverified at the time of this visit. Either the patient or their legal off premise service representative has been informed of the risks and benefits of treatment through a remote evaluation and consents to proceed with the evaluation remotely. Aleksandra Miranda was informed that the details of this visit would be recorded as part of their electronic medical record. My recommendations will be conveyed to the consulting provider by way of shared electronic medical record, fax, or U.S. Mail. Patient location at time of call: Home Callback number: [phone] Connected at: 9:15 Additional encounter participants and relationship: N/A REASONS FOR VISIT: IBS-D Functional dyspepsia Abdominal bloating PATIENT SUMMARY: Aleksandra Miranda is a 33 year old male with a history of HTN, ADD, OCD and and gallbladder dyskinesia (s/p cholecystectomy) who presents to the GI clinic for IBS-D, lower abdominal bloating and functional dyspepsia follow up. Functional dyspepsia and IBS-D symptoms are characterized by chronic epigastric pain/fullness, belching, nausea and loose stools that have been present for over 15 years with intermittent waxing / waning severity. Last GI OV was in 02/2022. He was averaging 4-5 stools/day, often triggered by eating, with Pamelor 75 mg qhs, Metamucil 3-4 tsp/day and low-FODMAP diet. He was advised to increase fiber to 5-6 tsp/day and a glucose breath test was ordered to rule out SIBO. Acid reflux was well-controlled on Protonix 40 mg/day. INTERVAL HISTORY: has been focusing a lot on heathy diet changes and has successfully lost 40 lbs. He also discovered that butter and soda cause GI upset. Central / lower abdominal bloating, early satiety and lower abdominal cramping have been more noticeable lately. He still takes Pamelor 75 mg qhs, which has helped significantly. He isn't sure if he's had much of a noticeable difference since increasing from 50 to 75 mg qhs. He stopped taking Metamucil because he felt like it didn't work. In its place, he uses Rosanne Magallanesh organic probiotic gummies,which have strangely helped his acid reflux. He also tried a peppermint oil supplement, which helped with bloating but made abdominal burning worse so he stopped this. He has not scheduled a breath test yet. Normally, he averages 1-2 formed, complete stools/day without straining. Constipation is very rare.Infrequently, he may have a day with diarrhea / cramping, but this is usually self-limited and triggered by stress or something he ate. On these days, he may have 3-4 looser stools in the morning. Acid reflux is well-controlled. Therapies tried: Helpful - Pamelor (current medication), Librax, Protonix Intolerable - Elavil (dizziness), IBGard / FDGard (abdominal burning) Ineffective - Buspar, Levsin, Metamucil Past Clinical Workup: Comprehensive Metabolic Panel Component 10/10/22 10/01/22 Glucose 90 94 Sodium 138 138 Potassium 4.4 4.5 Chloride 101 103 Bicarbonate 31 28 Anion Gap 10 12 Urea Nitrogen 21 15 Creatinine 0.86 0.83 GFR MALE >90 >90 Calcium 10.3 9.7 Albumin 4.8 4.5 Alkaline Phosphatase 73 56 Total Protein 7.4 6.7 AST 18 44 High Total Bilirubin 0.8 0.3 ALT (SGPT) 43 104 High CBC and Auto Differential (10/01/2022 11:38 AM EST) Component Value Ref Range WBC 11.1 4.4 - 11.3 x10E9/L nRBC 0.0 0.0 - 0.0 /100 WBC RBC 5.00 4.50 - 5.90 x10E12/L Hemoglobin 14.8 13.5 - 17.5 g/dL Hematocrit 45.3 41.0 - 52.0 % MCV 91 80 - 100 fL MCHC 32.7 32.0 - 36.0 g/dL Platelets 358 150 - 450 x10E9/L RDW 12.8 11.5 - 14.5 % Neutrophils % 57.5 40.0 - 80.0 % Immature Granulocytes %, Automated 0.5 0.0 - 0.9 % Lymphocytes % 32.3 13.0 - 44.0 % Monocytes % 6.7 2.0 - 10.0 % Eosinophils % 2.5 0.0 - 6.0 % Basophils % 0.5 0.0 - 2.0 % Neutrophils Absolute 6.37 1.20 - 7.70 x10E9/L Lymphocytes Absolute 3.59 1.20 - 4.80 x10E9/L Monocytes Absolute 0.74 0.10 - 1.00 x10E9/L Eosinophils Absolute 0.28 0.00 - 0.70 x10E9/L Basophils Absolute 0.06 0.00 - 0.10 x10E9/L CTAP w/IV cont: 10/11/20: . IMPRESSION: No acute pathology is identified Component Latest Ref Rng & Units 09/20/2020 IgA 70 - 400 mg/dL 112 Transglutaminase Ab, IgA <20 Units 2 EGD: 11/17/19: Dr. Alea Platt: - Esophagus: Normal mucosa with a relatively straight Z-line at 40 cm and no evidence of a hiatal hernia. Cold biopsies taken. - Stomach: Normal mucosa with no retained food or bile and a normal contractility pattern. Biopsiesto rule out H. Pylori. - Duodenum: Normal first and second portions with biopsies to rule out Giardia and celiac sprue. Pathology: Random duodenal biopsies: - Histologically unremarkable duodenal mucosa. - No evidence of celiac sprue or parasites. 2. Gastric biopsies: - Minimal chronic gastritis, inactive. - Immunoperoxidase stain for Helicobacter pylori organisms is negative. 3. GE Junction biopsies: - Histologically unremarkable squamocolumnar mucosa. - Berg's mucosa/intestinal metaplasia not identified. - Alcian blue/PAS stain is negative. EGD/Colon Path: 12/05/15: epigastric pain, rectal bleeding: Both normal per patient. No endoscopy report available for review. A. Gastric antrum, biopsy: Changes of reactive gastropathy and mild chronic inflammation. Negative for intestinal metaplasia and dysplasia. Immunostain negative for Helicobacter pylori organisms. B. Random colon, biopsy: Segments of colonic mucosa, no significant pathologic abnormality identified. REVIEW OF SYSTEMS CONSTITUTIONAL: +weight loss (intentional); Negative for malaise or fevers HEENT: Negative for frequent/significant headaches, changes in hearing/vision, nose bleeds or othernasal problems RESPIRATORY: Negative for cough, hemoptysis, wheezing or dyspnea CARDIOVASCULAR: Negative for chest pain, palpitations, syncope or lightheadedness GI: See HPI : Negative for dysuria, polyuria, incontinence or hematuria MUSCULOSKELETAL: Negative for arthralgia or myalgia INTEGUMENTARY/SKIN: Negative for rash or skin lesion HEMATOLOGY/LYMPHOLOGY: Negative for prolonged bleeding, easy bruising or swollen nodes ENDOCRINE: Negative for cold/heat intolerance, polydipsia or goiter NEURO: Negative for encephalopathy, tremor or gait abnormality PSYCH: Negative for new changes in mood or affect PHYSICAL FINDINGS OF NOTE: General - Normal, healthy, cooperative, in no acute distress Able to interact verbally by video conference Psych - ORIENTATION: normal to time place, person and situation Mood/Affect: AFFECT AND MOOD: Normal Head/Neuro - Normal size and shape Facial appearance normal Pulmonary - respiratory effort normal Cardiovascular - patient describes extremities normal, warm, no cyanosis,no clubbing, and no edema Abdominal - Flat, Visible protrusions or hernias: No Incisions/scars: None, Areas of pain/tenderness: denies Skin - abnormal lesions not visualized Motor - patient seen sitting with Normal appearing strength and coordination ASSESSMENT/PLAN Aleksandra Miranda is a 33 year old male with a history of HTN, ADD, OCD and and gallbladder dyskinesia (s/p cholecystectomy) who presents to the GI clinic for IBS-D and functional dyspepsia follow up. 1) Functional dyspepsia 2) IBS-D He has responded very well to a TCA. Tests for celiac disease, structural causes of diarrhea (e.g. colon masses/polyps), microscopic colitis, thyroid dysfunction, pancreatitis and H. pylori infectionhave been unremarkable. --Continue Pamelor 75 mg qhs --Continue current probiotic (Rosanne Bustos organic probiotic gummies) --Low FODMAP diet and avoid other dietary triggers (soda, excessive oil/butter) --If H+ breath testing is normal, HP stool Ag testing may be ordered since gastric biopsies negative for H. Pylori in 2019 were taken on PPI therapy, which limits accuracy. 3) Lower abdominal bloating This bloating is not felt to be related to IBS-D or functional dyspepsia. It is relatively constant(not fluctuating with bowel movements), located in the lower abdomen and unchanged with the addition of Pamelor. DDx includes SIBO, small bowel dysbiosis and functional abdominal bloat syndrome. An antispasmodic may help since it is often associated with abdominal cramping. --H+ breath test --Bentyl PRN 4) GERD without erosive esophagitis Well controlled symptoms on daily PPI --Continue pantoprazole 40 mg/day --Maintain healthy anti-reflux lifestyle habits Follow up in 4 months or sooner PRN for new/worsening Sx Indira Valles MD Department of Gastroenterology and Hepatology [facility] [place] documented in this encounter[facility]10-[facility]-2023 Miscellaneous Notes* Telephone Encounter - Teodoro Machado RN - 07/08/2023 1:55 PM EDT Spoke with patient explained that Dr Valles refilled these medications previously in March 2023 and he was to set up a follow up apt to see him prior to more refills being sent. He stated he did not see this message and was upset that he did not want to drive all this way for a 15 min apt for refills. Explained he has not had an office visit since 02/2022 for his disease management. I offered to provide him with the number to the 24 hour scheduling line he declined agreed to a Porphyrio message. This called agreed to send for a temporary refill once an appt was secured with either Dr Valles or one the blunger for a f/u. Pt stated he understood and hung up. * Telephone Encounter - Kathi Voss - 07/08/2023 1:14 PM EDT Need refills on pamelor and pantoprazole. Send to [facility] in [place]. documented in this encounterMer[facility]04-04-2023 Miscellaneous Notes* Telephone Encounter - Irene Hahn RN - 01/05/2023 9:46 AM EDT Last office visti 02/09/22 No future office visit Irene Hahn RN * Telephone Encounter - Nettie Brand - 01/04/2023 3:31 PM EDT Patient has been identified by name and date of : Yes Requested Prescriptions Pending Prescriptions Disp Refills pantoprazole (PROTONIX) 40 mg tablet 90 tablet 1 Sig: Take 1 tablet by mouth once daily. Take 30-60 minutes before breakfast on an empty stomach. 3 months's supply RX INSTRUCTIONS: Patient aware RX will be sent to pharmacy. No need to notify patient. Nettie Brand documented in this encounterMer[facility]02-08-2023 History of Present illness Narrative* EP. Here for painful rash around waist line and back. * Aleksandra is a 32 year old male presenting today for a sick visit for a rash along his waist line andback. * -Thinks he may have shingles. * -Ran out of bandages yesterday * -Points to it along his waistline and on his back as well. * -At first he treated it like a fungal rash, which was very painful. * -Only thing that soothes the rash is coconut oil. * -Has not been feeling ill due to diet changes (cut out coffee) also reports losing 10 lbs. * -Under a lot of stress lately. * -Seen DUB ROOM ENGINEER at Dr. Hernandez office recently, scheduled for a stress test and ECHO then follows up in April. * -States his children have never had chicken pox nor have they been vaccinated for chicken pox. [facility] Work Phone: [phone] 297-988705-02-2022 Miscellaneous Notes* Telephone Encounter - Indira Valles MD - 02/02/2022 12:40 PM EDT Based on history of diverticulosis seen on previous CT, LLQ pain and stool mucus, CT scan ordered to rule out diverticulitis. Labs ordered for draw beforehand. Irene, can we squeeze Aleksandra in for a sick visit within the next 4 weeks? * Telephone Encounter - Karen Lora MA - 02/02/2022 8:27 AM EDT Please review patient update and advise patient. Karen Lora MA * Telephone Encounter - Irene Hahn RN - 01/30/2022 1:10 PM EDT Spoke with She is somewhat vague on pt's sx's. He is having a "flare" of his abd pain and nausea. He was doing well and pain started back again for the past week. I reviewed all recommendations from last visit and she states he is doing them all: last visit 06/23/21 --Increase Pamelor to 75 mg qhs --Restart metamucil 3-4 tsp/day --Drink at least 72 oz of water every day --Resume low-FODMAP diet (see AVS). Avoid caffeine and dairy --Exercise regularly --Mitigate stress/anxiety as able --IBGard 2 caps TID PRN for abdominal cramping/pain --Patient to send me a message or call the office in 3-4 weeks with a symptom update. If symptoms do not improve on higher dose of Pamelor, attention to diet and addition of fiber, will pursue 2-weektrial of Xifaxin. Please advise if you would like to do xifaxan as noted, pended for review Irene Hahn RN * Telephone Encounter - Marce Alfredo RN - 01/29/2022 1:50 PM EDT message routed to Irene please advise, thank you * Telephone Encounter - Hank Matias - 01/29/2022 10:54 AM EDT Pt is still having issues, medicine is not helping, more issues than before, wants to be seen but first available is April 20, needs to be seen sooner Please advise [phone] documented in this encounterMer[facility]04-11-2022 Miscellaneous Notes* Telephone Encounter - rIene Hahn RN - 01/12/2022 3:48 PM EDT Last office visit: 06/23/21 Future office visit: not scheduled Pharmacy calls in requesting the following refill(s): Pending Prescriptions Disp Refills NORTRIPTYLINE 75 MG CAPSULE 30 capsule 2 Sig: Take 1 capsule by mouth daily at bedtime. SHAYAN: No Irene Hahn RN * Telephone Encounter - Nany Huitron Ma - 01/12/2022 3:22 PM EDT Aleksandra iMranda is calling in for a refill on his prescription of Nortripyline 75mg and [facility]. documented in this encounterMer[facility]04-01-2021 History of Present illness NarrativeThimadeline is a 31-year-old male with a history of hypertension. He presents for a follow-up evaluation, and was last seen in the office in January 2021. His blood pressure readings at home are typically in the range of 140/90. He has lost 46 pounds over the past 2 years. No other cardiac complaints at this time.[facility] [address] [place] Work Phone: [phone] 319-405601-01-2021 History of Present illness Narrative* EP. Here for MRI/Blood work orders. States nodule in upper back may have grown and is having pain in his lymph nodes under arm pit. * Aleksandra is 32 year old male presenting today to request lab and radiology orders. * -States 2 years ago nodules were found on an MRI. * -Saw civil engineering draftsperson who was not concerned with the findings and suggested a repeat MRI 1 year later. * -The pain in his shoulder has returned and now has swollen lymph nodes in his under arms, promptinghim to want the MRI but the doctor he saw is no longer practicing. * -Occasionally he has pain in his leg and arms too. * -His MRI from 10/2019 showed arthritis of the cervical spine, otherwise normal. * -Not exercising lately. * -Denies any serious injuries in the past just mild sprains as a child. [facility] Work Phone: [phone] History of Present illness Narrative* EP. Here for MRI/Blood work orders. States nodule in upper back may have grown and is having pain in his lymph nodes under arm pit. * Aleksandra is 32 year old male presenting today to request lab and radiology orders. * -States 2 years ago nodules were found on an MRI. * -Saw civil engineering draftsperson who was not concerned with the findings and suggested a repeat MRI 1 year later. * -The pain in his shoulder has returned and now has swollen lymph nodes in his under arms, promptinghim to want the MRI but the doctor he saw is no longer practicing. * -Occasionally he has pain in his leg and arms too. * -His MRI from 10/2019 showed arthritis of the cervical spine, otherwise normal. * -Not exercising lately. * -Denies any serious injuries in the past just mild sprains as a child. [facility] Work Phone: Evaluation note* Diagnosis Left lower quadrant abdominal pain documented in this encounter [facility]* Diagnosis Gastroesophageal reflux disease without esophagitis- Primary Esophageal reflux documented in this encounter [facility]* Diagnosis Abdominal bloating- Primary Flatulence, eructation, and gas pain Functional dyspepsia Dyspepsia and other specified disorders of function of stomach Irritable bowel syndrome with diarrhea Irritable bowel syndrome Gastroesophageal reflux disease without esophagitis Esophageal reflux documented in this encounter [facility]* Diagnosis Abdominal bloating- Primary Flatulence, eructation, and gas pain documented in this encounter [facility]* Diagnosis Abdominal pain, unspecified abdominal location- Primary Irritable bowel syndrome with diarrhea Irritable bowel syndrome documented in this encounter [facility]* Diagnosis Left lower quadrant abdominal pain documented in this [facility]* Diagnosis Left lower quadrant abdominal pain- Primary Diverticulitis Diverticulitis of colon (without mention of hemorrhage) Left lower quadrant abdominal pain documented in this [facility]* Diagnosis Heart palpitations- Primary Palpitations Chest discomfort Other chest pain Essential hypertension Unspecified essential hypertension documented in this encounter [facility] Work Phone: Evaluation note* Diagnosis Gastroesophageal reflux disease without esophagitis Esophageal reflux documented in this encounter [facility] note* Diagnosis Left lower quadrant abdominal pain Nausea Nausea alone documented in this encounter [facility] note* Diagnosis Left lower quadrant abdominal pain documented in this encounter [facility]* Diagnosis Diverticulitis Diverticulitis of colon (without mention of hemorrhage) Nausea Nausea alone Left upper quadrant pain Abdominal pain, left upper quadrant documented in this encounter [facility] noteNo assessment information availableWSelect [facility] Work Phone: Evaluation note* Diagnosis Heart palpitations- Primary Palpitations Chest discomfort Other chest pain Essential hypertension Unspecified essential hypertension Essential hypertension- Primary Unspecified essential hypertension Chest discomfort Other chest pain Mixed hyperlipidemia documented in this encounter [facility] Work Phone: Evaluation note* Diagnosis Heart palpitations- Primary Palpitations Chest discomfort Other chest pain Essential hypertension Unspecified essential hypertension Essential hypertension- Primary Unspecified essential hypertension Chest discomfort Other chest pain Mixed hyperlipidemia Anxiety- Primary Anxiety state, unspecified Chest discomfort Other chest pain documented in this encounter [facility] Work Phone: Evaluation note* Diagnosis Heart palpitations- Primary Palpitations Chest discomfort Other chest pain Essential hypertension Unspecified essential hypertension Essential hypertension- Primary Unspecified essential hypertension Chest discomfort Other chest pain Mixed hyperlipidemia Essential hypertension Unspecified essential hypertension documented in this encounter [facility] Work Phone: Evaluation note* Diagnosis Heart palpitations- Primary Palpitations Chest discomfort Other chest pain Essential hypertension Unspecified essential hypertension Essential hypertension- Primary Unspecified essential hypertension Chest discomfort Other chest pain Mixed hyperlipidemia Chest discomfort Other chest pain documented in this encounter [facility] Work Phone: Evaluation note* Diagnosis Heart palpitations- Primary Palpitations Chest discomfort Other chest pain Essential hypertension Unspecified essential hypertension Essential hypertension- Primary Unspecified essential hypertension Chest discomfort Other chest pain Mixed hyperlipidemia Chest discomfort Other chest pain Chest discomfort Other chest pain documented in this encounter [facility] Work Phone: History of Present illness NarrativeThis is a 30-year-old male with a history of hypertension. He has been feeling fatigued on metoprolol. The dosage was decreased to 50 mg daily at the last office visit. Some of his blood pressure readings at home have been slightly elevated, with the diastolic blood pressure hovering around 90 mmHg. No new cardiac complaints. [facility] Work Phone: History of Present illness NarrativeThimadeline is a 30-year-old male with a history of hypertension. He has been feeling fatigued on metoprolol. The dosage was decreased to 50 mg daily at the last office visit. Some of his blood pressure readings at home have been slightly elevated, with the diastolic blood pressure hovering around 90 mmHg. No new cardiac complaints. [facility] Work Phone: History of Present illness Narrative* EP. Here for MRI/Blood work orders. States nodule in upper back may have grown and is having pain in his lymph nodes under arm pit. * Aleksandra is 32 year old male presenting today to request lab and radiology orders. * -he is concerned about some left upper back pain/shoulder pain he is having and wonders about possible swollen lymph nodes in armpits, did a Google search and concerned * -States 2 years ago nodules were found on an MRI.- he is a bit confuses as I review past medical records and find that in 04/2019 he had MRI cervical spine and was found to have a disc protrusion C5-6and mild degenerative changes of cervical spine, had repeat MRI cervical spine which showed similarbut improvement; also had CT abd/pwlvis 09/2020 due to chest and abdominal pain and incidental finding of 2 mm lingular pulmonary nodule seen but o/w normal * -Saw civil engineering draftsperson who was not concerned with the findings * -Occasionally he has pain in his leg and arms too. * -Not exercising lately. * -Denies any serious injuries in the past just mild sprains as a child. [facility] Work Phone: History of Present illness NarrativePatient reports discomfort in his left shoulder which seems to radiate down his left arm to his finger tips. Symptoms are not associated with physical exertion. No associated diaphoresis, N/V, lightheadedness, dizziness, syncope. SBP has been elevated recently despite medical therapy via lisinopriland metoprolol. Patient is tachycardic on exam today as displayed on EKG, however he does admit to s ituational anxiety. Fasting lipids recently repeat again displaying marked LDL-C elevation at 229 mg/dL - patient admits to serious aversion to statins and alternative lipid reduction therapies. He states he will continue to increase his aerobic activity and make strict dietary modifications in an attempt to lower LDL-C.[facility] Work Phone: History of Present illness NarrativePatient reports discomfort in his left shoulder which seems to radiate down his left arm to his finger tips. Symptoms are not associated with physical exertion. No associated diaphoresis, N/V, lightheadedness, dizziness, syncope. SBP has been elevated recently despite medical therapy via lisinopriland metoprolol. Patient is tachycardic on exam today as displayed on EKG, however he does admit to s ituational anxiety. Fasting lipids recently repeat again displaying marked LDL-C elevation at 229 mg/dL - patient admits to serious aversion to statins and alternative lipid reduction therapies. He states he will continue to increase his aerobic activity and make strict dietary modifications in an attempt to lower LDL-C.[facility] Work Phone: History of Present illness Narrative* EP. Here for painful rash around waist line and back. * Aleksandra is a 32 year old male presenting today for a sick visit for a rash along his waist line andback. * -Thinks he may have shingles- points to it along his waistline and on his back as well. * -At first he treated it like a fungal rash with Tinactin- that burned * -Only thing that soothes the rash is coconut oil. * -Under a lot of stress lately. * -Seen DUB ROOM ENGINEER at Dr. Hernandez office recently, scheduled for a stress test and ECHO then follows up in April. * -States his children have never had chicken pox nor have they been vaccinated for chicken pox and wonders it that is a concern [facility] Work Phone: History of Present illness Narrative* EP. Here for painful rash around waist line and back. * Aleksandra is a 32 year old male presenting today for a sick visit for a rash along his waist line andback. * -Thinks he may have shingles- points to it along his waistline and on his back as well. * -At first he treated it like a fungal rash with Tinactin- that burned * -Only thing that soothes the rash is coconut oil. * -Under a lot of stress lately. * -Seen DUB ROOM ENGINEER at Dr. Hernandez office recently, scheduled for a stress test and ECHO then follows up in April. * -States his children have never had chicken pox nor have they been vaccinated for chicken pox and wonders it that is a concern [facility] Work Phone: Reason for referral (narrative)* Outpatient Procedure (Routine) - Authorized Specialty Diagnoses / Procedures Referred By Contac t Referred To Contact [facility] Diagnoses Diverticulitis Procedures COLONOSCOPY DIAGNOSTIC COLONOSCOPY FLX DX W/COLL[place] [address] [place] [address] [facility] [place] [address] [place] [address] Referral ID Status Reason Start Date Expiration Date Visits Requested Visits Authorized [id number] Authorized Auto-Generat ed Referral 4 06/22/2025 1 1 * MRI/CT (Urgent) - Closed Specialty Diagnoses / Procedures Referred By Contac t Referred To Contact CT IMAGING Diagnoses Left lower quadrant abdominal pain Procedures CT ABD/PEL W IVCON CT ABD & PELVIS W/CONTRAST Indira Valles [place] [id number] [place], [place] [id number] Ct [facility] [place] [address] Referral ID Status Reason Start Date Expiration Date V isits Requested Visits Authorized [id number] Closed Auto-Generate d Referral 06/21/2024 12/17/2024 2 2 [facility] for referral (narrative)No reason for referral information [facility] Work Phone: Reason for visit Narrative* MRI/CT (Urgent) - Pending Review Specialty Diagnoses / Procedures Referred By Contac t Referred To Contact CT IMAGING Diagnoses Left lower quadrant abdominal pain Procedures CT ABD/PEL W IVCON CT ABD & PELVIS W/CONTRAST Indira Valles [place] [id number] [place], [place] [id number] Phone: tel: [place] [address] Referral ID Status Reason Start Date Expiration Date Visits Requested Visits Authorized [id number] Pending Review Auto-Genera rosa Referral Patient Cleared - Admin/Chair man/Directo r advise to proceed or did not respond 11/28/2024 12/27/2025 1 1 [facility] for visit Narrative* MRI/CT (Urgent) - Pending Review Specialty Diagnoses / Procedures Referred By Amairani t Referred To Contact CT IMAGING Diagnoses Left lower quadrant abdominal pain Procedures CT ABD/PEL W IVCON CT ABD & [place] W/[place] [address] [place] [address] Phone: tel: [facility] IMAGING [id number] Referral ID Status Reason Start Date Expiration Date Visits Requested Visits Authorized [id number] Pending Review Auto-Genera rosa Referral Patient Cleared - Admin/Chair man/Directo r advise to proceed or did not respond 11/28/2024 12/27/2025 1 1 [facility] for visit Narrative* Outpatient Procedure (Routine) - Closed Specialty Diagnoses / Procedures Referred By Amairani t Referred To Contact [facility] Diagnoses Diverticulitis Procedures COLONOSCOPY DIAGNOSTIC COLONOSCOPY FLX DX W/COLLJ [place] [address] [place] [address] Phone: tel: [facility] [address] [place] [address] Referral ID Status Reason Start Date Expiration Date V isits Requested Visits Authorized [id number] Closed Auto-Generate d Referral 08/22/2024 06/22/2025 1 1 [facility] for visit Narrative* Imaging (Routine) - Pending Review Specialty Diagnoses / Procedures Referred By Amairani t Referred To Contact Radiology Diagnoses Essential hypertension Procedures CT cardiac scoring wo IV contrast Dilma Galaviz, [address] [facility] [address], [facility] [address] [place] [address] Phone: tel: fax: Referral ID Status Reason Start Date Expiration Date Visits Requested Visits Authorized [id number] Pending Review Perform Procedure 06/27/2025 07/27/2026 1 1 [facility] Work Phone: Reason for visit Narrative* Cardiac Stress Testing (Routine) - Authorized Specialty Diagnoses / Procedures Referred By Amairani t Referred To Contact Cardiology Diagnoses Chest discomfort Procedures Nuclear Stress Test CHG MYOCARDIAL SPECT MULTIPLE STUDIES Dilma Galaviz, DO [address] [employer] [address] [place] [address] Phone: tel: fax: [facility] [address] [employer] [facility] [address] [place] [address] Phone: tel: fax: Referral ID Status Reason Start Date Expiration Date Visits Requested Visits Authorized [id number] Authorized Perform Procedure 08/08/2025 08/08/2026 5 5 [facility] Work Phone: Reason for visit Narrative* Cardiac Stress Testing (Routine) - Authorized Specialty Diagnoses / Procedures Referred By Amairani t Referred To Contact Cardiology Diagnoses Chest discomfort Procedures Nuclear Stress Test CHG MYOCARDIAL SPECT MULTIPLE STUDIES Dilma Galaviz, DO [address] [employer] [facility] 3, [facility] [address] [place] [address] Phone: tel: fax: [facility] [address] [employer] [facility] [address] [place] [address] Phone: tel: fax: Referral ID Status Reason Start Date Expiration Date Visits Requested Visits Authorized [id number] Authorized Perform Procedure 08/08/2025 08/08/[address] [place] [address] Work Phone: Summary Purpose Family History Grandparent Name Dates Details Family history of Alzheimer' s disease(V17.2, Z82.0) Status:Active Mother Name Dates Details Family history of hypertensi on(V17.49, Z82.49) Status:Active Grandparent Name Dates Details Family history of Alzheimer' s disease(V17.2, Z82.0) Status:Active Mother Name Dates Details Family history of hypertensi on(V17.49, Z82.49) Status:Active Grandparent Name Dates Details Family history of Alzheimer' s disease(V17.2, Z82.0) Status:Active Mother Name Dates Details Family history of hypertensi on(V17.49, Z82.49) Status:Active Grandparent Name Dates Details Family history of Alzheimer' s disease(V17.2, Z82.0) Status:Active Mother Name Dates Details Family history of hypertensi on(V17.49, Z82.49) Status:Active Grandparent Name Dates Details Family history of Alzheimer' s disease(V17.2, Z82.0) Status:Active Mother Name Dates Details Family history of hypertensi on(V17.49, Z82.49) Status:Active Unknown Family Member Name Dates Details Family history of hypertensi on: Mother(V17.49, Z82.49) Status:Active Family history of Alzheimer' s disease: Grandparent(V17.2, Z82.0) Status:Active Unknown Family Member Name Dates Details Family history of hypertensi on: Mother(V17.49, Z82.49) Status:Active Family history of Alzheimer' s disease: Grandparent(V17.2, Z82.0) Status:Active Unknown Family Member Name Dates Details Family history of hypertensi on: Mother(V17.49, Z82.49) Status:Active Family history of Alzheimer' s disease: Grandparent(V17.2, Z82.0) Status:Active Unknown Family Member Name Dates Details Family history of hypertensi on: Mother(V17.49, Z82.49) Status:Active Family history of Alzheimer' s disease: Grandparent(V17.2, Z82.0) Status:Active Unknown Family Member Name Dates Details Family history of hypertensi on: Mother(V17.49, Z82.49) Status:Active Family history of Alzheimer' s disease: Grandparent(V17.2, Z82.0) Status:Active Unknown Family Member Name Dates Details Family history of hypertensi on: Mother(V17.49, Z82.49) Status:Active Family history of Alzheimer' s disease: Grandparent(V17.2, Z82.0) Status:Active Unknown Family Member Name Dates Details Family history of hypertensi on: Mother(V17.49, Z82.49) Status:Active Family history of Alzheimer' s disease: Grandparent(V17.2, Z82.0) Status:Active Unknown Family Member Name Dates Details Family history of hypertensi on: Mother(V17.49, Z82.49) Status:Active Family history of Alzheimer' s disease: Grandparent(V17.2, Z82.0) Status:Active Unknown Family Member Name Dates Details Family history of hypertensi on: Mother(V17.49, Z82.49) Status:Active Family history of Alzheimer' s disease: Grandparent(V17.2, Z82.0) Status:Active Unknown Family Member Name Dates Details Family history of hypertensi on: Mother(V17.49, Z82.49) Status:Active Family history of Alzheimer' s disease: Grandparent(V17.2, Z82.0) Status:Active Unknown Family Member Name Dates Details Family history of hypertensi on: Mother(V17.49, Z82.49) Status:Active Family history of Alzheimer' s disease: Grandparent(V17.2, Z82.0) Status:Active Unknown Family Member Name Dates Details Family history of hypertensi on: Mother(V17.49, Z82.49) Status:Active Family history of Alzheimer' s disease: Grandparent(V17.2, Z82.0) Status:Active Unknown Family Member Name Dates Details Family history of hypertensi on: Mother(V17.49, Z82.49) Status:Active Family history of Alzheimer' s disease: Grandparent(V17.2, Z82.0) Status:Active Unknown Family Member Name Dates Details Family history of hypertensi on: Mother(V17.49, Z82.49) Status:Active Family history of Alzheimer' s disease: Grandparent(V17.2, Z82.0) Status:Active Unknown Family Member Name Dates Details Family history of hypertensi on: Mother(V17.49, Z82.49) Status:Active Family history of Alzheimer' s disease: Grandparent(V17.2, Z82.0) Status:Active Unknown Family Member Name Dates Details Family history of Alzheimer' s disease: Grandparent(V17.2, Z82.0) Status:Active Family history of hypertensi on: Mother(V17.49, Z82.49) Status:Active Unknown Family Member Name Dates Details Family history of hypertensi on: Mother(V17.49, Z82.49) Status:Active Family history of Alzheimer' s disease: Grandparent(V17.2, Z82.0) Status:Active Unknown Family Member Name Dates Details Family history of hypertensi on: Mother(V17.49, Z82.49) Status:Active Family history of Alzheimer' s disease: Grandparent(V17.2, Z82.0) Status:Active Advance Directives Documents on File Type Date Recorded Patient Combination Technician Expl anation Advance Directive(s) 10/11/2020 6:10 PM Advance Directive(s) 12/25/2018 10:44 AM Documents on File Type Date Recorded Patient Combination Technician Expl anation Advance Directive(s) 10/11/2020 6:10 PM Advance Directive(s) 12/25/2018 10:44 AM Advance Directive Response Recorded Date/ Time Do you have a Healthcare Power of Marketing Clerk? No June 07, 2025 1:14pm Healthcare Agents on File Name Relationship Healthcare Agent Relationshi p Communication Hannah Miranda Spouse Health Care Agent [phone] (Home) Healthcare Agents on File Name Relationship Healthcare Agent Relationshi p Communication Hannah Miranda Spouse Health Care Agent Healthcare Agents on File Name Relationship Healthcare Agent Relationshi p Communication Hannah Miranda Spouse Health Care Agent Healthcare Agents on File Name Relationship Healthcare Agent Relationshi p Communication Hannah Miranda Spouse Health Care Agent Healthcare Agents on File Name Relationship Healthcare Agent Relationshi p Communication Hannah Miranda Spouse Health Care Agent Healthcare Agents on File Name Relationship Healthcare Agent Relationshi p Communication Hannah Miranda Spouse Health Care Agent Reason for Referral Specialty Diagnoses / Procedures Referred By Amairani t Referred To Contact CT IMAGING Diagnoses Left lower quadrant abdominal pain Procedures CT ABD/PEL W IVCON CT ABD & PELVIS W/[place] [address] [place] [address] Ct Imaging Referral ID Status Reason Start Date Expiration Date Visits Requested Visits Authorized [id number] Pending Review Auto-Generat ed Referral 02/02/2022 03/04/2023 1 1 Specialty Diagnoses / Procedures Referred By Contac t Referred To Contact CT IMAGING Diagnoses Left lower quadrant abdominal pain Procedures CT ABD/PEL W IVCON CT ABD & PELVIS W/[place] [address] [place] [id number] [place] [address] Referral ID Status Reason Start Date Expiration Date V isits Requested Visits Authorized [id number] Closed Auto-Generate d Referral 06/21/2024 12/17/2024 2 2 Specialty Diagnoses / Procedures Referred By Contac t Referred To Contact Diagnoses Heart palpitations Procedures ECG 12 lead (Clinic Performed) Dilma Galaviz, DO [address] [place] [address] Referral ID Status Reason Start Date Expiration Date V isits Requested Visits Authorized [id number] Authorized 06/26/2024 06/26/2025 1 1 Specialty Diagnoses / Procedures Referred By Contac t Referred To Contact CT IMAGING Diagnoses Left lower quadrant abdominal pain Nausea Procedures CT ABD/PEL W IVCON CT ABD & PELVIS W/[place] [address] [place] [id number] [place] [address] Referral ID Status Reason Start Date Expiration Date V isits Requested Visits Authorized [id number] Closed Auto-Generate d Referral 11/02/2024 04/30/2025 2 2 Chief Complaint Patient is here today for a follow up on labsPatient is here today for a follow up on labsPatient is here today for a follow up on labsPatient is here today for a follow up on labs Chief Complaint and Reason for Visit Chief Complaint Admit Date CHEST PAIN June 07, 2025 12:59pm Additional Source Comments (unrecognized sect ion and content) No Status Records FoundNo Status Records FoundNo Status Records FoundNo Status Records FoundNo Status Records FoundNo Status Records FoundNo Status Records FoundNo Status Records FoundNo Status Records FoundNo Status Records FoundNo Status Records FoundNo Status Records FoundNo Status Records Found INFORMATION SOURCE (unrecogn ized section and content) DATE CREATED AUTHOR 03/29/2018 [facility] DATE CREATED AUTHOR AUTHOR'S ORGANIZ ATION 11/14/2019 [facility] DATE CREATED AUTHOR AUTHOR'S ORGANIZ ATION 04/24/2023 [facility] DATE CREATED AUTHOR AUTHOR'S ORGANIZ ATION 06/29/2024 [facility] DATE CREATED AUTHOR AUTHOR'S ORGANIZ ATION 11/05/2024 [facility] DATE CREATED AUTHOR AUTHOR'S ORGANIZ ATION 12/02/2024 [facility] DATE CREATED AUTHOR AUTHOR'S ORGANIZ ATION 12/12/2024 [facility] DATE CREATED AUTHOR AUTHOR'S ORGANIZ ATION 06/15/2025 [facility] DATE CREATED AUTHOR AUTHOR'S ORGANIZ ATION 07/27/2025 [facility] DATE CREATED AUTHOR AUTHOR'S ORGANIZ ATION 07/30/2025 [facility] DATE CREATED AUTHOR AUTHOR'S ORGANIZ ATION 08/01/2025 [facility] DATE CREATED AUTHOR AUTHOR'S ORGANIZ ATION 08/10/2025 [facility] DATE CREATED AUTHOR AUTHOR'S ORGANIZ ATION 08/11/2025 [facility] Source Comments (unrecognize d section and content) In the event this informatio n is protected by the Federal Confidentiality of Alcohol and Drug Abuse Patient Records regulations: The Federal rules restrict any use of the information to criminally investigate or prosecute any alcohol or drug abuse patient.[facility] the event this information is protected by the Federal Confidentiality of Alcohol and Drug Abuse Patient Records regulations: The Federal rules restrict any use of the information to criminally investigate or prosecute any alcohol or drug abuse patient.[facility] Hospital[facility] the event this information is protected by the Federal Confidentiality of Alcohol and Drug Abuse Patient Records regulations: The Federal rules restrict any use of the information to criminally investigate or prosecute any alcohol or drug abuse patient.[facility] HospitalIn the event this information is protected by the Federal Confidentiality of Alcohol and Drug Abuse Patient Records regulations: The Federal rules restrict any use of the information to criminally investigate or prosecute any alcohol or drug abuse patient.[facility] HospitalIn the event this information is protected by the Federal Confidentiality of Alcohol and Drug Abuse Patient Records regulations: The Federal rules restrict any use of the information to criminally investigate or prosecute any alcohol or drug abuse patient.[facility] HospitalIn the event this information is protected by the Federal Confidentiality of Alcohol and Drug Abuse Patient Records regulations: The Federal rules restrict any use of the information to criminally investigate or prosecute any alcohol or drug abuse patient.[facility] HospitalIn the event this information is protected by the Federal Confidentiality of Alcohol and Drug Abuse Patient Records regulations: The Federal rules restrict any use of the information to criminally investigate or prosecute any alcohol or drug abuse patient.[facility] HospitalIn the event this information is protected by the Federal Confidentiality of Alcohol and Drug Abuse Patient Records regulations: The Federal rules restrict any use of the information to criminally investigate or prosecute any alcohol or drug abuse patient.[facility] HospitalIn the event this information is protected by the Federal Confidentiality of Alcohol and Drug Abuse Patient Records regulations: The Federal rules restrict any use of the information to criminally investigate or prosecute any alcohol or drug abuse patient.[facility] HospitalIn the event this information is protected by the Federal Confidentiality of Alcohol and Drug Abuse Patient Records regulations: The Federal rules restrict any use of the information to criminally investigate or prosecute any alcohol or drug abuse patient.[facility] HospitalIn the event this information is protected by the Federal Confidentiality of Alcohol and Drug Abuse Patient Records regulations: The Federal rules restrict any use of the information to criminally investigate or prosecute any alcohol or drug abuse patient.[facility] HospitalIn the event this information is protected by the Federal Confidentiality of Alcohol and Drug Abuse Patient Records regulations: The Federal rules restrict any use of the information to criminally investigate or prosecute any alcohol or drug abuse patient.[facility] HospitalIn the event this information is protected by the Federal Confidentiality of Alcohol and Drug Abuse Patient Records regulations: The Federal rules restrict any use of the information to criminally investigate or prosecute any alcohol or drug abuse patient.[facility] HospitalIn the event this information is protected by the Federal Confidentiality of Alcohol and Drug Abuse Patient Records regulations: The Federal rules restrict any use of the information to criminally investigate or prosecute any alcohol or drug abuse patient.[facility] HospitalIn the event this information is protected by the Federal Confidentiality of Alcohol and Drug Abuse Patient Records regulations: The Federal rules restrict any use of the information to criminally investigate or prosecute any alcohol or drug abuse patient.[facility] HospitalIn the event this information is protected by the Federal Confidentiality of Alcohol and Drug Abuse Patient Records regulations: The Federal rules restrict any use of the information to criminally investigate or prosecute any alcohol or drug abuse patient.[facility] HospitalIn the event this information is protected by the Federal Confidentiality of Alcohol and Drug Abuse Patient Records regulations: The Federal rules restrict any use of the information to criminally investigate or prosecute any alcohol or drug abuse patient.[facility] HospitalIn the event this information is protected by the Federal Confidentiality of Alcohol and Drug Abuse Patient Records regulations: The Federal rules restrict any use of the information to criminally investigate or prosecute any alcohol or drug abuse patient.[facility] HospitalIn the event this information is protected by the Federal Confidentiality of Alcohol and Drug Abuse Patient Records regulations: The Federal rules restrict any use of the information to criminally investigate or prosecute any alcohol or drug abuse patient.[facility] HospitalIn the event this information is protected by the Federal Confidentiality of Alcohol and Drug Abuse Patient Records regulations: The Federal rules restrict any use of the information to criminally investigate or prosecute any alcohol or drug abuse patient.[facility] HospitalIn the event this information is protected by the Federal Confidentiality of Alcohol and Drug Abuse Patient Records regulations: The Federal rules restrict any use of the information to criminally investigate or prosecute any alcohol or drug abuse patient.[facility] HospitalIn the event this information is protected by the Federal Confidentiality of Alcohol and Drug Abuse Patient Records regulations: The Federal rules restrict any use of the information to criminally investigate or prosecute any alcohol or drug abuse patient.[facility] HospitalIn the event this information is protected by the Federal Confidentiality of Alcohol and Drug Abuse Patient Records regulations: The Federal rules restrict any use of the information to criminally investigate or prosecute any alcohol or drug abuse patient.[facility] HospitalIn the event this information is protected by the Federal Confidentiality of Alcohol and Drug Abuse Patient Records regulations: The Federal rules restrict any use of the information to criminally investigate or prosecute any alcohol or drug abuse patient.[facility] HospitalIn the event this information is protected by the Federal Confidentiality of Alcohol and Drug Abuse Patient Records regulations: The Federal rules restrict any use of the information to criminally investigate or prosecute any alcohol or drug abuse patient.[facility] HospitalIn the event this information is protected by the Federal Confidentiality of Alcohol and Drug Abuse Patient Records regulations: The Federal rules restrict any use of the information to criminally investigate or prosecute any alcohol or drug abuse patient.[facility] HospitalIn the event this information is protected by the Federal Confidentiality of Alcohol and Drug Abuse Patient Records regulations: The Federal rules restrict any use of the information to criminally investigate or prosecute any alcohol or drug abuse patient.[facility] Reason for Visit (unrecogniz ed section and content) Reason Comments Refill Request nortriptyline Reason Comments Appointment Reason Onset Date Comments Refill Request 01/04/2023 Reason Comments Refill Request Reason Comments Irritable Bowel Syndrome Gas Dyspepsia Reason Comments Breath Hydrogen Test Reason Comments Patient Update Reason Comments Radiology CT Specialty Diagnoses / Procedures Referred By Contac t Referred To Contact CT IMAGING Diagnoses Left lower quadrant abdominal pain Procedures CT ABD/PEL W IVCON CT ABD & PELVIS W/[place] [address] [place] [address] [place] [address] Referral ID Status Reason Start Date Expiration Date V isits Requested Visits Authorized [id number] Closed Auto-Generate d Referral 06/21/2024 12/17/2024 2 2 Reason Comments Annual Exam Specialty Diagnoses / Procedures Referred By Contac t Referred To Contact Diagnoses Heart palpitations Procedures ECG 12 lead (Clinic Performed) Dilma Galaviz, [address] [facility] [address] [place] [address] Referral ID Status Reason Start Date Expiration Date V isits Requested Visits Authorized [id number] Authorized 06/26/2024 06/26/2025 1 1 Reason Onset Date Comments Refill Request 10/19/2024 Specialty Diagnoses / Procedures Referred By Amairani tristan Referred To Contact CT IMAGING Diagnoses Left lower quadrant abdominal pain Nausea Procedures CT ABD/PEL W IVCON CT ABD & PELVIS W/[place] [address] [place] [address] [place] [address] Referral ID Status Reason Start Date Expiration Date V isits Requested Visits Authorized [id number] Closed Auto-Generate d Referral 11/02/2024 04/30/2025 2 2 Reason Comments Follow-up Reason Comments Sick Visit EPV, C/O Swollen lym ph node Left side x 2 weeks Blood work scheduled for / CT cardiac scoring scan scheduled tomorrow Care Teams (unrecognized sec tion and content) Ortho Assistant Relationship Specialty Start Date End Date Albina Roberts [address] [place] [address] PCP - General Family Practice 12/25/18 Ortho Assistant Relationship Specialty Start Date End Date Albina Roberts [address] [place] [address] PCP - General Family Practice 12/25/18 Ortho Assistant Relationship Specialty Start Date End Date Albina Roberts [address] [place] [address] PCP - General Family Medicine 12/25/18 Ortho Assistant Relationship Specialty Start Date End Date Albina Roberts MD [address] [place] [address] PCP - General Family Medicine 12/25/18 Ortho Assistant Relationship Specialty Start Date End Date Albina Roberts MD [address] [place] [address] PCP - General Family Medicine 12/25/18 Ortho Assistant Relationship Specialty Start Date End Date Albina Roberts MD [address] [place] [address] PCP - General Family Medicine 12/25/18 Ortho Assistant Relationship Specialty Start Date End Date Albina Roberts MD [address] [place] [address] PCP - General Family Medicine 12/25/18 Ortho Assistant Relationship Specialty Start Date End Date Albina Roberts MD [address] [place] [address] PCP - General Family Medicine 12/25/18 Ortho Assistant Relationship Specialty Start Date End Date Albina Roberts MD [address] [place] [address] PCP - General Family Medicine 12/25/18 Ortho Assistant Relationship Specialty Start Date End Date Albina Roberts MD [address] [place] [address] PCP - General Family Medicine 12/25/18 Ortho Assistant Relationship Specialty Start Date End Date Albina Roberts MD [address] [place] [address] PCP - General Family Medicine 12/25/18 Ortho Assistant Relationship Specialty Start Date End Date Albina Roberts MD [address] [facility] [place] [address] PCP - General 10/04/17 Albina Roberts MD [address] [facility] [place] [address] PCP - [facility] PCP 10/04/21 Ortho Assistant Relationship Specialty Start Date End Date Albina Roberts MD [facility] [address] [facility] [address] [place] [address] PCP - General Family Medicine 12/25/18 Ortho Assistant Relationship Specialty Start Date End Date Albina Roberts MD [facility] [address] [facility] [address] [place] [address] PCP - General Family Medicine 12/25/18 Ortho Assistant Relationship Specialty Start Date End Date Albina Roberts MD [facility] [address] [facility] [address] [place] [address] PCP - General Family Medicine 12/25/18 Ortho Assistant Relationship Specialty Start Date End Date Albina Roberts MD [facility] [place] [address] PCP - General Family Medicine 12/25/18 Ortho Assistant Relationship Specialty Start Date End Date Albina Roberts MD [address] [place] [address] PCP - General Family Medicine 12/25/18 Ortho Assistant Relationship Specialty Start Date End Date Albina Roberts MD [address] [place] [address] PCP - General Family Medicine 12/25/18 Ortho Assistant Relationship Specialty Start Date End Date Albina Roberts MD [address] [facility] [address] [place] [address] PCP - General Family Medicine 12/25/18 Ortho Assistant Relationship Specialty Start Date End Date Albina Roberts MD [address] [facility] [address] [place] [address] PCP - General Family Medicine 12/25/18 Ortho Assistant Relationship Specialty Start Date End Date Albina Roberts MD [address] [facility] [address] [place] [address] PCP - General Family Medicine 12/25/18 Ortho Assistant Relationship Specialty Start Date End Date Albina Roberts MD [facility] [address] [facility] [address] [place] [address] PCP - General Family Medicine 12/25/18 Team Status: Active Member Role/Relationship Status Dates Dr. Albina Roberts MD Primary Care Provider Active Team Status: Inactive Member Role/Relationship Status Dates Dr. Leah Partida DO Emergency Provider Active S tart: June 07, 2025 End: June 07, 2025 Dr. Albina Roberts MD Primary Care Provider Active Start: June 07, 2025 End: June 07, 2025 Ortho Assistant Relationship Specialty Start Date End Date Albina Roberts MD [address] [facility] [place] [address] PCP - General 10/04/17 Ortho Assistant Relationship Specialty Start Date End Date Albina Roberts MD [address] [facility], [address] [place] [address] PCP - General 10/04/17 Ortho Assistant Relationship Specialty Start Date End Date Albina Roberts MD [address] [facility], [address] [place] [address] PCP - General 10/04/17 Ortho Assistant Relationship Specialty Start Date End Date Albina Roberts MD [address] [facility], [address] [place] [address] PCP - General 10/04/17 Ortho Assistant Relationship Specialty Start Date End Date Albina Roberts MD [address] [facility] [place] [address] PCP - General 10/04/17 Ortho Assistant Relationship Specialty Start Date End Date Albina Roberts MD [address] [facility] [place] [address] PCP - General 10/04/17 Ortho Assistant Relationship Specialty Start Date End Date Albina Roberts MD [address] [facility] [place] [address] PCP - General 10/04/17 Goals (unrecognized section and content) Goals may be documented in a n alternate section FOR RECORDS PERTAINING TO PATIENTS WHO ARE OR HAVE BEEN ENROLLED IN A CHEMICAL DEPENDENCY/SUBSTANCEABUSE PROGRAM, SOME INFORMATION MAY BE OMITTED. This clinical summary was aggregated from multiple sources. Caution should be exercised in using it in the provision of clinical care. This summary normalizes information from multiple sources, and as a consequence, information in this document may materially change the coding, format and clinical context of patient data. In addition, data may be omitted in some cases. CLINICAL DECISIONS SHOULD BE BASED ON THE PRIMARY CLINICAL RECORDS. [facility] [employer] [facility]. provides no warranty or guarantee of the accuracy or completeness of information in this document.
--- NOTE | 2025-08-12 15:29 | EKG12_ITS ---
Test Reason : CP Blood Pressure : */* mmHG Vent. Rate : 91 BPM Atrial Rate : 91 BPM P-R Int : 120 ms QRS Dur : 96 ms QT Int : 352 ms P-R-T Axes : 25 1 19 degrees QTcB Int : 432 ms Normal sinus rhythm Normal ECG When compared with ECG of 07-Jun-2025 13:15, No significant change was found Confirmed by Mic Harris ([id number]), managing editor LARRY RTOH ([id number]) on 08/15/2025 8:36:26 AM Referred By: DANILO/PATSY Confirmed By: Mic Harris
--- NOTE | 2025-08-12 15:29 | RAD_ITS ---
PROCEDURE: CHEST PA AND LATERAL 08/12/2025 REASON FOR EXAM: COUGH TECHNIQUE: Procedure Code: RADCXR Modality: DX Procedure: CHEST PA AND LATERAL COMPARISON: 06/07/2025 FINDINGS: Lungs/Pleura: Clear. Heart/Mediastinum: Normal in size. Bones/Soft tissues: No significant abnormality. RAD/Chest PA and Lateral IMPRESSION: No acute pulmonary disease. Reading Location: [id number]
--- NOTE | 2025-08-12 15:32 | EDS_ITS ---
HPI History of Present Illness Chief Complaint: Palpitations Informant: patient Onset/Context/Timing Onset: Month(s) (1) Context: Gradual Onset Timing: Continuous Quality: Dizzy Location: Generalized Worsened by: Nothing Relieved by: Nothing Narrative Narrative: Patient presents with palpitations that have been constant for the past month. Patient states he has seen his environmental emergencies assistant for this. Patient had a stress test done 2 days ago which was normal. Patient states his lisinopril was increased to 30 mg from 20 mg recently. Patient states that his symptoms started just after increasing the dose. Patient states nothing makes his symptoms better nothing makes them worse. Patient states he feels dizzy all over. Patient admits to low-grade fever up to 101. Patient admits to some rhinorrhea and sore throat. Patient also admits to some urinary frequency. Patient admits to nausea but denies any vomiting. Patient also admits to mild headache. [facility] Medical History Chest pain Home Medications Medication Instructions Recorded Last Taken Type lorazepam 1 mg tablet (Ativan) 1 mg PO TID PRN anxiety #10 tabs 06/07/25 Unknown Rx Allergy/AdvReac Type Severity Reaction Status Date / Time No Known Allergies Allergy Verified 08/12/25 13:45 Surgical History no surgical history no surgical history Social History household members: spouse housing: house Smoking Status: Never smoker ROS ROS ED Constitutional Constitutional ED: Reports fever(s); Denies chills Eyes Eyes: Reports blurry vision; Denies diplopia ENT ENT ED: Reports rhinorrhea and sore throat Cardiovascular Cardiovascular: Reports chest pain; Denies palpitations Respiratory/Chest Respiratory/Chest: Denies cough or dyspnea Gastrointestinal Gastrointestinal: Reports nausea; Denies vomiting Genitourinary Genitourinary ED: Reports urinary frequency; Denies dysuria or hematuria Musculoskeletal Musculoskeletal: Reports back pain; Denies neck pain Integumentary Denies abscess or rash Neurologic Neurologic: Reports headache(s); Denies weakness Allergic/Immunologic Allergic/Immunologic ED: Denies mouth swelling or urticaria EXAM Physical Exam Const Vital Signs: 08/12/25 13:42 08/12/25 14:36 08/12/25 14:42 Temperature 98.2 F Temperature Source Temporal Pulse Rate 105 H 89 Pulse Rate [Lying] Pulse Rate [Sitting (for 1 minute prior to obtaining)] Pulse Rate [Standing (for 1 minute prior to obtaining)] Respiratory Rate 18 21 H Respiratory Effort Normal Non-Labored Blood Pressure 152/69 H 116/69 Blood Pressure [Lying] Blood Pressure [Sitting (for 1 minute prior to obtaining)] Blood Pressure [Standing (for 1 minute prior to obtaining)] Blood Pressure Mean 96 84 Blood Pressure Mean [Lying] Blood Pressure Mean [Sitting (for 1 minute prior to obtaining)] Blood Pressure Mean [Standing (for 1 minute prior to obtaining)] Pulse Ox 99 97 Oxygen Delivery Method Room Air Room Air 08/12/25 15:00 08/12/25 15:26 08/12/25 15:29 Temperature Temperature Source Pulse Rate 85 85 Pulse Rate [Lying] 84 Pulse Rate [Sitting (for 1 minute prior to obtaining)] 87 Pulse Rate [Standing (for 1 minute prior to obtaining)] 97 Respiratory Rate 19 H Respiratory Effort Blood Pressure 124/63 H Blood Pressure [Lying] 118/68 Blood Pressure [Sitting (for 1 minute prior to obtaining)] 124/75 H Blood Pressure [Standing (for 1 minute prior to obtaining)] 120/72 Blood Pressure Mean 83 Blood Pressure Mean [Lying] 84 Blood Pressure Mean [Sitting (for 1 minute prior to obtaining)] 91 Blood Pressure Mean [Standing (for 1 minute prior to obtaining)] 88 Pulse Ox 98 Oxygen Delivery Method Room Air 08/12/25 16:00 08/12/25 17:00 Temperature Temperature Source Pulse Rate 81 88 Pulse Rate [Lying] Pulse Rate [Sitting (for 1 minute prior to obtaining)] Pulse Rate [Standing (for 1 minute prior to obtaining)] Respiratory Rate 24 H 15 Respiratory Effort Blood Pressure 114/66 121/67 H Blood Pressure [Lying] Blood Pressure [Sitting (for 1 minute prior to obtaining)] Blood Pressure [Standing (for 1 minute prior to obtaining)] Blood Pressure Mean 82 85 Blood Pressure Mean [Lying] Blood Pressure Mean [Sitting (for 1 minute prior to obtaining)] Blood Pressure Mean [Standing (for 1 minute prior to obtaining)] Pulse Ox 99 100 Oxygen Delivery Method Room Air Room Air Positive well nourished and well developed General Appearance ED: well developed and NAD HEENT Reports moist mucous membranes Neck supple and no JVD Resp normal respiratory effort and clear to auscultation bilaterally Cardio regular rate and regular rhythm GI non-tender and non-distended Palpation: soft Extremity normal to inspection Neuro oriented x3, CN's II-XII intact bilaterally and no sensory deficits noted Sensorium / Orientation: alert Motor Exam: strength 5/5 throughout Psych mental status grossly normal MDM MDM MDM Narrative Medical decision making narrative: Differential diagnosis includes cardiac dysrhythmia, cardiac ischemia, pneumonia, bronchitis, viral illness, new onset diabetes, urinary tract infection, electrolyte abnormality, and anxiety. EKG will be obtained to assess for cardiac dysrhythmia and cardiac ischemia. CT scan of the brain will be obtained to assess for stroke and intracranial bleeding. Chest x-ray will be obtained to assess for pneumonia or bronchitis. CBC will be obtained to assess for leukocytosis and anemia. Basic metabolic profile will be obtained to assess for electrolyte abnormality and renal function. High-sensitivity troponin will be obtained to assess for cardiac ischemia. 2-hour repeat high-sensitivity troponin will be obtained to assess for ongoing cardiac ischemia. Urinalysis will be obtained to assess for urinary tract infection and hematuria. COVID-19, influenza, RSV PCR will be obtained to assess for viral illness. History & Record Review Additional record(s) reviewed:: Prior ED visit and Prior labs Lab Data Attestation: I reviewed the patient's lab results. Lab results narrative: CBC was reviewed and was within normal limits. Basic metabolic profile was reviewed and was within normal limits. High-sensitivity troponin was reviewed and was less than 6. Urinalysis was reviewed. There is no evidence of urinary tract infection or hematuria. COVID-19 PCR was reviewed and was positive. Influenza PCR was reviewed and was negative for influenza A and influenza B. RSV PCR was reviewed and was negative. Labs: Laboratory Results - last 24 hr 08/12/25 08/12/25 14:35 15:22 WBC 7.3 RBC 4.61 Hgb 14.0 Hct 41.6 MCV 90.2 MCH 30.4 MCHC 33.7 RDW Std Deviation 40.0 RDW Coeff of Ciro 12.1 Plt Count 328 MPV 10.0 Immature Gran % (Auto) 0.300 Neut % (Auto) 82.6 H Lymph % (Auto) 4.5 L Woodward % (Auto) 11.5 H Eos % (Auto) 0.4 Baso % (Auto) 0.7 Absolute Neuts (auto) 6.0 Absolute Lymphs (auto) 0.33 L Nucleated RBC % 0 Sodium 135 Potassium 4.1 Chloride 102 Carbon Dioxide 22.7 Anion Gap 11 BUN 13 Creatinine 0.85 Estim Creat Clear Calc 132.83 Est GFR (MDRD) Non-Af 115 BUN/Creatinine Ratio 15.4 Glucose 88 Calcium 9.4 Troponin T High Sens < 6 D Urine Color Straw Urine Clarity Clear Urine pH 6.0 Ur Specific [place] 1.005 Urine Protein Negative Urine Glucose (UA) Normal Urine Ketones Negative Urine Occult Blood Negative Urine Nitrite Negative Urine Bilirubin Negative Urine Urobilinogen Normal Ur Leukocyte Esterase Negative Urine RBC 0 SEEN Urine WBC 0 SEEN Ur Squamous Epith Cells 0 SEEN Urine Bacteria 0 SEEN Urine Mucus 0 SEEN Radiography Chest X-Ray - ED: 2 View, Read by ED Physician, Read by Radiologist and No Acute Disease Diagnostic Testing: Clinical Impression(s) from Imaging Studies Chest X-Ray 08/12/25 15:29 IMPRESSION: No acute pulmonary disease. Reading Location: [facility] Brain CT 08/12/25 16:05 IMPRESSION: Unremarkable head CT. Reading Location: [facility] PA and lateral chest x-ray was obtained. There are 2 views. On my independent interpretation, lung juares are clear. There is normal cardiac silhouette. Bony thorax is normal. There is no acute process noted. Radiologist also interpreted the x-ray and agrees. CT scan of the brain was obtained. There is no acute intracranial abnormality. This was interpreted by the radiologist and was also independently reviewed by myself. EKG Initial EKG: Attestation: I personally reviewed and interpreted this EKG as follows: Interpretation: Sinus Rhythm (91) and No Acute Injury Pattern Comments: EKG was obtained. On my independent interpretation, it showed a normal sinus rhythm with a rate of 91. IN interval, QRS interval, and QTc intervals were all normal. [place] was normal. There are no acute ST or T wave changes. Prior EKG tracings: available for review Prior: Unchanged (06/07/2025) Treatment and Re-Evaluation :: Patient was given IV fluids. Patient was given a dose of Tylenol here. Patient was advised of his findings. Patient was instructed to drink plenty of fluids. Patient was instructed to take Tylenol or ibuprofen as needed for any fevers or headaches. Patient was instructed to follow-up with his primary care physician in 5 to 7 days. Patient was instructed to return if worse in any way. Patient understood and was agreeable with the plan. All questions were answered. Discharge Plan Triage Chief Complaint: Palpitations ED Provider: Suraj Hubbard Dx/Rx/DC Orders Clinical Impression: COVID-19, Hypertension Instructions: Coronavirus Disease 2019 (COVID-19): Overview Prescriptions: No Action lorazepam [Ativan] 1 mg tablet 1 mg PO TID PRN (Reason: anxiety) Qty: 10 0RF Primary Care Provider: Rosario Roberts Referrals: Rosario Roberts MD [Primary Care Provider, Pediatrics] - 5-7 Days Print Language: Czech Disposition Disposition: Home, Self Care
[2025-08-12 15:43] LABS: Hematocrit 41.6 % (40-54); Hemoglobin 14.0 g/dL (13.0-16.5); Immature Granulocytes Count 0.020 X10^3/uL (0.0-0.0); Mean Corp Hgb Conc 33.7 g/dL (32-36); Mean Corpuscular Volume 90.2 fL (80-94); Mean Platelet Vol. 10.0 fl (6.2-12.0); NRBC Flagged by Analyzer 0 % (0-5); POSITIVE DIFFERENTIAL YES; Platelet Count 328 K/mm3 (150-450); RBC Distribution Width CV 12.1 % (11.6-14.6); RBC Distribution Width SD 40.0 fl (35.1-43.9); Red Blood Count 4.61 M/mm3 (4.6-6.2); White Blood Count 7.3 K/mm3 (4.4-11.0)
[2025-08-12 15:51] LABS: Mucous, Urine 0 SEEN /hpf (<or=2+); Red Blood Cells-Urine 0 SEEN /hpf (0-5); Squamous Epithelial Cells - UA 0 SEEN /hpf (0-5)
[2025-08-12 15:54] LABS: Color, Urine Straw (Yellow); Glucose, Dipstick Normal (Normal); Ketone-Dipstick Negative (Negative); Leukocyte Esterase-Dipstick Negative /ul (Negative); Nitrite-Dipstick Negative (Negative); Occult Blood-Urine Negative /ul (Negative); Protein-Dipstick Negative (Negative); Specific Gravity, Urine 1.005 (1.002-1.030); Urine Bilirubin Dipstick Negative (Negative)
[2025-08-12] MEDS: 0.9% Normal Saline (1000mL) 1,000 ML 1000 ML IV (15:55)
[2025-08-12 16:05] LABS: Anion Gap 11 (5-15); BUN 13 mg/dL (4-19); BUN/Creat Ratio 15.4 RATIO (10-20); Calcium,Total 9.4 mg/dL (7.6-11.0); Carbon Dioxide 22.7 mmol/L (21.0-32.0); Chloride 102 mmol/L (98-108); Estimated Creatinine Clearance 132.83 ml/min (50-250); Glucose 88 mg/dL (70-99); Potassium 4.1 mmol/L (3.3-5.1)
--- NOTE | 2025-08-12 16:05 | CT_ITS ---
PROCEDURE: CT BRAIN/HEAD WITHOUT CONTRAST 08/12/2025 REASON FOR EXAM: HEADACHE TECHNIQUE: Procedure Code: CTBR Modality: CT Procedure: BRAIN/HEAD WITHOUT CONTRAST Coronal and Sagittal reconstruction series were provided. One or more dose reduction techniques were used (e.g., Automated exposure control, adjustment of the mA and/or kV according to patient size, use of iterative reconstruction technique. RADIATION DOSE SUMMARY: CTDlvol: 44.99 mGy DLP: 846.73 mGycm COMPARISON: CT head/angiography 06/07/2025. FINDINGS: No acute intracranial hemorrhage, extra-axial collection, mass effect or evidence of acute infarct. Ventricles and subarachnoid spaces are normal in size. Orbital contents are unremarkable. Intact skull base and calvarium. Well-aerated paranasal sinuses and mastoid air cells. CT/Brain/Head without Contrast IMPRESSION: Unremarkable head CT. Reading Location: [id number]
[2025-08-12 16:28] LABS: Troponin T High Sensitivity < 6 ng/L (<=22)
== END 2025-08-12 18:03 | disposition home or self-care (01) ==
PROVIDERS: Emergency Provider Emergency Medicine; PCP General Practice; Visit Provider Emergency Medicine
DX: U07.1 COVID-19 (principal); R35.0 Frequency of micturition; R00.2 Palpitations; I10 Essential (primary) hypertension; J02.9 Acute pharyngitis, unspecified; J34.89 Other specified disorders of nose and nasal sinuses; R11.0 Nausea; R07.9 Chest pain, unspecified; M54.9 Dorsalgia, unspecified; R51.9 Headache, unspecified
CPT/HCPCS: 70450; 71046; 80048; 81001; 84484; 85025; 87631; 93005; 96360; 96361; 99285